=== PATIENT | female | born 1955 | race Hispanic/Latino ===

== ENCOUNTER 2016-05-18 00:16 | Inpatient (IN) | payer BC, OTHER ==
[2016-05-18 00:29] VITALS: BMI 42.0
--- NOTE | 2016-05-18 00:57 | ED PDOC ---
Arrival/HPI - General Chief Complaint: Chest Pain Time Seen by Provider: 05/18/16 00:21 Historian: Patient - History of Present Illness Narrative History of Present Illness (Text): 05/18/16 00:53 Kristina Rosas is a 60 year old female, whose past medical history includes COPD, fatty liver, CAD with 6 stents, and appendectomy, presents to the emergency department for evaluation of transient chest pain, mild headache and shoulder pain prior to arrival. Patient states that symptoms have currently resolved. Denies any shortness of breath. Denies fever, chills, dizziness, nausea, vomiting, diarrhea, urinary symptoms or any other complaints at this time. Time/Duration: 1-3 hours Symptom Onset: Gradual Symptom Course: Resolved Severity Level: Mild Activities at Onset: Light Context: Home Past Medical History - Provider Review Nursing Documentation Reviewed: Yes - Cardiac Hx Hypertension: Yes Hx Pacemaker: No Other/Comment: 6 cardiac stents/right leg stents and balloon - Pulmonary Hx Chronic Obstructive Pulmonary Disease (COPD): Yes - Neurological Hx Neurological Disorder: No Hx Paralysis: No - HEENT Hx HEENT Disorder: No Hx Blind: No Hx Cataracts: No Hx Deafness: No Hx Difficulty Chewing: No Hx Epistaxis: No Hx Glaucoma: No Hx Macular Degeneration: No - Renal Hx Renal Disorder: No Hx Renal Failure: No - Endocrine/Metabolic Hx Diabetes Mellitus Type 1: No Hx Diabetes Mellitus Type 2: Yes Hx Hypothyroidism: Yes - Hematological/Oncological Hx Blood Disorders: No Hx Blood Transfusions: No Hx Blood Transfusion Reaction: No - Integumentary Hx Dermatological Disorder: No Hx Basal Cell Carcinoma: No Hx Eczema: No Hx Melanoma: No Hx Psoriasis: No Hx Squamous Cell Carcinoma: No - Musculoskeletal/Rheumatological Hx Musculoskeletal Disorders: No - Gastrointestinal Hx Gastrointestinal Disorders: No Hx Colostomy: No Hx Crohn's Disease: No Hx Diverticulitis: No Hx Gall Bladder Disease: No Hx Gastroesophageal Reflux: No Hx Gastrointestinal Ulcer: No Hx Ileostomy: No Hx Liver Failure: Yes (fatty liver) Hx Pancreatitis: No HX Swallowing Problems: No - Genitourinary/Gynecological Hx Genitourinary Disorders: No Hx Hematuria: No Hx Incontinence: No Hx Prostate Problems: No Hx Sexually Transmitted Diseases: No Hx Urinary Tract Infection: No - Psychiatric Hx Anxiety: Yes Hx Emotional Abuse: No Hx Physical Abuse: No Hx Substance Use: No - Surgical History Hx Appendectomy: Yes (1976) Other/Comment: ptca x2 with 6 stents total, 3 stents 05/18/12 developed hematoma post ptca 05/18/12, fem angiogram 01/13/12, right leg angiogram 06/19/12, ptca 10/01 - Anesthesia Hx Anesthesia Reactions: Yes ("MY BODY DOESN'T TAKE IT",I FEEL EVERYTHING") Hx Malignant Hyperthermia: No - Suicidal Assessment Feels Threatened In Home Enviroment: No Family/Social History - Physician Review Nursing Documentation Reviewed: Yes Family/Social History: No Known Family HX Smoking Status: Light Smoker < 10 Cigarettes Daily Hx Alcohol Use: No Hx Substance Use: No Hx Substance Use Treatment: No Allergies/Home Meds Allergies/Adverse Reactions: Allergies No Known Allergies Allergy (Verified 01/11/15 21:) Home Medications: Home Meds Medication Instructions Recorded Confirmed Furosemide [Lasix] 40 mg PO DAILY 10/19/11 03/03/15 Glipizide 10 mg PO DAILY 10/19/11 03/03/15 Levothyroxine [Synthroid] 112 mcg PO QA 10/19/11 03/03/15 Sitagliptin Phosphate [Januvia] 100 mg PO DAILY 10/19/11 03/03/15 Metoprolol Tartrate [Lopressor] 25 mg PO DAILY 10/21/11 03/03/15 Metformin Hydrochloride [Metformin] 1,000 mg PO BID 12/28/11 03/03/15 Cilostazol [Cilostazol] 50 mg PO BID 09/14/13 03/03/15 Docusate [Colace] 100 mg PO BID 11/19/14 03/03/15 Gabapentin 100 mg PO HS 11/19/14 03/03/15 Iron Carb,Gl/FA/B12/C/Docusate 1 tab PO DAILY 11/19/14 03/03/15 [Ferralet 90] Lisinopril 20 mg PO DAILY 11/19/14 03/03/15 Lubiprostone [Amitiza] 24 mcg PO BID 11/19/14 03/03/15 Pantoprazole Sodium [Protonix] 40 mg PO DAILY 11/19/14 03/03/15 Phenazopyridine Hydrochlorid2 200 mg PO HS 11/19/14 03/03/15 [Phenazopyridine HCl] Promethazine/Dextromethorphan 1 tsp PO HS PRN 11/19/14 03/03/15 [Promethazine Dm 15 mg/5 ml-6.25 mg/5 ml 118 M] Ropinirole Hydrochloride [Requip] 0.25 mg PO HS 11/19/14 03/03/15 Allopurinol 300 mg PO DAILY 03/03/15 03/03/15 Atorvastatin [Lipitor] 40 mg PO DAILY 03/03/15 03/03/15 Review of Systems - Physician Review All systems were reviewed & negative as marked: Yes - Review of Systems Constitutional: Normal. absent: Fatigue, Fevers Respiratory: absent: SOB, Cough, Sputum Cardiovascular: Chest Pain Neurological: Headache. absent: Dizziness Psychiatric: Normal Physical Exam Vital Signs Reviewed: Yes Vital Signs Temp Pulse Resp BP Pulse Ox 05/18/16 04:51 68 16 134/66 97 05/18/16 00:27 97.7 F 86 18 109/63 99 Temperature: Afebrile Blood Pressure: Normal Pulse: Regular Respiratory Rate: Normal Appearance: Positive for: Well-Appearing, Non-Toxic, Comfortable Pain Distress: None Mental Status: Positive for: Alert and Oriented X 3 - Systems Exam Head: Present: Atraumatic, Normocephalic Pupils: Present: PERRL Extroacular Muscles: Present: EOMI Conjunctiva: Present: Normal Respiratory/Chest: Present: Clear to Auscultation, Good Air Exchange. No: Respiratory Distress, Accessory Muscle Use Cardiovascular: Present: Regular Rate and Rhythm, Normal S1, S2. No: Murmurs Abdomen: Present: Normal Bowel Sounds. No: Tenderness, Distention, Peritoneal Signs Neurological: Present: GCS=15, CN II-XII Intact, Speech Normal Skin: Present: Warm, Dry, Normal Color. No: Rashes Psychiatric: Present: Alert, Oriented x 3, Normal Insight, Normal Concentration Medical Decision Making ED Course and Treatment: 05/18/16 00:58 Impression: A 60 year old female who presents to the emergency department complaining of transient chest pain, headache and shoulder pain, which has currently resolved. Plan: --EKG -- Labs, cardiac enzymes -- Chest X-ray -- Reassess and disposition Progress Notes: 05/18/16 00:59 EKG interpreted by me: NSR @ 83 bpm. LVH. Anteroseptal scar. Non-specific ST/T changes. 05/18/16 03:19 2nd EKG interpreted by me: NSR @ 82. no change from first pt with a elevated troponin of 3.53. Case discussed with who accepts patient under her service with , human relations manager, on consult. - Lab Interpretations Lab Results: 05/18/16 01:00 05/18/16 01:00 Lab Results 05/18/16 12:12: POC Glucose (mg/dL) 328 H 05/18/16 09:25: Lactate Dehydrogenase 579, Total Creatine Kinase 361 H, CK-MB ( CK-2) 10.3 H, CK-MB (CK-2) % 2.9, Troponin I 4.85 H* D, TSH 3rd Generation 28.70 H 05/18/16 07:56: POC Glucose (mg/dL) 200 H 05/18/16 01:00: WBC 9.9, RBC 5.46, Hgb 12.3, Hct 38.9, MCV 71.2 L, MCH 22.5 L, MCHC 31.6, RDW 16.0 H, Plt Count 287, PT 11.5, INR 1.06, APTT 29.9, Sodium 138, Potassium 4.1, Chloride 106, Carbon Dioxide 20 L, Anion Gap 16, BUN 60 H, Creatinine 2.8 H, Est GFR ( Amer) 21, Est GFR (Non-Af Amer) 17, Random Glucose 267 H, Hemoglobin A1c 9.4 H D, Calcium 9.4, Total Bilirubin 0.5, AST 38 , ALT 17, Alkaline Phosphatase 108, Lactate Dehydrogenase 620, Total Creatine Kinase 326 H, CK-MB (CK-2) 11.0 H, CK-MB (CK-2) % 3.4 H, Troponin I 3.53 H* D, Total Protein 7.6, Albumin 4.0, Globulin 3.6, Albumin/Globulin Ratio 1.1, Triglycerides 669 H, Cholesterol 293 H, LDL Cholesterol Direct 152 H, HDL Cholesterol 43 I have reviewed the lab results: Yes - RAD Interpretation Radiology Orders: 05/18/16 00:39 CHEST PORTABLE [RAD] Stat Wire Charger: ED Physician - EKG Interpretation Interpreted by ED Physician: Yes Type: 12 lead EKG - Medication Orders Current Medication Orders: Acetaminophen (Tylenol 325mg Tab) 650 mg PO TID PRN PRN Reason: Headache Arformoterol Tartrate (Brovana) 15 mcg IH [id number] [facility] Aspirin (Ecotrin) 81 mg PO DAILY [facility] Last Admin: 05/19/16 11:07 Dose: 81 MG Atorvastatin Calcium (Lipitor) 80 mg PO DIN [facility] Last Admin: 05/19/16 19:04 Dose: 80 MG Budesonide (Pulmicort Respules) 0.5 mg IH [id number] [facility] Cilostazol (Pletal) 50 mg PO BID [facility] Last Admin: 05/19/16 19:04 Dose: 50 MG Clopidogrel Bisulfate (Plavix) 75 mg PO DAILY [facility] Last Admin: 05/19/16 11:09 Dose: 75 MG Docusate Sodium (Colace) 100 mg PO BID [facility] Last Admin: 05/19/16 19:04 Dose: 100 MG Enoxaparin Sodium (Lovenox) 90 mg SC Q24H [facility] PRN Reason: Protocol Last Admin: 05/19/16 14:03 Dose: Not Given Non-Admin Reason: Patient Refused Fenofibrate (Tricor) 145 mg PO DAILY [facility] Last Admin: 05/19/16 11:06 Dose: 145 MG Gabapentin (Neurontin) 100 mg PO [facility] PRN Reason: Protocol Last Admin: 05/18/16 22:05 Dose: 100 MG Behavioural Document 05/18/16 22:05 KIM (Rec: 05/18/16 22:06 KIM [id number]) Maintenance Maintenance Dose Yes Nonmedicinal Nonmedicinal Interventions Redirect Therapeutic Communication Glipizide (Glucotrol) 10 mg PO ACB [facility] Last Admin: 05/19/16 11:08 Dose: 10 MG Hydralazine HCl (Apresoline) 10 mg PO QID PRN PRN Reason: For SBP>170 and Diastolic>100 Last Admin: 05/19/16 11:09 Dose: 10 MG Insulin Human Regular (Humulin R Low) 0 units SC ACHS [facility] PRN Reason: Protocol Last Admin: 05/19/16 19:07 Dose: Not Given Non-Admin Reason: Blood Sugar Parameter Levothyroxine Sodium (Synthroid) 200 mcg PO ACB [facility] Last Admin: 05/19/16 08:39 Dose: 200 MCG Metoprolol Tartrate (Lopressor) 25 mg PO BID [facility] Last Admin: 05/19/16 19:04 Dose: 25 MG MAR Pulse and Blood Pressure Document 05/19/16 19:04 NM (Rec: 05/19/16 19:04 NM [facility] [id number]) Pulse Pulse Rate (60-90) 74 Non-Formulary Medication (Ropinirole Hydrochloride [Requip]) 0.25 mg PO HS [facility] Last Admin: 05/18/16 22:00 Dose: Pantoprazole Sodium (Protonix Ec Tab) 40 mg PO 0630 [facility] Last Admin: 05/19/16 06:31 Dose: 40 MG Pantoprazole Sodium (Protonix Ec Tab) 40 mg PO DAILY [facility] Last Admin: 05/19/16 11:10 Dose: Sitagliptin Phosphate (Januvia) 25 mg PO DAILY [facility] Last Admin: 05/19/16 11:09 Dose: 25 MG Discontinued Medications Acetaminophen (Tylenol 325mg Tab) 650 mg PO ONCE ONE Stop: 05/18/16 11:16 Last Admin: 05/18/16 11:25 Dose: 650 MG MAR Pain/Vitals Document 05/18/16 11:25 JOSE A (Rec: 05/18/16 11:25 JOSE A [id number] Pain Reassessment Is This A Pain ReAssessment? No Sleep Is patient sleeping during reassessment? No Presence of Pain Presence of Pain No Acetaminophen (Tylenol 325mg Tab) 650 mg PO Q3H PRN PRN Reason: Headache Aspirin (Aspirin) 325 mg PO ONCE STA Stop: 05/18/16 02:06 Last Admin: 05/18/16 02:13 Dose: 325 MG Docusate Sodium (Colace) 100 mg PO BID [facility] Last Admin: 05/19/16 19:29 Dose: Insulin Human Regular (Humulin R Low) 0 units SC ACHS [facility] PRN Reason: Protocol Last Admin: 05/19/16 14:10 Dose: Levothyroxine Sodium (Synthroid) 112 mcg PO ACB [facility] Last Admin: 05/18/16 11:10 Dose: 112 MCG Pantoprazole Sodium (Protonix Ec Tab) 40 mg PO STAT STA Stop: 05/18/16 11:31 Last Admin: 05/18/16 11:39 Dose: 40 MG Sitagliptin Phosphate (Januvia) 100 mg PO DAILY [facility] - Scribe Statement The provider has reviewed the documentation as recorded by the Joao Tang Provider Attestation: All medical record entries made by the Scribe were at my direction and personally dictated by me. I have reviewed the chart and agree that the record accurately reflects my personal performance of the history, physical exam, medical decision making, and the department course for this patient. I have also personally directed, reviewed, and agree with the discharge instructions and disposition. Disposition/Present on Arrival - Present on Arrival Any Indicators Present on Arrival: No History of DVT/PE: No History of Uncontrolled Diabetes: No Urinary Catheter: Yes (inserted in or) History of Decub. Ulcer: No History Surgical Site Infection Following: None - Disposition Have Diagnosis and Disposition been Completed?: Yes Diagnosis: Chest pain Disposition: HOSPITALIZED Disposition Time: 03:05 Patient Plan: Observation Patient Problems: Current Active Problems Problem Status Diagnosed Chest pain Acute Diabetes mellitus with peripheral vascular disease Acute Intracerebral hemorrhage Acute Peripheral arterial occlusive disease Acute Condition: STABLE
[2016-05-18 01:34] LABS: HEMATOCRIT 38.9 % (36.0-48.0); MEAN CELL VOLUME 71.2 fL (80.0-105.0); MEAN CORPUSCULAR HEMOGLOBIN 22.5 pg (25.0-35.0); MEAN CORPUSCULAR HGB CONC 31.6 g/dl (31.0-37.0); PLATELET COUNT 287 10^3/uL (120.0-450.0); WHITE BLOOD COUNT 9.9 10^3/ul (4.5-11.0)
[2016-05-18 01:40] LABS: INR 1.06 (0.93-1.08); PARTIAL THROMBOPLASTIN TIME 29.9 Seconds (23.7-30.8)
[2016-05-18 01:45] LABS: ALB/GLOB RATIO 1.1 (1.1-1.8); BILIRUBIN,TOTAL 0.5 mg/dL (0.2-1.3); CALCIUM 9.4 mg/dL (8.4-10.5); POTASSIUM 4.1 mmol/L (3.6-5.0); TOTAL PROTEIN 7.6 g/dL (5.8-8.3)
[2016-05-18 02:04] LABS: TROPONIN I 3.53 ng/mL
[2016-05-18 08:28] LABS: CHOLESTEROL 293 mg/dL (130-200)
[2016-05-18 10:13] LABS: TROPONIN I 4.85 ng/mL
[2016-05-18] MEDS ORDERED: Levothyroxine 112 MCG TAB PO SCH (10:30)
--- NOTE | 2016-05-18 10:52 | RAD ---
HISTORY: pain COMPARISON: Comparison is made to 01/16/2015 FINDINGS: LUNGS: No evidence of new infiltrate or consolidation in the lungs. PLEURA: No significant pleural effusion identified, no pneumothorax apparent. CARDIOVASCULAR: The cardiac silhouette is mildly enlarged. OSSEOUS STRUCTURES: No significant abnormalities. VISUALIZED UPPER ABDOMEN: Normal. OTHER FINDINGS: None. IMPRESSION: No significant interval change.
[2016-05-18] MEDS ORDERED: Pantoprazole 40 mg EC Tab PO STA (11:30)
[2016-05-18] MEDS: Enoxaparin 100 mg Syringe SC SCH (13:05)
[2016-05-18] MEDS: Insulin Reg-LOW-Coverage SC SCH ×3 (16:56→22:04)
--- NOTE | 2016-05-18 18:05 | CARD ---
APPROVED REPORT EKG Measurement Heart [id number] 170P46 [id number] <Conclusion> Normal sinus rhythm Possible Left atrial enlargement Left ventricular hypertrophy with repolarization abnormality Anteroseptal infarct, age undetermined Abnormal ECG
--- NOTE | 2016-05-18 18:08 | CARD ---
APPROVED REPORT EKG Measurement Heart [id number] 170P40 [id number] <Conclusion> Normal sinus rhythm Possible Left atrial enlargement Left ventricular hypertrophy with repolarization abnormality Cannot rule out Septal infarct, age undetermined Abnormal ECG
[2016-05-18] MEDS ORDERED: CILOSTAZOL 50 MG PO SCH (19:45)
--- NOTE | 2016-05-18 21:06 | HP ---
CHIEF COMPLAINT: Chest pain. HISTORY OF PRESENT ILLNESS: The patient is a 60-year-old, my private patient, has a history of chronic obstructive pulmonary disease, coronary artery disease with cardiac stent, appendectomy, obesity, came to the Emergency Room for evaluation of sudden onset chest pain, mild headache, with shoulder pain. Prior to arrival, patient stated that symptoms have currently resolved. Actually, I saw the patient in telemetry. The patient was symptom-free. No shortness of breath, no fever, no chills, no dizziness. No nausea, vomiting, or diarrhea. No hematuria or hematochezia. No fever, no chills. PAST MEDICAL HISTORY: As above, hypertension, 6 cardiac stents, right leg stent and balloon, COPD, diabetes mellitus type 2, uncontrolled, hypothyroidism , fatty liver, anxiety. SURGICAL HISTORY: Appendectomy. FAMILY HISTORY: Father and mother noncontributory. HABITS: Light smoker, less than 10 cigarettes per day. Alcohol no. Substance abuse no. ALLERGIES: The patient is not allergic to any medications. HOME MEDICATIONS: Lasix, glipizide, Synthroid, Januvia, Lopressor, Colace, gabapentin, Amitiza, Protonix, Requip. REVIEW OF SYSTEMS: The patient seen and examined on the bedside in telemetry, sitting on the chair. No more chest pain. No nausea, vomiting, or diarrhea. No hematuria or hematochezia. No fever, no chills. No headache, no dizziness. PHYSICAL EXAMINATION: VITAL SIGNS: Temperature 97.9, pulse 71, blood pressure 122/70, respiratory rate 20. HEENT: Head normocephalic, atraumatic. Eyes: PERRLA. Extraocular muscles intact. Conjunctivae pink. Eyelids unremarkable. Nose patent. Mucous membranes moist. NECK: Supple. No carotid bruit, JVD or thyromegaly. CHEST: Bilaterally symmetrical. HEART: S1, S2 positive. LUNGS: Clear to auscultation. ABDOMEN: Soft. Bowel sounds present. No organomegaly. EXTREMITIES: No edema, no cyanosis. NEUROLOGIC: The patient is awake, alert, moving all 4 extremities. No focal deficit. LABORATORY DATA: White blood cells 9.9, hemoglobin 12.3, hematocrit 38.9, platelets 287. Glucose 266, 328. Troponin 4.85. ____ . Sodium 138, potassium 4.1, BUN 60, creatinine 2.8. ASSESSMENT AND PLAN: The patient is a 60-year-old lady with renal insufficiency , acute on chronic, hyperglycemia, uncontrolled diabetes mellitus, hemoglobin A1c is 9.4. Two sets of troponin is positive. Waiting for the third. Hypothyroidism, uncontrolled. Need to increase levothyroxine. Hypertriglyceridemia, hypercholesterolemia, came with chest pain, history of chronic obstructive pulmonary disease, coronary artery disease, status post 6 times cardiac stenting. Called cardiology consult. The patient seen by Dr. George. Waiting for the input. for triglyceride, on Crestor. thyroid medicine. GI and DVT prophylaxis. Repeat labs. We will follow up. Gisel Mccord MD cc: [id number] TT: 05/18/2016 21:05:22 mathew MCADAMS
[2016-05-18] MEDS: ROPINIROLE HYDROCHLORIDE 0.25 MG PO SCH (22:00)
[2016-05-19 00:52] VITALS: O2SAT 100
[2016-05-19] MEDS: Pantoprazole 40 mg EC Tab PO SCH ×2 (06:31→11:10)
[2016-05-19 07:17] LABS: ADD MANUAL DIFF? NO
[2016-05-19 07:32] LABS: BASO # 0.07 K/mm3 (0.0-2.0); BASO % 0.8 % (0.0-3.0); EOS # 0.3 (0.0-0.7); EOS % 3.4 % (1.5-5.0); GRAN # 5.77 (1.4-6.5); GRAN % 62.6 % (50.0-68.0); HEMATOCRIT 39.5 % (36.0-48.0); LYMPH # 2.4 (1.2-3.4); LYMPH % 25.8 % (22.0-35.0); MEAN CELL VOLUME 72.1 fL (80.0-105.0); MEAN CORPUSCULAR HEMOGLOBIN 22.3 pg (25.0-35.0); MEAN CORPUSCULAR HGB CONC 30.9 g/dl (31.0-37.0); MONO # 0.7 (0.1-0.6); MONO % 7.4 % (1.0-6.0); PLATELET COUNT 269 10^3/uL (120.0-450.0); WHITE BLOOD COUNT 9.2 10^3/ul (4.5-11.0)
[2016-05-19 07:54] LABS: ALB/GLOB RATIO 1.1 (1.1-1.8); BILIRUBIN,TOTAL 0.6 mg/dL (0.2-1.3); CALCIUM 9.2 mg/dL (8.4-10.5); MAGNESIUM 2.4 mg/dL (1.7-2.2); PHOSPHOROUS 4.1 mg/dL (2.5-4.5); POTASSIUM 4.4 mmol/L (3.6-5.0); TOTAL PROTEIN 7.5 g/dL (5.8-8.3)
--- NOTE | 2016-05-19 08:26 | CON ---
DATE: 05/18/2016 REASON FOR CONSULTATION AND FOLLOWUP: Possible [id number] myocardial infarction, acute kidney in jury, diabetes, hypertension, hyperlipidemia, CAD. BRIEF CLINICAL HISTORY: This is a 60-year-old obese female with a past medical history significant f or PAD, status post TRANSFER AGENT, history of CAD, status post multiple stents, diabetes, hypertension, hyperli pidemia, chronic kidney injury. Came in with complaint of headache, then with back pain. Then, pain went to the front of the chest and mid sternal. Came to the Emergency Room. First troponin was pos itive. Repeat troponin pending. Denies any further episode of chest pain. PAST HISTORY: Significant for coronary artery disease status post multiple stents. Past history sig nificant for coronary artery disease, status multiple stents in the coronaries. Last stent in the co ronaries 09/2013. History of severe PAD, history of PTCA of right femoral artery occluded 10/06/2013, h istory of tPA, ____. Postop complicated by intracerebral bleed, left frontal lobe. Weakness complet winter resolved but patient gets off and on headache. Diabetes, hypertension, hyperlipidemia. SOCIAL HISTORY: Quit smoking 2 years ago. Denies any history of alcohol abuse. PREVIOUS CARDIAC WORKUP: As mentioned, history of multiple stents in the coronaries, last stent 10/17 13. Last PTCA of right femoral SFA 10/06/2013 with ____ and ____. Last echo 01/12/2015 shows ejection fraction 55%, trace aortic regurgitation, aortic sclerosis, mild ____, uygl-ji-guilriqx mitral regur gitation, yxln-wo-egakmwee tricuspid regurgitation, RV systolic pressure 43. REVIEW OF SYSTEMS: As per HPI. PHYSICAL EXAMINATION: As follows: VITAL SIGNS: Temperature afebrile, heart rate 77, blood pressure 143/73. HEENT: PERRLA, intact. NECK: Supple. No carotid bruits. No thyromegaly. CHEST: Clear to auscultation. HEART: S1, S2 regular. ABDOMEN: Soft. EXTREMITIES: Clubbing and cyanosis negative. BLOOD WORKUP: As follows: WBC 9.9, hemoglobin 12.3, hematocrit 38.9, platelet count 287. Chemistry shows sodium 138, potassium 4.1, chloride ____, carbon dioxide 20, anion gap of 16, BUN 60, creatini ne 2.8 with a creatinine clearance 70 mL ____. EKG shows normal sinus, some ____, no LVH with strain left anterior hemiblock. No acute ST-T changes noted. Last stress test 03/03/2015 shows partially reversible defect suspicious for ischemia. When compared from 09/14/2013 this is similar except there is less ____ on the current study. Ejection fraction 54% dated 03/03/2015. IMPRESSION: Bfk-WU-[id number] myocardial infarction, coronary artery disease, stress test abnormal 2015. Decided to treat medically because of the underlying coronary artery disease and patient is as ymptomatic. The patient admitted this time with chest pain, possible ebz-JJ-dzelwua myocardial infar ction with stage III, stage IV chronic kidney disease, diabetes, hypertension, hyperlipidemia, severe peripheral arterial disease, status post percutaneous transluminal angioplasty in 10/2013, last coron ian stent in 05/2013. RECOMMENDATIONS: Will follow up CPK, troponin trend. If the trend down and renal function remains e levated, we will treat medically if the patient remains asymptomatic. If the patient becomes symptom atic, we will consider cardiac catheterization. ____ very high risk patient, may end up in dialysis. Discussed in length with the patient this morning. The patient also opting for medical treatment. We will get echo, we will get lipid profile, follow up serial CPK, troponin. Resume medication. We will follow with you. Thank you, Dr. Mccord, for providing us the opportunity in taking care of the patient. Sruthi George MD cc: [id number] TT: 05/18/2016 16:04:34 Confirmation # [id number] Dictation # [id number]
[2016-05-19 08:35] LABS: TROPONIN I 5.63 ng/mL
[2016-05-19] MEDS: Insulin Reg-LOW-Coverage SC SCH ×5 (08:39→22:30)
[2016-05-19] MEDS: Levothyroxine 200 MCG TAB PO SCH (08:39)
[2016-05-19] MEDS ORDERED: GLIPIZIDE 10 MG PO SCH (10:00)
[2016-05-19] MEDS: Cilostazol 50 mg Tab UD PO SCH ×2 (11:07→19:04)
[2016-05-19] MEDS: Enoxaparin 100 mg Syringe SC SCH (14:03)
--- NOTE | 2016-05-19 16:34 | CON ---
DATE: 05/19/2016 REFERRING PHYSICIAN: Dr. Mccord. REASON FOR CONSULT: Chronic obstructive lung disease, may have sleep apnea syndrome. HISTORY OF PRESENT ILLNESS: This is a 60-year-old female with multiple medical problems, but noncomp liant with the followup, history of lung disease, coronary artery disease, history of coronary stent, morbid obesity, suspected sleep apnea syndrome, refused to do sleep study as outpatient, comes in [facility] nonspecific chest pain, seen by cardiology. Presently, sitting side of the bed. No headache, no rhinitis. Short of breath with exertion. No nausea, vomiting, diarrhea. Trace leg swelling. PAST MEDICAL HISTORY: History of coronary artery disease with multiple coronary stents and angioplas ty, chronic obstructive lung disease, diabetes, hypertension, anxiety disorder, obesity, and fatty li montez. SOCIAL HISTORY: Still active smoker. Denies any alcohol use. FAMILY HISTORY: Positive for coronary artery disease, sleep apnea syndrome, hypertension, diabetes. ALLERGIES: None known. MEDICATIONS: She is on hydralazine 10 mg q.i.d. p.r.n., Colace 100 mg twice a day, Ecotrin [address], glipizide 10 mg ACB, Januvia 25 mg daily, Lipitor 80 mg daily, metoprolol tartrate 25 mg twice a day, Lovenox 90 mg subQ daily, Neurontin 100 mg at bedtime, Plavix 75 mg daily, Pletal 50 mg twice a day, Protonix 40 mg daily, Requip 0.25 mg at bedtime, Synthroid 200 mcg ACB, Tricor 145 mg daily. REVIEW OF SYSTEMS: No headache, no rhinitis. Gets short of breath, admitted with chest pain. No na usea, no vomiting, no diarrhea. Trace leg swelling. PHYSICAL EXAMINATION: GENERAL: Sitting side of the bed, no acute distress. VITAL SIGNS: Temp is 98, heart rate is 58, respiratory rate is 20, blood pressure 107/51, pulse ox 1 00% on room air. HEENT: Moist mucous membranes. Crowded airway. Mallampati score is 4. NECK: Supple. No JVD. LUNGS: Have a few scattered rhonchi. HEART: S1 and S2. ABDOMEN: Obese, soft, and nontender. EXTREMITIES: There is trace edema. NEUROLOGIC: Awake, alert, follows simple commands. LABORATORY DATA: Shows hemoglobin 12.2, hematocrit 39.5, WBC 9.2, platelet count is 269. INR 1.06, PTT is 30. Sodium 139, potassium 4.4, chloride 108, bicarbonate is 22, BUN 46, creatinine 2.2, gluco se 138, calcium 9.2, phosphorus 4.1, magnesium 2.4, AST 33, ALT 30, alk phos is 99, LDH 639, troponin 5.63, and albumin is 3.9. TSH was 28 on admission. Had a chest x-ray done on admission showing no infiltrate or effusion noted. IMPRESSION AND PLAN: Coronary artery disease, admitted with myocardial infarction. May have a sleep apnea syndrome. Diabetes, hypothyroid, probably noncompliant, as her TSH is high. Hyperlipidemia, suspected sleep apnea syndrome, chronic lung disease. The patient was seen by cardiology, on anticoa gulation and gastric prophylaxis. Also, has renal insufficiency. Pulmonary point of view, continue bronchodilator, keep head elevated at 45 degrees. Gastric and deep venous thrombosis prophylaxis. F all precaution. We will recommend again PFT and attended sleep study as outpatient. Followup labs i n the morning. Thank you and we will follow with you. Sruthi Holland MD cc: [id number] TT: 05/19/2016 16:33:56 Confirmation # [id number] Dictation # [id number]
--- NOTE | 2016-05-19 19:03 | CARD ---
APPROVED REPORT EXAM: Two-dimensional and M-mode echocardiogram with Doppler and color Doppler. INDICATION Chest Pain LVFX 2D DIMENSIONS Left Atrium (2D)4.0 (1.6-4.0cm)IVSd1.6 (0.7-1.1cm) LVDd4.6 (3.9-5.9cm)PWd1.6 (0.7-1.1cm) LVDs3.4 (2.5-4.0cm)FS (%) 25.4 % LVEF (%)50.2 (>50%) M-Mode DIMENSIONS Aortic Root2.70 (2.2-3.7cm)Aortic Cusp Exc.1.50 (1.5-2.0cm) Aortic Valve AoV Peak Csesayze600.0cm/sAoV VTI35.1cmAO Peak GR.11mmHg LVOT Peak Prdzntcm52.9cm/sLVOT VTI16.20cmAO Mean GR.7mmHg Mitral Valve MV E Ftzjawke89.7cm/sMV A Xqacsyng41.7cm/sE/A ratio0.7 TDI Lateral E' Peak V3.80cm/sMedial E' Peak V3.90cm/sE/Lateral E'16.2 E/Medial E'15.8 Pulmonary Valve PV Peak Fkcnbkes04.7cm/sPV Peak Grad.2mmHg Tricuspid Valve TR Peak Obeeqxgr804xd/sRAP LEUYASKG30cxAsDJ Peak Gr.20mmHg [id number] LEFT VENTRICLE The left ventricle is normal size. There is mild concentric left ventricular hypertrophy. The systolic function is mildly impaired.EF-35% There is moderate to severe hypokinesis in the apical anterior wall. Transmitral Doppler flow pattern is Grade III-reversible restrictive diastolic dysfunction. No left ventricle thrombus noted on this study. There is no ventricular septal defect visualized. There is no left ventricular aneurysm. There is no mass noted in the left ventricle. RIGHT VENTRICLE The right ventricle is normal size. There is normal right ventricular wall thickness. The right ventricular systolic function is normal. ATRIA The left atrium is mildly dilated. The right atrium size is normal. The interatrial septum is intact with no evidence for an atrial septal defect. AORTIC VALVE The aortic valve is thickened but opens well. There is trace aortic regurgitation. There is no aortic valvular stenosis. There is no aortic valvular vegetation. MITRAL VALVE The mitral valve is thickened but opens well. Mitral regurgitation is mild. There is no mitral valve stenosis. There is no evidence of mitral valve prolapse. TRICUSPID VALVE The tricuspid valve leaflets are thickened , but open well. There is trace to mild tricuspid regurgitation.RVSP-30 mmof hg. There is no tricuspid valve stenosis. There is no tricuspid valve prolapse or vegetation. PULMONIC VALVE The pulmonic valve is borderline thickened. There is trace pulmonic valvular regurgitation. There is no pulmonic valvular stenosis. GREAT VESSELS The aortic root is normal in size. The ascending aorta is normal in size. The pulmonary artery is normal. The IVC is normal in size and collapses >50% with inspiration. PERICARDIAL EFFUSION There is no pleural effusion. There is a trace pericardial effusion. <Conclusion> The left ventricle is normal size. There is mild concentric left ventricular hypertrophy. The systolic function is mildly impaired.EF-35% There is trace aortic regurgitation. Mitral regurgitation is mild. There is trace to mild tricuspid regurgitation.RVSP-30 mmof hg. The IVC is normal in size and collapses >50% with inspiration. There is a trace pericardial effusion.
[2016-05-19] MEDS: Budesonide 0.5 mg/2 ml Inhal Susp UD IH SCH (20:05)
[2016-05-19] MEDS: Arformoterol 15 mcg/2 ml Inh Sol IH SCH (20:05)
--- NOTE | 2016-05-19 20:28 | PN ---
DATE: 05/19/2016 REASON FOR CONSULTATION AND FOLLOWUP: [id number]-[id number] myocardial infarction, acute kidney injury, nida betes, hypertension, hyperlipidemia, CAD. BRIEF CLINICAL HISTORY: This is a 60-year-old ____ with past medical history significant for PAD, st atus post PTCA of right lower extremity, then patient had acute critical limb ischemia, status post r epeat PTCA with ____ and echo catheter, complicated by ICV, intracerebral bleed, history of multiple stents in LAD, RCA and circumflex, admitted with episode of chest pain, positive troponin, non-ST-seg ment myocardial infarction, acute kidney injury, diabetes, hypertension, hyperlipidemia, decided to t reat medically because the patient is asymptomatic and as well as acute kidney injury, high risk of g oing into acute renal failure and became dialysis dependent and since the patient is asymptomatic, so is being treated medically. PHYSICAL EXAMINATION: VITAL SIGNS: Temperature afebrile, heart rate 58, blood pressure 107/51. HEENT: PERRLA. Extraocular muscles intact. NECK: Supple. No carotid bruits. No thyromegaly. CHEST: Clear to auscultation. HEART: S1, S2 regular. ABDOMEN: Soft. EXTREMITIES: Clubbing and cyanosis negative. LABORATORY DATA: Blood workup as follows: WBC ____, hemoglobin ____, hematocrit 39.5, platelet coun t 269. Chemistry shows sodium 139, potassium 4.4, chloride 108, carbon dioxide 22, anion gap of 13, BUN 46, creatinine 2.2. Creatinine clearance 23 mL. Troponin 5.63. IMPRESSION: Non-ST segment myocardial infarction, coronary artery disease, status post multiple perc utaneous transluminal coronary angioplasties, acute kidney injury, creatinine clearance 23 mL, worsen ing hypothyroidism, including TSH level, diabetes, hypertension, hyperlipidemia, severe peripheral ar terial disease, status post ____ of lower extremity twice complicated by echo catheter after acute li mb ischemia with intracerebral bleed. RECOMMENDATION: Since the patient is asymptomatic, renal insufficiency, multiple comorbidities, high risk of going into renal failure, and since the patient is asymptomatic, will try to treat patient m edically, monitor renal function closely, monitor troponin function closely. Increase Synthroid to 2 00 mcg daily. Continue aspirin, continue Plavix. Continue beta lyle. Continue high dose of ator vastatin. Continue Lovenox renally adjusted dose. Repeat the lab in the morning and repeat EKG in t he morning. Discussed with the patient at length. Discussed with the nursing staff taking care of t he patient. We will follow with you. Thank you, Dr. Mccord, for providing the opportunity in taking care of the patient. Sruthi George MD cc: [id number] TT: 05/19/2016 20:27:23 Confirmation # [id number] Dictation # [id number] rn
[2016-05-19] MEDS: ROPINIROLE HYDROCHLORIDE 0.25 MG PO SCH (22:46)
--- NOTE | 2016-05-19 22:49 | PN ---
DATE: 05/19/2016 SUBJECTIVE: The patient is a 60-year-old female. The patient is seen and examined at the bedside, c omplaining about a headache. I ordered her Tylenol. No shortness of breath. No nausea, vomiting, o r diarrhea. No rhinitis. Getting shortness of breath on walking. No hematuria or hematochezia. No swelling of the leg. No fever, no chills. PHYSICAL EXAMINATION: VITAL SIGNS: Temperature is 98, heart rate 58, respiratory rate 20, blood pressure 107/51, and pulse oximeter 100% on room air. HEENT: Head normocephalic, atraumatic. Eyes PERRLA. Extraocular muscles intact. Conjunctivae pink . Eyelids unremarkable. Nose patent. Mucous membranes moist. NECK: Supple. No carotid bruit, JVD or thyromegaly. CHEST: Bilaterally symmetrical. HEART: S1, S2 positive. LUNGS: Clear to auscultation. ABDOMEN: Soft. Bowel sounds present. No organomegaly. EXTREMITIES: Trace edema. NEUROLOGIC: The patient is awake, alert, moving all 4 extremities. No focal deficits. LABORATORY DATA: Hemoglobin 12.2, hematocrit 39.5, white blood cell 9.2, and platelets 259. Sodium 139, potassium 4.4, BUN 46, creatinine 2.2, glucose 138. AST 33, ALT 30. Troponin of 5.63. TSH is 28. ASSESSMENT AND PLAN: The patient with chronic obstructive pulmonary disease; coronary artery disease ; admitted with chest pain and myocardial infarction, has sleep apnea syndrome; diabetes mellitus, un controlled; hypothyroidism, uncontrolled; noncompliant with her levothyroxine; hyperlipidemia. Chronic obstructive pulmonary disease, compression, still smoking. 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 Renal insufficiency. Gastrointestinal and deep vein thrombosis prophylaxis. Fall precautions. Recommended PFT. Headache, Tylenol was given. Multiple comorbidities. We need to repeat renal function test. Continue aspirin, Plavix, beta-lyle, atorvastatin for hypercholesterolemia, Lovenox. Waiting for nursing aide's plan; it looks like the nursing aide wants to treat medically. We will follow up. Gisel Mccord MD cc: [id number] TT: 05/19/2016 22:48:20 Confirmation # [id number] Dictation # [id number] vn
[2016-05-20 02:33] VITALS: RESP 20
[2016-05-20] MEDS: Pantoprazole 40 mg EC Tab PO SCH ×2 (06:24→09:21)
[2016-05-20 07:08] LABS: ADD MANUAL DIFF? NO
[2016-05-20 07:15] LABS: BASO # 0.05 K/mm3 (0.0-2.0); BASO % 0.6 % (0.0-3.0); EOS # 0.3 (0.0-0.7); GRAN # 4.86 (1.4-6.5); HEMATOCRIT 36.5 % (36.0-48.0); LYMPH # 2.1 (1.2-3.4); LYMPH % 26.8 % (22.0-35.0); MEAN CELL VOLUME 71.9 fL (80.0-105.0); MEAN CORPUSCULAR HGB CONC 30.7 g/dl (31.0-37.0); MONO # 0.5 (0.1-0.6); MONO % 6.6 % (1.0-6.0); PLATELET COUNT 247 10^3/uL (120.0-450.0); RED CELL DISTRIBUTION WIDTH 15.8 % (11.5-14.5); WHITE BLOOD COUNT 7.8 10^3/ul (4.5-11.0)
[2016-05-20 07:42] LABS: ALB/GLOB RATIO 1.1 (1.1-1.8); BILIRUBIN,TOTAL 0.6 mg/dL (0.2-1.3); CALCIUM 9.1 mg/dL (8.4-10.5); MAGNESIUM 2.5 mg/dL (1.7-2.2); PHOSPHOROUS 4.2 mg/dL (2.5-4.5); POTASSIUM 4.8 mmol/L (3.6-5.0); TOTAL PROTEIN 6.9 g/dL (5.8-8.3)
[2016-05-20] MEDS: Levothyroxine 200 MCG TAB PO SCH (07:50)
[2016-05-20] MEDS: Insulin Reg-LOW-Coverage SC SCH ×2 (07:51→12:10)
[2016-05-20] MEDS: Budesonide 0.5 mg/2 ml Inhal Susp UD IH SCH (08:39)
[2016-05-20] MEDS: Arformoterol 15 mcg/2 ml Inh Sol IH SCH (08:39)
[2016-05-20] MEDS: Cilostazol 50 mg Tab UD PO SCH (09:19)
[2016-05-20 10:24] LABS: TROPONIN I 3.47 ng/mL
--- NOTE | 2016-05-20 11:26 | PN ---
DATE: 05/20/2016 REASON FOR CONSULTATION AND FOLLOWUP: Yzk-MO-sxabavt myocardial infarction, acute kidney injury, nida betes, hypertension, hyperlipidemia, coronary artery disease. BRIEF CLINICAL HISTORY: A 60-year-old female with a past medical history significant for PAD, status post PTCA of right lower extremity. Then, patient had acute critical limb ischemia. The patient ad mitted with acute critical limb ischemia, is status post repeat PTCA with EKOS catheter and overnight infusion of the tPA, complicated by intracerebral bleed, history of multiple coronary stents. Admit paul with 2 days history of chest pain, positive troponin, upx-QB-hoelile myocardial infarction, acute kidney injury, hypertension, hyperlipidemia. Decided to treat medically to prevent further going de terioration of the function. The patient is asymptomatic. Troponin is trending down. PHYSICAL EXAMINATION: VITAL SIGNS: Temperature afebrile, heart rate 79, blood pressure 124/67. HEENT: PERRLA. Extraocular muscles intact. NECK: Supple. No carotid bruits. No thyromegaly. CHEST: Clear to auscultation. HEART: S1, S2 regular. ABDOMEN: Soft. EXTREMITIES: Clubbing, cyanosis negative. BLOOD WORKUP: WBC 7.8, hemoglobin 11.8, hematocrit 36.5, platelet count 247. Chemistry shows sodium , potassium 4. , chloride 108, carbon dioxide 18, BUN 15, creatinine , creatinine barry daksha 24 mL. IMPRESSION: Acute kidney injury, chronic renal insufficiency, diabetes, hypertension, hyperlipidemia , morbid obesity, body mass index 47.4 kg/meter squared, bwn-QZ-xbdjhhz myocardial infarction, best ry artery disease, multiple stents in the past, severe peripheral arterial disease. RECOMMENDATION: In view of the patient is asymptomatic, echo showed anterior wall hypokinesis, possi evelyn patient needs catheterization and needs a lot of contrast to intervene. That could lead to the p atient complete dialysis, very high risk. Since the patient is asymptomatic, opted for medical treat ment. Avoid nephrotoxic medication. Continue beta lyle, continue Lovenox, continue cilostazol. Levothyroxine increased to 200 because of hypothyroidism and getting worse. Continue hydralazine. O jody to be discharged in a day or two. We will discuss with Dr. Mccord. Thank you, Dr. Mccord, for providing us the opportunity in taking care of the patient. Aggressive me dical treatment for now. Emphasis on weight reduction. We will follow with you. Thank you, Dr. Mccord, for providing us the opportunity in taking care of the patient. Sruthi George MD cc: [id number] TT: 05/20/2016 11:26:17 Confirmation # [id number] Dictation # [id number] en
[2016-05-20] MEDS: Enoxaparin 100 mg Syringe SC SCH (12:10)
[2016-05-20 12:29] VITALS: BP 125/75; PULSE 62; TEMP 96.9
--- NOTE | 2016-05-20 15:38 | CARD ---
APPROVED REPORT EKG Measurement Heart [id number] CA 180P37 [id number] <Conclusion> Sinus bradycardia Left ventricular hypertrophy with repolarization abnormality Anteroseptal infarct, age undetermined Abnormal ECG
== END 2016-05-20 14:31 | disposition home or self-care (01) | DRG 121 ==
LOC: ED 00:16 → ERH 03:22 → 2RSO 05:13 → OBSVTOIN 12:58
PROVIDERS: ADMIT Internal Medicine; ATTEND Internal Medicine
PROC: 3E0F7GC Introduction of Other Therapeutic Substance into Respiratory Tract, Via Natural or Artificial Opening (ICD-10-PCS; principal; 2016-05-19)
DX: I21.4 Non-ST elevation (NSTEMI) myocardial infarction (principal); N17.9 Acute kidney failure, unspecified; E11.22 Type 2 diabetes mellitus with diabetic chronic kidney disease; N18.4 Chronic kidney disease, stage 4 (severe); E11.51 Type 2 diabetes mellitus with diabetic peripheral angiopathy without gangrene; J44.9 Chronic obstructive pulmonary disease, unspecified; I12.9 Hypertensive chronic kidney disease with stage 1 through stage 4 chronic kidney disease, or unspecified chronic kidney disease; I25.10 Atherosclerotic heart disease of native coronary artery without angina pectoris; E11.65 Type 2 diabetes mellitus with hyperglycemia; K76.0 Fatty (change of) liver, not elsewhere classified; E03.9 Hypothyroidism, unspecified; F41.9 Anxiety disorder, unspecified; E78.00 Pure hypercholesterolemia, unspecified; E78.1 Pure hyperglyceridemia; G47.30 Sleep apnea, unspecified; F17.210 Nicotine dependence, cigarettes, uncomplicated; E66.01 Morbid (severe) obesity due to excess calories; Z68.42 Body mass index [BMI] 45.0-49.9, adult; Z91.19 Patient's noncompliance with other medical treatment and regimen; Z95.5 Presence of coronary angioplasty implant and graft; Z82.49 Family history of ischemic heart disease and other diseases of the circulatory system; Z83.3 Family history of diabetes mellitus

== ENCOUNTER 2016-05-29 02:21 | Inpatient (IN) | payer OTHER ==
[2016-05-29 02:33] VITALS: BMI 43.4
--- NOTE | 2016-05-29 03:32 | ED PDOC ---
Arrival/HPI - General Chief Complaint: Chest Pain Time Seen by Provider: 05/29/16 02:34 Historian: Patient - History of Present Illness Narrative History of Present Illness (Text): 05/29/16 03:30 60 year old female whose past medical history includes COPD, fatty liver, CAD with 6 stents, and appendectomy presents to the Emergency department complaining of chest pain for the past day. Patient also notes slight headache, episode of vomiting. She denies fever, chills, dizziness, or urinary complaints. Time/Duration: 24 hours Symptom Onset: Gradual Symptom Course: Unchanged Activities at Onset: Rest Past Medical History - Provider Review Nursing Documentation Reviewed: Yes - Infectious Disease Hx of Infectious Diseases: None - Reproductive Menopause: Yes - Cardiac Hx Hypertension: Yes Hx Pacemaker: No Other/Comment: 6 cardiac stents/right leg stents and balloon - Pulmonary Hx Chronic Obstructive Pulmonary Disease (COPD): Yes - Neurological Hx Neurological Disorder: No Hx Paralysis: No - HEENT Hx HEENT Disorder: No Hx Blind: No Hx Cataracts: No Hx Deafness: No Hx Difficulty Chewing: No Hx Epistaxis: No Hx Glaucoma: No Hx Macular Degeneration: No - Renal Hx Renal Disorder: No Hx Renal Failure: No - Endocrine/Metabolic Hx Diabetes Mellitus Type 1: No Hx Diabetes Mellitus Type 2: Yes Hx Hypothyroidism: Yes - Hematological/Oncological Hx Blood Disorders: No Hx Blood Transfusions: No Hx Blood Transfusion Reaction: No - Integumentary Hx Dermatological Disorder: No Hx Basal Cell Carcinoma: No Hx Eczema: No Hx Melanoma: No Hx Psoriasis: No Hx Squamous Cell Carcinoma: No - Musculoskeletal/Rheumatological Hx Musculoskeletal Disorders: No - Gastrointestinal Hx Gastrointestinal Disorders: No Hx Colostomy: No Hx Crohn's Disease: No Hx Diverticulitis: No Hx Gall Bladder Disease: No Hx Gastroesophageal Reflux: No Hx Gastrointestinal Ulcer: No Hx Ileostomy: No Hx Liver Failure: Yes (fatty liver) Hx Pancreatitis: No HX Swallowing Problems: No - Genitourinary/Gynecological Hx Genitourinary Disorders: No Hx Hematuria: No Hx Incontinence: No Hx Prostate Problems: No Hx Sexually Transmitted Diseases: No Hx Urinary Tract Infection: No - Psychiatric Hx Anxiety: Yes Hx Emotional Abuse: No Hx Physical Abuse: No Hx Substance Use: No - Surgical History Hx Appendectomy: Yes (1976) Other/Comment: ptca x2 with 6 stents total, 3 stents 05/18/12 developed hematoma post ptca 05/18/12, fem angiogram 01/13/12, right leg angiogram 06/19/12, ptca 10/01 - Anesthesia Hx Anesthesia Reactions: Yes ("MY BODY DOESN'T TAKE IT",I FEEL EVERYTHING") Hx Malignant Hyperthermia: No - Suicidal Assessment Feels Threatened In Home Enviroment: No Family/Social History - Physician Review Nursing Documentation Reviewed: Yes Family/Social History: Unknown Family HX Smoking Status: Never Smoked Hx Alcohol Use: No Hx Substance Use: No Hx Substance Use Treatment: No Allergies/Home Meds Allergies/Adverse Reactions: Allergies No Known Allergies Allergy (Verified 01/11/15 21:13) Home Medications: Home Meds Medication Instructions Recorded Confirmed Furosemide [Lasix] 40 mg PO DAILY 10/19/11 03/03/15 Glipizide 10 mg PO DAILY 10/19/11 03/03/15 Levothyroxine [Synthroid] 112 mcg PO QAM 10/19/11 03/03/15 Sitagliptin Phosphate [Januvia] 100 mg PO DAILY 10/19/11 03/03/15 Metoprolol Tartrate [Lopressor] 25 mg PO DAILY 10/21/11 03/03/15 Metformin Hydrochloride [Metformin] 1,000 mg PO BID 12/28/11 03/03/15 Cilostazol 50 mg PO BID 09/14/13 03/03/15 Docusate [Colace] 100 mg PO BID 11/19/14 03/03/15 Gabapentin 100 mg PO HS 11/19/14 03/03/15 Iron Carb,Gl/FA/B12/C/Docusate 1 tab PO DAILY 11/19/14 03/03/15 [Ferralet 90 Tablet] Lisinopril 20 mg PO DAILY 11/19/14 03/03/15 Lubiprostone [Amitiza] 24 mcg PO BID 11/19/14 03/03/15 Pantoprazole Sodium [Protonix] 40 mg PO DAILY 11/19/14 03/03/15 Phenazopyridine Hydrochlorid2 200 mg PO HS 11/19/14 03/03/15 [Phenazopyridine HCl] Promethazine/Dextromethorphan 1 tsp PO HS PRN 11/19/14 03/03/15 [Promethazine-Dm Syrup] Ropinirole Hydrochloride [Requip] 0.25 mg PO HS 11/19/14 03/03/15 Allopurinol 300 mg PO DAILY 03/03/15 03/03/15 Atorvastatin [Lipitor] 40 mg PO DAILY 03/03/15 03/03/15 Review of Systems - Physician Review All systems were reviewed & negative as marked: Yes - Review of Systems Constitutional: absent: Fevers, Other (no chills) Respiratory: absent: SOB Cardiovascular: Chest Pain Gastrointestinal: Vomiting Genitourinary Female: absent: Dysuria, Frequency, Hematuria Musculoskeletal: Back Pain Neurological: Headache. absent: Dizziness Physical Exam Vital Signs Reviewed: Yes Vital Signs Temp Pulse Resp BP Pulse Ox 05/29/16 04:21 78 16 148/66 96 05/29/16 02:33 98.1 F 82 16 146/73 97 Temperature: Afebrile Blood Pressure: Normal Pulse: Regular Respiratory Rate: Normal Appearance: Positive for: Well-Appearing, Non-Toxic, Comfortable Pain Distress: None Mental Status: Positive for: Alert and Oriented X 3 - Systems Exam Head: Present: Atraumatic, Normocephalic Pupils: Present: PERRL Extroacular Muscles: Present: EOMI Conjunctiva: Present: Normal Mouth: Present: Moist Mucous Membranes Neck: Present: Normal Range of Motion Respiratory/Chest: Present: Clear to Auscultation, Good Air Exchange. No: Respiratory Distress, Accessory Muscle Use, Wheezes, Rales, Rhonchi Cardiovascular: Present: Regular Rate and Rhythm, Normal S1, S2. No: Murmurs, Rub, Gallop Abdomen: Present: Normal Bowel Sounds. No: Tenderness, Distention, Peritoneal Signs, Rebound, Guarding Back: Present: Normal Inspection Upper Extremity: Present: Normal Inspection. No: Cyanosis, Edema Lower Extremity: Present: Normal Inspection. No: Edema Neurological: Present: GCS=15, CN II-XII Intact, Speech Normal Skin: Present: Warm, Dry, Normal Color. No: Rashes Psychiatric: Present: Alert, Oriented x 3, Normal Insight, Normal Concentration Medical Decision Making ED Course and Treatment: 05/29/16 03:34 Impression: 60 year old female complaining of chest pain. Physical exam unremarkable. Plan: --EKG --Chest X-ray --Labs --zofran -- Reassess and disposition Prior Visits: Notes and results from previous visits were reviewed. Progress Notes: 05/29/16 03:35 EKG: Ordered, reviewed, and independently interpreted the EKG. Rate : 79 BPM Rhythm : NSR Interpretation : LVH, anterior septal infarct, nonspecific ST/T changes( unchanged from previous05/28/16) 05/29/16 05:26 Chest X-ray impression: negative, ready by me 05/29/16 05:[address] Mccord who accepts patient to her service. Telemetry admission. Dr. George on consult. - Lab Interpretations Lab Results: 05/29/16 03:35 05/29/16 03:35 Lab Results 05/29/16 03:35: WBC 9.5 D, RBC 5.66, Hgb 12.4, Hct 39.9, MCV 70.5 L, MCH 21.9 L , MCHC 31.1, RDW 16.8 H, Plt Count 317, MPV 12.4 H, PT 11.0, INR 1.02, APTT 30.1 , Sodium 137, Potassium 4.4, Chloride 106, Carbon Dioxide 20 L, Anion Gap 15, BUN 55 H, Creatinine 2.3 H, Est GFR ( Amer) 26, Est GFR (Non-Af Amer) 22 , Random Glucose 217 H, Calcium 9.4, Total Bilirubin 0.5, AST 28, ALT 15, Alkaline Phosphatase 110, Lactate Dehydrogenase 645, Total Creatine Kinase 148, Troponin I 2.49 H* D, Total Protein 7.9, Albumin 4.1, Globulin 3.8, Albumin/ Globulin Ratio 1.1 Pt. with past hx. elevated troponins I have reviewed the lab results: Yes - RAD Interpretation Radiology Orders: 05/29/16 03:00 CHEST PORTABLE [RAD] Stat - Medication Orders Current Medication Orders: Discontinued Medications Aspirin (Aspirin) 325 mg PO ONCE STA Stop: 05/29/16 04:10 Last Admin: 05/29/16 04:25 Dose: 325 MG Morphine Sulfate (Morphine) 4 mg IVP STAT STA Stop: 05/29/16 04:09 Last Admin: 05/29/16 04:24 Dose: 4 MG MAR Pain Assessment Document 05/29/16 04:24 LAC (Rec: 05/29/16 04:24 LAC [id number] Pain Reassessment Is this a pain reassessment? No IVP Administration Document 05/29/16 04:24 LAC (Rec: 04/01/17 04:24 LAC [id number]) Charges for Administration # of IVP Administrations 1 Ondansetron HCl (Zofran Inj) Confirm Administered Dose 4 mg .ROUTE .STK-MED ONE Stop: 05/29/16 04:01 Last Admin: 05/29/16 04:25 Dose: Ondansetron HCl (Zofran Inj) 4 mg IVP ONCE ONE Stop: 05/29/16 04:10 Last Admin: 05/29/16 04:09 Dose: 4 MG IVP Administration Document 05/29/16 04:09 LAC (Rec: 05/29/16 04:25 LAC [facility]) Charges for Administration # of IVP Administrations 1 - Scribe Statement The provider has reviewed the documentation as recorded by the Scribe Maria Elena Callejas Provider Scribe Attestation: All medical record entries made by the Scribe were at my direction and personally dictated by me. I have reviewed the chart and agree that the record accurately reflects my personal performance of the history, physical exam, medical decision making, and the department course for this patient. I have also personally directed, reviewed, and agree with the discharge instructions and disposition. Disposition/Present on Arrival - Present on Arrival Any Indicators Present on Arrival: No History of DVT/PE: No History of Uncontrolled Diabetes: No Urinary Catheter: Yes (inserted in or) History of Decub. Ulcer: No History Surgical Site Infection Following: None - Disposition Have Diagnosis and Disposition been Completed?: Yes Diagnosis: Chest pain, Coronary insufficiency Disposition: HOSPITALIZED Disposition Time: 05:52 Patient Plan: Admission Patient Problems: Current Active Problems Problem Status Diagnosed Chest pain Acute Coronary insufficiency Acute Diabetes mellitus with peripheral vascular disease Acute Intracerebral hemorrhage Acute Peripheral arterial occlusive disease Acute Condition: STABLE Discharge Instructions (ExitCare): Chest Pain (ED) Referrals: Gisel Mccord MD [Primary Care Provider] - Follow up with primary
[2016-05-29 04:05] LABS: HEMATOCRIT 39.9 % (36.0-48.0); MEAN CELL VOLUME 70.5 fL (80.0-105.0); MEAN CORPUSCULAR HEMOGLOBIN 21.9 pg (25.0-35.0); MEAN CORPUSCULAR HGB CONC 31.1 g/dl (31.0-37.0); WHITE BLOOD COUNT 9.5 10^3/ul (4.5-11.0)
[2016-05-29 04:06] LABS: MEAN PLATELET VOLUME 12.4 fl (7.0-11.0); RED CELL DISTRIBUTION WIDTH 16.8 % (11.5-14.5)
[2016-05-29 04:07] LABS: INR 1.02 (0.93-1.08); PARTIAL THROMBOPLASTIN TIME 30.1 Seconds (23.7-30.8)
[2016-05-29] MEDS ORDERED: Morphine 4 mg/ml ISec IVP STA (04:08)
[2016-05-29 04:17] LABS: ALB/GLOB RATIO 1.1 (1.1-1.8); BILIRUBIN,TOTAL 0.5 mg/dL (0.2-1.3); CALCIUM 9.4 mg/dL (8.4-10.5); POTASSIUM 4.4 mmol/L (3.6-5.0); TOTAL PROTEIN 7.9 g/dL (5.8-8.3)
[2016-05-29 04:42] LABS: TROPONIN I 2.49 ng/mL
--- NOTE | 2016-05-29 11:40 | CP.PCM.HP ---
<Tez Zamarripa - Last Filed: 05/29/16 13:22> History of Present Illness - History of Present Illness History of Present Illness: CC: chest pain 60 year old female with past medical history of COPD, DM, CAD s/p 6 cardiac stents, obesity, fatty liver, s/p appendectomy [place] [facility] complaining of chest pain. Patient reports her chest pain started morning after waking up. Upon further questioning, patient states that the chest pain was radiating from her headache which started one week ago. Her chest pain is located at substernal region, describes the pain as if someone is stabbing her with a knife. She states vomiting helped her relief the chest pain. Patient had 4 episodes of non bilious, non bloody vomiting episodes in total. At this moment patient is not in pain due to morphine administration in the ED. Patient had a negative nuclear stress test on 02/2015 and an echo of EF 55% on 12/2014. Patient denies weakness, fever, chills, shortness of breath, abdominal pain, diarrhea, constipation, urinary complaints, or recent diet changes. PMD: Dr. Quintanilla PMHx: COPD, DM, CAD s/p 6 cardiac stents, obesity, fatty liver PSHx: appendectomy, cardiac stents, right lower extremity stent Allergy: NKDA Social: Denies tobacco, alcohol or other illicit drug use Home Meds: See MAR Present on Admission - Present on Admission Any Indicators Present on Admission: No Review of Systems - Review of Systems All systems: reviewed and no additional remarkable complaints except - Constitutional Constitutional: As Per HPI, Headache. absent: Chills, Fever, Weakness - EENT Eyes: As Per HPI. absent: Discharge, Irritation, Itchy Eyes Ears: As Per HPI. absent: Disequilibrium, Dizziness Nose/Mouth/Throat: As Per HPI. absent: Dry Mouth, Dysphagia, Halitosis - Cardiovascular Cardiovascular: As Per HPI, Chest Pain, Edema, Pedal Edema. absent: Diaphoresis - Respiratory Respiratory: As Per HPI. absent: Cough, Wheezing, Chest Congestion - Gastrointestinal Gastrointestinal: As Per HPI, Nausea, Vomiting. absent: Constipation, Diarrhea - Genitourinary Genitourinary: As Per HPI. absent: Urinary Frequency, Urinary Hesitance, Urinary Urgency - Musculoskeletal Musculoskeletal: As Per HPI, Back Pain. absent: Muscle Cramps, Muscle Weakness - Integumentary Integumentary: As Per HPI, Swelling. absent: Rash, Jaundice - Neurological Neurological: As Per HPI, Headaches. absent: Behavioral Changes, Confusion, Dizziness - Psychiatric Psychiatric: As Per HPI. absent: Anxiety, Auditory Hallucinations - Endocrine Endocrine: As Per HPI. absent: Polydipsia, Polyphagia, Polyuria Past Patient History - Infectious Disease Hx of Infectious Diseases: None - Past Social History Smoking Status: Never Smoked - CARDIAC Hx Hypertension: Yes Hx Pacemaker: No Other/Comment: 6 cardiac stents/right leg stents and balloon - PULMONARY Hx Chronic Obstructive Pulmonary Disease (COPD): Yes - NEUROLOGICAL Hx Neurological Disorder: No Hx Paralysis: No - HEENT Hx HEENT Problems: No Hx Blind: No Hx Cataracts: No Hx Deafness: No Hx Difficulty Chewing: No Hx Epistaxis: No Hx Glaucoma: No Hx Macular Degeneration: No - RENAL Hx Chronic Kidney Disease: No Hx Renal Failure: No - ENDOCRINE/METABOLIC Hx Diabetes Mellitus Type 1: No Hx Diabetes Mellitus Type 2: Yes Hx Hypothyroidism: Yes - HEMATOLOGICAL/ONCOLOGICAL Hx Blood Disorders: No Hx Blood Transfusions: No Hx Blood Transfusion Reaction: No - INTEGUMENTARY Hx Dermatological Problems: No Hx Basil Cell: No Hx Eczema: No Hx Melanoma: No Hx Psoriasis: No Hx Squamous Cell: No - MUSCULOSKELETAL/RHEUMATOLOGICAL Hx Musculoskeletal Disorders: No - GASTROINTESTINAL Hx Gastrointestinal Disorders: No Hx Colostomy: No Hx Crohn's Disease: No Hx Diverticulitis: No Hx Gall Bladder Disease: No Hx Gastroesophageal Reflux: No Hx Ileostomy: No Hx Liver Failure: Yes (fatty liver) Hx Pancreatitis: No HX Swallowing Problems: No - GENITOURINARY/GYNECOLOGICAL Hx Genitourinary Disorders: No Hx Hematuria: No Hx Incontinence: No Hx Sexually Transmitted Disorders: No Hx Urinary Tract Infection: No - PSYCHIATRIC Hx Anxiety: Yes Hx Emotional Abuse: No Hx Physical Abuse: No Hx Substance Use: No - SURGICAL HISTORY Hx Appendectomy: Yes (1976) Other/Comment: ptca x2 with 6 stents total, 3 stents 05/18/12 developed hematoma post ptca 05/18/12, fem angiogram 01/13/12, right leg angiogram 06/19/12, ptca 10/01 - ANESTHESIA Hx Anesthesia Reactions: Yes ("MY BODY DOESN'T TAKE IT",I FEEL EVERYTHING") Hx Malignant Hyperthermia: No Meds Allergies/Adverse Reactions: Allergies Allergy/AdvReac Type Severity Reaction Status Date / Time No Known Allergies Allergy Verified 05/29/16 11:35 Physical Exam - Constitutional Appears: Non-toxic, No Acute Distress - Head Exam Head Exam: ATRAUMATIC, NORMOCEPHALIC - Eye Exam Eye Exam: EOMI, PERRL - ENT Exam ENT Exam: Mucous Membranes Moist - Neck Exam Neck exam: Positive for: Normal Inspection - Respiratory Exam Respiratory Exam: Clear to Auscultation Bilateral, NORMAL BREATHING PATTERN. absent: Rhonchi, Wheezes, Respiratory Distress - Cardiovascular Exam Cardiovascular Exam: REGULAR RHYTHM, RRR, +S1, +S2 - GI/Abdominal Exam GI & Abdominal Exam: Normal Bowel Sounds, Soft. absent: Tenderness - Extremities Exam Extremities exam: Positive for: joint swelling, pedal edema (Right > Left LE), pedal pulses present. Negative for: tenderness - Back Exam Back exam: NORMAL INSPECTION - Neurological Exam Neurological exam: Alert, Oriented x3 - Psychiatric Exam Psychiatric exam: Normal Affect, Normal Mood - Skin Skin Exam: Normal Color, Warm Results - Vital Signs Recent Vital Signs: Last Vital Signs Temp 97.6 F 05/29/16 07:23 Pulse 76 05/29/16 07:23 Resp 18 05/29/16 07:23 BP 120/71 05/29/16 07:23 Pulse Ox 99 05/29/16 07:23 - Labs Result Diagrams: 05/29/16 03:35 05/29/16 03:35 Assessment & Plan - Assessment and Plan (Free Text) Assessment: 60 year old female with past medical history of COPD, DM, CAD s/p 6 cardiac stents, obesity, fatty liver, s/p appendectomy was admitted from chest pain. Plan: Chest pain -r/o stemi vs elevated troponin in setting of CKD -EKG showed NSR, LVH with QRS widening and repolarization abnormality. Anteroseptal infarct, age undetermined -CXR no active disease -Cardiology consult, Dr. George help appreciated -Continue ASA 81mg -Continue metoprolol 50mg BID -Continue lipitor 40mg po -Chronically elevated troponin: 3.69 today, continue to trend -Lovenox 80mg sc Q12h -Nephrology consult, Dr. Agarwal help appreciated Hypertension -Lisinopril 20mg po daily -metoprolol 50mg BID Hyperlipidemia -Continue lipitor 40mg po -Continue Gemfibrozil 600mg po BID DM -Alogliptin 25mg po -Glipizide 10mg po acb -ISS -FS ACHS -A1c 9.4 a week ago -special educator referral Right foot Edema -Cilostazol 50mg po BID -Lasix 40mg BID Hypothyroidism -Levothyroxine 112mcg po Prophylactic measures -protonix for GI ppx -Lovenox for DVT ppx -Sennosides for constipation <Juliette Vasquez - Last Filed: 05/29/16 14:42> Results - Vital Signs Recent Vital Signs: Last Vital Signs Temp 97.6 F 05/29/16 14:05 Pulse 76 05/29/16 14:05 Resp 18 05/29/16 14:05 BP 125/80 05/29/16 14:05 Pulse Ox 99 05/29/16 07:23 - Labs Result Diagrams: 05/29/16 03:35 05/29/16 03:35 Labs: Laboratory Results - last 24 hr 05/29/16 12:05 Lactate Dehydrogenase 495 Total Creatine Kinase 175 Troponin I 3.69 H* D Attending/Attestation - Attestation I have personally seen and examined this patient.: Yes I have fully participated in the care of the patient.: Yes I have reviewed all pertinent clinical information: Yes Notes (Text): 05/29/16 14:37 60 year old female with past medical history of COPD, diabetes, hypertension, hypothyroidism and CAD s/p multiple cardiac stents who presented last night with complaint of chest, shoulder and neck pain. Currently she is pain free. Cardiac enzyme was elevated; r/o NSTMI vs elevated troponin in setting of CKD. Cardiology evaluation is requested. Case was discussed with Dr. Hudson; agrees with aspirin, statin, metoprolol and lovenox. Will continue to trend cardiac enzymes. Will request nephrology evaluation for CKD. Of note she was recently discharged last week with similar presentation and treated conservatively with medical management. Cardiac catherization was not done at the time because of her renal function. Continue with home medications for hypertension, diabetes, dyslipidemia and hypothyroidism. Juliette Vasquez MD Hospitalist.
[2016-05-29] MEDS ORDERED: Enoxaparin 80 mg Syringe SC SCH (11:45)
--- NOTE | 2016-05-29 12:45 | CARD ---
APPROVED REPORT EKG Measurement Heart [id number] <Conclusion> Normal sinus rhythm Left ventricular hypertrophy with QRS widening and repolarization abnormality Anteroseptal infarct, age undetermined Abnormal ECG
[2016-05-29] MEDS: Insulin Reg-MEDIUM-Coverage SC SCH ×3 (12:49→22:25)
--- NOTE | 2016-05-29 13:22 | RAD ---
HISTORY: chest pain COMPARISON: No prior. FINDINGS: LUNGS: No active pulmonary disease. PLEURA: No significant pleural effusion identified, no pneumothorax apparent. CARDIOVASCULAR: Normal. OSSEOUS STRUCTURES: No significant abnormalities. VISUALIZED UPPER ABDOMEN: Normal. OTHER FINDINGS: None. IMPRESSION: No active disease.
[2016-05-29 13:31] LABS: TROPONIN I 3.69 ng/mL
[2016-05-29] MEDS ORDERED: Pneumococcal 23-Valent Vaccine IM ONE (14:30)
[2016-05-29] MEDS: Cilostazol 50 mg Tab UD PO SCH (17:30)
[2016-05-29 20:18] LABS: TROPONIN I 4.32 ng/mL
--- NOTE | 2016-05-29 20:40 | CON ---
DATE: 05/29/2016 The patient is in room 263, bed 1. REASON FOR CONSULTATION: Chest pain, history of diabetes, hypertension, hyperlipidemia, coronary [place] disease, renal dysfunction. HISTORY OF PRESENT ILLNESS: The patient is a 60-year-old obese female with past medical history sign ificant for PAD, status post PTCA, history of coronary artery disease status post multiple stents, di abetes, hypertension, hyperlipidemia, chronic kidney disease; who came in with a history that she is getting episodes of headache and that is followed by sharp chest pain and then is followed by vomitin g and after she vomits the pain is relieved. She says she had 2 episodes yesterday of this pain. Th is pain has no relation with exertion. The patient's troponin, on previous admission were also posit angel and also positive on this admission. Catheterization was not done because of abnormal kidney fun ction and the patient will end up with dialysis with load of the dye. The patient now sitting in bed without any chest pain, shortness of breath, palpitation, or headache. PAST MEDICAL HISTORY: Significant for coronary artery disease, status post multiple stents with last stent 09/2013, history of severe PAD, history of PTCA of the right femoral artery occluded on 2013. The patient also given TPA for that. Postop complicated by intracerebral bleed left frontal l obe and weakness which has completely resolved, but patient off and on gets headache, history of diab etes, hypertension, hyperlipidemia. The patient's last echo was , which showed that LV size is normal, mild concentric left kya tricular hypertrophy and LV systolic function were decreased ejection fraction of 35%, mild mitral re gurgitation, trace to mild tricuspid regurgitation, trace aortic regurg, trace pericardial effusion. PREVIOUS CARDIAC WORKUP: As mentioned, history of multiple stents in coronaries, last stent 09/2013, last PTCA of the right superficial femoral artery, 10/06/2013. Last echo 05/19/2016, mild concentri c LV hypertrophy, normal size heart, ejection fraction 35%, mild mitral regurgitation, trace to mild tricuspid regurg, RVSP 30 mmHg. PERSONAL HISTORY: The patient stopped smoking about 2 years ago. Denies drinking alcohol. MEDICATIONS: The patient's medication at home, Lasix 40 mg daily, glipizide 10 mg daily, Synthroid 1 .2 mcg p.o. daily, Januvia 100 mg daily, metoprolol tartrate 25 mg p.o. daily, metformin 1000 mg b.i. d., cilostazol 50 mg b.i.d., gabapentin 100 mg p.o. at bedtime, Ferralet 1 tablet daily, lisinopril 2 0 daily, Protonix 40 daily, Requip q.i.d. 0.25 mg at bedtime, allopurinol 300 mg p.o. daily, Lipitor 40 mg p.o. daily, phenazopyridine HCL 200 mg p.o. at bedtime, Amitiza 24 mcg p.o. b.i.d. REVIEW OF SYSTEMS: All the systems were reviewed, positives mentioned in the history, others were ne gative. PHYSICAL EXAMINATION: VITAL SIGNS: Blood pressure 113/75, respirations 18, pulse 75, temperature 97.0. HEENT: Head is normocephalic. Eyes: Pupils normal. Conjunctivae normal. Nose and throat normal. NECK: JVP low. Carotid equal. THORAX: AP diameter normal. LUNGS: Clear. CARDIOVASCULAR: S1, S2. ABDOMEN: Soft, nontender, no organomegaly. Bowel sounds normal. EXTREMITIES: No clubbing, no cyanosis. LABORATORY DATA: WBC 9.5, hemoglobin 12.4, hematocrit 39.9, platelets 317. Sodium 137, potassium 4. 4, BUN 55, creatinine 2.3. Troponin, on previous admission 05/20/2016, was 3.47 and now, today, the troponin 2.49 and repeat one is 3.69. Total protein and albumin is normal. DIAGNOSES: Chest pain, persistent elevation of troponin, underlying coronary artery disease, status post stents and angioplasty, diabetes mellitus, hyperlipidemia, hypertension, peripheral vascular dis ease, chronic kidney disease, stress test in 03/03/2015 was abnormal. PLAN: The patient's chest pain is atypical for heart. Also she has persistent elevation of troponin , as we had seen on the previous admission and this admission. So there is a possibility of the fals e elevation of troponin; however, the patient has underlying coronary artery disease and has risk fac tors for that; but, if we do cardiac catheterization, the patient will end up with dialysis; so, at p resent, again we will treat her medically. Continue aspirin 81 mg p.o. daily, glipizide 10 mg p.o. d aily, potassium 10 mEq daily, furosemide 40 b.i.d., Lipitor 40 daily, gemfibrozil 600 b.i.d., metopro lol tartrate 50 b.i.d., Lovenox 80 mg subQ q. 12 hours. The patient's kidney function is not normal, so, Lovenox dose has to be reduced, we will put on 40 mg subQ daily, Pletal 50 mg b.i.d., levothyrox ine 112 mcg p.o. daily, lisinopril 20 mg daily. We will treat the chest pain and vomiting, symptomat ically. We will follow with you. Sruthi Hudson MD cc: [id number] TT: 05/29/2016 20:39:29 Confirmation # [id number] Dictation # [id number]
--- NOTE | 2016-05-29 22:22 | CP.PCM.CON ---
History of Present Illness - History of Present Illness History of Present Illness: 60 yo F w/ pmh of htn, DM, CAD s/p multiple stents, peripheral vascular disease s/p R femoral artery PTCA, presented with chest pain; Chest pain has been ongoing since past ~2 weeks, described as starting with headache before moving to shoulders and chest; she typically has been getting this pain at night but yesterday, pain occurred during day; associated with nausea but no overt vomiting; not associated with shortness of breath or palpitations; exercise tolerance at baseline of ~1/2 block before getting short of breath and leg pain; currently chest pain free; Review of Systems - Constitutional Constitutional: absent: Weight Loss Additional comments: No change in appetite - EENT Eyes: Blurred Vision. absent: Change in Vision Ears: Decreased Hearing Nose/Mouth/Throat: Epistaxis. absent: Sinus Pressure, Sore Throat - Cardiovascular Cardiovascular: As Per HPI, Leg Edema, Palpitations. absent: Paroxysmal Nocturnal Dyspnea - Respiratory Respiratory: Dyspnea on Exertion - Gastrointestinal Gastrointestinal: Abdominal Pain, Constipation, Hematemesis, Hematochezia - Genitourinary Genitourinary: absent: Change in Urinary Stream, Difficulty Urinating, Dysuria, Hematuria - Musculoskeletal Musculoskeletal: absent: Arthralgias, Back Pain - Integumentary Integumentary: absent: Pruritus, Rash - Neurological Neurological: Sensory Deficit. absent: Dizziness, Vertigo - Hematologic/Lymphatic Hematologic: absent: Easy Bleeding, Easy Bruising Past Patient History - Infectious Disease Hx of Infectious Diseases: None - Past Social History Smoking Status: Light Smoker < 10 Cigarettes Daily - CARDIAC Hx Hypertension: Yes Hx Pacemaker: No Other/Comment: 6 cardiac stents/right leg stents and balloon - PULMONARY Hx Chronic Obstructive Pulmonary Disease (COPD): Yes - NEUROLOGICAL Hx Neurological Disorder: No Hx Paralysis: No - HEENT Hx HEENT Problems: No Hx Blind: No Hx Cataracts: No Hx Deafness: No Hx Difficulty Chewing: No Hx Epistaxis: No Hx Glaucoma: No Hx Macular Degeneration: No - RENAL Hx Chronic Kidney Disease: No Hx Renal Failure: No - ENDOCRINE/METABOLIC Hx Diabetes Mellitus Type 1: No Hx Diabetes Mellitus Type 2: Yes Hx Hypothyroidism: Yes - HEMATOLOGICAL/ONCOLOGICAL Hx Blood Disorders: No Hx Blood Transfusions: No Hx Blood Transfusion Reaction: No - INTEGUMENTARY Hx Dermatological Problems: No Hx Basil Cell: No Hx Eczema: No Hx Melanoma: No Hx Psoriasis: No Hx Squamous Cell: No - MUSCULOSKELETAL/RHEUMATOLOGICAL Hx Musculoskeletal Disorders: No - GASTROINTESTINAL Hx Gastrointestinal Disorders: No Hx Colostomy: No Hx Crohn's Disease: No Hx Diverticulitis: No Hx Gall Bladder Disease: No Hx Gastroesophageal Reflux: No Hx Ileostomy: No Hx Liver Failure: Yes (fatty liver) Hx Pancreatitis: No HX Swallowing Problems: No - GENITOURINARY/GYNECOLOGICAL Hx Genitourinary Disorders: No Hx Hematuria: No Hx Incontinence: No Hx Sexually Transmitted Disorders: No Hx Urinary Tract Infection: No - PSYCHIATRIC Hx Anxiety: Yes Hx Emotional Abuse: No Hx Physical Abuse: No Hx Substance Use: No - SURGICAL HISTORY Hx Appendectomy: Yes (1976) Other/Comment: ptca x2 with 6 stents total, 3 stents 05/18/12 developed hematoma post ptca 05/18/12, fem angiogram 01/13/12, right leg angiogram 06/19/12, ptca 10/01 - ANESTHESIA Hx Anesthesia Reactions: Yes ("MY BODY DOESN'T TAKE IT",I FEEL EVERYTHING") Hx Malignant Hyperthermia: No Meds Allergies/Adverse Reactions: Allergies Allergy/AdvReac Type Severity Reaction Status Date / Time No Known Allergies Allergy Verified 05/29/16 11:35 - Medications Medications: Current Medications Acetaminophen (Tylenol 325mg Tab) 650 mg PO Q4H PRN PRN Reason: Pain, Mild (1-3) Aspirin (Ecotrin) 81 mg PO DAILY [facility] Atorvastatin Calcium (Lipitor) 40 mg PO DAILY [facility] Cilostazol (Pletal) 50 mg PO BID [facility] Last Admin: 05/29/16 17:30 Dose: 50 mg Enoxaparin Sodium (Lovenox) 40 mg SC DAILY [facility] Furosemide (Lasix) 40 mg PO BID [facility] Last Admin: 05/29/16 17:30 Dose: 40 mg Gemfibrozil (Lopid) 600 mg PO BID [facility] Last Admin: 05/29/16 17:31 Dose: 600 mg Glipizide (Glucotrol) 10 mg PO ACB [facility] Insulin Human Regular (Humulin R Med) 0 units SC ACHS [facility] PRN Reason: Protocol Last Admin: 05/29/16 16:26 Dose: Not Given Levothyroxine Sodium (Synthroid) 112 mcg PO DAILY [facility] Lisinopril (Zestril) 20 mg PO DAILY [facility] Metoprolol Tartrate (Lopressor) 50 mg PO BID [facility] Last Admin: 05/29/16 17:30 Dose: 50 mg Non-Formulary Medication (Alogliptin Benzoate [Alogliptin]) 25 mg PO DAILY [facility] Non-Formulary Medication (Iron Carb,Gl/Fa/B12/C/Docusate [Ferralet 90 Tablet]) 1 tab PO DAILY [facility] Ondansetron HCl (Zofran Inj) 4 mg IVP Q4H PRN PRN Reason: Nausea/Vomiting Pantoprazole Sodium (Protonix Ec Tab) 40 mg PO DAILY [facility] Potassium Chloride (Klor-Con 10) 10 meq PO BRK [facility] Sennosides (Senokot Tab) 8.6 mg PO DAILY [facility] Physical Exam - Constitutional Appears: Well, No Acute Distress - Head Exam Head Exam: NORMAL INSPECTION - Eye Exam Eye Exam: EOMI, Normal appearance. absent: Scleral icterus Pupil Exam: absent: Unequal - ENT Exam ENT Exam: Mucous Membranes Moist - Neck Exam Neck exam: Positive for: Normal Inspection - Respiratory Exam Respiratory Exam: Clear to Auscultation Bilateral, NORMAL BREATHING PATTERN. absent: Rales, Rhonchi, Wheezes - Cardiovascular Exam Cardiovascular Exam: REGULAR RHYTHM, RRR, +S1, +S2. absent: JVD Additional comments: soft S1 - GI/Abdominal Exam GI & Abdominal Exam: Soft. absent: Distended, Tenderness - Extremities Exam Additional comments: Mild lower leg edema bilaterally; unable to palpate DP pulses bilaterally; - Neurological Exam Neurological exam: Alert, CN II-XII Intact Additional comments: Decreased sensation of bilateral toes; 5/5 motor in b/l UE and LE - Psychiatric Exam Psychiatric exam: Normal Affect, Normal Mood - Skin Skin Exam: Warm Results - Vital Signs Recent Vital Signs: Last Vital Signs Temp 97.0 F L 05/29/16 18:00 Pulse 75 05/29/16 18:00 Resp 18 05/29/16 18:00 BP 113/75 05/29/16 18:00 Pulse Ox 99 05/29/16 07:23 - Labs Result Diagrams: 05/29/16 03:35 05/29/16 03:35 Labs: Laboratory Results - last 24 hr 05/29/16 05/29/16 12:05 19:35 Lactate Dehydrogenase 495 521 Total Creatine Kinase 175 157 Troponin I 3.69 H* D 4.32 H* - EKG Data EKG Interpreted by: Other - Imaging and Cardiology Chest x-ray Status: Image reviewed by me Assessment & Plan (1) NSTEMI (non-ST elevated myocardial infarction) Assessment and Plan: Known CAD with recent admission for NSTEMI in which cath was considered but not done due to high risk for contrast nephropathy and precipitating need for dialysis; same risk exists currently and so cardiology opting for medical management; started on therapeutic lovenox, correctly dosed for advanced CKD; Status: Acute (2) CKD (chronic kidney disease) stage 4, GFR 15-29 ml/min Assessment and Plan: Proteinuric kidney disease; stable serum creatinine; previous workup unremarkable; will obtain random urine protein and creatinine, hep B and C serologies, and SPEP/UPEP/serum free light chains for further workup to r/o causes other than diabetic nephropathy; Will check PTH and 25-OH vit D levels for evidence of mineral bone disease; Status: Chronic (3) Diabetes mellitus with peripheral vascular disease Assessment and Plan: On oral hypolgycemic agents only; likely with diabetic nephropathy but fluctuations in serum creatinine may be due to superimposed renovasular disease ; check A1C; continue statin; Status: Chronic (4) HTN (hypertension) Assessment and Plan: BP controlled; on lisinopril 20 and metoprolol 50 mg bid; Status: Chronic
[2016-05-30 06:59] LABS: HEMATOCRIT 36.6 % (36.0-48.0); MEAN CELL VOLUME 72.5 fL (80.0-105.0); MEAN CORPUSCULAR HGB CONC 30.3 g/dl (31.0-37.0); MEAN PLATELET VOLUME 10.8 fl (7.0-11.0); WHITE BLOOD COUNT 6.1 10^3/ul (4.5-11.0)
[2016-05-30 07:11] LABS: CALCIUM 8.8 mg/dL (8.4-10.5)
[2016-05-30] MEDS: Insulin Reg-MEDIUM-Coverage SC SCH ×4 (08:09→22:30)
[2016-05-30] MEDS: Potassium Chloride 10 mEq ER Tab PO SCH (08:10)
[2016-05-30] MEDS ORDERED: Non Formulary Medication (Potassium Chloride [Klor-Con Sprinkle] 10 MEQ) PO SCH (10:00)
[2016-05-30] MEDS: Non Formulary Medication (Alogliptin Benzoate [Alogliptin] 25 MG) PO SCH (10:43)
[2016-05-30] MEDS: IRON CARB GL PO SCH (10:44)
[2016-05-30] MEDS: B12 PO SCH (10:44)
[2016-05-30] MEDS: DOCUSATE PO SCH (10:44)
[2016-05-30] MEDS: [UNRECOGNIZED DRUG - OTHER] PO SCH (10:44)
[2016-05-30] MEDS: Enoxaparin 40 mg Syringe SC SCH (10:51)
[2016-05-30] MEDS: Levothyroxine 112 MCG TAB PO SCH (10:52)
[2016-05-30] MEDS: Cilostazol 50 mg Tab UD PO SCH ×2 (10:52→18:14)
[2016-05-30] MEDS: Pantoprazole 40 mg EC Tab PO SCH (10:52)
--- NOTE | 2016-05-30 13:05 | PN ---
DATE: 05/30/2016 The patient is in room 263, bed 1. REASON FOR CONSULTATION: Chest pain, history of diabetes, hypertension, hyperlipidemia, coronary art mari disease, renal dysfunction. HISTORY OF PRESENT ILLNESS: The patient is a 60-year-old obese female with past medical history sign ificant for PAD, status post PTCA, coronary artery disease status post multiple stents, diabetes, hyp ertension, hyperlipidemia, chronic kidney disease, who was admitted with a history that she is gettin g episodes of headache and then is followed by sharp pain, which starts in the neck and goes towards the chest, and then is followed by vomiting, as soon as she vomits, her pain goes away. Denies any r elation to exertion at present. The patient's troponin on previous admission was elevated and so is also now elevated. Catheterization on previous admission was not done because of abnormal kidney fun ction with the possibility that after the dye load with the catheterization, the patient will end up on dialysis. The patient is symptom free at present. PHYSICAL EXAMINATION: VITAL SIGNS: Blood pressure 100/67, respirations 18, pulse 64, temperature 97.7. HEAD: Normocephalic. EYES: Pupils are normal. Conjunctivae are normal. NOSE AND THROAT: Normal. NECK: JVP low. Carotids equal. THORAX: AP diameter normal. LUNGS: Clear. CARDIOVASCULAR: S1, S2. ABDOMEN: Protuberant. No organomegaly. Bowel sounds normal. EXTREMITIES: No clubbing, no cyanosis. LABORATORY DATA: WBC 6.1, hemoglobin 11.1, hematocrit 36.6, platelets 319. Sodium 138, potassium 4. 0. BUN 48, creatinine 2.1. Random sugar 147. Troponin 2.49, then 3.69, then 4.32. On previous adm ission on 05/18, her troponin was 3.53, then 05/19, it was 5.63. 05/20, it was 3.47. DIAGNOSES: Chest pain, atypical type, starts with headache, and goes sharp pain to her neck, then sh roddy pain in the chest, and then she vomits, and that pain gets relieved. Coronary artery disease, hi story of multiple stents, diabetes mellitus, hyperlipidemia, hypertension, peripheral vascular diseas e, chronic kidney disease. Stress test 03/03/2015 was abnormal. PLAN: As mentioned in the consult yesterday. The patient may have false elevation of troponin, alth ough she is a good candidate to have non-ST segment elevation myocardial infarction because of previo us history of coronary artery disease all the risk factors. However, the troponin elevation is persi sting since the last admission until now. So we will treat her medically at present, as again, luz r of going into renal failure on dialysis if we inject the dye for catheterization. The patient will continue aspirin 81 mg daily, glipizide 10 mg a.c.b., potassium 10 mEq daily, Lasix 40 mg b.i.d., Lipitor 40 daily, Lopid 600 b.i.d., metoprolol tartrate 50 b.i.d., Lovenox 40 mg subQ d aily, Protonix 40 daily, Synthroid 112 mcg p.o. daily, lisinopril 20 mg p.o. daily. We will follow with you. Sruthi Hudson MD cc: [id number] TT: 05/30/2016 13:04:49 Confirmation # [id number] Dictation # [id number]
--- NOTE | 2016-05-30 14:09 | CP.PCM.PN ---
<Jasbir Leroy - Last Filed: 05/30/16 14:21> Subjective - Date & Time of Evaluation Date of Evaluation: 05/30/16 Time of Evaluation: 14:07 - Subjective Subjective: Pt seen and examined at bedside. Pt states she is doing well at the present time without any chest pain. No acute events overnight. Pt remains on anticoagulation. Pt is complaining of chronic headaches. She states she gets them frequently at home, causing her to vomit, which helps to alleviate her pain. Denies SOB, N/V/D, fever, chills. Objective - Vital Signs/Intake and Output Vital Signs (last 24 hours): Temp Pulse Resp BP Pulse Ox 97.7 F 68 20 104/72 100 05/30/16 12:00 05/30/16 12:00 05/30/16 12:00 05/30/16 12:00 05/30/16 06:00 Intake and Output: 05/30/16 05/30/16 06:59 18:59 Intake Total 0 Output Total 0 Balance 0 - Medications Medications: Current Medications Acetaminophen (Tylenol 325mg Tab) 650 mg PO Q4H PRN PRN Reason: Pain, Mild (1-3) Aspirin (Ecotrin) 81 mg PO DAILY [facility] Last Admin: 05/30/16 10:50 Dose: 81 mg Atorvastatin Calcium (Lipitor) 40 mg PO DAILY [facility] Last Admin: 05/30/16 10:51 Dose: 40 mg Cilostazol (Pletal) 50 mg PO BID [facility] Last Admin: 05/30/16 10:52 Dose: 50 mg Enoxaparin Sodium (Lovenox) 40 mg SC DAILY [facility] Last Admin: 05/30/16 10:51 Dose: 40 mg Furosemide (Lasix) 40 mg PO BID [facility] Last Admin: 05/30/16 10:50 Dose: 40 mg Gemfibrozil (Lopid) 600 mg PO BID [facility] Last Admin: 05/30/16 10:51 Dose: 600 mg Glipizide (Glucotrol) 10 mg PO ACB [facility] Last Admin: 05/30/16 08:10 Dose: 10 mg Insulin Human Regular (Humulin R Med) 0 units SC ACHS [facility] PRN Reason: Protocol Last Admin: 05/30/16 12:36 Dose: 1 units Levothyroxine Sodium (Synthroid) 112 mcg PO DAILY [facility] Last Admin: 05/30/16 10:52 Dose: 112 mcg Lisinopril (Zestril) 20 mg PO DAILY [facility] Last Admin: 05/30/16 10:53 Dose: 20 mg Metoprolol Tartrate (Lopressor) 50 mg PO BID [facility] Last Admin: 05/30/16 10:51 Dose: 50 mg Non-Formulary Medication (Alogliptin Benzoate [Alogliptin]) 25 mg PO DAILY [facility] Last Admin: 05/30/16 10:43 Dose: Not Given Non-Formulary Medication (Iron Carb,Gl/Fa/B12/C/Docusate [Ferralet 90 Tablet]) 1 tab PO DAILY [facility] Last Admin: 05/30/16 10:44 Dose: Not Given Ondansetron HCl (Zofran Inj) 4 mg IVP Q4H PRN PRN Reason: Nausea/Vomiting Pantoprazole Sodium (Protonix Ec Tab) 40 mg PO DAILY [facility] Last Admin: 05/30/16 10:52 Dose: 40 mg Potassium Chloride (Klor-Con 10) 10 meq PO BRK [facility] Last Admin: 05/30/16 08:10 Dose: 10 meq Sennosides (Senokot Tab) 8.6 mg PO DAILY [facility] Last Admin: 05/30/16 10:52 Dose: Not Given - Labs Labs: 05/30/16 06:51 05/30/16 06:51 PT 11.0 Seconds (9.9-11.8) 05/29/16 03:35 INR 1.02 (0.93-1.08) 05/29/16 03:35 APTT 30.1 Seconds (23.7-30.8) 05/29/16 03:35 - Constitutional Appears: Well, No Acute Distress - Head Exam Head Exam: ATRAUMATIC, NORMAL INSPECTION, NORMOCEPHALIC - ENT Exam ENT Exam: Mucous Membranes Moist, Normal Exam - Respiratory Exam Respiratory Exam: Clear to Ausculation Bilateral, NORMAL BREATHING PATTERN. absent: Rales, Rhonchi, Wheezes - Cardiovascular Exam Cardiovascular Exam: RRR, +S1, +S2 - GI/Abdominal Exam GI & Abdominal Exam: Soft, Normal Bowel Sounds. absent: Tenderness - Extremities Exam Extremities Exam: Normal Inspection. absent: Calf Tenderness, Pedal Edema - Neurological Exam Neurological Exam: Alert, Awake, Oriented x3 - Psychiatric Exam Psychiatric exam: Normal Affect, Normal Mood - Skin Skin Exam: Intact, Normal Color, Warm Assessment and Plan - Assessment and Plan (Free Text) Plan: 60 y/o female with past medical history of COPD, DM, CAD s/p 6 cardiac stents, obesity, fatty liver, s/p appendectomy presents with NSTEMI and RICK on CKD. Pt seen by nephrology, Dr. Agarwal. Pt also being seen by Dr. Hudson who recommends pt remain on lovenox for NSTEMI as she is not a candidate for cardiac cath at this time due to her kidney function. Dr. Weldon, Neurology, will be consulted for chronic headaches. 1. NSTEMI - Continue lovenox - Continue ASA, metoprolol, atorvastatin, and cilastazol - Cardiology following, Dr. Hudson 2. Headaches - Tylenol prn for pain - Neurology consulted 3. RICK on CKD - Creatinine improving - Nephrology managing, Dr. Agarwal 4. PPX - Protonix - Lovenox - Sennosides Seen, reviewed, and discussed with attending. Rad, PGY-1 <Juliette Vasquez - Last Filed: 05/30/16 14:38> Objective - Vital Signs/Intake and Output Vital Signs (last 24 hours): Temp Pulse Resp BP Pulse Ox 97.7 F 68 20 104/72 100 05/30/16 12:00 05/30/16 12:00 05/30/16 12:00 05/30/16 12:00 05/30/16 06:00 Intake and Output: 05/30/16 05/30/16 06:59 18:59 Intake Total 0 Output Total 0 Balance 0 - Medications Medications: Current Medications Acetaminophen (Tylenol 325mg Tab) 650 mg PO Q4H PRN PRN Reason: Pain, Mild (1-3) Aspirin (Ecotrin) 81 mg PO DAILY [facility] Last Admin: 05/30/16 10:50 Dose: 81 mg Atorvastatin Calcium (Lipitor) 40 mg PO DAILY [facility] Last Admin: 05/30/16 10:51 Dose: 40 mg Cilostazol (Pletal) 50 mg PO BID [facility] Last Admin: 05/30/16 10:52 Dose: 50 mg Enoxaparin Sodium (Lovenox) 40 mg SC DAILY [facility] Last Admin: 05/30/16 10:51 Dose: 40 mg Furosemide (Lasix) 40 mg PO BID [facility] Last Admin: 05/30/16 10:50 Dose: 40 mg Gemfibrozil (Lopid) 600 mg PO BID [facility] Last Admin: 05/30/16 10:51 Dose: 600 mg Glipizide (Glucotrol) 10 mg PO ACB [facility] Last Admin: 05/30/16 08:10 Dose: 10 mg Insulin Human Regular (Humulin R Med) 0 units SC ACHS [facility] PRN Reason: Protocol Last Admin: 05/30/16 12:36 Dose: 1 units Levothyroxine Sodium (Synthroid) 112 mcg PO DAILY [facility] Last Admin: 05/30/16 10:52 Dose: 112 mcg Lisinopril (Zestril) 20 mg PO DAILY [facility] Last Admin: 05/30/16 10:53 Dose: 20 mg Metoprolol Tartrate (Lopressor) 50 mg PO BID [facility] Last Admin: 05/30/16 10:51 Dose: 50 mg Non-Formulary Medication (Alogliptin Benzoate [Alogliptin]) 25 mg PO DAILY [facility] Last Admin: 05/30/16 10:43 Dose: Not Given Non-Formulary Medication (Iron Carb,Gl/Fa/B12/C/Docusate [Ferralet 90 Tablet]) 1 tab PO DAILY [facility] Last Admin: 05/30/16 10:44 Dose: Not Given Ondansetron HCl (Zofran Inj) 4 mg IVP Q4H PRN PRN Reason: Nausea/Vomiting Pantoprazole Sodium (Protonix Ec Tab) 40 mg PO DAILY [facility] Last Admin: 05/30/16 10:52 Dose: 40 mg Potassium Chloride (Klor-Con 10) 10 meq PO BRK [facility] Last Admin: 05/30/16 08:10 Dose: 10 meq Sennosides (Senokot Tab) 8.6 mg PO DAILY [facility] Last Admin: 05/30/16 10:52 Dose: Not Given - Labs Labs: 05/30/16 06:51 05/30/16 06:51 PT 11.0 Seconds (9.9-11.8) 05/29/16 03:35 INR 1.02 (0.93-1.08) 05/29/16 03:35 APTT 30.1 Seconds (23.7-30.8) 05/29/16 03:35 Attending/Attestation - Attestation I have personally seen and examined this patient.: Yes I have fully participated in the care of the patient.: Yes I have reviewed all pertinent clinical information, including history, physical exam and plan: Yes Notes (Text): 05/30/16 14:35 60 year old female with past medical history of COPD, diabetes, hypertension, hypothyroidism and CAD s/p multiple cardiac stents who presented with complaint of chest, shoulder and neck pain which has resolved. She was found to have elevated troponins; r/o NSTEMI vs chronically elevated troponins in setting of chronic kidney disease. She is on aspirin, statin, metoprolol and lovenox. She is being followed by cardiology and nephrology. She reports chronic headaches alleved after she vomits. She is on tylenol prn. Neurology evaluation is requested. Continue with home medications for hypertension, diabetes, dyslipidemia and hypothyroidism. Juliette Vasquez MD Hospitalist.
--- NOTE | 2016-05-30 17:14 | CON ---
DATE: 05/30/2016 HISTORY OF PRESENT ILLNESS: This is a 60-year-old female with a past medical history of peripheral a rterial disease, coronary artery disease, multiple stents, diabetes, hypertension, hyperlipidemia, ch ronic kidney disease, who came to the hospital with a headache followed by sharp chest pain and with retching, no vomiting. I was called to evaluate the patient. The patient's headache is better now. PAST MEDICAL HISTORY: As above. HOME MEDICATIONS: Lasix, glipizide, Synthroid, Januvia, metoprolol, metformin, , allopurinol, L ipitor. REVIEW OF SYSTEMS: A 10-point review of system was negative. PHYSICAL EXAMINATION: HEENT: Normocephalic, atraumatic. NECK: Supple. NEUROLOGIC: Alert, awake, oriented x 3. No aphasia. Cranial nerves II through XII were tested. Pu pils reactive. EOMs intact. Visual hamilton full. No facial asymmetry. Tongue midline. Motor exami nation: Moves all the extremities equally. Tone normal. Deep tendon reflexes 1+. Both plantars ar e downgoing. Sensory appears intact. Cerebellar and gait deferred. IMPRESSION: Headache, possibly chronic tension headache. Workup is in progress. Will order the CAT scan of the head without contrast and Fioricet around the clock. Link Weldon MD cc: [id number] TT: 05/30/2016 17:13:30 Confirmation # [id number] Dictation # [id number]
[2016-05-31 02:12] LABS: PH,URINE 5.5 (4.7-8.0); URINE BILIRUBIN NEGATIVE (NEGATIVE); URINE BLOOD NEGATIVE (NEGATIVE); URINE GLUCOSE (UA) NEGATIVE (NEGATIVE); URINE KETONE NEGATIVE (NEGATIVE); URINE LEUKOCYTE ESTERASE NEGATIVE Leu/uL (NEGATIVE); URINE PROTEIN TRACE mg/dL (<30 mg/dL); URINE UROBILINOGEN 0.2 E.U./dL (<1 E.U./dL)
[2016-05-31 02:15] LABS: URINE APPEARANCE CLEAR (CLEAR); URINE COLOR YELLOW (YELLOW)
[2016-05-31 02:34] LABS: URINE BACTERIA MOD (NEG); URINE RBC 0 - 2 /hpf (0-2)
[2016-05-31 06:38] LABS: HEMATOCRIT 32.2 % (36.0-48.0); MEAN CELL VOLUME 71.7 fL (80.0-105.0); MEAN CORPUSCULAR HEMOGLOBIN 22.5 pg (25.0-35.0); MEAN CORPUSCULAR HGB CONC 31.4 g/dl (31.0-37.0); MEAN PLATELET VOLUME 11.9 fl (7.0-11.0); RED CELL DISTRIBUTION WIDTH 15.9 % (11.5-14.5); WHITE BLOOD COUNT 6.6 10^3/ul (4.5-11.0)
[2016-05-31 07:09] LABS: CALCIUM 8.9 mg/dL (8.4-10.5); POTASSIUM 4.3 mmol/L (3.6-5.0)
[2016-05-31] MEDS: Insulin Reg-MEDIUM-Coverage SC SCH ×4 (08:00→22:20)
--- NOTE | 2016-05-31 08:40 | PN ---
DATE: 05/30/2016 The patient is a 60-year-old female with history of hypertension, diabetes, CAD status post multiple stents, peripheral vascular disease status post right femoral artery PTCA. Admitted with chest pain, possible non-ST elevation myocardial infarction. The patient reports today that her chest pain has resolved. She feels well, denies any shortness of breath, tolerating diet. PHYSICAL EXAMINATION: VITAL SIGNS: This morning, blood pressure 100/67, heart rate of 64, respirations 18, temperature 97. 7, O2 sat 100% on room air. GENERAL: No distress, sitting up and eating in the chair. HEENT: Moist mucous membranes. CHEST: Clear to auscultation bilaterally. HEART: S1, S2 positive. No rubs, no murmurs, no gallops. ABDOMEN: Soft, nontender, nondistended. EXTREMITIES: Mild bilateral lower leg edema. ASSESSMENT: 1. Non-ST elevation myocardial infarction. Known coronary artery disease with recent admission for non-ST elevation myocardial infarction, in which catheterization was considered, but not done due to risk for precipitating acute renal failure and need for hemodialysis. Discussed with intern to day. Feels that troponin elevation might not be a true non-ST elevation myocardial infarction and re iterates the risk of precipitating the need for hemodialysis if catheterization done. He will discus s with the primary intern tomorrow. For now, patient getting medical management with therapeut ic Lovenox and aspirin. 2. Chronic kidney disease stage IV, proteinuric kidney disease, relatively stable serum creatinine. Further workup ordered including urine for protein and creatinine. Hepatitis B and C serologies, se rum free light chains to rule out causes other than diabetic nephropathy. Chronic kidney disease min eral bone disease. PTH sent, awaiting result. Low 25-hydroxy vitamin D level. Can supplement with ergocalciferol 50,000 units weekly x 8 weeks. 3. Diabetes, on oral hypoglycemic agents at home. Monitor for hypoglycemic events in patient with a dvanced renal failure. 4. Hypertension. Blood pressure lower end of normal, on lisinopril and metoprolol. Continue the sa me as these medications are beneficial in systolic failure. 5. Peripheral vascular disease. The patient may very well have renovascular disease superimposed on her proteinuric kidney disease. Continue with high potency statin therapy. Fan Any FLORES cc: [id number] TT: 05/30/2016 14:28:28 Confirmation # [id number] Dictation # [id number]
--- NOTE | 2016-05-31 09:13 | CT ---
PROCEDURE: CT HEAD WITHOUT CONTRAST. HISTORY: Headache COMPARISON: None available. TECHNIQUE: Axial computed tomography was performed through the head/brain without administration of intravenous contrast. This CT exam was performed using one or more of the following dose reduction techniques: Automated exposure control, adjustment of the MA and/or KV according to patient size, and/or use of iterative reconstruction technique. Radiation dose: Total exam DLP = 667.28 mGy-cm. FINDINGS: HEMORRHAGE: No intracranial hemorrhage. BRAIN: There is cystic encephalomalacia in the right frontal lobe and ex vacuo dilatation of the right frontal horn. There is no mass, mass effect or abnormal extra-axial fluid collection. VENTRICLES: The ventricles are normal in size, shape and configuration. CALVARIUM: The skull base and calvarium are normal. PARANASAL SINUSES: There is mild mucosal thickening in the visualized maxillary sinuses. The remaining included paranasal sinuses are predominantly clear. MASTOID AIR CELLS: Bilateral mastoid air cells are underdeveloped. OTHER FINDINGS: None. IMPRESSION: No acute intracranial abnormality. Right frontal lobe cystic encephalomalacia, sequela of remote right MCA territory insult.
[2016-05-31] MEDS: Non Formulary Medication (Alogliptin Benzoate [Alogliptin] 25 MG) PO SCH (09:42)
[2016-05-31] MEDS: IRON CARB GL PO SCH (09:43)
[2016-05-31] MEDS: Potassium Chloride 10 mEq ER Tab PO SCH (09:43)
[2016-05-31] MEDS: B12 PO SCH (09:43)
[2016-05-31] MEDS: DOCUSATE PO SCH (09:43)
[2016-05-31] MEDS: [UNRECOGNIZED DRUG - OTHER] PO SCH (09:43)
[2016-05-31] MEDS: Levothyroxine 112 MCG TAB PO SCH (09:45)
[2016-05-31] MEDS: Enoxaparin 40 mg Syringe SC SCH (09:45)
[2016-05-31] MEDS: Pantoprazole 40 mg EC Tab PO SCH (09:45)
[2016-05-31] MEDS: Cilostazol 50 mg Tab UD PO SCH ×2 (09:50→17:17)
--- NOTE | 2016-05-31 12:34 | CP.PCM.PN ---
<Tez Zamarripa - Last Filed: 05/31/16 13:56> Subjective - Date & Time of Evaluation Date of Evaluation: 05/31/16 Time of Evaluation: 07:15 - Subjective Subjective: Patient seen and examined at bedside. No acute events overnight. Patient reports she is tired due to lack of sleep last night. Patient's chest pain has improved. Patient complains of headache but is well controlled with pain medication. Denies weakness, fever, chills, shortness of breath, nausea, vomiting or diarrhea. Objective - Vital Signs/Intake and Output Vital Signs (last 24 hours): Temp Pulse Resp BP Pulse Ox 97.3 F L 62 20 90/50 L 99 05/31/16 05:34 05/31/16 05:34 05/31/16 05:34 05/31/16 09:46 05/31/16 08:44 Intake and Output: 05/31/16 05/31/16 06:59 18:59 Intake Total 120 Output Total 0 Balance 120 - Medications Medications: Current Medications Acetaminophen (Tylenol 325mg Tab) 650 mg PO Q4H PRN PRN Reason: Pain, Mild (1-3) Last Admin: 05/31/16 10:32 Dose: 650 mg Aspirin (Ecotrin) 81 mg PO DAILY [facility] Last Admin: 05/31/16 09:42 Dose: 81 mg Atorvastatin Calcium (Lipitor) 40 mg PO DAILY [facility] Last Admin: 05/31/16 09:44 Dose: 40 mg Cilostazol (Pletal) 50 mg PO BID [facility] Last Admin: 05/31/16 09:50 Dose: 50 mg Enoxaparin Sodium (Lovenox) 40 mg SC DAILY [facility] Last Admin: 05/31/16 09:45 Dose: 40 mg Furosemide (Lasix) 40 mg PO BID [facility] Last Admin: 05/31/16 09:46 Dose: Not Given Gemfibrozil (Lopid) 600 mg PO BID [facility] Last Admin: 05/31/16 09:44 Dose: 600 mg Glipizide (Glucotrol) 10 mg PO ACB [facility] Last Admin: 05/31/16 09:44 Dose: 10 mg Insulin Human Regular (Humulin R Med) 0 units SC ACHS [facility] PRN Reason: Protocol Last Admin: 05/31/16 12:18 Dose: 1 units Levothyroxine Sodium (Synthroid) 112 mcg PO DAILY [facility] Last Admin: 05/31/16 09:45 Dose: 112 mcg Lisinopril (Zestril) 20 mg PO DAILY [facility] Last Admin: 05/31/16 09:45 Dose: Not Given Metoprolol Tartrate (Lopressor) 50 mg PO BID [facility] Last Admin: 05/31/16 09:46 Dose: Not Given Non-Formulary Medication (Alogliptin Benzoate [Alogliptin]) 25 mg PO DAILY [facility] Last Admin: 05/31/16 09:42 Dose: Not Given Non-Formulary Medication (Iron Carb,Gl/Fa/B12/C/Docusate [Ferralet 90 Tablet]) 1 tab PO DAILY [facility] Last Admin: 05/31/16 09:43 Dose: Not Given Ondansetron HCl (Zofran Inj) 4 mg IVP Q4H PRN PRN Reason: Nausea/Vomiting Pantoprazole Sodium (Protonix Ec Tab) 40 mg PO DAILY [facility] Last Admin: 05/31/16 09:45 Dose: 40 mg Potassium Chloride (Klor-Con 10) 10 meq PO BRK [facility] Last Admin: 05/31/16 09:43 Dose: 10 meq Sennosides (Senokot Tab) 8.6 mg PO DAILY [facility] Last Admin: 05/31/16 09:45 Dose: 8.6 mg - Labs Labs: 05/31/16 05:30 05/31/16 05:30 PT 11.0 Seconds (9.9-11.8) 05/29/16 03:35 INR 1.02 (0.93-1.08) 05/29/16 03:35 APTT 30.1 Seconds (23.7-30.8) 05/29/16 03:35 - Constitutional Appears: Non-toxic, No Acute Distress - Head Exam Head Exam: ATRAUMATIC, NORMOCEPHALIC - Eye Exam Eye Exam: Normal appearance - ENT Exam ENT Exam: Mucous Membranes Moist Additional comments: multiple teeth missing - Neck Exam Neck Exam: Normal Inspection - Respiratory Exam Respiratory Exam: Clear to Ausculation Bilateral, NORMAL BREATHING PATTERN. absent: Rhonchi, Wheezes, Respiratory Distress - Cardiovascular Exam Cardiovascular Exam: REGULAR RHYTHM, RRR, +S1, +S2. absent: Murmur - GI/Abdominal Exam GI & Abdominal Exam: Soft, Normal Bowel Sounds. absent: Tenderness - Extremities Exam Extremities Exam: Joint Swelling, Pedal Edema (Right > Left) - Neurological Exam Neurological Exam: Alert, Awake, Oriented x3 - Psychiatric Exam Psychiatric exam: Normal Affect, Normal Mood - Skin Skin Exam: Intact, Warm Assessment and Plan - Assessment and Plan (Free Text) Assessment: 60 year old female with past medical history of COPD, DM, CAD s/p 6 cardiac stents, obesity, fatty liver, s/p appendectomy presents with NSTEMI and RICK on CKD. Pt seen by nephrology, Dr. Agarwal. Pt also being seen by Dr. Hudson who recommends pt remain on lovenox for NSTEMI as she is not a candidate for cardiac cath at this time due to her kidney function. Dr. Weldon, Neurology, will be consulted for chronic headaches NSTEMI - Continue lovenox - Continue ASA, metoprolol, atorvastatin, and cilastazol - Cardiology following, Dr. Hudson - Elevated Troponin due to CKD Headaches - Tylenol prn for pain, consider Fioricet if persists - Neurology consulted - CT head showed no acute intracranial abnormality (see full report) Hypertension - BP today 100/45 - Adjusted metoprolol to 25mg BID - Continue all HTN meds RICK on CKD - Creatinine increased 2.1 to 2.7 - Nephrology managing, Dr. Agarwal - Hepatitis panel negative - Low 25-OH Vitamin D 12.8 - Start Ergocalciferol 87636 units weekly - PTH w/ Ca elevated at 141 - Follow up kappa/maurisio light chain, microalbumin DM - A1c 9.4 - Continue Alogliptin, Glipizide, ISS - Diabetic education referral PPX - Protonix - Lovenox - Sennosides <Marycarmen FLORES,Sruthi - Last Filed: 05/31/16 15:29> Objective - Vital Signs/Intake and Output Vital Signs (last 24 hours): Temp Pulse Resp BP Pulse Ox 97 F L 67 18 100/45 L 99 05/31/16 12:00 05/31/16 12:00 05/31/16 12:00 05/31/16 12:00 05/31/16 08:44 Intake and Output: 05/31/16 05/31/16 06:59 18:59 Intake Total 120 Output Total 0 Balance 120 - Medications Medications: Current Medications Acetaminophen (Tylenol 325mg Tab) 650 mg PO Q4H PRN PRN Reason: Pain, Mild (1-3) Last Admin: 05/31/16 10:32 Dose: 650 mg Acetaminophen/Butalbital/Caffeine (Fioricet) 1 tab PO Q4H PRN PRN Reason: Pain, severe (8-10) Aspirin (Ecotrin) 81 mg PO DAILY [facility] Last Admin: 05/31/16 09:42 Dose: 81 mg Atorvastatin Calcium (Lipitor) 40 mg PO DAILY [facility] Last Admin: 05/31/16 09:44 Dose: 40 mg Cilostazol (Pletal) 50 mg PO BID [facility] Last Admin: 05/31/16 09:50 Dose: 50 mg Enoxaparin Sodium (Lovenox) 40 mg SC DAILY [facility] Last Admin: 05/31/16 09:45 Dose: 40 mg Ergocalciferol (Drisdol 50,000 Intl Units Cap) 1 cap PO Q7D [facility] Furosemide (Lasix) 40 mg PO BID [facility] Last Admin: 05/31/16 09:46 Dose: Not Given Gemfibrozil (Lopid) 600 mg PO BID [facility] Last Admin: 05/31/16 09:44 Dose: 600 mg Glipizide (Glucotrol) 10 mg PO ACB [facility] Last Admin: 05/31/16 09:44 Dose: 10 mg Hydralazine HCl (Apresoline) 10 mg PO QID PRN PRN Reason: for SBP>170 & Diastolic>100 Insulin Human Regular (Humulin R Med) 0 units SC ACHS [facility] PRN Reason: Protocol Last Admin: 05/31/16 12:18 Dose: 1 units Levothyroxine Sodium (Synthroid) 112 mcg PO DAILY [facility] Last Admin: 05/31/16 09:45 Dose: 112 mcg Metoprolol Tartrate (Lopressor) 25 mg PO BID [facility] Non-Formulary Medication (Alogliptin Benzoate [Alogliptin]) 25 mg PO DAILY [facility] Last Admin: 05/31/16 09:42 Dose: Not Given Non-Formulary Medication (Iron Carb,Gl/Fa/B12/C/Docusate [Ferralet 90 Tablet]) 1 tab PO DAILY [facility] Last Admin: 05/31/16 09:43 Dose: Not Given Ondansetron HCl (Zofran Inj) 4 mg IVP Q4H PRN PRN Reason: Nausea/Vomiting Pantoprazole Sodium (Protonix Ec Tab) 40 mg PO DAILY [facility] Last Admin: 05/31/16 09:45 Dose: 40 mg Potassium Chloride (Klor-Con 10) 10 meq PO BRK [facility] Last Admin: 05/31/16 09:43 Dose: 10 meq Sennosides (Senokot Tab) 8.6 mg PO DAILY [facility] Last Admin: 05/31/16 09:45 Dose: 8.6 mg - Labs Labs: 05/31/16 05:30 05/31/16 05:30 PT 11.0 Seconds (9.9-11.8) 05/29/16 03:35 INR 1.02 (0.93-1.08) 05/29/16 03:35 APTT 30.1 Seconds (23.7-30.8) 05/29/16 03:35 Attending/Attestation - Attestation I have personally seen and examined this patient.: Yes I have fully participated in the care of the patient.: Yes I have reviewed all pertinent clinical information, including history, physical exam and plan: Yes Notes (Text): Patient was seen and examined with medical records tech .Agreed with resident assessment and plan. 60 year old female with past medical history of COPD, diabetes, hypertension, hypothyroidism and CAD s/p multiple cardiac stents who presented with complaint of chest, shoulder and neck pain which has resolved. She was found to have elevated troponins; r/o NSTEMI vs chronically elevated troponins in setting of chronic kidney disease. She is on aspirin, statin, metoprolol and lovenox. Blood pressure is low today, patient is still c/o headache.Low BP could be contributing to headache, we will decrease dose of metoprolol. Nephrology and urology are following.
[2016-05-31 13:40] VITALS: RESP 18
[2016-05-31] MEDS ORDERED: Apap-Butalbital-Caffeine 325-50-40mg Tab PO PRN (14:08)
[2016-05-31] MEDS ORDERED: Ergocalciferol 50,000 Intl Units Cap PO SCH (14:30)
--- NOTE | 2016-05-31 15:48 | PN ---
DATE: 05/31/2016 REASON FOR CONSULTATION AND FOLLOWUP: Chest pain, history of diabetes, hypertension, hyperlipidemia, coronary artery disease, renal dysfunction. BRIEF CLINICAL HISTORY: The patient is 60-year-old obese female with a past medical history signific ant for PAD and CAD, status post PTCA, status post PTCA femoral artery. Admitted with complaint of e pisode of getting headache, sharp pain, neck pain, then radiates through the neck, starts movement an d then gets better. Denies any chest pain. PHYSICAL EXAMINATION: VITAL SIGNS: Temperature afebrile, heart rate 67, blood pressure 100/45. HEENT: PERRLA. Extraocular muscles intact. NECK: Supple. No carotid bruit, no thyromegaly. CHEST: Clear to auscultation. HEART: S1, S2 regular. ABDOMEN: Soft. EXTREMITIES: Clubbing, cyanosis negative. BLOOD WORKUP: WBC 6.6, hemoglobin 10. , hematocrit 32.2, platelet count 302. Chemistry shows so dium 130, potassium 4.3, chloride 106, carbon dioxide 22, anion gap of 14, BUN 62, creatinine 2.7 wit h creatinine clearance of 18 mL. Troponin is positive, but creatinine clearance is 2.1 and the patient is asymptomatic with a creatini ne clearance 20 mL. We will try to treat patient medically. History of coronary artery disease, his tory of percutaneous transluminal coronary angioplasty, history of diabetes, hypertension, hyperlipid emia, history of peripheral arterial disease, hypotension, peripheral arterial disease, chronic kidne y disease. A stress test dated 03/03/2015 was normal. Diabetes mellitus. RECOMMENDATION: Optimal medical treatment for now. Should the patient become symptomatic from cardi ology point of view, then consider cardiac catheterization. Otherwise, treat medically because of un derlying comorbidities. The patient may end up in dialysis. So if the patient becomes symptomatic, acute coronary syndrome, otherwise asymptomatic, we will treat medically. Continue deep venous thrombosis prophylaxis. Continue metoprolol. Avoid nephrotoxic medication and avoid lisinopril. W e will put on hold because the patient is running low blood pressure. We will put on hold because of the low blood pressure and we will put hydralazine p.r.n. Thank you, Dr. Mccord, for providing us the opportunity in taking care of the patient. Sruthi George MD cc: [id number] TT: 05/31/2016 15:01:31 Confirmation # [id number] Dictation # [id number]
--- NOTE | 2016-05-31 18:10 | PN ---
DATE: 05/31/2016 CHIEF COMPLAINT: Follow up for headaches. SUBJECTIVE: The patient seen and examined at bedside. She was eating food without any difficulty. She does not complain of any headaches anymore. She denies any dizziness, lightheadedness, shortness of breath or vomiting at this time. Her A1c is 9.4, which indicates poorly controlled diabetes. He r CT head showed no acute intracranial abnormality, just right frontal lobe cystic encephalomalacia w hich is a sequela of remote right MCA territory insult. Currently, she is sitting up without any dif ficulties. PAST MEDICAL HISTORY: History of COPD, type 2 diabetes mellitus, CAD status post 6 cardiac stents, o besity, fatty liver, status post appendectomy. She is currently in the hospital for NSTEMI and acute on chronic kidney injury. REVIEW OF SYSTEMS: A 14-point review of systems is negative except in the HPI. ALLERGIES: No known drug allergies. MEDICATIONS: Reviewed by nurse's reconciliation sheet. FAMILY HISTORY: Noncontributory. PHYSICAL EXAMINATION: VITAL SIGNS: Temperature of 97, pulse rate of 67, blood pressure of 100/45, respiratory rate of 18, oxygen saturation 99% via room air. GENERAL: The patient is sitting up in bed in no acute distress. HEENT: Atraumatic, normocephalic. PERRLA. Extraocular muscles intact. NECK: Supple, no JVD, no adenopathy noted. LUNGS: Clear to auscultation. No adventitious sounds. HEART: S1, S2, normal rate and rhythm. No murmurs, rubs, or gallops. ABDOMEN: Soft, nontender, nondistended. Bowel sounds are present. EXTREMITIES: No clubbing, no cyanosis. Peripheral pulses bilaterally. NEUROLOGIC: The patient has a very flat affect. She is alert, oriented to person, place, month and year. Speech is fluent without any errors. Cranial nerves II-XII are intact. MOTOR: Slight increased tone throughout. Moves all extremities equally. No pronator drift seen. D TRs are 2+ throughout and 1 at the knees and absent at the ankles. SENSORY: Decreased light touch and pinprick up to the calves bilaterally. Decreased vibration of th e toes and knees. Proprioception is intact bilaterally. Toes are downgoing bilaterally. COORDINATION: Ayfkca-so-mcab intact. GAIT: Deferred for now. LABORATORIES: Sodium is 138, potassium 4.3, chloride of 106, carbon dioxide 22, BUN of 62, creatinin e of 2.7. Random glucose of 109. Her vitamin D is less than 12.8. ASSESSMENT AND PLAN: This is a 60-year-old woman with past medical history of COPD, type 2 diabetes mellitus, poorly controlled with a recent A1c of 9.4, coronary artery disease status post 6 cardiac s tents, obesity, fatty liver, who presented to the hospital for chest pain, found to have [id number] nt elevation myocardial infarction with acute on chronic kidney injury on chronic kidney disease. Sh talha is a poorly controlled diabetic. She continues to eat very unhealthy. I was initially consulted fo r headaches. Her headaches are likely tension based. Superimposed underlying chronic medical condit ions given that she is a poorly controlled diabetic and also has cerebral hypoperfusion from low bloo d pressure, where her blood pressure medications need to be adjusted to prevent a further drop in her BP. At this time, recommend: 1. Continue with aspirin and atorvastatin for stroke prevention. Cardiology is on board. Her elevated troponins could be also secondary to CKD. 2. As she has a low vitamin D, recommend at least -4000 international units p.o. daily and I re commend for her to be on gabapentin 300 mg p.o. at bedtime, which will help with her tension based he adaches. In addition, continue Fioricet 1 tab q. 4 hours p.r.n. for the acute onset of headache at t his time. She is clinically stable. Thank you for this followup. We will sign off. Clemente Weldon MD cc: [id number] TT: 05/31/2016 18:10:40 Confirmation # [id number] Dictation # [id number] [email or web address]
--- NOTE | 2016-05-31 19:04 | PN ---
DATE: 05/31/2016 The patient is a 60-year-old female with a past history of hypertension, diabetes, CAD status post mu ltiple stents, peripheral vascular disease, status post right femoral PTCA, admitted with chest pain, possible non-ST elevation CA. The patient reports no chest pain today. Denies any shortness of aba ath. Tolerating diet well. Leg swelling is at baseline. PHYSICAL EXAMINATION: VITAL SIGNS: Blood pressure this morning 90/50, heart rate is 62, respirations 20, temperature 97.3, O2 sat 99% on room air. GENERAL: No distress, sitting up, able to converse coherently. HEENT: Moist mucous membranes. No icterus. CHEST: Clear to auscultation bilaterally. No rales, no wheezes, no rhonchi. HEART: Very soft heart sounds unable to appreciate any murmurs. No JVD. ABDOMEN: Soft, nontender, nondistended. EXTREMITIES: Mild bilateral lower leg edema. Good capillary refill. LABORATORY DATA: WBC 6.6, hemoglobin 10.1, hematocrit 32.2, platelet count 302. Chemistry: Sodium 138, potassium 4.3, chloride 106, bicarbonate 22, BUN 62, creatinine 2.7, glucose 109, calcium 8.9, h emoglobin A1c 9.4. PTH 141. UA showing trace protein. Hepatitis B and C serologies negative. ASSESSMENT: 1. Non-ST elevation myocardial infarction, known coronary disease with recent admission for non ST m yocardial infarction with increased troponins. At that time, catheterization was considered, but not done due to risk for precipitating acute renal failure and need for hemodialysis. Cardiology still feels the same way and feels that medical management at this time is in the best interest of the kaitlin ent. Recommending to continue beta blockers; however, metoprolol not being given as ordered due to l ow blood pressure. 2. Acute renal failure on chronic kidney disease stage IV. The patient had increase in serum creati nine today from 2.1 yesterday to 2.7 today, this in the setting of low blood pressures with systolic blood pressures in the mid 80s-100 all day today. Unclear why patient is having low blood pressures; all blood pressure meds held today due to this reason. The patient with systolic dysfunction on rec ent echo, can try giving IV fluids cautiously. 3. Diabetes, on oral agents only including sulfonylurea. Need to carefully monitor blood sugar in t he setting of worsening renal failure. 4. Hypotension. Should continue with metoprolol at a low dose for cardioprotective effect, especial ly with beta blockers and systolic failure. 5. Peripheral vascular disease, may have superimposed renal vascular disease that is contributing to worsening renal function in the setting of low blood pressure. Continue with high potency statin th erapy. 6. Chronic kidney disease, mineral bone disease, secondary hyperparathyroidism. The patient started on ergocalciferol for low vitamin D25 hydroxy levels, continue. Fan Agarwal MD cc: [id number] TT: 05/31/2016 19:03:38 Confirmation # [id number] Dictation # [id number]
[2016-05-31 19:52] LABS: CALCIUM 8.8 mg/dL (8.6-10.4)
[2016-06-01 07:11] LABS: HEMATOCRIT 31.6 % (36.0-48.0); MEAN CELL VOLUME 70.9 fL (80.0-105.0); MEAN CORPUSCULAR HEMOGLOBIN 21.7 pg (25.0-35.0); MEAN CORPUSCULAR HGB CONC 30.7 g/dl (31.0-37.0); MEAN PLATELET VOLUME 11.2 fl (7.0-11.0); RED CELL DISTRIBUTION WIDTH 15.8 % (11.5-14.5); WHITE BLOOD COUNT 6.4 10^3/ul (4.5-11.0)
[2016-06-01 07:24] LABS: CALCIUM 9.1 mg/dL (8.4-10.5); PHOSPHOROUS 4.5 mg/dL (2.5-4.5); POTASSIUM 4.3 mmol/L (3.6-5.0)
[2016-06-01] MEDS: Insulin Reg-MEDIUM-Coverage SC SCH (07:59)
[2016-06-01 08:03] VITALS: BP 102/49; PULSE 65; TEMP 97.8; O2SAT 97
[2016-06-01] MEDS: Potassium Chloride 10 mEq ER Tab PO SCH (08:04)
[2016-06-01] MEDS: DOCUSATE PO SCH (10:30)
[2016-06-01] MEDS: IRON CARB GL PO SCH (10:30)
[2016-06-01] MEDS: B12 PO SCH (10:30)
[2016-06-01] MEDS: [UNRECOGNIZED DRUG - OTHER] PO SCH (10:30)
[2016-06-01] MEDS: Non Formulary Medication (Alogliptin Benzoate [Alogliptin] 25 MG) PO SCH (10:30)
[2016-06-01] MEDS: Cilostazol 50 mg Tab UD PO SCH (10:47)
[2016-06-01] MEDS: Enoxaparin 40 mg Syringe SC SCH (10:47)
[2016-06-01] MEDS: Levothyroxine 112 MCG TAB PO SCH (10:48)
[2016-06-01] MEDS: Pantoprazole 40 mg EC Tab PO SCH (10:48)
--- NOTE | 2016-06-01 11:06 | CP.PCM.DIS ---
<Tez Zamarripa - Last Filed: 06/02/16 01:35> Provider - Provider Date of Admission: 05/29/16 05:55 Attending physician: Juliette Vasquez MD Primary care physician: Gisel Mccord MD Consults: Neuro: Wong Weldon Cardiology: Ariel Nephro: Any PMD: Suri Time Spent in preparation of Discharge (in minutes): 40 Diagnosis - Discharge Diagnosis (1) Chest pain Status: Resolved (2) Diabetes mellitus with peripheral vascular disease Status: Chronic (3) HTN (hypertension) Status: Chronic (4) Hypothyroidism Status: Chronic (5) PVD (peripheral vascular disease) Status: Chronic (6) ARF (acute renal failure) Status: Chronic (7) Headache Status: Resolved (8) CKD (chronic kidney disease) Status: Chronic Hospital Course - Lab Results Lab Results: Most Recent Lab Values WBC 6.4 10^3/ul (4.5-11.0) 06/01/16 06:45 RBC 4.46 10^6/uL (3.5-6.1) 06/01/16 06:45 Hgb 9.7 gm/dL (12.0-16.0) L 06/01/16 06:45 Hct 31.6 % (36.0-48.0) L 06/01/16 06:45 MCV 70.9 fL (80.0-105.0) L 06/01/16 06:45 MCH 21.7 pg (25.0-35.0) L 06/01/16 06:45 MCHC 30.7 g/dl (31.0-37.0) L 06/01/16 06:45 RDW 15.8 % (11.5-14.5) H 06/01/16 06:45 Plt Count 278 10^3/uL (120.0-450.0) 06/01/16 06:45 MPV 11.2 fl (7.0-11.0) H 06/01/16 06:45 PT 11.0 Seconds (9.9-11.8) 05/29/16 03:35 INR 1.02 (0.93-1.08) 05/29/16 03:35 APTT 30.1 Seconds (23.7-30.8) 05/29/16 03:35 Sodium 139 mmol/L (132-148) 06/01/16 06:45 Potassium 4.3 mmol/L (3.6-5.0) 06/01/16 06:45 Chloride 108 mmol/L (95-110) 06/01/16 06:45 Carbon Dioxide 21 mmol/L (21-33) 06/01/16 06:45 Anion Gap 14 (10-20) 06/01/16 06:45 BUN 58 mg/dL (7-21) H 06/01/16 06:45 Creatinine 2.5 mg/dL (0.5-1.4) H 06/01/16 06:45 Est GFR ( Amer) 24 06/01/16 06:45 Est GFR (Non-Af Amer) 20 06/01/16 06:45 POC Glucose (mg/dL) 165 mg/dL (65-110) H 05/30/16 11:45 Random Glucose 88 mg/dL (70-110) 06/01/16 06:45 Hemoglobin A1c 9.4 % (4.2-6.5) H 05/30/16 06:51 Calcium 9.1 mg/dL (8.4-10.5) 06/01/16 06:45 Phosphorus 4.5 mg/dL (2.5-4.5) 06/01/16 06:45 Total Bilirubin 0.5 mg/dL (0.2-1.3) 05/29/16 03:35 AST 28 U/L (15-39) 05/29/16 03:35 ALT 15 U/L (7-56) 05/29/16 03:35 Alkaline Phosphatase 110 U/L (38-133) 05/29/16 03:35 Lactate Dehydrogenase 521 U/L (333-699) 05/29/16 19:35 Total Creatine Kinase 157 U/L (35-230) 05/29/16 19:35 Troponin I 4.32 ng/mL H* 05/29/16 19:35 Total Protein 7.9 g/dL (5.8-8.3) 05/29/16 03:35 Albumin 4.1 g/dL (3.0-4.8) 05/29/16 03:35 Globulin 3.8 gm/dL 05/29/16 03:35 Albumin/Globulin Ratio 1.1 (1.1-1.8) 05/29/16 03:35 25-OH Vitamin D Total < 12.8 NG/ML (30.0-100.0) L 05/30/16 06:51 Calcium (PTH Intact) 8.8 mg/dL (8.6-10.4) 05/30/16 06:51 PTH w/Ion &Tot Calcium 141 pg/mL (14-64) H 05/30/16 06:51 Urine Color Yellow (YELLOW) 05/31/16 01:50 Urine Appearance Clear (CLEAR) 05/31/16 01:50 Urine pH 5.5 (4.7-8.0) 05/31/16 01:50 Ur Specific Michael 1.025 (1.005-1.035) 05/31/16 01:50 Urine Protein Trace mg/dL (<30 mg/dL) H 05/31/16 01:50 Urine Glucose (UA) Negative mg/dL (NEGATIVE) 05/31/16 01:50 Urine Ketones Negative mg/dL (NEGATIVE) 05/31/16 01:50 Urine Blood Negative (NEGATIVE) 05/31/16 01:50 Urine Nitrate Negative (NEGATIVE) 05/31/16 01:50 Urine Bilirubin Negative (NEGATIVE) 05/31/16 01:50 Urine Urobilinogen 0.2 E.U./dL (<1 E.U./dL) 05/31/16 01:50 Ur Leukocyte Esterase Negative Renetta/uL (NEGATIVE) 05/31/16 01:50 Urine RBC 0 - 2 /hpf (0-2) 05/31/16 01:50 Urine WBC 1 - 3 /hpf (0-6) 05/31/16 01:50 Ur Epithelial Cells 4 - 5 /hpf (0-5) 05/31/16 01:50 Urine Bacteria Mod (NEG) 05/31/16 01:50 Ur Random Creatinine 109 mg/dL 05/31/16 19:20 Ur Random Sodium 22 meq/L 05/31/16 19:20 Ur Random Urea Nitrogn 912 mg/dL 05/31/16 19:20 Hep Bs Antigen Negative (NEGATIVE) 05/30/16 07:00 Hep Bs Antibody Negative (NEGATIVE) 05/30/16 07:00 Hep B Core IgM Ab Negative (NEGATIVE) 05/30/16 07:00 Hepatitis C Antibody Negative (NEGATIVE) 05/30/16 07:00 - Hospital Course Hospital Course: 60 year old female with past medical history of COPD, DM, CAD s/p 6 cardiac stents, obesity, fatty liver, s/p appendectomy presents to [facility] [place] ED complaining of chest pain. Patient reports her chest pain started morning after waking up. Upon further questioning, patient states that the chest pain was radiating from her headache which started one week ago. Her chest pain is located at substernal region, describes the pain as if someone is stabbing her with a knife. She states vomiting helped her relief the chest pain. Patient had 4 episodes of non bilious, non bloody vomiting episodes in total. At this moment patient is not in pain due to morphine administration in the ED. Patient had a negative nuclear stress test on 02/2015 and an echo of EF 55% on 12/2014. Patient denies weakness, fever, chills, shortness of breath, abdominal pain, diarrhea, constipation, urinary complaints, or recent diet changes. In the ED, LVH, anterior septal infarct, nonspecific ST/T changes (unchanged from previous). CXR was remarkable. Cardiology and nephrology were consulted. Patient was started on aspirin, statin, metoprolol and lovenox. Cardiology recommended medical management. Patient's chest pain resolved, but overnight she complained of headache which is resolved with vomiting. Neurology was consulted and CT head and fioricept was recommended. CT was unremarkable. Patient was hypotensive throught her hospital course. Patient metoprolol was decreased to 6.25mg BID. The discharge plan and follow ups were extensively discussed with the patient who verbalized with complete understanding. At this time, after discussion of all issues, the patient was deemed medically fit for discharge. - Date & Time of H&P Date of H&P: 05/29/16 Time of H&P: 11:39 Discharge Exam - Head Exam Head Exam: ATRAUMATIC, NORMOCEPHALIC - Eye Exam Eye Exam: Normal appearance, PERRL - ENT Exam ENT Exam: Mucous Membranes Moist - Neck Exam Neck exam: Normal Inspection - Respiratory Exam Respiratory Exam: Clear to PA & Lateral, NORMAL BREATHING PATTERN, UNREMARKABLE. absent: Rhonchi, Wheezes, Respiratory Distress - Cardiovascular Exam Cardiovascular Exam: REGULAR RHYTHM, RRR, +S1, +S2 - GI/Abdominal Exam GI & Abdominal Exam: Normal Bowel Sounds, Soft. absent: Rigid, Tenderness - Extremities Exam Extremities exam: normal inspection, pedal edema (chronic right pedal edema), pedal pulses present - Back Exam Back exam: NORMAL INSPECTION - Neurological Exam Neurological exam: Alert, Oriented x3 - Psychiatric Exam Psychiatric exam: Normal Affect, Normal Mood - Skin Skin Exam: Dry, Normal Color, Warm Discharge Plan - Discharge Medications Prescriptions: Alogliptin Benzoate [Alogliptin] 25 mg PO DAILY #30 tablet Acetaminophen/Butalbital/Caf [Fioricet] 1 tab PO Q12 PRN #10 tab PRN Reason: Headache GlipiZIDE [Glucotrol] 10 mg PO DAILY #30 tab Atorvastatin [Lipitor] 40 mg PO DAILY #30 tab Gemfibrozil [Lopid] 600 mg PO BID #60 tab Metoprolol Tartrate [Lopressor] 6.25 mg PO BID #60 tab Gabapentin [Neurontin] 100 mg PO TID #21 capsule Nitroglycerin 0.6 mg SL TID PRN #20 tab.subl PRN Reason: Pain, Severe (8-10) Pantoprazole Sodium [Protonix] 40 mg PO DAILY #30 tablet. Ropinirole HCl 0.25 mg PO HS #30 tablet Levothyroxine Sodium [Synthroid] 112 mcg PO DAILY #30 tablet - Follow Up Plan Condition: STABLE Disposition: HOME/ ROUTINE Instructions: Coronary Artery Disease (DC), Chest Pain (DC), Tension Headache ( DC) Additional Instructions: Instructed patient to follow up with PMRamón Mccord for medication adjustments and post hospitalization care Patient was instructed to arrange a sleep study for sleep apnea after seeing Dr. Mccord Instructed patient to follow up with Cardiology Dr. Geogre Take medications as instructed Go to the nearest ED if symptoms return or worsen Referrals: Gisel Mccord MD [Primary Care Provider] - Sruthi George MD [Staff Provider] - Clemente Weldon MD [Staff Provider] - <Sruthi Conroy MD - Last Filed: 06/02/16 12:15> Provider - Provider Date of Admission: 05/29/16 05:55 Attending physician: Sruthi Conroy MD Primary care physician: Gisel Mccord MD Hospital Course - Lab Results Lab Results: Most Recent Lab Values WBC 6.4 10^3/ul (4.5-11.0) 06/01/16 06:45 RBC 4.46 10^6/uL (3.5-6.1) 06/01/16 06:45 Hgb 9.7 gm/dL (12.0-16.0) L 06/01/16 06:45 Hct 31.6 % (36.0-48.0) L 06/01/16 06:45 MCV 70.9 fL (80.0-105.0) L 06/01/16 06:45 MCH 21.7 pg (25.0-35.0) L 06/01/16 06:45 MCHC 30.7 g/dl (31.0-37.0) L 06/01/16 06:45 RDW 15.8 % (11.5-14.5) H 06/01/16 06:45 Plt Count 278 10^3/uL (120.0-450.0) 06/01/16 06:45 MPV 11.2 fl (7.0-11.0) H 06/01/16 06:45 PT 11.0 Seconds (9.9-11.8) 05/29/16 03:35 INR 1.02 (0.93-1.08) 05/29/16 03:35 APTT 30.1 Seconds (23.7-30.8) 05/29/16 03:35 Sodium 139 mmol/L (132-148) 06/01/16 06:45 Potassium 4.3 mmol/L (3.6-5.0) 06/01/16 06:45 Chloride 108 mmol/L (95-110) 06/01/16 06:45 Carbon Dioxide 21 mmol/L (21-33) 06/01/16 06:45 Anion Gap 14 (10-20) 06/01/16 06:45 BUN 58 mg/dL (7-21) H 06/01/16 06:45 Creatinine 2.5 mg/dL (0.5-1.4) H 06/01/16 06:45 Est GFR ( Amer) 24 06/01/16 06:45 Est GFR (Non-Af Amer) 20 06/01/16 06:45 POC Glucose (mg/dL) 247 mg/dL (65-110) H 06/01/16 11:45 Random Glucose 88 mg/dL (70-110) 06/01/16 06:45 Hemoglobin A1c 9.4 % (4.2-6.5) H 05/30/16 06:51 Calcium 9.1 mg/dL (8.4-10.5) 06/01/16 06:45 Phosphorus 4.5 mg/dL (2.5-4.5) 06/01/16 06:45 Total Bilirubin 0.5 mg/dL (0.2-1.3) 05/29/16 03:35 AST 28 U/L (15-39) 05/29/16 03:35 ALT 15 U/L (7-56) 05/29/16 03:35 Alkaline Phosphatase 110 U/L (38-133) 05/29/16 03:35 Lactate Dehydrogenase 521 U/L (333-699) 05/29/16 19:35 Total Creatine Kinase 157 U/L (35-230) 05/29/16 19:35 Troponin I 4.32 ng/mL H* 05/29/16 19:35 Total Protein 7.9 g/dL (5.8-8.3) 05/29/16 03:35 Albumin 4.1 g/dL (3.0-4.8) 05/29/16 03:35 Globulin 3.8 gm/dL 05/29/16 03:35 Albumin/Globulin Ratio 1.1 (1.1-1.8) 05/29/16 03:35 25-OH Vitamin D Total < 12.8 NG/ML (30.0-100.0) L 05/30/16 06:51 Calcium (PTH Intact) 8.8 mg/dL (8.6-10.4) 05/30/16 06:51 PTH w/Ion &Tot Calcium 141 pg/mL (14-64) H 05/30/16 06:51 Urine Color Yellow (YELLOW) 05/31/16 01:50 Urine Appearance Clear (CLEAR) 05/31/16 01:50 Urine pH 5.5 (4.7-8.0) 05/31/16 01:50 Ur Specific Michael 1.025 (1.005-1.035) 05/31/16 01:50 Urine Protein Trace mg/dL (<30 mg/dL) H 05/31/16 01:50 Urine Glucose (UA) Negative mg/dL (NEGATIVE) 05/31/16 01:50 Urine Ketones Negative mg/dL (NEGATIVE) 05/31/16 01:50 Urine Blood Negative (NEGATIVE) 05/31/16 01:50 Urine Nitrate Negative (NEGATIVE) 05/31/16 01:50 Urine Bilirubin Negative (NEGATIVE) 05/31/16 01:50 Urine Urobilinogen 0.2 E.U./dL (<1 E.U./dL) 05/31/16 01:50 Ur Leukocyte Esterase Negative Renetta/uL (NEGATIVE) 05/31/16 01:50 Urine RBC 0 - 2 /hpf (0-2) 05/31/16 01:50 Urine WBC 1 - 3 /hpf (0-6) 05/31/16 01:50 Ur Epithelial Cells 4 - 5 /hpf (0-5) 05/31/16 01:50 Urine Bacteria Mod (NEG) 05/31/16 01:50 Ur Random Creatinine 109 mg/dL 05/31/16 19:20 Ur Random Sodium 22 meq/L 05/31/16 19:20 Ur Random Urea Nitrogn 912 mg/dL 05/31/16 19:20 Excel/Lambda Light Chain (()) 05/30/16 07:00 Free Excel Light Chains 34.9 mg/L (3.3-19.4) H 05/30/16 07:00 Free Lambda Light Chain 29.0 mg/L (5.7-26.3) H 05/30/16 07:00 Free Excel/Lambda Ratio 1.20 (0.26-1.65) 05/30/16 07:00 Hep Bs Antigen Negative (NEGATIVE) 05/30/16 07:00 Hep Bs Antibody Negative (NEGATIVE) 05/30/16 07:00 Hep B Core IgM Ab Negative (NEGATIVE) 05/30/16 07:00 Hepatitis C Antibody Negative (NEGATIVE) 05/30/16 07:00 Attending/Attestation - Attestation I have personally seen and examined this patient.: Yes I have fully participated in the care of the patient.: Yes I have reviewed all pertinent clinical information, including history, physical exam and plan: Yes Notes (Text): Patient was seen and examined with clinical medical assistant .Agreed with resident assessment and plan. 60 year old female with past medical history of COPD, DM, CAD s/p 6 cardiac stents,chronic kidney disease obesity, fatty liver, s/p appendectomy was admitted with chest pain, serial troponins were normal.Due to CKD , medical management was recommended.Patient remain pain free during her stay in the hospital.She was having headache, was evaluated by Neurology and felt to be tension headache.Headache was resolved at the time of discharge.Her blood pressure was running low, her Lisinopril has been discontinued.Due to CAD, she has been started on low dose of Metoprolol.She has been advised to monitor her blood pressure.She will follow up with her PCP and cardiology. Management plan was discussed in detail with patient Education was provided.
--- NOTE | 2016-06-01 13:36 | PN ---
DATE: 06/01/2016 REASON FOR CONSULTATION AND FOLLOWUP: Chest pain, history of diabetes, hypertension, hyperlipidemia, coronary artery disease, renal dysfunction. BRIEF CLINICAL HISTORY: This is a 60-year-old female with past medical history significant for sever e PAD, status post PTCA, CAD, status post multiple PTCAs, admitted with headache, troponin positive, renal insufficiency. The patient decided to treat medically. The patient denies any chest pain, bridger rtness of breath, any palpitation. PHYSICAL EXAMINATION: VITAL SIGNS: Temperature afebrile, heart rate 65, blood pressure 102/49. HEENT: PERRLA. Extraocular muscles intact. NECK: Supple. No carotid bruits. No thyromegaly. CHEST: Clear to auscultation. HEART: S1, S2 regular. ABDOMEN: Soft. EXTREMITIES: Clubbing and cyanosis negative. LABORATORY DATA: Blood workup as follows: WBC 6.4, hemoglobin 9, hematocrit 31.6, platelet count 27 8. Chemistry shows sodium 139, potassium 4.6, chloride 108, carbon dioxide 21, anion gap of 14, BUN 50, creatinine 2.5. IMPRESSION: Chronic renal insufficiency, stage IV chronic kidney disease, diabetes, hypertension, hy perlipidemia, chronic kidney disease, coronary artery disease, peripheral arterial disease. Troponin positive, but no chest pain, decided to treat medically. RECOMMENDATION: Continue aggressive medical treatment. Continue beta lyle, continue aspirin and Plavix. Continue gentle Lasix. Continue metoprolol. Continue DVT prophylaxis. Continue cilostazol . Possible discharge, will get discharge planning. We will follow with you. Thank you, Dr. Mccord, for providing the opportunity in taking care of the patient. We will follow w ith you. Sruthi George MD cc: [id number] TT: 06/01/2016 13:36:23 Confirmation # [id number] Dictation # [id number] tn
[2016-06-01 17:35] LABS: KAPPA/LAMBDA FREE RATIO 1.2 (0.26-1.65)
== END 2016-06-01 13:49 | disposition home or self-care (01) | DRG 281 ==
LOC: ED 02:21 → ERH 05:55 → 2RNO 09:04 → 3RNO 05-31 21:24
PROVIDERS: ADMIT Internal Medicine; ATTEND Internal Medicine
DX: I21.4 Non-ST elevation (NSTEMI) myocardial infarction (principal); N17.9 Acute kidney failure, unspecified; N18.4 Chronic kidney disease, stage 4 (severe); E11.21 Type 2 diabetes mellitus with diabetic nephropathy; E11.51 Type 2 diabetes mellitus with diabetic peripheral angiopathy without gangrene; N25.81 Secondary hyperparathyroidism of renal origin; I25.10 Atherosclerotic heart disease of native coronary artery without angina pectoris; E11.22 Type 2 diabetes mellitus with diabetic chronic kidney disease; G44.209 Tension-type headache, unspecified, not intractable; E11.65 Type 2 diabetes mellitus with hyperglycemia; I12.9 Hypertensive chronic kidney disease with stage 1 through stage 4 chronic kidney disease, or unspecified chronic kidney disease; E03.9 Hypothyroidism, unspecified; J44.9 Chronic obstructive pulmonary disease, unspecified; E66.9 Obesity, unspecified; E78.5 Hyperlipidemia, unspecified; K76.0 Fatty (change of) liver, not elsewhere classified; Z95.5 Presence of coronary angioplasty implant and graft; Z90.49 Acquired absence of other specified parts of digestive tract; Z87.891 Personal history of nicotine dependence; Z79.82 Long term (current) use of aspirin

== ENCOUNTER 2016-06-23 06:15 | Inpatient (IN) | payer OTHER ==
--- NOTE | 2016-06-23 06:28 | ED PDOC ---
Arrival/HPI - General Time Seen by Provider: 06/23/16 06:16 - History of Present Illness Narrative History of Present Illness (Text): 06/23/16 06:27 Patient presents for shortness of breath prior to arrival no associated chest pain no fever no chills no dizziness no headache arrives in acute pulmonary edema 06/24/16 00:32 Past Medical History - Provider Review Nursing Documentation Reviewed: Yes - Infectious Disease Hx of Infectious Diseases: None - Cardiac Hx Hypertension: Yes Hx Pacemaker: No Other/Comment: 6 cardiac stents/right leg stents and balloon - Pulmonary Hx Chronic Obstructive Pulmonary Disease (COPD): Yes - Neurological Hx Neurological Disorder: No Hx Paralysis: No - HEENT Hx HEENT Disorder: No Hx Blind: No Hx Cataracts: No Hx Deafness: No Hx Difficulty Chewing: No Hx Epistaxis: No Hx Glaucoma: No Hx Macular Degeneration: No - Renal Hx Renal Disorder: No Hx Renal Failure: No - Endocrine/Metabolic Hx Diabetes Mellitus Type 1: No Hx Diabetes Mellitus Type 2: Yes Hx Hypothyroidism: Yes - Hematological/Oncological Hx Blood Disorders: No Hx Blood Transfusions: No Hx Blood Transfusion Reaction: No - Integumentary Hx Dermatological Disorder: No Hx Basal Cell Carcinoma: No Hx Eczema: No Hx Melanoma: No Hx Psoriasis: No Hx Squamous Cell Carcinoma: No - Musculoskeletal/Rheumatological Hx Musculoskeletal Disorders: No - Gastrointestinal Hx Gastrointestinal Disorders: No Hx Colostomy: No Hx Crohn's Disease: No Hx Diverticulitis: No Hx Gall Bladder Disease: No Hx Gastroesophageal Reflux: No Hx Ileostomy: No Hx Liver Failure: Yes (fatty liver) Hx Pancreatitis: No HX Swallowing Problems: No - Genitourinary/Gynecological Hx Genitourinary Disorders: No Hx Hematuria: No Hx Incontinence: No Hx Sexually Transmitted Diseases: No Hx Urinary Tract Infection: No - Psychiatric Hx Anxiety: Yes Hx Emotional Abuse: No Hx Physical Abuse: No Hx Substance Use: No - Surgical History Hx Appendectomy: Yes (1976) Other/Comment: ptca x2 with 6 stents total, 3 stents 05/18/12 developed hematoma post ptca 05/18/12, fem angiogram 01/13/12, right leg angiogram 06/19/12, ptca 10/01 - Anesthesia Hx Anesthesia Reactions: Yes ("MY BODY DOESN'T TAKE IT",I FEEL EVERYTHING") Hx Malignant Hyperthermia: No - Suicidal Assessment Feels Threatened In Home Enviroment: No Family/Social History - Physician Review Nursing Documentation Reviewed: Yes Family/Social History: No Known Family HX Smoking Status: Light Smoker < 10 Cigarettes Daily Hx Alcohol Use: No Hx Substance Use: No Hx Substance Use Treatment: No Allergies/Home Meds Allergies/Adverse Reactions: Allergies No Known Allergies Allergy (Verified 05/29/16 11:35) Home Medications: Home Meds Medication Instructions Recorded Confirmed Cilostazol [Pletal] 50 mg PO BID 05/29/16 06/23/16 Furosemide [Lasix] 40 mg PO BID 05/29/16 06/23/16 Linaclotide [Linzess] 290 mcg PO DAILY 05/29/16 06/23/16 Lubiprostone [Amitiza] 24 mcg PO BID 05/29/16 06/23/16 Docusate [Colace] 100 mg PO DAILY 06/23/16 06/23/16 Review of Systems - Review of Systems Systems not reviewed;Unavailable: Acuity of Condition Constitutional: absent: Fevers Eyes: Normal ENT: Normal Respiratory: SOB Cardiovascular: Chest Pain Gastrointestinal: Normal Genitourinary Female: Normal Musculoskeletal: Normal Skin: Normal Neurological: Normal Endocrine: Normal Hemo/Lymphatic: Normal Psychiatric: Normal Physical Exam Vital Signs Temp Pulse Resp BP Pulse Ox 06/23/16 09:29 96.9 F L 100 H 25 H 114/59 L 99 06/23/16 09:04 115 H 24 128/76 98 06/23/16 07:34 97 H 18 94/65 L 96 06/23/16 07:02 98.0 F 116 H 50 H 116/62 84 L 06/23/16 06:30 116 H 50 H 116/62 84 L Temperature: Afebrile Blood Pressure: Normal Pulse: Regular Respiratory Rate: Normal Appearance: Positive for: Non-Toxic, Comfortable, Ill-Appearing Pain Distress: None Mental Status: Positive for: Agitated - Systems Exam Head: Present: Atraumatic, Normocephalic Pupils: Present: PERRL Extroacular Muscles: Present: EOMI Conjunctiva: Present: Normal Mouth: Present: Moist Mucous Membranes Neck: Present: Normal Range of Motion Respiratory/Chest: Present: Good Air Exchange, Rales (Physical)). No: Respiratory Distress, Accessory Muscle Use Cardiovascular: Present: Regular Rate and Rhythm, Normal S1, S2. No: Murmurs Abdomen: Present: Normal Bowel Sounds. No: Tenderness, Distention, Peritoneal Signs Back: Present: Normal Inspection Upper Extremity: Present: Normal Inspection. No: Cyanosis, Edema Lower Extremity: Present: Normal Inspection. No: Edema Neurological: Present: GCS=15, CN II-XII Intact, Speech Normal Skin: Present: Warm, Dry, Normal Color. No: Rashes Psychiatric: Present: Alert, Oriented x 3, Normal Insight, Normal Concentration Medical Decision Making ED Course and Treatment: 06/24/16 00:32 case d/w dr hall refuses case case d/w dr kriss boland case , evaluated by dr monterroso icu ekg lbbb acuity unknown, will treat for sepsis and acute pulmoary edema - Critical Care Critical Care Minutes: 30 minutes (respiratory failure) - Lab Interpretations Lab Results: 06/23/16 06:18 06/23/16 06:18 Lab Results 06/23/16 07:00: Urine Color Yellow, Urine Appearance Turbid, Urine pH 6.0, Ur Specific [place] >= 1.030, Urine Protein >=300 H, Urine Glucose (UA) 250 H, Urine Ketones Negative, Urine Blood Moderate H, Urine Nitrate Negative, Urine Bilirubin Negative, Urine Urobilinogen 0.2, Ur Leukocyte Esterase Small H, Urine RBC 2 - 5, Urine WBC 1 - 3, Ur Epithelial Cells 4 - 5, Urine Bacteria Many , Hyaline Casts 0 - 2, Coarse Granular Casts Trace H, Urine Other Mucus 06/23/16 06:18: Sodium 142, Chloride 109 H, Potassium 4.0, Carbon Dioxide 14 L, Anion Gap 23 H, BUN 44 H, Creatinine 2.5 H, Est GFR ( Amer) 24, Est GFR ( Non-Af Amer) 20, Random Glucose 488 H* D, Calcium 9.6, Total Bilirubin 0.5, AST 20, ALT 25, Alkaline Phosphatase 123, Lactate Dehydrogenase 501, Total Creatine Kinase 115, Troponin I 0.10 D, NT-Pro-B Natriuret Pep 7300 H, Total Protein 7.6 , Albumin 4.1, Globulin 3.6, Albumin/Globulin Ratio 1.1 06/23/16 06:18: pO2 32, VBG pH 6.88 L*, VBG pCO2 78.0 H*, VBG HCO3 14.6 L, VBG Total CO2 17.0 L, VBG O2 Sat (Calc) 48.2, VBG Base Excess -19.7 L, VBG Potassium 4.0, Sodium 140.0, Chloride 111.0 H, Glucose 491 H*, Lactate 6.4 H*, FiO2 21.0, Venous Blood Potassium 4.0 06/23/16 06:18: WBC 13.9 H D, RBC 5.17, Hgb 11.5 L, Hct 38.3, MCV 74.1 L, MCH 22.2 L, MCHC 30.0 L, RDW 17.0 H, Plt Count 385, MPV 11.9 H, Neutrophils % ( Manual) 71 H, Band Neutrophils % 0, Lymphocytes % (Manual) 27, Atypical Lymphs % 1 H, Monocytes % (Manual) 1, Platelet Evaluation Normal, Hypochromasia 1+, Anisocytosis (manual) Slight - RAD Interpretation Radiology Orders: 06/23/16 06:18 CHEST PORTABLE [RAD] Stat - Medication Orders Current Medication Orders: Acetylcysteine (Acetylcysteine 20%) 6 ml PO Q12H [facility]UD[facility] Last Admin: 06/23/16 12:44 Dose: 6 ml Aspirin (Ecotrin) 81 mg PO DAILY D[facility] Clopidogrel Bisulfate (Plavix) 75 mg PO DAILY D[facility] Propofol (Diprivan) 1,000 mg in 100 mls @ 3.13 mls/hr IV .Q24H PRN; Protocol; 5 MCG/KG/MIN PRN Reason: TITRATE PER MD ORDER Last Titration: 06/24/16 00:16 Dose: 40 mcg/kg/min, 25.038 mls/hr Heparin Sodium/Sodium Chloride (Heparin 52729 Units/250ml 1/2 Normal Saline) 25 ,000 units in 250 mls @ 12.519 mls/hr IV .[id number] DUDLEY; 12 UNITS/KG/HR PRN Reason: Protocol Last Admin: 06/23/16 11:35 Dose: 12 units/kg/hr, 12.519 mls/hr Insulin Human Regular 100 (units/ Sodium Chloride) 100 mls @ 2 mls/hr IV .Q24H PRN; Protocol; 2 UNITS/HR PRN Reason: TITRATE PER MD ORDER Last Titration: 06/24/16 00:00 Dose: 1.5 units/hr, 1.5 mls/hr Meropenem 1g/NS 100mL IVPB (Meropenem 1g/Ns 100ml Ivpb) 1 gm in 100 mls @ 100 mls/hr IVPB Q12 [facility] PRN Reason: Protocol Stop: 06/30/16 22:01 Last Admin: 06/23/16 23:16 Dose: 100 mls/hr Eptifibatide (Integrilin) 75 mg in 100 mls @ 8.137 mls/hr IV .[id number] DUDLEY; 1 MCG/KG/MIN PRN Reason: Protocol Stop: 06/24/16 17:25 Last Admin: 06/23/16 17:59 Dose: 1 mcg/kg/min, 8.137 mls/hr Sodium Chloride (Sodium Chloride 0.9%) 1,000 mls @ 50 mls/hr IV .Q20H [facility] Stop: 06/24/16 23:59 Last Admin: 06/23/16 18:00 Dose: 50 mls/hr Pantoprazole Sodium (Protonix Inj) 40 mg IVP DAILY D[facility] Discontinued Medications Aspirin (Aspirin Supp) 300 mg RC DAILY [facility] Last Admin: 06/23/16 12:46 Dose: 300 mg Re-Assess: MAR Pain/Vitals Document 06/23/16 13:46 JCL (Rec: 06/23/16 15:03 JCL [facility]) Pain Reassessment Is This A Pain ReAssessment? No Sleep Is patient sleeping during reassessment? Yes Atropine Sulfate (Atropine) Confirm Administered Dose 1 mg .ROUTE .STK-MED ONE Stop: 06/23/16 14:44 Last Admin: 06/23/16 17:44 Dose: Clopidogrel Bisulfate (Plavix) 600 mg PO STAT STA Stop: 06/23/16 17:27 Last Admin: 06/23/16 17:59 Dose: 600 mg Eptifibatide (Integrilin Bolus) Confirm Administered Dose 40 mg IVP .STK-MED ONE Stop: 06/23/16 15:12 Last Admin: 06/23/16 16:42 Dose: 38 mg Comments: IV per Dr. George. 9.5 ml/19 mg @ 1642 1st bolus followed by 9.5 ml/ 19 mg @ 1652 2nd bolus Etomidate (Amidate) Confirm Administered Dose 20 mg IV .STK-MED ONE Stop: 06/23/16 06:40 Last Admin: 06/23/16 06:40 Dose: 10 mg Furosemide (Lasix) 40 mg IVP STAT STA Stop: 06/23/16 06:19 Last Admin: 06/23/16 06:32 Dose: 40 mg Furosemide (Lasix) 80 mg IVP ONCE ONE Stop: 06/23/16 11:31 Last Admin: 06/23/16 11:48 Dose: 80 mg Heparin Sodium (Porcine) (Heparin) Confirm Administered Dose 10,000 units .ROUTE .STK-MED ONE Stop: 06/23/16 14:45 Last Admin: 06/23/16 17:44 Dose: Propofol (Diprivan) Confirm Administered Dose 1,000 mg in 100 mls @ ud .ROUTE .STK-MED ONE Stop: 06/23/16 06:58 Last Admin: 06/23/16 07:02 Dose: Levofloxacin/Dextrose (Levaquin 750mg) 750 mg in 150 mls @ 100 mls/hr IVPB STAT STA Stop: 06/23/16 08:48 Last Admin: 06/23/16 08:31 Dose: 100 mls/hr Sodium Chloride 3,000 ml/ IV (SUPPLIES) 3,000 mls @ 6,259.56 mls/hr IV ONCE ONE PRN Reason: 60 ML/KG/HR Stop: 06/23/16 07:20 Last Admin: 06/23/16 07:20 Dose: 6,259.56 mls/hr Piperacillin Sod/Tazobactam Sod (Zosyn 4.5 Gm In Ns 100ml) 4.5 gm in 100 mls @ 200 mls/hr IVPB STAT STA PRN Reason: Protocol Stop: 06/23/16 07:48 Last Admin: 06/23/16 07:56 Dose: 200 mls/hr Vancomycin HCl (Vancomycin 1gm) 1 gm in 250 mls @ 167 mls/hr IVPB STAT STA PRN Reason: Protocol Stop: 06/23/16 15:50 Last Admin: 06/23/16 14:57 Dose: 167 mls/hr Nitroglycerin/Dextrose (Nitroglycerin 50 Mg/250 Ml D5w) Confirm Administered Dose 100 mg in 500 mls @ ud IV .STK-MED ONE Stop: 06/23/16 14:45 Last Admin: 06/23/16 17:47 Dose: Heparin Sodium (Porcine) (Heparin 1000 Units/500 Ml Ns) Confirm Administered Dose 1,500 mls @ ud IV .STK-MED ONE Stop: 06/23/16 14:45 Last Admin: 06/23/16 19:29 Dose: Not Given Non-Admin Reason: BP Parameters Not Met Eptifibatide (Integrilin) Confirm Administered Dose 75 mg in 100 mls @ ud IV .STK-MED ONE Stop: 06/23/16 15:12 Last Admin: 06/23/16 16:43 Dose: 8.3 Comments: IV per Dr. George Heparin Sodium (Porcine) (Heparin 1000 Units/500 Ml Ns) Confirm Administered Dose 500 mls @ ud IV .STK-MED ONE Stop: 06/23/16 16:21 Last Admin: 06/23/16 19:30 Dose: Insulin Human NPH (Humulin N) 10 units SC STAT STA Stop: 06/23/16 11:17 Last Admin: 06/23/16 11:26 Dose: 10 units Iodixanol (Visipaque 320 Mg/Ml 200 Ml) Confirm Administered Dose 200 ml IV .STK- MED ONE Stop: 06/23/16 14:45 Last Admin: 06/23/16 15:31 Dose: 200 ml Comments: During cath Iohexol (Omnipaque 350mg/Ml 50 Ml) Confirm Administered Dose 50 ml .ROUTE .STK- MED ONE Stop: 06/23/16 14:45 Last Admin: 06/23/16 15:31 Dose: 50 ml Comments: During cath Lidocaine HCl (Lidocaine 2% 20ml Vial) Confirm Administered Dose 20 ml .ROUTE .STK-MED ONE Stop: 06/23/16 14:44 Last Admin: 06/23/16 15:31 Dose: 16 ml Comments: SC by Dr. George Phenylephrine HCl (Phenylephrine Inj) Confirm Administered Dose 10 mg .ROUTE .STK-MED ONE Stop: 06/23/16 14:45 Last Admin: 06/23/16 16:11 Dose: 0.3 mg Comments: IV per Dr. George. 100 mcg @ 1611, 100 mcg @ 1657, 100 mcg @ 1702 Pneumococcal Polyvalent Vaccine (Pneumovax 23 Vaccine) 0.5 ml IM .ONCE ONE Stop: 06/23/16 14:44 Sodium Bicarbonate (Sodium Bicarbonate (8.4%) 50 Meq Syringe) 50 meq IVP ONCE ONE Stop: 06/23/16 08:54 Last Admin: 06/23/16 09:14 Dose: Sodium Bicarbonate (Sodium Bicarbonate (8.4%) 50 Meq Syringe) 50 meq IVP ONCE ONE Stop: 06/23/16 08:55 Last Admin: 06/23/16 09:15 Dose: Sodium Bicarbonate (Sodium Bicarbonate (8.4%) 50 Meq Syringe) Confirm Administered Dose 100 meq .ROUTE .STK-MED ONE Stop: 06/23/16 09:04 Last Admin: 06/23/16 09:14 Dose: 100 meq Verapamil HCl (Verapamil Inj) Confirm Administered Dose 5 mg IVP .STK-MED ONE Stop: 06/23/16 17:01 Last Admin: 06/23/16 17:01 Dose: 0.25 mg Comments: IC by Dr. George. 125 mcg @ 1701 and 125 mcg @ 1702 Disposition/Present on Arrival - Present on Arrival Any Indicators Present on Arrival: No History of DVT/PE: No History of Uncontrolled Diabetes: No Urinary Catheter: Yes (inserted in or) History Surgical Site Infection Following: None - Disposition Have Diagnosis and Disposition been Completed?: Yes Diagnosis: Myocardial infarct, Sepsis, Pulmonary edema Disposition: HOSPITALIZED Disposition Time: 07:30 Condition: SERIOUS Endotracheal Intubation - Endotracheal Intubation Intubated With ETT Size: 8 Blade Type Used: Curved Indication: Respiratory Failure Intubated: Orally Pre-Intubation Airway Assessment: Ventilated And Oxygenated Medications Used During Pre-Intubation: Etomidate Post-Intubation Assessment: ETT Secured AT (cm): (24), Breath Sounds Equal Bilat , Color Change W/End Tidal CO2 Detector
[2016-06-23 06:35] VITALS: BMI 43.4
[2016-06-23] MEDS ORDERED: Etomidate 20 mg/10ml Inj IV ONE (06:39)
[2016-06-23 06:43] LABS: VENOUS BLOOD GAS BASE EXCESS -19.7 mmol/L (0.0-2.0)
[2016-06-23 06:46] LABS: HEMATOCRIT 38.3 % (36.0-48.0); MEAN CELL VOLUME 74.1 fL (80.0-105.0); MEAN CORPUSCULAR HEMOGLOBIN 22.2 pg (25.0-35.0); MEAN PLATELET VOLUME 11.9 fl (7.0-11.0); PLATELET COUNT 385 10^3/uL (120.0-450.0); VENOUS BLOOD PH 6.88 (7.32-7.43); WHITE BLOOD COUNT 13.9 10^3/ul (4.5-11.0)
[2016-06-23 06:53] LABS: ADD MANUAL DIFF? YES
[2016-06-23 06:54] LABS: ALB/GLOB RATIO 1.1 (1.1-1.8); BILIRUBIN,TOTAL 0.5 mg/dL (0.2-1.3); CALCIUM 9.6 mg/dL (8.4-10.5); TOTAL PROTEIN 7.6 g/dL (5.8-8.3)
[2016-06-23] MEDS ORDERED: Propofol 10 mg/ml 1,000 MG/100 ML VIAL ONE (06:57)
[2016-06-23] MEDS: Propofol 10 mg/ml 1,000 MG/100 ML VIAL IV PRN ×3 (07:01→14:29)
[2016-06-23 07:05] LABS: TROPONIN I 0.1 ng/mL
[2016-06-23] MEDS ORDERED: levoFLOXacin 750 mg in D5W 750 MG/150 ML BAG IVPB STA (07:19)
[2016-06-23] MEDS ORDERED: Piperacill/Tazo 4.5gm in NS 4.5 GM/100 ML BAG IVPB STA (07:19)
--- NOTE | 2016-06-23 07:39 | RAD ---
HISTORY: sob COMPARISON: 05/29/2016 FINDINGS: LUNGS: Interval increase diffuse/coalesced interstitial lung markings. Concomitant central right airspace coalescence probable. . PLEURA: No significant pleural effusion identified, no pneumothorax apparent. CARDIOVASCULAR: Mild cardiomegaly. Aortic knob atherosclerotic vascular calcification OSSEOUS STRUCTURES: No significant abnormalities. VISUALIZED UPPER ABDOMEN: Normal. OTHER FINDINGS: No tracheal tube tip at darcy - recommend retractionEKG leads in place IMPRESSION: Low lying endotracheal tube recommend retraction. Interval diffuse interstitial "nonspecific pneumonitis"; bilateral right much greater than left. Interval interstitial pulmonary edema is 1 consideration. A ninterval diffuse viral or hypersensitivity pneumonitis is another. Correlation needed regarding clinical context.
[2016-06-23 08:38] LABS: ABG MECHANICAL RATE 24; ARTERIAL BLOOD GAS HCO3 14.9 mmol/L (21-28); ATERIAL BLOOD GAS PEEP 5
[2016-06-23 08:40] LABS: ARTERIAL BLOOD GAS PH 6.99 (7.35-7.45)
[2016-06-23] MEDS ORDERED: Sodium Bicarbonate (8.4%) 50 Meq Syringe IVP ONE ×2 (08:53→08:54)
[2016-06-23] MEDS ORDERED: Sodium Bicarbonate (8.4%) 50 Meq Syringe ONE (09:03)
[2016-06-23 09:07] LABS: ANISOCYTOSIS SLIGHT; ATYPICAL LYMPHOCYTE 1 % (0.0-0.0); BAND 0 % (0-2); HYPOCHROMIA 1+; NEUTROPHIL 71 % (50.0-70.0); PLATELET ESTIMATE NORMAL (NORMAL)
[2016-06-23 09:56] LABS: URINE BILIRUBIN NEGATIVE (NEGATIVE); URINE BLOOD MODERATE (NEGATIVE); URINE GLUCOSE (UA) 250 mg/dL (NEGATIVE); URINE KETONE NEGATIVE (NEGATIVE); URINE LEUKOCYTE ESTERASE SMALL Leu/uL (NEGATIVE); URINE PROTEIN >=300 mg/dL (<30 mg/dL); URINE UROBILINOGEN 0.2 E.U./dL (<1 E.U./dL)
[2016-06-23 10:04] LABS: URINE COLOR YELLOW (YELLOW)
[2016-06-23 10:05] LABS: URINE APPEARANCE TURBID (CLEAR)
--- NOTE | 2016-06-23 10:13 | CP.PCM.HP ---
<WomackFariha sidhu - Last Filed: 06/23/16 18:57> History of Present Illness - History of Present Illness History of Present Illness: H&P for Dr. Vasquez CC: respiratory distress Patient was intubated and non-responsive during interview. Information was attained from the ER staff and the chart. Pt is a 61 morbidly obese female with PMH including CAD s/p 6 stents, COPD, HTN , CKD and DM2 with PSH of appendectomy who was BIBA with acute respiratory distress. Patient was unresponsive at time of presentation, so no history is attainable. HR was 116 and pulse ox was 84% on non-rebreather mask. Patient was intubated in the ER. VBG showed acute respiratory acidosis on top of metabolic acidosis. EKG showed sinus tachycardia, possible left atrial enlargement, occasional PAC's, and new onset LBBB. Patient was given lasix, 3L fluid boluses , antibiotics, and sodium bicarb in the ER. Patient was admitted at [facility] 3[place]4 weeks ago for chest pain and hypotension but EKG showed no acute changes and patient was cleared for discharge by cardiology with modification of BP medications and follow up with cardiology outpatient. PMH: CAD s/p 6 stents, COPD, HTN, DM2, anxiety, fatty liver PSH: appendectomy, cardiac cath 2 times All: NKDA Social: light smoker? Present on Admission - Present on Admission Any Indicators Present on Admission: Yes History of DVT/PE: Yes Review of Systems - Review of Systems Systems not reviewed;Unavailable: Intubated Past Patient History - Infectious Disease Hx of Infectious Diseases: None - Past Medical History & Family History Past Medical History?: Yes - Past Social History Smoking Status: Light Smoker < 10 Cigarettes Daily (from past chart history) - CARDIAC Hx Hypertension: Yes Hx Pacemaker: No Other/Comment: 6 cardiac stents/right leg stents and balloon - PULMONARY Hx Chronic Obstructive Pulmonary Disease (COPD): Yes - NEUROLOGICAL Hx Neurological Disorder: No Hx Paralysis: No - HEENT Hx HEENT Problems: No Hx Blind: No Hx Cataracts: No Hx Deafness: No Hx Difficulty Chewing: No Hx Epistaxis: No Hx Glaucoma: No Hx Macular Degeneration: No - RENAL Hx Chronic Kidney Disease: No Hx Renal Failure: No - ENDOCRINE/METABOLIC Hx Diabetes Mellitus Type 1: No Hx Diabetes Mellitus Type 2: Yes Hx Hypothyroidism: Yes - HEMATOLOGICAL/ONCOLOGICAL Hx Blood Disorders: No Hx Blood Transfusions: No Hx Blood Transfusion Reaction: No - INTEGUMENTARY Hx Dermatological Problems: No Hx Basil Cell: No Hx Eczema: No Hx Melanoma: No Hx Psoriasis: No Hx Squamous Cell: No - MUSCULOSKELETAL/RHEUMATOLOGICAL Hx Musculoskeletal Disorders: No - GASTROINTESTINAL Hx Gastrointestinal Disorders: No Hx Colostomy: No Hx Crohn's Disease: No Hx Diverticulitis: No Hx Gall Bladder Disease: No Hx Gastroesophageal Reflux: No Hx Ileostomy: No Hx Liver Failure: Yes (fatty liver) Hx Pancreatitis: No HX Swallowing Problems: No - GENITOURINARY/GYNECOLOGICAL Hx Genitourinary Disorders: No Hx Hematuria: No Hx Incontinence: No Hx Sexually Transmitted Disorders: No Hx Urinary Tract Infection: No - PSYCHIATRIC Hx Anxiety: Yes Hx Emotional Abuse: No Hx Physical Abuse: No Hx Substance Use: No - SURGICAL HISTORY Hx Appendectomy: Yes (1976) Other/Comment: ptca x2 with 6 stents total, 3 stents 05/18/12 developed hematoma post ptca 05/18/12, fem angiogram 01/13/12, right leg angiogram 06/19/12, ptca 10/01 - ANESTHESIA Hx Anesthesia Reactions: Yes ("MY BODY DOESN'T TAKE IT",I FEEL EVERYTHING") Hx Malignant Hyperthermia: No Meds Allergies/Adverse Reactions: Allergies Allergy/AdvReac Type Severity Reaction Status Date / Time No Known Allergies Allergy Verified 05/29/16 11:35 Physical Exam - Constitutional Appears: In Acute Distress - Head Exam Head Exam: ATRAUMATIC, NORMOCEPHALIC - Eye Exam Eye Exam: Normal appearance, PERRL. absent: Conjunctival injection, Scleral icterus - ENT Exam ENT Exam: Mucous Membranes Moist, Normal Oropharynx - Respiratory Exam Respiratory Exam: Rhonchi. absent: Wheezes Additional comments: intubated on mechanical ventilation - Cardiovascular Exam Cardiovascular Exam: RRR, +S1, +S2. absent: Systolic Murmur - GI/Abdominal Exam GI & Abdominal Exam: Distended, Organomegaly (hepatomegaly), Soft. absent: Guarding, Rebound, Rigid, Tenderness - Extremities Exam Extremities exam: Positive for: pedal edema, pedal pulses present Additional comments: no calf swelling/erythema - Neurological Exam Neurological exam: Altered (unresponsive to verbal or tactile stimulation, sedated) - Psychiatric Exam Additional comments: nonresponsive--sedated - Skin Skin Exam: Dry, Intact, Warm Additional comments: plaques of dry skin on feet BL Results - Vital Signs Recent Vital Signs: Last Vital Signs Temp 96.9 F L 06/23/16 09:29 Pulse 100 H 06/23/16 09:29 Resp 25 H 06/23/16 09:29 BP 114/59 L 06/23/16 09:29 Pulse Ox 99 06/23/16 09:29 - Labs Result Diagrams: 06/23/16 18:34 06/23/16 18:34 Labs: Laboratory Results - last 24 hr 06/23/16 08:34 pCO2 62 H pO2 138.0 H HCO3 14.9 L ABG pH 6.99 L* ABG Total CO2 16.8 L ABG O2 Saturation 99.6 H ABG Base Excess -17.0 L ABG Potassium 4.2 Sodium 141.0 Chloride 112.0 H Glucose 473 H* Lactate 2.5 H Mechanical Rate 24 FiO2 100.0 Tidal Volume 350 PEEP 5 Arterial Blood Potassium 4.2 Assessment & Plan - Assessment and Plan (Free Text) Assessment: 61 morbidly obese female with PMH including CAD s/p 6 stents, COPD, HTN, CKD and DM2 BIBA for acute respiratory failure, NSTEMI, DKA, SIRS Respiratory failure respiratory on top of metabolic acidosis Mechanically ventilated CXR: interval diffuse interstitial "nonspecific pneumonitis", R>L. Interstitial pulmonary edema vs viral/hypersensitivity pneumonitis VBG: pco2: 7.8, pO2: 138, HCO3: 14.6, PH: 6.88, lactate: 6.4 bnp: 7,300 ECHO 05/19/16: EF 35% bicarb in the ED Plan -Admit to ICU on mechanical ventilation, maintain O2 sat>90% -Abx per ID -lasix 40mg IV x1 for fluid overload -f/u repeat ABG -urine drug screen -Cardiology consult--f/u recs -ID consult--f/u recs -primary management per ICU team--f/u recs NSTEMI EKG: Sinus rhythm with occasional PVC's, new LBBB since 05/29/16, possible L atrial enlargement Repeat EKG: sinus tachy with occasional PVC's, LBBB trop: 0.10 Plan -trend cardiac enzymes -Start heparin drip for possible NSTEMI -ASA -Cardiac consult--f/u recs DKA blood glucose 488 at presentation Anion gap elevated: 23 Lactate acidosis: 6.4 VBG HCO3: 14.6 bicarb and insulin drip initiated in the ED Underlying CKD Plan -insulin drip -BMP Q4 -limit IVF d/t CHF -Continue to monitor glucose -Consider dialysis if does not improve -F/U nephro consult recs SIRS WBC: 13.9, Tachycardia, respiratory failure CXR: interval diffuse interstitial "nonspecific pneumonitis", R>L. Interstitial pulmonary edema vs viral/hypersensitivity pneumonitis Plan -Continue abx per ID -f/u ID recs -repeat CBC -procalcitonin -blood/urine culture -monitor BP--currently stable CKD Cr: 2.5 (baseline for patient) BUN: 44 Urine: >300 urine proteins Plan -f/u nephrology recs -consider dialysis if needed H/O HTN Currently normotensive -Continue to monitor GI ppx, heparin drip for DVT ppx Dispo: admit to ICU for further monitoring and management Patient seen and discussed with Dr. Pedro Womack, PGY1 <Juliette Vasquez - Last Filed: 06/23/16 21:15> Results - Vital Signs Recent Vital Signs: Last Vital Signs Temp 97.6 F 06/23/16 20:30 Pulse 79 06/23/16 20:57 Resp 30 H 06/23/16 20:57 BP 106/76 06/23/16 19:47 Pulse Ox 100 06/23/16 19:50 - Labs Result Diagrams: 06/23/16 18:34 06/23/16 18:34 Labs: Laboratory Results - last 24 hr 06/23/16 06/23/16 06/23/16 08:34 10:46 10:46 WBC RBC Hgb Hct MCV MCH MCHC RDW Plt Count MPV Gran % Lymph % (Auto) Letcher % (Auto) Eos % (Auto) Baso % (Auto) Gran # Lymph # Letcher # Eos # Baso # PT INR APTT pCO2 62 H pO2 138.0 H 87 H HCO3 14.9 L ABG pH 6.99 L* ABG Total CO2 16.8 L ABG O2 Saturation 99.6 H ABG Base Excess -17.0 L ABG Potassium 4.2 VBG pH 7.20 L VBG pCO2 50.0 VBG HCO3 19.5 L VBG Total CO2 21.0 L VBG O2 Sat (Calc) 98.2 H VBG Base Excess -8.7 L VBG Potassium 4.3 Sodium 141.0 141.0 Chloride 112.0 H 115.0 H Glucose 473 H* 398 H Lactate 2.5 H 2.1 Mechanical Rate 24 FiO2 100.0 21.0 Tidal Volume 350 PEEP 5 Potassium Carbon Dioxide Anion Gap BUN Creatinine Est GFR ( Amer) Est GFR (Non-Af Amer) Random Glucose Calcium Total Bilirubin AST ALT Alkaline Phosphatase Lactate Dehydrogenase Total Creatine Kinase CK-MB (CK-2) CK-MB (CK-2) % Troponin I Total Protein Albumin Globulin Albumin/Globulin Ratio Free T4 Total T3 TSH 3rd Generation 7.09 H Arterial Blood Potassium 4.2 Venous Blood Potassium 4.3 06/23/16 06/23/16 06/23/16 11:50 11:50 11:50 WBC RBC Hgb Hct MCV MCH MCHC RDW Plt Count MPV Gran % Lymph % (Auto) Letcher % (Auto) Eos % (Auto) Baso % (Auto) Gran # Lymph # Letcher # Eos # Baso # PT 12.2 H INR 1.13 H APTT 30.8 pCO2 pO2 HCO3 ABG pH ABG Total CO2 ABG O2 Saturation ABG Base Excess ABG Potassium VBG pH VBG pCO2 VBG HCO3 VBG Total CO2 VBG O2 Sat (Calc) VBG Base Excess VBG Potassium Sodium Cancelled Chloride Cancelled Glucose Lactate Mechanical Rate FiO2 Tidal Volume PEEP Potassium Cancelled Carbon Dioxide Cancelled Anion Gap Cancelled BUN Cancelled Creatinine Est GFR ( Amer) Cancelled Est GFR (Non-Af Amer) Cancelled Random Glucose Cancelled Calcium Cancelled Total Bilirubin AST ALT Alkaline Phosphatase Lactate Dehydrogenase 2061 H Total Creatine Kinase 2006 H CK-MB (CK-2) 59.6 H CK-MB (CK-2) % 3.0 Troponin I 79.70 H* D Total Protein Albumin Globulin Albumin/Globulin Ratio Free T4 1.25 Total T3 0.78 L TSH 3rd Generation Arterial Blood Potassium Venous Blood Potassium 06/23/16 06/23/16 06/23/16 12:30 13:38 13:38 WBC 9.9 D RBC 4.93 Hgb 11.0 L Hct 35.5 L MCV 72.0 L MCH 22.3 L MCHC 31.0 RDW 16.7 H Plt Count 266 MPV 11.1 H Gran % Lymph % (Auto) Letcher % (Auto) Eos % (Auto) Baso % (Auto) Gran # Lymph # Letcher # Eos # Baso # PT INR APTT pCO2 34 L pO2 73.0 L HCO3 17.5 L ABG pH 7.32 L ABG Total CO2 18.5 L ABG O2 Saturation 97.2 ABG Base Excess -7.7 L ABG Potassium 3.1 L VBG pH VBG pCO2 VBG HCO3 VBG Total CO2 VBG O2 Sat (Calc) VBG Base Excess VBG Potassium Sodium 144.0 145 Chloride 118.0 H 114 H Glucose 244 H Lactate 1.1 Mechanical Rate 30 FiO2 60.0 Tidal Volume 350 PEEP 5 Potassium 3.7 Carbon Dioxide 18 L Anion Gap 17 BUN 54 H Creatinine 2.6 H Est GFR ( Amer) 23 Est GFR (Non-Af Amer) 19 Random Glucose 152 H Calcium 9.1 Total Bilirubin 0.6 AST 219 H ALT 54 Alkaline Phosphatase 108 Lactate Dehydrogenase Total Creatine Kinase CK-MB (CK-2) CK-MB (CK-2) % Troponin I Total Protein 6.9 Albumin 3.6 Globulin 3.3 Albumin/Globulin Ratio 1.1 Free T4 Total T3 TSH 3rd Generation Arterial Blood Potassium 3.1 L Venous Blood Potassium 06/23/16 06/23/16 18:34 18:34 WBC 11.1 H RBC 4.60 Hgb 10.2 L Hct 33.4 L MCV 72.6 L MCH 22.2 L MCHC 30.5 L RDW 16.9 H Plt Count 269 MPV 11.2 H Gran % 79.9 H Lymph % (Auto) 9.9 L Letcher % (Auto) 9.6 H Eos % (Auto) 0.3 L Baso % (Auto) 0.3 Gran # 8.85 H Lymph # 1.1 L Letcher # 1.1 H Eos # 0.0 Baso # 0.03 PT INR APTT pCO2 pO2 HCO3 ABG pH ABG Total CO2 ABG O2 Saturation ABG Base Excess ABG Potassium VBG pH VBG pCO2 VBG HCO3 VBG Total CO2 VBG O2 Sat (Calc) VBG Base Excess VBG Potassium Sodium 145 Chloride 113 H Glucose Lactate Mechanical Rate FiO2 Tidal Volume PEEP Potassium 3.7 Carbon Dioxide 19 L Anion Gap 17 BUN 53 H Creatinine 2.7 H Est GFR ( Amer) 22 Est GFR (Non-Af Amer) 18 Random Glucose 130 H Calcium 9.0 Total Bilirubin AST ALT Alkaline Phosphatase Lactate Dehydrogenase Total Creatine Kinase CK-MB (CK-2) CK-MB (CK-2) % Troponin I Total Protein Albumin Globulin Albumin/Globulin Ratio Free T4 Total T3 TSH 3rd Generation Arterial Blood Potassium Venous Blood Potassium Attending/Attestation - Attestation I have personally seen and examined this patient.: Yes I have fully participated in the care of the patient.: Yes I have reviewed all pertinent clinical information: Yes Notes (Text): 06/23/16 21:06 61 year old female with past medical history of CAD s/p multiple stents, hypertension, diabetes, and CKD who presented this morning with acute respiratory distress. CXR showed acute pulmonary edema +/- pneumonia. She was given lasix and antibiotics in ER. She was intubated and admitted to the ICU. EKG also showed new left bundle branch block. Initial troponin was 0.10 and she was given aspirin and started on heparin drip. Her repeat troponin was markedly elevated. Cardiology evaluation was greatly appreciated and patient was taken to the foundry laborer coreroom. Continue with vent management, ABGs and serial CXRs as per surveillance camera technician. She is on antibiotics fas per ID for possible pneumonia while awaiting cultures and procalcitonin. Nephrology is following for CKD. She was also found to have DKA and started on insulin drip. Juliette Vasquez MD Hospitalist.
[2016-06-23 10:23] LABS: URINE BACTERIA MANY (NEG)
[2016-06-23 10:51] LABS: VENOUS BLOOD GAS BASE EXCESS -8.7 mmol/L (0.0-2.0)
[2016-06-23] MEDS ORDERED: Insulin Human NPH 1 UNITS/0.01 ML SC STA (11:16)
[2016-06-23] MEDS ORDERED: Insulin Regular 100 UNITS in Sodium Chloride 0.9% 99 ML IV PRN (11:18)
[2016-06-23] MEDS ORDERED: Heparin25000 units/250ml 1/2NS 25,000 UNITS/250 ML BAG IV SCH (11:30)
[2016-06-23] MEDS ORDERED: Acetylcysteine 200 mg/ml IV IV SCH (12:30)
[2016-06-23 12:38] LABS: ABG MECHANICAL RATE 30; ARTERIAL BLOOD GAS HCO3 17.5 mmol/L (21-28); ARTERIAL BLOOD GAS PH 7.32 (7.35-7.45); ATERIAL BLOOD GAS PEEP 5
[2016-06-23] MEDS: Acetylcysteine 20% Inhal Soln (4ml) PO SCH (12:44)
--- NOTE | 2016-06-23 12:46 | CARD ---
APPROVED REPORT EKG Measurement Heart [id number] <Conclusion> Sinus rhythm with occasional premature ventricular complexes Possible Left atrial enlargement Left bundle branch block Abnormal ECG
--- NOTE | 2016-06-23 12:52 | CARD ---
APPROVED REPORT EKG Measurement Heart [id number] <Conclusion> Sinus tachycardia with occasional premature ventricular complexes Left bundle branch block Abnormal ECG
[2016-06-23 13:32] LABS: FREE T4 1.25 ng/dL (0.78-2.19)
[2016-06-23 13:39] LABS: INR 1.13 (0.93-1.08); PARTIAL THROMBOPLASTIN TIME 30.8 Seconds (23.7-30.8)
[2016-06-23 13:46] LABS: T3 0.78 ng/mL (0.97-1.69)
[2016-06-23 13:47] LABS: HEMATOCRIT 35.5 % (36.0-48.0); MEAN CORPUSCULAR HEMOGLOBIN 22.3 pg (25.0-35.0); MEAN PLATELET VOLUME 11.1 fl (7.0-11.0); RED CELL DISTRIBUTION WIDTH 16.7 % (11.5-14.5); WHITE BLOOD COUNT 9.9 10^3/ul (4.5-11.0)
[2016-06-23 13:54] LABS: ALB/GLOB RATIO 1.1 (1.1-1.8); BILIRUBIN,TOTAL 0.6 mg/dL (0.2-1.3); CALCIUM 9.1 mg/dL (8.4-10.5); POTASSIUM 3.7 mmol/L (3.6-5.0); TOTAL PROTEIN 6.9 g/dL (5.8-8.3)
[2016-06-23] MEDS ORDERED: Vancomycin 1gm in NS 250ml 1 GM/250 ML BAG IVPB STA (14:21)
--- NOTE | 2016-06-23 14:26 | CP.PCM.CON ---
History of Present Illness - History of Present Illness History of Present Illness: 61 year old female with PMH of E. coli bacteremia with urinary tract infection, coronary artery disease and a history of percutaneous coronary angioplasty with congestive heart failure, Morbid obesity with BMI of 44, DM, Peripheral vascular disease, COPD, HTN, Dyslipidemia, Gastritis, History of appendectomy in 1976 was brought in to the ED because of chest pain associated with shortness of breath. she denies cough or colds, no sputum production, no sore throat, no nausea or vomiting, no abdominal pain, no dysuria, no diarrhea, no blurring of vision, no headache or dizziness. She was recently admitted in [facility] [place] in early May 2016 for CAD. In the ED, she was noted to have leukocytosis and Infectious diseases consult is requested to further evaluate and manage. Review of Systems - Review of Systems All systems: reviewed and no additional remarkable complaints except (as per HPI ) Past Patient History - Infectious Disease Hx of Infectious Diseases: None - Past Social History Smoking Status: Light Smoker < 10 Cigarettes Daily - CARDIAC Hx Hypertension: Yes Hx Pacemaker: No Other/Comment: 6 cardiac stents/right leg stents and balloon - PULMONARY Hx Chronic Obstructive Pulmonary Disease (COPD): Yes - NEUROLOGICAL Hx Neurological Disorder: No Hx Paralysis: No - HEENT Hx HEENT Problems: No Hx Blind: No Hx Cataracts: No Hx Deafness: No Hx Difficulty Chewing: No Hx Epistaxis: No Hx Glaucoma: No Hx Macular Degeneration: No - RENAL Hx Chronic Kidney Disease: No Hx Renal Failure: No - ENDOCRINE/METABOLIC Hx Diabetes Mellitus Type 1: No Hx Diabetes Mellitus Type 2: Yes Hx Hypothyroidism: Yes - HEMATOLOGICAL/ONCOLOGICAL Hx Blood Disorders: No Hx Blood Transfusions: No Hx Blood Transfusion Reaction: No - INTEGUMENTARY Hx Dermatological Problems: No Hx Basil Cell: No Hx Eczema: No Hx Melanoma: No Hx Psoriasis: No Hx Squamous Cell: No - MUSCULOSKELETAL/RHEUMATOLOGICAL Hx Musculoskeletal Disorders: No - GASTROINTESTINAL Hx Gastrointestinal Disorders: No Hx Colostomy: No Hx Crohn's Disease: No Hx Diverticulitis: No Hx Gall Bladder Disease: No Hx Gastroesophageal Reflux: No Hx Ileostomy: No Hx Liver Failure: Yes (fatty liver) Hx Pancreatitis: No HX Swallowing Problems: No - GENITOURINARY/GYNECOLOGICAL Hx Genitourinary Disorders: No Hx Hematuria: No Hx Incontinence: No Hx Sexually Transmitted Disorders: No Hx Urinary Tract Infection: No - PSYCHIATRIC Hx Anxiety: Yes Hx Emotional Abuse: No Hx Physical Abuse: No Hx Substance Use: No - SURGICAL HISTORY Hx Appendectomy: Yes (1976) Other/Comment: ptca x2 with 6 stents total, 3 stents 05/18/12 developed hematoma post ptca 05/18/12, fem angiogram 01/13/12, right leg angiogram 06/19/12, ptca 10/01 - ANESTHESIA Hx Anesthesia Reactions: Yes ("MY BODY DOESN'T TAKE IT",I FEEL EVERYTHING") Hx Malignant Hyperthermia: No Meds Allergies/Adverse Reactions: Allergies Allergy/AdvReac Type Severity Reaction Status Date / Time No Known Allergies Allergy Verified 05/29/16 11:35 - Medications Medications: Current Medications Propofol (Diprivan) 1,000 mg in 100 mls @ 3.13 mls/hr IV .Q24H PRN; Protocol; 5 MCG/KG/MIN PRN Reason: TITRATE PER MD ORDER Last Admin: 06/23/16 09:18 Dose: 26.51 mcg/kg/min, 16.6 mls/hr Physical Exam - Constitutional Appears: Non-toxic, No Acute Distress - Head Exam Head Exam: NORMAL INSPECTION - ENT Exam ENT Exam: Mucous Membranes Moist - Neck Exam Neck exam: Negative for: Lymphadenopathy, Meningismus - Respiratory Exam Respiratory Exam: Decreased Breath Sounds - Cardiovascular Exam Cardiovascular Exam: +S1, +S2 - GI/Abdominal Exam GI & Abdominal Exam: Soft. absent: Tenderness Results - Vital Signs Recent Vital Signs: Last Vital Signs Temp 98.0 F 06/23/16 07:02 Pulse 115 H 06/23/16 09:04 Resp 24 06/23/16 09:04 BP 128/76 06/23/16 09:04 Pulse Ox 98 06/23/16 09:04 - Labs Result Diagrams: 06/23/16 13:38 06/23/16 06:18 Labs: Laboratory Results - last 24 hr 06/23/16 08:34 pCO2 62 H pO2 138.0 H HCO3 14.9 L ABG pH 6.99 L* ABG Total CO2 16.8 L ABG O2 Saturation 99.6 H ABG Base Excess -17.0 L ABG Potassium 4.2 Sodium 141.0 Chloride 112.0 H Glucose 473 H* Lactate 2.5 H Mechanical Rate 24 FiO2 100.0 Tidal Volume 350 PEEP 5 Arterial Blood Potassium 4.2 Assessment & Plan - Assessment and Plan (Free Text) Plan: Assessment systemic inflammatory Response Syndrome, consider secondary to acute exacerbation of CHF, R/O healthcare-associated pneumonia acute renal failure history of E. coli bacteremia with urinary tract infection coronary artery disease and a history of percutaneous coronary angioplasty with congestive heart failure Morbid obesity with BMI of 44 DM Peripheral vascular disease COPD HTN Dyslipidemia Gastritis History of appendectomy in 1976 Plan Given a dose of IV Vancomycin and started Meropenem (patient was given Levaquin and zosyn in the ED) pending blood cx, PCT Will check another CXR tomorrow Will monitor clinically
[2016-06-23 14:30] LABS: TROPONIN I 79.7 ng/mL
[2016-06-23] MEDS ORDERED: Pneumococcal 23-Valent Vaccine IM ONE (14:43)
[2016-06-23] MEDS ORDERED: Lidocaine 2% Inj (20ml) ONE (14:43)
[2016-06-23] MEDS ORDERED: Iohexol 350mgl/ml 50 ML ONE (14:44)
[2016-06-23] MEDS ORDERED: Phenylephrine 10 mg/ml Inj ONE (14:44)
[2016-06-23] MEDS ORDERED: Nitroglycerin 50mg in D5W 50 MG/250 ML BOTTLE IV ONE (14:44)
[2016-06-23] MEDS ORDERED: Iodixanol 320 MG/ML 200 ML BOTTLE IV ONE (14:44)
[2016-06-23] MEDS ORDERED: Eptifibatide 20 mg/10mL Inj IVP ONE (15:11)
[2016-06-23] MEDS ORDERED: Eptifibatide 0.75 mg/ml 75 MG/100 ML BOTTLE IV ONE (15:11)
--- NOTE | 2016-06-23 15:41 | CP.PCM.PN ---
Subjective - Date & Time of Evaluation Date of Evaluation: 06/23/16 Time of Evaluation: 15:32 - Subjective Subjective: CODE HEART NOTE Code heart is called on patient. Patient had a positive troponin of 79.70. Custodian Supervisor, Dr. George saw patient. Patient was wheeled to cardiac cath with ICU team. Patient has past medical history of CAD s/p 6 stents, HTN, DM, COPD, fatty liver and anxiety. Initial troponin on presentation was 0.10. EKG on presentation showed LBBB. Patient was brought in this morning for AMS and was intubated in ED. On presentation, she had a lactic acid of 6.4 which trended down to 1.1 throughout the day. Patient is on mechanical ventilation. Assessment: STEMI, CAD s/p 6 stents, HTN, DM, COPD Plan: Cardiac cath with Dr. George Objective - Vital Signs/Intake and Output Vital Signs (last 24 hours): Temp Pulse Resp BP Pulse Ox 97.1 F L 78 30 H 128/76 99 06/23/16 14:30 06/23/16 14:30 06/23/16 14:30 06/23/16 14:30 06/23/16 12:30 Intake and Output: 06/23/16 06/23/16 06:59 18:59 Intake Total 106 Balance 106 - Medications Medications: Current Medications Acetylcysteine (Acetylcysteine 20%) 6 ml PO Q12H [facility] Last Admin: 06/23/16 12:44 Dose: 6 ml Aspirin (Aspirin Supp) 300 mg RC DAILY [facility] Last Admin: 06/23/16 12:46 Dose: 300 mg Propofol (Diprivan) 1,000 mg in 100 mls @ 3.13 mls/hr IV .Q24H PRN; Protocol; 5 MCG/KG/MIN PRN Reason: TITRATE PER MD ORDER Last Admin: 06/23/16 14:29 Dose: 40 mcg/kg/min, 25.038 mls/hr Heparin Sodium/Sodium Chloride (Heparin 11891 Units/250ml 1/2 Normal Saline) 25 ,000 units in 250 mls @ 12.519 mls/hr IV .[id number] [place]; 12 UNITS/KG/HR PRN Reason: Protocol Last Admin: 06/23/16 11:35 Dose: 12 units/kg/hr, 12.519 mls/hr Insulin Human Regular 100 (units/ Sodium Chloride) 100 mls @ 2 mls/hr IV .Q24H PRN; Protocol; 2 UNITS/HR PRN Reason: TITRATE PER MD ORDER Last Titration: 06/23/16 14:27 Dose: 2 units/hr, 2 mls/hr Meropenem 1g/NS 100mL IVPB (Meropenem 1g/Ns 100ml Ivpb) 1 gm in 100 mls @ 100 mls/hr IVPB Q12 [place] PRN Reason: Protocol Stop: 06/30/16 22:01 Vancomycin HCl (Vancomycin 1gm) 1 gm in 250 mls @ 167 mls/hr IVPB STAT STA PRN Reason: Protocol Stop: 06/23/16 15:50 Last Admin: 06/23/16 14:57 Dose: 167 mls/hr Pantoprazole Sodium (Protonix Inj) 40 mg IVP DAILY [facility] - Labs Labs: 06/23/16 13:38 06/23/16 13:38 PT 12.2 Seconds (9.9-11.8) H 06/23/16 11:50 INR 1.13 (0.93-1.08) H 06/23/16 11:50 APTT 30.8 Seconds (23.7-30.8) 06/23/16 11:50
--- NOTE | 2016-06-23 17:09 | CP.PCM.CON ---
<Jasbir Leroy - Last Filed: 06/23/16 17:10> History of Present Illness - History of Present Illness History of Present Illness: 61 y/o F with PMH COPD, HTN, CKD, DM, and CAD s/p 6 stents presented to the ED due to respiratory distress. Pt was intubated during examination and information was provided from chart review, ED staff, and pt's nephew at bedside. Nephew states pt has been not feeling well over the past 3 days, in which she has been coughing and vomiting. This morning, pt seemed to have trouble breathing and the ambulance was called by a family member. Upon arrival to ED, pt was intubated due to severe respiratory distress. EKG demonstrated new onset left bundle branch block. CXR demonstrated severe pulmonary congestion. Pt was given IVF, lasix, and antibiotics in ED. Review of systems was not able to be obtained. PMH: CAD, COPD, HTN, DM2, anxiety, fatty liver PSH: Cardiac stent placement x 6, appendectomy All: NKDA Social: Unobtainable Meds: Unobtainable Review of Systems - Review of Systems Systems not reviewed;Unavailable: Intubated Past Patient History - Infectious Disease Hx of Infectious Diseases: None - Past Medical History & Family History Past Medical History?: Yes - Past Social History Smoking Status: Light Smoker < 10 Cigarettes Daily (from past chart history) - CARDIAC Hx Hypertension: Yes Hx Pacemaker: No Other/Comment: 6 cardiac stents/right leg stents and balloon - PULMONARY Hx Chronic Obstructive Pulmonary Disease (COPD): Yes - NEUROLOGICAL Hx Neurological Disorder: No Hx Paralysis: No - HEENT Hx HEENT Problems: No Hx Blind: No Hx Cataracts: No Hx Deafness: No Hx Difficulty Chewing: No Hx Epistaxis: No Hx Glaucoma: No Hx Macular Degeneration: No - RENAL Hx Chronic Kidney Disease: No Hx Renal Failure: No - ENDOCRINE/METABOLIC Hx Diabetes Mellitus Type 1: No Hx Diabetes Mellitus Type 2: Yes Hx Hypothyroidism: Yes - HEMATOLOGICAL/ONCOLOGICAL Hx Blood Disorders: No Hx Blood Transfusions: No Hx Blood Transfusion Reaction: No - INTEGUMENTARY Hx Dermatological Problems: No Hx Basil Cell: No Hx Eczema: No Hx Melanoma: No Hx Psoriasis: No Hx Squamous Cell: No - MUSCULOSKELETAL/RHEUMATOLOGICAL Hx Musculoskeletal Disorders: No - GASTROINTESTINAL Hx Gastrointestinal Disorders: No Hx Colostomy: No Hx Crohn's Disease: No Hx Diverticulitis: No Hx Gall Bladder Disease: No Hx Gastroesophageal Reflux: No Hx Ileostomy: No Hx Liver Failure: Yes (fatty liver) Hx Pancreatitis: No HX Swallowing Problems: No - GENITOURINARY/GYNECOLOGICAL Hx Genitourinary Disorders: No Hx Hematuria: No Hx Incontinence: No Hx Sexually Transmitted Disorders: No Hx Urinary Tract Infection: No - PSYCHIATRIC Hx Anxiety: Yes Hx Emotional Abuse: No Hx Physical Abuse: No Hx Substance Use: No - SURGICAL HISTORY Hx Appendectomy: Yes (1976) Other/Comment: ptca x2 with 6 stents total, 3 stents 05/18/12 developed hematoma post ptca 05/18/12, fem angiogram 01/13/12, right leg angiogram 06/19/12, ptca 10/01 - ANESTHESIA Hx Anesthesia Reactions: Yes ("MY BODY DOESN'T TAKE IT",I FEEL EVERYTHING") Hx Malignant Hyperthermia: No Meds Allergies/Adverse Reactions: Allergies Allergy/AdvReac Type Severity Reaction Status Date / Time No Known Allergies Allergy Verified 05/29/16 11:35 - Medications Medications: Current Medications Acetylcysteine (Acetylcysteine 20%) 6 ml PO Q12H [facility] Last Admin: 06/23/16 12:44 Dose: 6 ml Aspirin (Aspirin Supp) 300 mg RC DAILY [facility] Last Admin: 06/23/16 12:46 Dose: 300 mg Propofol (Diprivan) 1,000 mg in 100 mls @ 3.13 mls/hr IV .Q24H PRN; Protocol; 5 MCG/KG/MIN PRN Reason: TITRATE PER MD ORDER Last Admin: 06/23/16 14:29 Dose: 40 mcg/kg/min, 25.038 mls/hr Heparin Sodium/Sodium Chloride (Heparin 44720 Units/250ml 1/2 Normal Saline) 25 ,000 units in 250 mls @ 12.519 mls/hr IV .[id number] [facility]; 12 UNITS/KG/HR PRN Reason: Protocol Last Admin: 06/23/16 11:35 Dose: 12 units/kg/hr, 12.519 mls/hr Insulin Human Regular 100 (units/ Sodium Chloride) 100 mls @ 2 mls/hr IV .Q24H PRN; Protocol; 2 UNITS/HR PRN Reason: TITRATE PER MD ORDER Last Titration: 06/23/16 14:27 Dose: 2 units/hr, 2 mls/hr Meropenem 1g/NS 100mL IVPB (Meropenem 1g/Ns 100ml Ivpb) 1 gm in 100 mls @ 100 mls/hr IVPB Q12 [facility] PRN Reason: Protocol Stop: 06/30/16 22:01 Pantoprazole Sodium (Protonix Inj) 40 mg IVP DAILY [facility] Physical Exam - Constitutional Appears: Toxic, In Acute Distress - Head Exam Head Exam: ATRAUMATIC, NORMAL INSPECTION, NORMOCEPHALIC - Eye Exam Eye Exam: Normal appearance, PERRL - ENT Exam ENT Exam: Mucous Membranes Moist, Normal Exam Additional comments: ET tube in place - Neck Exam Neck exam: Positive for: Normal Inspection. Negative for: Lymphadenopathy - Respiratory Exam Respiratory Exam: Rales (Diffuse, B/L). absent: Clear to Auscultation Bilateral , NORMAL BREATHING PATTERN Additional comments: Intubated - Cardiovascular Exam Cardiovascular Exam: RRR, +S1, +S2. absent: Systolic Murmur - GI/Abdominal Exam GI & Abdominal Exam: Normal Bowel Sounds, Soft. absent: Distended, Rigid - Extremities Exam Extremities exam: Positive for: normal inspection, pedal edema (Trace) - Skin Skin Exam: Intact, Normal Color, Warm Results - Vital Signs Recent Vital Signs: Last Vital Signs Temp 97.1 F L 06/23/16 14:30 Pulse 78 06/23/16 14:30 Resp 30 H 06/23/16 14:30 BP 128/76 06/23/16 14:30 Pulse Ox 99 06/23/16 12:30 - Labs Result Diagrams: 06/23/16 13:38 06/23/16 13:38 Labs: Laboratory Results - last 24 hr 06/23/16 06/23/16 06/23/16 08:34 10:46 10:46 WBC RBC Hgb Hct MCV MCH MCHC RDW Plt Count MPV PT INR APTT pCO2 62 H pO2 138.0 H 87 H HCO3 14.9 L ABG pH 6.99 L* ABG Total CO2 16.8 L ABG O2 Saturation 99.6 H ABG Base Excess -17.0 L ABG Potassium 4.2 VBG pH 7.20 L VBG pCO2 50.0 VBG HCO3 19.5 L VBG Total CO2 21.0 L VBG O2 Sat (Calc) 98.2 H VBG Base Excess -8.7 L VBG Potassium 4.3 Sodium 141.0 141.0 Chloride 112.0 H 115.0 H Glucose 473 H* 398 H Lactate 2.5 H 2.1 Mechanical Rate 24 FiO2 100.0 21.0 Tidal Volume 350 PEEP 5 Potassium Carbon Dioxide Anion Gap BUN Creatinine Est GFR ( Amer) Est GFR (Non-Af Amer) Random Glucose Calcium Total Bilirubin AST ALT Alkaline Phosphatase Lactate Dehydrogenase Total Creatine Kinase CK-MB (CK-2) CK-MB (CK-2) % Troponin I Total Protein Albumin Globulin Albumin/Globulin Ratio Free T4 Total T3 TSH 3rd Generation 7.09 H Arterial Blood Potassium 4.2 Venous Blood Potassium 4.3 06/23/16 06/23/16 06/23/16 11:50 11:50 11:50 WBC RBC Hgb Hct MCV MCH MCHC RDW Plt Count MPV PT 12.2 H INR 1.13 H APTT 30.8 pCO2 pO2 HCO3 ABG pH ABG Total CO2 ABG O2 Saturation ABG Base Excess ABG Potassium VBG pH VBG pCO2 VBG HCO3 VBG Total CO2 VBG O2 Sat (Calc) VBG Base Excess VBG Potassium Sodium Cancelled Chloride Cancelled Glucose Lactate Mechanical Rate FiO2 Tidal Volume PEEP Potassium Cancelled Carbon Dioxide Cancelled Anion Gap Cancelled BUN Cancelled Creatinine Est GFR ( Amer) Cancelled Est GFR (Non-Af Amer) Cancelled Random Glucose Cancelled Calcium Cancelled Total Bilirubin AST ALT Alkaline Phosphatase Lactate Dehydrogenase 2061 H Total Creatine Kinase 2006 H CK-MB (CK-2) 59.6 H CK-MB (CK-2) % 3.0 Troponin I 79.70 H* D Total Protein Albumin Globulin Albumin/Globulin Ratio Free T4 1.25 Total T3 0.78 L TSH 3rd Generation Arterial Blood Potassium Venous Blood Potassium 06/23/16 06/23/16 06/23/16 12:30 13:38 13:38 WBC 9.9 D RBC 4.93 Hgb 11.0 L Hct 35.5 L MCV 72.0 L MCH 22.3 L MCHC 31.0 RDW 16.7 H Plt Count 266 MPV 11.1 H PT INR APTT pCO2 34 L pO2 73.0 L HCO3 17.5 L ABG pH 7.32 L ABG Total CO2 18.5 L ABG O2 Saturation 97.2 ABG Base Excess -7.7 L ABG Potassium 3.1 L VBG pH VBG pCO2 VBG HCO3 VBG Total CO2 VBG O2 Sat (Calc) VBG Base Excess VBG Potassium Sodium 144.0 145 Chloride 118.0 H 114 H Glucose 244 H Lactate 1.1 Mechanical Rate 30 FiO2 60.0 Tidal Volume 350 PEEP 5 Potassium 3.7 Carbon Dioxide 18 L Anion Gap 17 BUN 54 H Creatinine 2.6 H Est GFR ( Amer) 23 Est GFR (Non-Af Amer) 19 Random Glucose 152 H Calcium 9.1 Total Bilirubin 0.6 AST 219 H ALT 54 Alkaline Phosphatase 108 Lactate Dehydrogenase Total Creatine Kinase CK-MB (CK-2) CK-MB (CK-2) % Troponin I Total Protein 6.9 Albumin 3.6 Globulin 3.3 Albumin/Globulin Ratio 1.1 Free T4 Total T3 TSH 3rd Generation Arterial Blood Potassium 3.1 L Venous Blood Potassium Assessment & Plan - Assessment and Plan (Free Text) Plan: 61 y/o F with PMH of COPD, HTN, CAD with stent placement and DM presents with acute hypercapnic respiratory failure likely due to cardiogenic pulmonary edema secondary to NSTEMI in the setting of severe sepsis and DKA. Pt initially found to be profoundly acidotic and was given 2 amps of bicarb in the ED. Pt was started on heparin drip due to new onset LBBB. Pt will also be diuresed due to pulmonary vascular congestion. Pt also found to be in DKA, insulin drip started but no IVF given at this time due to patient's fluid overload status. Pt will empirically be started on vancomycin and merrem. Pt was later found to have elevated troponins on second set of labs drawn. [facility] was called and patient was taken to the clinical laboratory scientist. Neuro: Intubated and sedated Monitor for worsening mental status Cardio: NSTEMI, taken to clinical laboratory scientist Will start ASA and plavix as per cardio Heparin drip Troponins trending New onset LBBB Echocardiogram ordered Maintain hemodynamically Maintain MAP >65 Dr. George following Pulm: Cardiogenic pulmonary edema secondary to NSTEMI Intubated and sedated Maintain O2 sat >90% GI: NPO Protonix Endo: Insulin drip No IVF at this time BMP q4h Monitor anion gap Maintain euglycemia Nephro: Baseline CKD Monitor creatinine post cath Will consider dialysis if renal function worsening Maintain euvolemia Dr. Agarwal following Heme/ID: Afebrile, mild leukocytosis Blood and urine cultures ordered Continue Merrem and Vancomycin Maintain normothermia PPX: Heparin drip Protonix Seen, reviewed, and discussed with attending. Rad, PGY-1 <Alma FLORES,Roxana Gutierrez - Last Filed: 06/24/16 09:01> Meds - Medications Medications: Current Medications Acetylcysteine (Acetylcysteine 20%) 6 ml PO Q12H [facility] Last Admin: 06/23/16 12:44 Dose: 6 ml Aspirin (Ecotrin) 81 mg PO DAILY [facility] Clopidogrel Bisulfate (Plavix) 75 mg PO DAILY [facility] Heparin Sodium/Sodium Chloride (Heparin 57432 Units/250ml 1/2 Normal Saline) 25 ,000 units in 250 mls @ 12.519 mls/hr IV .[id number] [facility]; 12 UNITS/KG/HR PRN Reason: Protocol Last Admin: 06/23/16 11:35 Dose: 12 units/kg/hr, 12.519 mls/hr Insulin Human Regular 100 (units/ Sodium Chloride) 100 mls @ 2 mls/hr IV .Q24H PRN; Protocol; 2 UNITS/HR PRN Reason: TITRATE PER MD ORDER Last Titration: 06/24/16 03:08 Dose: 0 units/hr, 0 mls/hr Meropenem 1g/NS 100mL IVPB (Meropenem 1g/Ns 100ml Ivpb) 1 gm in 100 mls @ 100 mls/hr IVPB Q12 [facility] PRN Reason: Protocol Stop: 06/30/16 22:01 Last Admin: 06/23/16 23:16 Dose: 100 mls/hr Eptifibatide (Integrilin) 75 mg in 100 mls @ 8.137 mls/hr IV .[id number] [facility]; 1 MCG/KG/MIN PRN Reason: Protocol Stop: 06/24/16 17:25 Last Admin: 06/23/16 17:59 Dose: 1 mcg/kg/min, 8.137 mls/hr Fentanyl Citrate (Fentanyl Citrate/Sodium Chloride 1 Mg/100 Ml) 1,000 mcg in 100 mls @ 2 mls/hr IV .Q24H PRN; Protocol; 20 MCG/HR PRN Reason: TITRATE PER MD ORDER Last Titration: 06/24/16 08:38 Dose: 70 mcg/hr, 7 mls/hr Dextrose/Sodium Chloride (Dextrose 5%/0.45% Ns 1000 Ml) 1,000 mls @ 75 mls/hr IV .[id number] [facility] Last Admin: 06/24/16 03:28 Dose: 75 mls/hr Potassium Chloride (Potassium Chloride 10 Meq/100 Ml) 10 meq in 100 mls @ 100 mls/hr IVPB Q2H [facility] Stop: 06/24/16 10:29 Last Admin: 06/24/16 07:53 Dose: 100 mls/hr Milrinone Lactate/Dextrose (Primacor 20mg/100ml D5w) 100 mls @ 6.646 mls/hr IV .Q15H3M PRN; Protocol; 0.2 MCG/KG/MIN PRN Reason: TITRATE PER MD ORDER Last Admin: 06/24/16 07:29 Dose: 0.2 mcg/kg/min, 6.646 mls/hr Midazolam HCl (Versed Inj) 2 mg IVP Q2H PRN PRN Reason: Agitation Pantoprazole Sodium (Protonix Inj) 40 mg IVP DAILY [facility] Results - Vital Signs Recent Vital Signs: Last Vital Signs Temp 98.4 F 06/24/16 07:57 Pulse 86 06/24/16 07:29 Resp 17 06/24/16 02:50 BP 99/56 L 06/24/16 07:29 Pulse Ox 98 06/24/16 05:10 - Labs Result Diagrams: 06/24/16 06:00 06/24/16 06:00 Labs: Laboratory Results - last 24 hr 06/23/16 06/23/16 06/23/16 10:46 10:46 11:14 WBC RBC Hgb Hct MCV MCH MCHC RDW Plt Count MPV Gran % Lymph % (Auto) Boyle % (Auto) Eos % (Auto) Baso % (Auto) Gran # Lymph # Boyle # Eos # Baso # PT INR APTT pCO2 pO2 87 H HCO3 ABG pH ABG Total CO2 ABG O2 Saturation ABG Base Excess ABG Potassium VBG pH 7.20 L VBG pCO2 50.0 VBG HCO3 19.5 L VBG Total CO2 21.0 L VBG O2 Sat (Calc) 98.2 H VBG Base Excess -8.7 L VBG Potassium 4.3 Sodium 141.0 Chloride 115.0 H Glucose 398 H Lactate 2.1 Mechanical Rate FiO2 21.0 Tidal Volume PEEP Potassium Carbon Dioxide Anion Gap BUN Creatinine Est GFR ( Amer) Est GFR (Non-Af Amer) POC Glucose (mg/dL) 375 H Random Glucose Calcium Phosphorus Magnesium Total Bilirubin AST ALT Alkaline Phosphatase Lactate Dehydrogenase Total Creatine Kinase CK-MB (CK-2) CK-MB (CK-2) % Troponin I Total Protein Albumin Globulin Albumin/Globulin Ratio Triglycerides Cholesterol LDL Cholesterol Direct HDL Cholesterol Free T4 Total T3 TSH 3rd Generation 7.09 H Arterial Blood Potassium Venous Blood Potassium 4.3 06/23/16 06/23/16 06/23/16 11:50 11:50 11:50 WBC RBC Hgb Hct MCV MCH MCHC RDW Plt Count MPV Gran % Lymph % (Auto) Boyle % (Auto) Eos % (Auto) Baso % (Auto) Gran # Lymph # Boyle # Eos # Baso # PT 12.2 H INR 1.13 H APTT 30.8 pCO2 pO2 HCO3 ABG pH ABG Total CO2 ABG O2 Saturation ABG Base Excess ABG Potassium VBG pH VBG pCO2 VBG HCO3 VBG Total CO2 VBG O2 Sat (Calc) VBG Base Excess VBG Potassium Sodium Cancelled Chloride Cancelled Glucose Lactate Mechanical Rate FiO2 Tidal Volume PEEP Potassium Cancelled Carbon Dioxide Cancelled Anion Gap Cancelled BUN Cancelled Creatinine Est GFR ( Amer) Cancelled Est GFR (Non-Af Amer) Cancelled POC Glucose (mg/dL) Random Glucose Cancelled Calcium Cancelled Phosphorus Magnesium Total Bilirubin AST ALT Alkaline Phosphatase Lactate Dehydrogenase 2061 H Total Creatine Kinase 2006 H CK-MB (CK-2) 59.6 H CK-MB (CK-2) % 3.0 Troponin I 79.70 H* D Total Protein Albumin Globulin Albumin/Globulin Ratio Triglycerides Cholesterol LDL Cholesterol Direct HDL Cholesterol Free T4 1.25 Total T3 0.78 L TSH 3rd Generation Arterial Blood Potassium Venous Blood Potassium 06/23/16 06/23/16 06/23/16 12:00 12:30 12:59 WBC RBC Hgb Hct MCV MCH MCHC RDW Plt Count MPV Gran % Lymph % (Auto) Boyle % (Auto) Eos % (Auto) Baso % (Auto) Gran # Lymph # Boyle # Eos # Baso # PT INR APTT pCO2 34 L pO2 73.0 L HCO3 17.5 L ABG pH 7.32 L ABG Total CO2 18.5 L ABG O2 Saturation 97.2 ABG Base Excess -7.7 L ABG Potassium 3.1 L VBG pH VBG pCO2 VBG HCO3 VBG Total CO2 VBG O2 Sat (Calc) VBG Base Excess VBG Potassium Sodium 144.0 Chloride 118.0 H Glucose 244 H Lactate 1.1 Mechanical Rate 30 FiO2 60.0 Tidal Volume 350 PEEP 5 Potassium Carbon Dioxide Anion Gap BUN Creatinine Est GFR ( Amer) Est GFR (Non-Af Amer) POC Glucose (mg/dL) 354 H 279 H Random Glucose Calcium Phosphorus Magnesium Total Bilirubin AST ALT Alkaline Phosphatase Lactate Dehydrogenase Total Creatine Kinase CK-MB (CK-2) CK-MB (CK-2) % Troponin I Total Protein Albumin Globulin Albumin/Globulin Ratio Triglycerides Cholesterol LDL Cholesterol Direct HDL Cholesterol Free T4 Total T3 TSH 3rd Generation Arterial Blood Potassium 3.1 L Venous Blood Potassium 06/23/16 06/23/16 06/23/16 13:38 13:38 14:24 WBC 9.9 D RBC 4.93 Hgb 11.0 L Hct 35.5 L MCV 72.0 L MCH 22.3 L MCHC 31.0 RDW 16.7 H Plt Count 266 MPV 11.1 H Gran % Lymph % (Auto) Boyle % (Auto) Eos % (Auto) Baso % (Auto) Gran # Lymph # Boyle # Eos # Baso # PT INR APTT pCO2 pO2 HCO3 ABG pH ABG Total CO2 ABG O2 Saturation ABG Base Excess ABG Potassium VBG pH VBG pCO2 VBG HCO3 VBG Total CO2 VBG O2 Sat (Calc) VBG Base Excess VBG Potassium Sodium 145 Chloride 114 H Glucose Lactate Mechanical Rate FiO2 Tidal Volume PEEP Potassium 3.7 Carbon Dioxide 18 L Anion Gap 17 BUN 54 H Creatinine 2.6 H Est GFR ( Amer) 23 Est GFR (Non-Af Amer) 19 POC Glucose (mg/dL) 193 H Random Glucose 152 H Calcium 9.1 Phosphorus Magnesium Total Bilirubin 0.6 AST 219 H ALT 54 Alkaline Phosphatase 108 Lactate Dehydrogenase Total Creatine Kinase CK-MB (CK-2) CK-MB (CK-2) % Troponin I Total Protein 6.9 Albumin 3.6 Globulin 3.3 Albumin/Globulin Ratio 1.1 Triglycerides Cholesterol LDL Cholesterol Direct HDL Cholesterol Free T4 Total T3 TSH 3rd Generation Arterial Blood Potassium Venous Blood Potassium 06/23/16 06/23/16 06/23/16 17:44 18:34 18:34 WBC 11.1 H RBC 4.60 Hgb 10.2 L Hct 33.4 L MCV 72.6 L MCH 22.2 L MCHC 30.5 L RDW 16.9 H Plt Count 269 MPV 11.2 H Gran % 79.9 H Lymph % (Auto) 9.9 L Boyle % (Auto) 9.6 H Eos % (Auto) 0.3 L Baso % (Auto) 0.3 Gran # 8.85 H Lymph # 1.1 L Boyle # 1.1 H Eos # 0.0 Baso # 0.03 PT INR APTT pCO2 pO2 HCO3 ABG pH ABG Total CO2 ABG O2 Saturation ABG Base Excess ABG Potassium VBG pH VBG pCO2 VBG HCO3 VBG Total CO2 VBG O2 Sat (Calc) VBG Base Excess VBG Potassium Sodium 145 Chloride 113 H Glucose Lactate Mechanical Rate FiO2 Tidal Volume PEEP Potassium 3.7 Carbon Dioxide 19 L Anion Gap 17 BUN 53 H Creatinine 2.7 H Est GFR ( Amer) 22 Est GFR (Non-Af Amer) 18 POC Glucose (mg/dL) 143 H Random Glucose 130 H Calcium 9.0 Phosphorus Magnesium Total Bilirubin AST ALT Alkaline Phosphatase Lactate Dehydrogenase Cancelled Total Creatine Kinase Cancelled CK-MB (CK-2) CK-MB (CK-2) % Troponin I Cancelled Total Protein Albumin Globulin Albumin/Globulin Ratio Triglycerides Cholesterol LDL Cholesterol Direct HDL Cholesterol Free T4 Total T3 TSH 3rd Generation Arterial Blood Potassium Venous Blood Potassium 06/23/16 06/23/16 06/23/16 18:58 20:27 21:08 WBC RBC Hgb Hct MCV MCH MCHC RDW Plt Count MPV Gran % Lymph % (Auto) Boyle % (Auto) Eos % (Auto) Baso % (Auto) Gran # Lymph # Boyle # Eos # Baso # PT INR APTT pCO2 pO2 HCO3 ABG pH ABG Total CO2 ABG O2 Saturation ABG Base Excess ABG Potassium VBG pH VBG pCO2 VBG HCO3 VBG Total CO2 VBG O2 Sat (Calc) VBG Base Excess VBG Potassium Sodium Chloride Glucose Lactate Mechanical Rate FiO2 Tidal Volume PEEP Potassium Carbon Dioxide Anion Gap BUN Creatinine Est GFR ( Amer) Est GFR (Non-Af Amer) POC Glucose (mg/dL) 133 H 156 H 129 H Random Glucose Calcium Phosphorus Magnesium Total Bilirubin AST ALT Alkaline Phosphatase Lactate Dehydrogenase Total Creatine Kinase CK-MB (CK-2) CK-MB (CK-2) % Troponin I Total Protein Albumin Globulin Albumin/Globulin Ratio Triglycerides Cholesterol LDL Cholesterol Direct HDL Cholesterol Free T4 Total T3 TSH 3rd Generation Arterial Blood Potassium Venous Blood Potassium 06/23/16 06/23/16 06/24/16 22:00 23:07 00:03 WBC RBC Hgb Hct MCV MCH MCHC RDW Plt Count MPV Gran % Lymph % (Auto) Boyle % (Auto) Eos % (Auto) Baso % (Auto) Gran # Lymph # Boyle # Eos # Baso # PT INR APTT pCO2 pO2 HCO3 ABG pH ABG Total CO2 ABG O2 Saturation ABG Base Excess ABG Potassium VBG pH VBG pCO2 VBG HCO3 VBG Total CO2 VBG O2 Sat (Calc) VBG Base Excess VBG Potassium Sodium Chloride Glucose Lactate Mechanical Rate FiO2 Tidal Volume PEEP Potassium Carbon Dioxide Anion Gap BUN Creatinine Est GFR ( Amer) Est GFR (Non-Af Amer) POC Glucose (mg/dL) 168 H 169 H 168 H Random Glucose Calcium Phosphorus Magnesium Total Bilirubin AST ALT Alkaline Phosphatase Lactate Dehydrogenase Total Creatine Kinase CK-MB (CK-2) CK-MB (CK-2) % Troponin I Total Protein Albumin Globulin Albumin/Globulin Ratio Triglycerides Cholesterol LDL Cholesterol Direct HDL Cholesterol Free T4 Total T3 TSH 3rd Generation Arterial Blood Potassium Venous Blood Potassium 06/24/16 06/24/16 06/24/16 00:50 01:23 02:08 WBC RBC Hgb Hct MCV MCH MCHC RDW Plt Count MPV Gran % Lymph % (Auto) Boyle % (Auto) Eos % (Auto) Baso % (Auto) Gran # Lymph # Boyle # Eos # Baso # PT INR APTT pCO2 pO2 HCO3 ABG pH ABG Total CO2 ABG O2 Saturation ABG Base Excess ABG Potassium VBG pH VBG pCO2 VBG HCO3 VBG Total CO2 VBG O2 Sat (Calc) VBG Base Excess VBG Potassium Sodium 148 Chloride 112 H Glucose Lactate Mechanical Rate FiO2 Tidal Volume PEEP Potassium 3.1 L Carbon Dioxide 21 Anion Gap 18 BUN 51 H Creatinine 2.7 H Est GFR ( Amer) 22 Est GFR (Non-Af Amer) 18 POC Glucose (mg/dL) 104 72 Random Glucose 108 Calcium 8.8 Phosphorus Magnesium Total Bilirubin AST ALT Alkaline Phosphatase Lactate Dehydrogenase 3634 H Total Creatine Kinase 2727 H CK-MB (CK-2) 87.5 H CK-MB (CK-2) % 3.2 H Troponin I 195.00 H* D Total Protein Albumin Globulin Albumin/Globulin Ratio Triglycerides Cholesterol LDL Cholesterol Direct HDL Cholesterol Free T4 Total T3 TSH 3rd Generation Arterial Blood Potassium Venous Blood Potassium 06/24/16 06/24/16 06/24/16 03:04 04:30 05:14 WBC RBC Hgb Hct MCV MCH MCHC RDW Plt Count MPV Gran % Lymph % (Auto) Boyle % (Auto) Eos % (Auto) Baso % (Auto) Gran # Lymph # Boyle # Eos # Baso # PT INR APTT pCO2 pO2 HCO3 ABG pH ABG Total CO2 ABG O2 Saturation ABG Base Excess ABG Potassium VBG pH VBG pCO2 VBG HCO3 VBG Total CO2 VBG O2 Sat (Calc) VBG Base Excess VBG Potassium Sodium Chloride Glucose Lactate Mechanical Rate FiO2 Tidal Volume PEEP Potassium Carbon Dioxide Anion Gap BUN Creatinine Est GFR ( Amer) Est GFR (Non-Af Amer) POC Glucose (mg/dL) 45 L 76 72 Random Glucose Calcium Phosphorus Magnesium Total Bilirubin AST ALT Alkaline Phosphatase Lactate Dehydrogenase Total Creatine Kinase CK-MB (CK-2) CK-MB (CK-2) % Troponin I Total Protein Albumin Globulin Albumin/Globulin Ratio Triglycerides Cholesterol LDL Cholesterol Direct HDL Cholesterol Free T4 Total T3 TSH 3rd Generation Arterial Blood Potassium Venous Blood Potassium 06/24/16 06/24/16 06/24/16 06:00 06:00 06:00 WBC 9.7 RBC 4.19 Hgb 9.4 L Hct 29.6 L MCV 70.6 L MCH 22.4 L MCHC 31.8 RDW 16.6 H Plt Count 250 MPV 11.3 H Gran % 78.3 H Lymph % (Auto) 12.5 L Boyle % (Auto) 8.6 H Eos % (Auto) 0.4 L Baso % (Auto) 0.2 Gran # 7.61 H Lymph # 1.2 Boyle # 0.8 H Eos # 0.0 Baso # 0.02 PT INR APTT 30.1 pCO2 pO2 HCO3 ABG pH ABG Total CO2 ABG O2 Saturation ABG Base Excess ABG Potassium VBG pH VBG pCO2 VBG HCO3 VBG Total CO2 VBG O2 Sat (Calc) VBG Base Excess VBG Potassium Sodium 146 Chloride 117 H Glucose Lactate Mechanical Rate FiO2 Tidal Volume PEEP Potassium 3.5 L Carbon Dioxide 19 L Anion Gap 14 BUN 49 H Creatinine 2.7 H Est GFR ( Amer) 22 Est GFR (Non-Af Amer) 18 POC Glucose (mg/dL) Random Glucose 83 Calcium 8.2 L Phosphorus 3.7 Magnesium 2.0 Total Bilirubin 0.4 AST 376 H ALT 70 H Alkaline Phosphatase 80 Lactate Dehydrogenase Total Creatine Kinase CK-MB (CK-2) CK-MB (CK-2) % Troponin I Total Protein 6.1 Albumin 3.1 Globulin 3.0 Albumin/Globulin Ratio 1.0 L Triglycerides 191 H Cholesterol 139 LDL Cholesterol Direct 55 HDL Cholesterol 39 Free T4 Total T3 TSH 3rd Generation Arterial Blood Potassium Venous Blood Potassium 06/24/16 06/24/16 06/24/16 06:00 06:00 06:59 WBC RBC Hgb Hct MCV MCH MCHC RDW Plt Count MPV Gran % Lymph % (Auto) Boyle % (Auto) Eos % (Auto) Baso % (Auto) Gran # Lymph # Boyle # Eos # Baso # PT INR APTT pCO2 pO2 HCO3 ABG pH ABG Total CO2 ABG O2 Saturation ABG Base Excess ABG Potassium VBG pH VBG pCO2 VBG HCO3 VBG Total CO2 VBG O2 Sat (Calc) VBG Base Excess VBG Potassium Sodium Chloride Glucose Lactate Mechanical Rate FiO2 Tidal Volume PEEP Potassium Carbon Dioxide Anion Gap BUN Creatinine Est GFR ( Amer) Est GFR (Non-Af Amer) POC Glucose (mg/dL) 81 Random Glucose Calcium Phosphorus Magnesium Total Bilirubin AST ALT Alkaline Phosphatase Lactate Dehydrogenase 3478 H Total Creatine Kinase 2379 H CK-MB (CK-2) 78.5 H CK-MB (CK-2) % 3.3 H Troponin I 172.00 H* Total Protein Albumin Globulin Albumin/Globulin Ratio Triglycerides Cholesterol LDL Cholesterol Direct HDL Cholesterol Free T4 Total T3 TSH 3rd Generation 3.11 Arterial Blood Potassium Venous Blood Potassium 06/24/16 07:40 WBC RBC Hgb Hct MCV MCH MCHC RDW Plt Count MPV Gran % Lymph % (Auto) Boyle % (Auto) Eos % (Auto) Baso % (Auto) Gran # Lymph # Boyle # Eos # Baso # PT INR APTT pCO2 pO2 HCO3 ABG pH ABG Total CO2 ABG O2 Saturation ABG Base Excess ABG Potassium VBG pH VBG pCO2 VBG HCO3 VBG Total CO2 VBG O2 Sat (Calc) VBG Base Excess VBG Potassium Sodium Chloride Glucose Lactate Mechanical Rate FiO2 Tidal Volume PEEP Potassium Carbon Dioxide Anion Gap BUN Creatinine Est GFR ( Amer) Est GFR (Non-Af Amer) POC Glucose (mg/dL) 81 Random Glucose Calcium Phosphorus Magnesium Total Bilirubin AST ALT Alkaline Phosphatase Lactate Dehydrogenase Total Creatine Kinase CK-MB (CK-2) CK-MB (CK-2) % Troponin I Total Protein Albumin Globulin Albumin/Globulin Ratio Triglycerides Cholesterol LDL Cholesterol Direct HDL Cholesterol Free T4 Total T3 TSH 3rd Generation Arterial Blood Potassium Venous Blood Potassium Attending/Attestation - Attestation I have personally seen and examined this patient.: Yes I have fully participated in the care of the patient.: Yes I have reviewed all pertinent clinical information: Yes Notes (Text): 06/24/16 08:59 61 y/o F LBBB AG Metabolic acidosis RICK Hypercapnea Respiratory Failure DKA CHF CAD s/p Cardiac Cath and Stent placement . AC/VC fio2 60% keep pao2>60. Diurese as needed. Precedex needed. No IV fluids , DKA. on Insulin ggt protocol. cc time 72 min
[2016-06-23] MEDS ORDERED: Eptifibatide 0.75 mg/ml 75 MG/100 ML BOTTLE IV SCH (17:24)
[2016-06-23] MEDS ORDERED: Sodium Chloride 0.9% 1,000 ML IV SCH (17:30)
[2016-06-23 18:35] LABS: ADD MANUAL DIFF? NO
[2016-06-23 18:52] LABS: POTASSIUM 3.7 mmol/L (3.6-5.0)
[2016-06-23 18:55] LABS: BASO # 0.03 K/mm3 (0.0-2.0); BASO % 0.3 % (0.0-3.0); EOS % 0.3 % (1.5-5.0); GRAN # 8.85 (1.4-6.5); GRAN % 79.9 % (50.0-68.0); HEMATOCRIT 33.4 % (36.0-48.0); LYMPH # 1.1 (1.2-3.4); LYMPH % 9.9 % (22.0-35.0); MEAN CELL VOLUME 72.6 fL (80.0-105.0); MEAN CORPUSCULAR HEMOGLOBIN 22.2 pg (25.0-35.0); MEAN CORPUSCULAR HGB CONC 30.5 g/dl (31.0-37.0); MEAN PLATELET VOLUME 11.2 fl (7.0-11.0); MONO # 1.1 (0.1-0.6); MONO % 9.6 % (1.0-6.0); PLATELET COUNT 269 10^3/uL (120.0-450.0); RED CELL DISTRIBUTION WIDTH 16.9 % (11.5-14.5); WHITE BLOOD COUNT 11.1 10^3/ul (4.5-11.0)
--- NOTE | 2016-06-23 18:55 | CARD ---
APPROVED REPORT EKG Measurement Heart [id number] MD [id number] <Conclusion> Normal sinus rhythm Cannot rule out Inferior infarct, age undetermined Anterolateral infarct, age undetermined Abnormal ECG
--- NOTE | 2016-06-23 18:59 | CARD ---
APPROVED REPORT EKG Measurement Heart [id number] LA [id number] <Conclusion> Normal sinus rhythm Possible Inferior infarct, age undetermined Anterolateral infarct, Possibly acute corelate clinically Abnormal ECG
--- NOTE | 2016-06-23 19:09 | CON ---
DATE: 06/23/2016 The patient is still critically ill, intubated, diabetic ketoacidosis. Repeat troponin shows 79. EK G done stat that shows left bundle branch block, so code STEMI was activated. Tried to contact the p ellyn's nephew, Татьяна and discussed the patient's condition, decided to take the patient to the lab technician, 2 physicians, me and Dr. Marquez. Initially, the patient's nephew, Татьяна telepho ne number [phone], did not respond. Left a message, but soon he called back and got a telephone consent for left heart possible angioplasty. We will take the patient to the lab technician. Risks, bene fits including angioplasty, and also the risk including patient may need dialysis because the patient has renal insufficiency. That is why patient, on last admission, no intervention was done, but sinc e the troponin is 79%, new left bundle, possibly acute anterior wall myocardial infarction, so we nicol l do as a salvage as a last ditch effort to save the patient. Further recommendation depending on th e cardiac catheterization. We will follow with you. Thank you, Dr. Vasquez, for providing the opportunity in taking care of this patient. Sruthi George MD cc: [id number] TT: 06/23/2016 19:08:45 Confirmation # [id number] Dictation # [id number] mathew
--- NOTE | 2016-06-23 19:20 | CARD ---
APPROVED REPORT Procedure(s) performed: Left Heart Catheterization PTCA with Stenting of Prox Cx with CHARLINE PTCA with Stenting of Mid Cx with CHARLINE HISTORY The patient is a 61 year-old female with a history of : previous CHF, renal failure without dialysis, peripheral vascular disease, diabetes mellitus with insulin treatment , chronic lung disease, previous diagnostic cath, tobacco history() : The patient is a current smoker , previous PCI (The PCI date was 10/04/2013), hypertension , dyslipidemia , Admitted with DKA sepsis LBBB, respiratory Failure, DKA Severe Metabolic Acidosis,Acute kidney injury on CKD first troponin border line positive susequent troponin [address] Elevation in Lat Lead so CODE STEMI Actvated. INDICATION The indication(s) include : STEMI . CASE TECHNIQUE The patient was brought emergently to the Cardiac Catheterization Laboratory in a fasting state and was prepped and draped in a sterile manner. The left femoral groin was infiltrated with 2% Lidocaine subcutaneous anesthesia. A 6 Fr x 11 cm Vi sheath was inserted into the left femoral artery without difficulty. Coronary angiography was performed using coronary diagnostic catheters. The left coronary system was accessed and visualized with a Diagnostic ,6 Fr JL 4 catheter. The right coronary system was accessed and visualized with a Diagnostic ,6 Fr JR 4 catheter. The left ventricle was accessed and visualized with a pigtail catheter. Closure device was deployed with a 6 Fr / 7 Fr MynxGrip without any complications. The patient tolerated the procedure well and there were no complications associated with the procedure. Vessel Analysis The patient's coronary anatomy is co-dominant. The left main coronary artery is a large size vessel with diffuse calcification noted throughout this vessel and without significant stenosis. The left main bifurcates to the left anterior descending and circumflex. The left anterior descending artery is a medium size vessel with diffuse calcification noted throughout this vessel and with significant stenosis. There is a 100% stenosis in the distal segment. The first diagonal branch is a small size vessel with diffuse calcification noted throughout this vessel and without significant stenosis. The second diagonal branch is a small size vessel with diffuse calcification noted throughout this vessel and without significant stenosis. The circumflex artery is a large size vessel with diffuse calcification noted throughout this vessel and with significant stenosis. There is a 100% stenosis in the proximal segment. The right coronary artery is a large size vessel with diffuse calcification noted throughout this vessel and without significant stenosis. The right posterior descending artery is a large size vessel with diffuse calcification noted throughout this vessel and without significant stenosis. Left Ventricle LV gram not obtained due to renal Insufficiency. PCI Technique Lesion Anticoagulation was achieved with Heparin. Percutaneous coronary intervention was performed on the proximal circumflex artery segment. The lesion stenosis prior to intervention was 100% with LEONA 0 flow. A 6 Fr JL 4 Guide Catheter was used to engage the ostium. BALLOON DILATION A Balloon catheter 2.0 x 12 mm Mini Trek OTW was inserted and inflated up to 18.00atm for 5seconds. STENT DEPLOYMENT A drug-eluting stent 3.0 x 30 mm Resolute CHARLINE was inserted and inflated up to 12.00atm for 15seconds. Final angiography reveals 0 % stenosis with LEONA 2 flow. PCI Technique Lesion 2 Percutaneous Coronary Intervention was performed on the distal right coronary artery. The lesion stenosis prior to intervention was 100% with LEONA 0 flow. A 6 Fr JL 4 Guide Catheter was used to engage the ostium. BALLOON DILATION A Balloon catheter 2.5 x 30 mm Sprinter RX was inserted and inflated up to 12atm for 20seconds. STENT DEPLOYMENT A drug-eluting stent 2.75 x 30 mm Resolute CHARLINE was inserted and inflated up to 12atm for 20seconds. POST STENT DEPLOYMENT BALLOON DILATION A Balloon catheter 2.5 x 30 mm Sprinter RX was inserted and inflated up to 12atm for 20seconds. Final angiography reveals 0 % stenosis with LEONA 2 flow. Conclusion Two Vessel CAD LAD Distally occluded, but patent stent In proximal and Mid LAD. Cx proximaly occlude ,culprit for Code STEMI. RCA has no signoficant stenosis LV gram not obtained b/c of renal insufficiency. Successful PTCA with CHARLINE of proximal and mid to distal Cx. Recommendations Daily ASA with Plavix for at least one year Aggressive Medical TherapyCardiac Risk Reduction Program Weight Loss Reduction Program Aggressively treat for DKA. CC; Dr. Vasquez/ Suri.
--- NOTE | 2016-06-23 21:12 | CON ---
DATE: 06/23/2016 NEPHROLOGY CONSULTATION HISTORY OF PRESENT ILLNESS: A 61-year-old female with past medical history of hypertension, diabetes , CAD status post multiple stents, peripheral vascular disease, status post right femoral artery PTCA , recent admission over the past month for non-STEMI. Presented to the ED with acute respiratory dist ress. The patient intubated in the ED with blood gas showing acute respiratory acidosis and EKG show ing new left bundle branch block. The patient given 1 liter normal saline bolus, antibiotics and sodi um bicarbonate pushes in the ED and admitted to ICU for further management. Nephrology service being consulted for CKD and impending risk for acute renal failure. At the time of examination, the patient is intubated and sedated. Unable to obtain review of systems from patient; however, patient's niece was interviewed and she reports that the patient was in her [facility] state of health as of last night. At that time, patient was tolerating diet well, not seen to be in any acute respiratory distress, speaking in full sentences. Also of note that the patient has be en having intermittent chest pain with nausea as well since the past few months and that has been jenifer nged per patient's niece. SOCIAL HISTORY: Per HPI last month, the patient is a light smoker, smoking less than 10 cigarettes pe r day. PHYSICAL EXAMINATION: VITAL SIGNS: Blood pressure this morning 94/65, heart rate 97, respirations 18, temperature 98.0, O2 sat 99% on 60% FIO2 via mechanical ventilation. GENERAL: The patient sedated, in no acute distress. HEENT: Normal head inspection. Eyes: No scleral icterus. Pupils equally round and reactive to ligh t. Moist mucous membranes. NECK: Short, normal inspection, no lymphadenopathy appreciated. RESPIRATORY: Clear to auscultation bilaterally, increased breathing rate. No rales, rhonchi or whee zes. CARDIOVASCULAR: Muffled heart sounds, otherwise regular rhythm. Unable to appreciate JVD due to shor t neck. Bilateral dorsalis pedis pulses unable to palpate. GASTROINTESTINAL: Abdomen soft, nondistended. EXTREMITIES: Mild to moderate lower leg edema, right lower leg with varicose veins. NEUROLOGIC: The patient is sedated, responsive only to painful stimuli. SKIN: Hands and feet cold to touch. LABORATORY DATA: On presentation, WBC 13.9, hemoglobin 11.5, hematocrit 38.3, platelets 385. Chemis try: Sodium 142, potassium 4.0, chloride 109, bicarbonate 14, BUN 44, creatinine 2.5, glucose 488, calcium 9.6. Troponin: Initial 0.10, next 79.7. BNP 7300. TSH 7.09. UA: Specific gravity greater th an 1.030, urine protein greater than or equal to 300, glucose 250, urine ketones negative, urine bloo d moderate. Chest x-ray personally reviewed. Markedly increased interstitial markings, right lower l obe opacity. Urine microscopy directly observed. Greater than 10 coarse granular casts per 10X field ; at least 15 WBCs per high powered field. EKG significant for a new left bundle branch block, perso can seen. ASSESSMENT: 1. Left bundle branch block/ST elevation myocardial infarction. The patient with known coronary art mari disease and recent admission for non-ST elevation myocardial infarction, in which catheterization was considered but not done due to high risk for contrast nephropathy. Agree with the stud master/mistress's decision to take patient for emergent cardiac catheterization today in the setting of severe myocard ial infarction. Acetylcysteine given prior to procedure. Unable to give significant IV fluid as patie nt already showing signs of volume overload. Follow up with cardiology for further recommendations. 2. Acute renal failure on chronic kidney disease stage IV. Oliguric renal failure with mild increase in serum creatinine and urine microscopy consistent with acute tubular necrosis, relatively stable e lectrolyte status with potassium 3.7, moderate increased anion gap metabolic acidosis, volume overloa ded but stable FIO2 on mechanical ventilation. No indication for urgent renal placement therapy at t his time. We will continue to monitor. 3. Chronic kidney disease stage IV, proteinuric kidney disease with previous workup unremarkable. Li thom secondary to diabetic nephropathy, which increases the risk for contrast induced nephropathy. Ok ay to give Lasix as needed to avoid worsening respiratory status in the setting of likely contrast in duced nephropathy on top of established acute tubular necrosis from hypotension. 4. Increased anion gap metabolic acidosis likely secondary to lactic acidosis as well as renal failu re. Lactic acidosis improved after patient stabilized. diabetic ketoacidosis less likely as serum k etones negative despite elevated blood sugar. Agree with insulin drip to maintain euglycemia. Continu e to trend lactic acid level. No need for bicarbonate replenishment at this time. 5. Pyuria personally seen on urine microscopy, also with elevated leukocytosis. Follow up blood and urine cultures. Agree with antibiotics for now for possible urinary tract infection. Will likely nee d to reduce meropenem to q. 24 hour dosing in the setting of renal failure. Fan Agarwal MD cc: [id number] TT: 06/23/2016 21:11:46 Confirmation # [id number] Dictation # [id number] ln
[2016-06-23] MEDS: Meropenem 1g/NS 100mL IVPB 1 GM/100 ML PIGGYBACK IVPB SCH (23:16)
[2016-06-24 01:24] LABS: CALCIUM 8.8 mg/dL (8.4-10.5); POTASSIUM 3.1 mmol/L (3.6-5.0)
[2016-06-24] MEDS ORDERED: Sodium Chloride 0.9% 500 ML IV STA ×2 (02:04→17:57)
[2016-06-24] MEDS ORDERED: Midazolam 2 MG/2 ML VIAL IVP PRN (02:18)
[2016-06-24] MEDS ORDERED: Fentanyl 1000mcg/100ml NS 1,000 MCG/100 ML BAG IV PRN (02:19)
[2016-06-24] MEDS ORDERED: Dextrose 50% SYRINGE Inj (50 ml) IVP ONE (03:10)
[2016-06-24] MEDS: Dextrose 5%/0.45% NS 1,000 ML IV SCH ×2 (03:28→17:08)
[2016-06-24 06:16] LABS: ADD MANUAL DIFF? NO
--- NOTE | 2016-06-24 06:16 | CARD ---
APPROVED REPORT EXAM: Two-dimensional and M-mode echocardiogram with Doppler and color Doppler. INDICATION LV Function:SystolicDiastolic 2D DIMENSIONS Left Atrium (2D)3.6 (1.6-4.0cm)IVSd1.3 (0.7-1.1cm) LVDd5.5 (3.9-5.9cm)PWd0.9 (0.7-1.1cm) LVDs5.0 (2.5-4.0cm)FS (%) 9.8 % LVEF (%)21.3 (>50%) M-Mode DIMENSIONS Aortic Root2.30 (2.2-3.7cm)Aortic Cusp Exc.1.00 (1.5-2.0cm) Aortic Valve AoV Peak Hlhzvtdi163.0cm/Sandhya Peak GR.7mmHg Mitral Valve MV E Pvspwkdn92.6cm/sMV A Xipuiutg24.7cm/sE/A ratio0.6 TDI E/Lateral E'0.0E/Medial E'0.0 Tricuspid Valve TR Peak Ulrdooau145cj/sRAP [id number] Peak Gr.17mmHg [id number] LEFT VENTRICLE The Left Ventricle is borderline dilated. There is mild concentric left ventricular hypertrophy. The systolic function is severely impaired.EF-20-25% There is moderate to severe hypokinesis in the apical lateral wall. Transmitral Doppler flow pattern is Grade III-reversible restrictive diastolic dysfunction. No left ventricle thrombus noted on this study. There is no ventricular septal defect visualized. There is no left ventricular aneurysm. There is no mass noted in the left ventricle. RIGHT VENTRICLE The right ventricle is normal size. There is normal right ventricular wall thickness. The right ventricular systolic function is normal. ATRIA The left atrium is moderately dilated. The right atrium size is normal. The interatrial septum is intact with no evidence for an atrial septal defect. AORTIC VALVE The aortic valve is calcified and displays decreased opening. There is trace aortic regurgitation. There is mild to moderate valvular aortic stenosis. There is no aortic valvular vegetation. MITRAL VALVE The mitral valve is thickened but opens well. Mitral regurgitation is moderate to severe. There is no mitral valve stenosis. There is no evidence of mitral valve prolapse. TRICUSPID VALVE The tricuspid valve leaflets are thickened , but open well. There is trace to mild tricuspid regurgitation.RVSP-27 mmof Hg There is no tricuspid valve stenosis. There is no tricuspid valve prolapse or vegetation. PULMONIC VALVE The pulmonic valve is not well visualized. GREAT VESSELS The aortic root is normal in size. The ascending aorta is normal in size. The pulmonary artery is normal. The IVC is normal in size and collapses >50% with inspiration. PERICARDIAL EFFUSION There is no pleural effusion. There is no pericardial effusion. <Conclusion> The Left Ventricle is borderline dilated. There is mild concentric left ventricular hypertrophy. The systolic function is severely impaired.EF-20-25% There is trace aortic regurgitation. There is mild to moderate valvular aortic stenosis. Mitral regurgitation is moderate to severe. There is trace to mild tricuspid regurgitation,RVSP-27 mmof Hg. TDS secondary to increase body habitus and pt was supine and ventted.
[2016-06-24 06:36] LABS: BASO # 0.02 K/mm3 (0.0-2.0); BASO % 0.2 % (0.0-3.0); EOS % 0.4 % (1.5-5.0); GRAN # 7.61 (1.4-6.5); GRAN % 78.3 % (50.0-68.0); HEMATOCRIT 29.6 % (36.0-48.0); LYMPH # 1.2 (1.2-3.4); LYMPH % 12.5 % (22.0-35.0); MEAN CELL VOLUME 70.6 fL (80.0-105.0); MEAN CORPUSCULAR HEMOGLOBIN 22.4 pg (25.0-35.0); MEAN CORPUSCULAR HGB CONC 31.8 g/dl (31.0-37.0); MEAN PLATELET VOLUME 11.3 fl (7.0-11.0); MONO # 0.8 (0.1-0.6); MONO % 8.6 % (1.0-6.0); PLATELET COUNT 250 10^3/uL (120.0-450.0); RED CELL DISTRIBUTION WIDTH 16.6 % (11.5-14.5); WHITE BLOOD COUNT 9.7 10^3/ul (4.5-11.0)
[2016-06-24 06:40] LABS: BILIRUBIN,TOTAL 0.4 mg/dL (0.2-1.3); CALCIUM 8.2 mg/dL (8.4-10.5); PHOSPHOROUS 3.7 mg/dL (2.5-4.5); POTASSIUM 3.5 mmol/L (3.6-5.0); TOTAL PROTEIN 6.1 g/dL (5.8-8.3)
[2016-06-24] MEDS ORDERED: Milrinone 20mg/100ml D5W 100 ML IV PRN (07:21)
--- NOTE | 2016-06-24 07:36 | CON ---
DATE: 06/23/2016 REASON FOR CONSULTATION: Cardiac evaluation, history of nkk-[id number] myocardial infarction, admi tted with respiratory failure, intubated, DKA, severe acidosis. BRIEF CLINICAL HISTORY: This is a 61-year-old female with past medical history significant for UTI, coronary artery disease, history of severe peripheral arterial disease, status post angioplasty, morb id obesity, increased body mass index. Admitted yesterday with severe DKA acidosis requiring intubat ion. Now patient is on the floor. Cardiology consult was called for followup. The patient is intub ated and unable to give any history. PAST MEDICAL HISTORY: Significant for coronary artery disease status multiple stents, history of mul tiple coronary stents - last stent in 09/2013; history of severe peripheral arterial disease, history of PTCA of right femoral artery, occluded stent, history of TPA 10/06/2013 complicated by intracereb ral bleed in frontal lobe, which weakness recovered completely, but patient gets headache off and on. PREVIOUS CARDIAC WORKUP: The patient has multiple stents, last stent 09/2013; history of a right SFA stent 10/06/2013 and PTCA of occlusion Viabahn, PTCA was done with TPA, complicated by intracerebral bleed. Last echo: The patient had echocardiography done on 05/19/2016 when the patient admitted wi th non-STEMI and decided to treat medically. That echo revealed ejection fraction 35%, trace aortic regurgitation, mild mitral regurgitation, trace to mild tricuspid regurgitation. CURRENT MEDICATIONS: The patient is taking at home Glucotrol 10 mg, Lasix 40, Colace 100, cilostazol 50, and insulin. ALLERGIES: No known drug allergy. REVIEW OF SYSTEMS: As per HPI. PHYSICAL EXAMINATION: GENERAL: The patient is currently intubated, on heparin, insulin drip as well as normal saline. VITAL SIGNS: Temperature afebrile, heart rate 78, blood pressure 128/76. HEENT: PERRLA. Extraocular muscles intact. NECK: Supple. No carotid bruits. No thyromegaly. CHEST: Clear to auscultation. HEART: S1, S2 regular. ABDOMEN: Soft. EXTREMITIES: Clubbing and cyanosis negative. LABORATORY DATA: WBC 9.9, hemoglobin 11, hematocrit 35.5, platelet count 266. Chemistry shows sodiu m 145, potassium 3.7, chloride 114, carbon dioxide ____, anion gap of 17, BUN 54, creatinine 2.6. Tr oponin 0.01, blood sugar 488. ABG shows pCO2 of 62, pO2 of 138, pH 6.99. IMPRESSION: Acute diabetic ketoacidosis, severe acidosis, carbon dioxide ____, status post respirato ry failure. Electrocardiogram shows left bundle branch block, coronary artery disease, status post n [id number] myocardial infarction on the previous admission, cardiomyopathy, multiple stents, his tory of peripheral arterial disease, history of Viabahn occlusion and tissue plasminogen activator wa s done, complicated by intracerebral bleed on 10/06/2013, respiratory failure. RECOMMENDATION: Will follow up CPK, troponin. Continue heparin. Further recommendation after the f inding of initial workup. Acute kidney injury on chronic renal insufficiency. The patient's overall condition is critical. Prognosis is guarded. Will follow with you. Thank you, Dr. Vasquez, for providing the opportunity in taking care of this patient. Will follow with you. Sruthi George MD cc: [id number] TT: 06/23/2016 15:58:49 Confirmation # [id number] Dictation # [id number]
[2016-06-24] MEDS: Meropenem 1g/NS 100mL IVPB 1 GM/100 ML PIGGYBACK IVPB SCH (09:03)
--- NOTE | 2016-06-24 09:51 | PN ---
DATE: 06/24/2016 The patient is in bed in no acute distress and was seen earlier this morning in 128, bed 2. No fever s reported. No diarrhea reported overnight. PHYSICAL EXAMINATION: VITAL SIGNS: Temperature is 98, blood pressure is 99/50, respiratory rate of 18, a heart rate of 86. HEENT: Unremarkable. NECK: Supple. LUNGS: Have decreased breath sounds. HEART: Normal S1, S2. ABDOMEN: Soft, nontender. LABORATORY EXAMINATION: Reveals a white count of 9.7, hemoglobin of 9, platelets of 250. Chemistrie s reveal a BUN of 49, creatinine of 2.7. LDH is over 3000 and the CK is over 2000. Urinalysis is no paul. Microbiology reveals the blood cultures have no growth at 24 hours. Review of the orders revea ls the patient to be on meropenem. Vancomycin was given. ASSESSMENT AND PLAN: A 61-year-old female seen earlier this morning in the ICU 128, bed 2, with syst emic inflammatory response syndrome, acute exacerbation of congestive heart failure. Must rule out u nderlying healthcare-associated pneumonia with a history of Escherichia coli bacteremia with urinary tract infection, currently on meropenem. Negative blood cultures thus far. We will check on the fin al culture results, urine culture, sputum culture and check on the procalcitonin. Continue the merop enem for now. The chest x-ray from yesterday is reviewed, interstitial markings diffuse. We will fo llow closely with you. Christofer Ibanez MD cc: [id number] TT: 06/24/2016 09:50:38 Confirmation # [id number] Dictation # [id number]
[2016-06-24 10:00] LABS: ARTERIAL BLOOD GAS HCO3 16.9 mmol/L (21-28); ARTERIAL BLOOD GAS O2 CAPACITY 13.1 mL/dl (16-24); ARTERIAL BLOOD GAS PH 7.33 (7.35-7.45); ARTERIAL BLOOD HGB O2 SAT 97.6 % (95.0-98.0); CARBOXYHEMOGLOBIN 1.1 % (0.5-1.5); HHB 0.5 % (0-5); METHEMOGLOBIN 0.8 % (0.0-3.0)
--- NOTE | 2016-06-24 10:09 | CP.PCM.PN ---
<Fariha Womack - Last Filed: 06/24/16 13:25> Subjective - Date & Time of Evaluation Date of Evaluation: 06/24/16 Time of Evaluation: 10:30 - Subjective Subjective: Hospitalist progress note for Dr. Conroy Pt s/e at bedside in the ICU. NAEO. Patient is awake, alert, and oriented, intubated with mechanical ventilation, but breathing with voluntary respiratory effort. Events and results were explained to the patient who expressed understanding through non-verbal cues. Patient denied any chest pain, fevers, chills, nausea, abdominal pain, only complaining of pain at the cardiac cath incision site. Objective - Vital Signs/Intake and Output Vital Signs (last 24 hours): Temp Pulse Resp BP Pulse Ox 98.4 F 91 H 17 112/58 L 100 06/24/16 07:57 06/24/16 09:50 06/24/16 02:50 06/24/16 09:45 06/24/16 09:50 Intake and Output: 06/24/16 06/24/16 06:59 18:59 Intake Total 1815 7 Output Total 1200 Balance 615 7 - Medications Medications: Current Medications Acetylcysteine (Acetylcysteine 20%) 6 ml PO Q12H [facility] Last Admin: 06/23/16 12:44 Dose: 6 ml Aspirin (Ecotrin) 81 mg PO DAILY [facility] Last Admin: 06/24/16 09:03 Dose: 81 mg Clopidogrel Bisulfate (Plavix) 75 mg PO DAILY [facility] Last Admin: 06/24/16 09:03 Dose: 75 mg Insulin Human Regular 100 (units/ Sodium Chloride) 100 mls @ 2 mls/hr IV .Q24H PRN; Protocol; 2 UNITS/HR PRN Reason: TITRATE PER MD ORDER Last Titration: 06/24/16 03:08 Dose: 0 units/hr, 0 mls/hr Meropenem 1g/NS 100mL IVPB (Meropenem 1g/Ns 100ml Ivpb) 1 gm in 100 mls @ 100 mls/hr IVPB Q12 [facility] PRN Reason: Protocol Stop: 06/30/16 22:01 Last Admin: 06/24/16 09:03 Dose: 100 mls/hr Eptifibatide (Integrilin) 75 mg in 100 mls @ 8.137 mls/hr IV .[id number] [facility]; 1 MCG/KG/MIN PRN Reason: Protocol Stop: 06/24/16 17:25 Last Admin: 06/23/16 17:59 Dose: 1 mcg/kg/min, 8.137 mls/hr Fentanyl Citrate (Fentanyl Citrate/Sodium Chloride 1 Mg/100 Ml) 1,000 mcg in 100 mls @ 2 mls/hr IV .Q24H PRN; Protocol; 20 MCG/HR PRN Reason: TITRATE PER MD ORDER Last Titration: 06/24/16 08:38 Dose: 70 mcg/hr, 7 mls/hr Dextrose/Sodium Chloride (Dextrose 5%/0.45% Ns 1000 Ml) 1,000 mls @ 75 mls/hr IV .[id number] [facility] Last Admin: 06/24/16 03:28 Dose: 75 mls/hr Potassium Chloride (Potassium Chloride 10 Meq/100 Ml) 10 meq in 100 mls @ 100 mls/hr IVPB Q2H [facility] Stop: 06/24/16 10:29 Last Admin: 06/24/16 09:04 Dose: 100 mls/hr Milrinone Lactate/Dextrose (Primacor 20mg/100ml D5w) 100 mls @ 6.646 mls/hr IV .Q15H3M PRN; Protocol; 0.2 MCG/KG/MIN PRN Reason: TITRATE PER MD ORDER Last Admin: 06/24/16 07:29 Dose: 0.2 mcg/kg/min, 6.646 mls/hr Midazolam HCl (Versed Inj) 2 mg IVP Q2H PRN PRN Reason: Agitation Pantoprazole Sodium (Protonix Inj) 40 mg IVP DAILY [facility] Last Admin: 06/24/16 09:11 Dose: 40 mg - Labs Labs: 06/24/16 06:00 06/24/16 06:00 PT 12.2 Seconds (9.9-11.8) H 06/23/16 11:50 INR 1.13 (0.93-1.08) H 06/23/16 11:50 APTT 30.1 Seconds (23.7-30.8) 06/24/16 06:00 - Constitutional Appears: Non-toxic, No Acute Distress - Head Exam Head Exam: ATRAUMATIC, NORMOCEPHALIC - Eye Exam Eye Exam: Normal appearance. absent: Conjunctival injection, Scleral icterus - ENT Exam ENT Exam: Mucous Membranes Moist Additional comments: ETtube present, NGT present, no sign of oral or nasal mucosal trauma - Respiratory Exam Respiratory Exam: Rhonchi, Wheezes, NORMAL BREATHING PATTERN. absent: Accessory Muscle Use - Cardiovascular Exam Cardiovascular Exam: Tachycardia, +S1, +S2. absent: Murmur - GI/Abdominal Exam GI & Abdominal Exam: Distended, Soft. absent: Tenderness - Extremities Exam Extremities Exam: absent: Calf Tenderness, Pedal Edema, Tenderness Additional comments: pedal and femoral pulses palpable BL. Dressing over left groin from the cardiac cath intact, with no saturation or active drainage or bleeding - Neurological Exam Neurological Exam: Alert, Awake, Oriented x3 - Psychiatric Exam Psychiatric exam: Normal Affect, Normal Mood - Skin Skin Exam: Dry, Normal Color, Warm Assessment and Plan - Assessment and Plan (Free Text) Assessment: 61 morbidly obese female with PMH including CAD s/p 6 stents, COPD, HTN, CKD and DM2 BIBA for acute respiratory failure, NSTEMI, Anion gap acidosis, SIRS NSTEMI NSTEMI, s/p drug-eluting stent placement in the RCA and circumflex artery Repeat EKG: NSR, anteriolateral infarct of unknown age, possible inferior infarct of unknown age trop: 0.10->80->195->172 Plan -ASA, plavix through NGT, integrelin d/c at 11 this AM -gentle lasix/IVF resuscitation -Continue to follow up cardiac recs -poor prognostic outlook Respiratory failure respiratory acidosis resolved metabolic acidosis improved Mechanically ventilated: 60 fio2, 5 PEEP ABG pH: 7.33 improved from yesterday's 6.99 ECHO 06/24: EF 20-25%, mod/severe mitral regurgitation NSTEMI, s/p 2 drug-eluting stents placement Plan -CXR pending -Wean mechanical ventilation/extubate as tolerated -Continue abx per ID--consider switching Merrem to Daily per nephro recs -lasix PRN for CHF pulmonary overload -urine drug screen -Cardiology consult--f/u recs -ID consult--f/u recs -primary management per ICU team--f/u recs CHF Pulmonary congestion on CXR yesterday ECHO 06/24: EF 20-25%, mod/severe mitral regurgitation 2 doses of 40lasix IV yesterday UOP 1850cc/24 hours=0.7cc/kg/h but overall fluid positive 1370cc's Plan -Cardiology recs appreciated -primacor 0.2mcg, gentle lasix PRN -Continuous I&O's, daily weights -gentle IVF--balance CHF with CKD Metabolic acidosis: DKA vs Lactic acidosis blood glucose 83 down from 488 at presentation Anion gap closed: 14 Lactate acidosis: 1.2 down from 6.4 yesterday ABG pH: 7.33 (6.88 VBG pH on presentation) Underlying CKD Plan -SSI -f/u CMP's -Continue to monitor glucose -F/U nephro consult recs SIRS Afebrile, persistent Tachycardia in the 120's WBC: 9.7 today down from 13.9, CXR 06/23: interval diffuse interstitial "nonspecific pneumonitis", R>L. Interstitial pulmonary edema vs viral/hypersensitivity pneumonitis Plan -f/u pending CXR -Continue abx per ID -repeat CBC -procalcitonin pending -blood/urine culture pending -monitor BP--currently stable CKD Cr: 2.7 up from 2.5 BUN: 49 up from 44 UOP 0.7cc/kg/h, fluid positive 1370cc/24 hours Plan -f/u nephrology recs -monitor BUN/Cr -modify medications to renal doses -gentle Lasix if needed -Continue mucormyst Hypokalemia K 3.5 up from 3.1 yesterday Plan -30 mEq KCl IV today -f/u K tomorrow AM -gentle lasix if needed for pulmonary congestion H/O HTN Currently normotensive/hypotensive -Continue to monitor GI ppx, [facility] Dispo: continue admit to ICU for further monitoring and management Patient seen and discussed with Dr. Adalberto Womack, PGY1 <Marycarmen FLORES,Sruthi - Last Filed: 06/24/16 14:39> Objective - Vital Signs/Intake and Output Vital Signs (last 24 hours): Temp Pulse Resp BP Pulse Ox 97.3 F L 120 H 22 119/68 90 L 06/24/16 13:26 06/24/16 11:40 06/24/16 11:40 06/24/16 11:30 06/24/16 11:40 Intake and Output: 04/27/17 04/27/17 06:59 18:59 Intake Total 1815 7 Output Total 1200 Balance 615 7 - Medications Medications: Current Medications Acetylcysteine (Acetylcysteine 20%) 6 ml PO Q12H [facility] Last Admin: 06/24/16 12:55 Dose: Not Given Albuterol/Ipratropium (Duoneb 3 Mg/0.5 Mg (3 Ml) Ud) 3 ml IH Q2H PRN PRN Reason: Shortness of Breath Aspirin (Ecotrin) 81 mg PO DAILY [facility] Last Admin: 06/24/16 09:03 Dose: 81 mg Clopidogrel Bisulfate (Plavix) 75 mg PO DAILY [facility] Last Admin: 06/24/16 09:03 Dose: 75 mg Heparin Sodium (Porcine) (Heparin) 5,000 units SC Q12 [facility] PRN Reason: Protocol Meropenem 1g/NS 100mL IVPB (Meropenem 1g/Ns 100ml Ivpb) 1 gm in 100 mls @ 100 mls/hr IVPB Q12 [facility] PRN Reason: Protocol Stop: 06/30/16 22:01 Last Admin: 06/24/16 09:03 Dose: 100 mls/hr Eptifibatide (Integrilin) 75 mg in 100 mls @ 8.137 mls/hr IV .[id number] [facility]; 1 MCG/KG/MIN PRN Reason: Protocol Stop: 06/24/16 17:25 Last Admin: 06/23/16 17:59 Dose: 1 mcg/kg/min, 8.137 mls/hr Dextrose/Sodium Chloride (Dextrose 5%/0.45% Ns 1000 Ml) 1,000 mls @ 75 mls/hr IV .[id number] [facility] Last Admin: 06/24/16 03:28 Dose: 75 mls/hr Milrinone Lactate/Dextrose (Primacor 20mg/100ml D5w) 100 mls @ 6.646 mls/hr IV .Q15H3M PRN; Protocol; 0.2 MCG/KG/MIN PRN Reason: TITRATE PER MD ORDER Last Admin: 06/24/16 07:29 Dose: 0.2 mcg/kg/min, 6.646 mls/hr Insulin Human Regular (Humulin R Low) 0 units SC ACHS [facility] PRN Reason: Protocol Metoprolol Tartrate (Lopressor) 25 mg PO BID [facility] Midazolam HCl (Versed Inj) 2 mg IVP Q2H PRN PRN Reason: Agitation Ondansetron HCl (Zofran Inj) 4 mg IVP Q4H PRN PRN Reason: Nausea/Vomiting Last Admin: 06/24/16 12:57 Dose: 4 mg Pantoprazole Sodium (Protonix Inj) 40 mg IVP DAILY [facility] Last Admin: 06/24/16 09:11 Dose: 40 mg - Labs Labs: 06/24/16 13:47 06/24/16 13:47 PT 12.2 Seconds (9.9-11.8) H 06/23/16 11:50 INR 1.13 (0.93-1.08) H 06/23/16 11:50 APTT 30.1 Seconds (23.7-30.8) 06/24/16 06:00 Attending/Attestation - Attestation I have personally seen and examined this patient.: Yes I have fully participated in the care of the patient.: Yes I have reviewed all pertinent clinical information, including history, physical exam and plan: Yes Notes (Text): Patient was seen and examined with medical technologist microbiology .Agreed with resident assessment and plan. 61 morbidly obese female with PMH including CAD s/p 6 stents, COPD, HTN, CKD and DM2 was admitted with Respiratory Failure due to acute on chronic systolic CHF exacerbation, NSEMI, new LBBB, underwent cardiac catherization and RCA stenting yesterday.Patient is extubated today on Milrinone drip for CHF.She is pain free , Renal functions are stable after cardiac catherization, Cardiology and Nephrology are following. Patient is also on IV Meropepnen as per ID for UTI, Cultures are negative so far. Lactic acid is backk to normal. Management plan was discussed in detail with patient Education was provided.
--- NOTE | 2016-06-24 10:14 | CARD ---
APPROVED REPORT EKG Measurement Heart [id number] <Conclusion> Normal sinus rhythm Cannot rule out Inferior infarct, age undetermined Anterolateral infarct, age undetermined Abnormal ECG
--- NOTE | 2016-06-24 10:34 | PN ---
DATE: 06/24/2016 REASON FOR CONSULTATION: Cardiac evaluation. Code STEMI, diabetic ketoacidosis, respiratory failure , sepsis, acute kidney injury. BRIEF CLINICAL HISTORY: A 61-year-old female with past medical history significant for, UTI, coronar y artery disease, history of severe peripheral arterial disease, status post angioplasty, morbid obes ity, diabetes, hypertension, hyperlipidemia, chronic kidney disease, recently admitted with non-STEMI , medically treated, admitted yesterday with diabetic ketoacidosis, pH 6.9, severe acidotic, acute ST CHON, underwent emergent complex PTCA of the circumflex with 2 drug-eluting stents deployed. This mor scott, the patient is very much awake, alert, though still intubated, but understands and follows simp le command. PHYSICAL EXAMINATION: VITAL SIGNS: Temperature afebrile, heart rate 90, blood pressure 112/50. HEENT: PERRLA. Extraocular muscles intact. NECK: Supple. No carotid bruits. No thyromegaly. CHEST: Clear to auscultation. HEART: S1, S2 regular. ABDOMEN: Soft. EXTREMITIES: Clubbing and cyanosis negative. LABORATORY DATA: WBC 9.7, hemoglobin 9.5, hematocrit 29.6, platelet count 250. Chemistry shows sodi um 146, potassium 3.5, chloride 117, carbon dioxide 19, anion gap of 14, BUN 49, creatinine 2.7. Tro ponin 172. Peak yesterday was 197 with CPK 2227. IMPRESSION: Acute code ST-elevation myocardial infarction, status post primary angioplasty of the ci rcumflex, totally occluded huge circumflex; diabetic ketoacidosis, severe metabolic acidosis, pH of 6 .9, respiratory failure, morbid obesity, diabetes, hypertension, hyperlipidemia, history of severe pe ripheral arterial disease, status post Viabahn on the right superficial femoral artery , status post occluded Viabahn, status post percutaneous transluminal coronary angioplasty of Viabahn and echo cons istent with TPA complicated by intracerebral bleed. RECOMMENDATION: Continue vent management. Try to wean off vent as tolerated. Continue aspirin, con tinue Plavix through the NG tube. Continue gentle Lasix p.r.n. Continue IV fluid. Continue Mucomys t. Treat for diabetic ketoacidosis. Continue Integrilin until 11:00 a.m., a renally adjusted dose. We will start Primacor 0.2 mcg because echo shows ejection fraction 20-25%, moderate to severe edgar l regurgitation, severe anterolateral hypokinesis. Overall, the patient's condition is critical. Meaghan nobles is guarded. Discussed with ольга, Riana Sousa, on telephone #[phone]. We will follow w ith you. Thank you, Dr. Vasquez, for providing the opportunity in taking care of the patient. Sruthi George MD cc: [id number] TT: 06/24/2016 10:34:16 Confirmation # [id number] Dictation # [id number] tn
[2016-06-24] MEDS: Acetylcysteine 20% Inhal Soln (4ml) PO SCH ×2 (11:20→12:55)
[2016-06-24] MEDS ORDERED: Albuterol-Ipratrop 3 mg / 0.5 (3 ml) UD IH PRN (11:35)
[2016-06-24 12:10] LABS: CALCIUM 8.4 mg/dL (8.4-10.5); POTASSIUM 3.4 mmol/L (3.6-5.0)
--- NOTE | 2016-06-24 12:36 | RAD ---
HISTORY: chf, intubated COMPARISON: 06/23/2016 FINDINGS: LUNGS: Improving diffuse bilateral pulmonary opacity. There is some residual right perihilar opacity, improved compared to prior. No raúl consolidation elsewhere. PLEURA: No significant pleural effusion identified, no pneumothorax apparent. CARDIOVASCULAR: Normal heart size. Status post removal of endotracheal tube. OSSEOUS STRUCTURES: No significant abnormalities. VISUALIZED UPPER ABDOMEN: Normal. OTHER FINDINGS: None. IMPRESSION: Improving diffuse bilateral pulmonary opacity with some residual right perihilar opacity. Likely resolving pulmonary edema. Please correlate. Status post removal of endotracheal tube.
--- NOTE | 2016-06-24 13:02 | CP.CCUPN ---
<Jasbir Leroy - Last Filed: 06/24/16 12:57> CCU Subjective - Physician Review Subjective (Free Text): Pt seen and examined at bedside. Pt is intubated and sedated on fentanyl drip. Pt underwent PCI with stent placement yesterday. No acute issues overnight. No bleeding observed from surgical site overnight. CCU Objective - Vital Signs / Intake & Output Vital Signs (Last 4 hours): Vital Signs Pulse Resp BP Pulse Ox 06/24/16 11:40 120 H 22 90 L 06/24/16 11:30 116 H 119/68 98 06/24/16 11:20 120 H 99 06/24/16 11:15 118 H 26 H 123/63 99 06/24/16 11:10 117 H 99 06/24/16 11:00 114 H 119/73 98 06/24/16 10:50 119 H 95 06/24/16 10:45 115 H 114/65 100 06/24/16 10:40 113 H 97 06/24/16 10:30 109 H 110/67 95 06/24/16 10:20 101 H 98 06/24/16 10:15 93 H 102/57 L 99 06/24/16 10:10 91 H 99 06/24/16 10:01 90 93/60 L 99 06/24/16 10:00 91 H 100 06/24/16 09:50 91 H 100 06/24/16 09:45 96 H 112/58 L 100 06/24/16 09:40 86 99 06/24/16 09:30 87 105/62 99 06/24/16 09:20 87 100 06/24/16 09:15 101/62 06/24/16 09:14 85 100 06/24/16 09:10 84 100 06/24/16 09:00 86 118/54 L 99 Intake and Output (Last 8hrs): Intake & Output 06/23/16 06/24/16 06/24/16 22:59 06:59 14:59 Intake Total 1308 1809 7 Output Total 650 1200 Balance 658 609 7 Weight 244 lb 3.2 oz Intake: IV 8 1809 7 Left Antecubital 100 Right Upper arm 1700 Other 1300 Output: Urine 650 1200 Urethral ([place]) 650 1200 Other: Voiding Method Indwelling Catheter Ileal Conduit (Right) # Bowel Movements 2 3 - Physical Exam Head: Positive for: Atraumatic, Normocephalic Pupils: Positive for: PERRL Extroacular Muscles: Positive for: EOMI Conjunctiva: Positive for: Normal Mouth: Positive for: Moist Mucous Membranes Neck: Positive for: Normal Range of Motion Respiratory/Chest: Positive for: Good Air Exchange. Negative for: Respiratory Distress, Accessory Muscle Use Cardiovascular: Positive for: Regular Rate and Rhythm, Normal S1, S2. Negative for: Murmurs Abdomen: Positive for: Normal Bowel Sounds. Negative for: Tenderness, Distention, Peritoneal Signs Back: Positive for: Normal Inspection Upper Extremity: Positive for: Normal Inspection. Negative for: Cyanosis, Edema Lower Extremity: Positive for: Normal Inspection. Negative for: Edema Neurological: Positive for: GCS=15, CN II-XII Intact, Speech Normal Skin: Positive for: Warm, Dry, Normal Color. Negative for: Rashes Psychiatric: Positive for: Alert, Oriented x 3, Normal Insight, Normal Concentration - Medications Active Medications: Active Medications Generic Name Dose Route Start Last Admin Trade Name Freq PRN Reason Stop Dose Admin Acetylcysteine 6 ml 06/23/16 12:30 06/24/16 11:20 Acetylcysteine 20% PO 6 ml Q12H DUDLEY Administration Albuterol/Ipratropium 3 ml 06/24/16 11:35 Duoneb 3 Mg/0.5 Mg (3 Ml) Ud IH Q2H PRN Shortness of Breath Aspirin 81 mg 06/24/16 10:00 06/24/16 09:03 Ecotrin PO 81 mg DAILY DUDLEY Administration Clopidogrel Bisulfate 75 mg 06/24/16 10:00 06/24/16 09:03 Plavix PO 75 mg DAILY DUDLEY Administration Insulin Human Regular 100 100 mls @ 2 mls/hr 06/23/16 11:18 06/24/16 03:08 units/ Sodium Chloride IV 0 units/hr .Q24H PRN 0 mls/hr TITRATE PER MD ORDER Titration Protocol 2 UNITS/HR Meropenem 1g/NS 100mL IVPB 1 gm in 100 mls @ 100 mls/hr 06/23/16 22:00 09:03 Meropenem 1g/Ns 100ml Ivpb IVPB 06/30/16 22:01 100 mls/hr Q12 DUDLEY Administration Protocol Eptifibatide 75 mg in 100 mls @ 8.137 mls/hr 06/23/16 17:24 06/23/16 17:59 Integrilin IV 06/24/16 17:25 1 mcg/kg/min .[id number] DUDLEY 8.137 mls/hr Protocol Administration 1 MCG/KG/MIN Fentanyl Citrate 1,000 mcg in 100 mls @ 2 mls/hr 06/24/16 02:19 06/24/16 08: 38 Fentanyl Citrate/Sodium Chloride 1 Mg/100 Ml IV 70 mcg/hr .Q24H PRN 7 mls/hr TITRATE PER MD ORDER Titration Protocol 20 MCG/HR Dextrose/Sodium Chloride 1,000 mls @ 75 mls/hr 06/24/16 03:15 06/24/16 03:28 Dextrose 5%/0.45% Ns 1000 Ml IV 75 mls/hr .[id number] DUDLEY Administration Milrinone Lactate/Dextrose 100 mls @ 6.646 mls/hr 06/24/16 07:21 06/24/16 07: 29 Primacor 20mg/100ml D5w IV 0.2 mcg/kg/min .Q15H3M PRN 6.646 mls/hr TITRATE PER MD ORDER Administration Protocol 0.2 MCG/KG/MIN Midazolam HCl 2 mg 06/24/16 02:18 Versed Inj IVP Q2H PRN Agitation Ondansetron HCl 4 mg 06/24/16 12:45 Zofran Inj IVP Q4H PRN Nausea/Vomiting Pantoprazole Sodium 40 mg 06/24/16 10:00 06/24/16 09:11 Protonix Inj IVP 40 mg DAILY DUDLEY Administration - Patient Studies Lab Studies: Microbiology Studies 06/23/16 09:43 Urine Culture - Final Urine,Clean Catch No Growth (<1,000 CFU/ML) Lab Studies 06/24/16 06/24/16 06/24/16 Range/Units 11:37 09:56 07:40 WBC (4.5-11.0) 10^3/ul RBC (3.5-6.1) 10^6/uL Hgb (12.0-16.0) gm/dL Hct (36.0-48.0) % MCV (80.0-105.0) fL MCH (25.0-35.0) pg MCHC (31.0-37.0) g/dl RDW (11.5-14.5) % Plt Count (120.0-450.0) 10^3/uL MPV (7.0-11.0) fl Gran % (50.0-68.0) % Lymph % (Auto) (22.0-35.0) % [place] % (Auto) (1.0-6.0) % Eos % (Auto) (1.5-5.0) % Baso % (Auto) (0.0-3.0) % Gran # (1.4-6.5) Lymph # (1.2-3.4) [place]arrard # (0.1-0.6) Eos # (0.0-0.7) Baso # (0.0-2.0) K/mm3 PT (9.9-11.8) Seconds INR (0.93-1.08) APTT (23.7-30.8) Seconds pCO2 32 L (35-45) mm/Hg pO2 267.0 H (80-100) mm/Hg HCO3 16.9 L (21-28) mmol/L ABG pH 7.33 L (7.35-7.45) ABG Total CO2 17.9 L (22-28) mmol.L ABG O2 Saturation 99.5 H (95-98) % ABG O2 Content 13.0 L (15-23) ML/dl ABG Base Excess -8.2 L (-2.0-3.0) mmol/L ABG Hemoglobin 9.0 L (11.7-17.4) g/dL ABG Carboxyhemoglobin 1.1 (0.5-1.5) % POC ABG HHb (Measured) 0.5 (0-5) % ABG Methemoglobin 0.8 (0.0-3.0) % ABG O2 Capacity 13.1 L (16-24) mL/dl Hgb O2 Saturation 97.6 (95.0-98.0) % FiO2 60.0 % Sodium 146 Potassium 3.4 L Chloride 116 H Carbon Dioxide 18 L Anion Gap 15 BUN 50 H Creatinine 2.8 H (0.5-1.4) mg/dL Est GFR ( Amer) 21 Est GFR (Non-Af Amer) 17 POC Glucose (mg/dL) 81 (65-110) mg/dL Random Glucose 80 Hemoglobin A1c (4.2-6.5) % Calcium 8.4 Phosphorus (2.5-4.5) mg/dL Magnesium (1.7-2.2) mg/dL Total Bilirubin (0.2-1.3) mg/dL AST (15-39) U/L ALT (7-56) U/L Alkaline Phosphatase (38-133) U/L Lactate Dehydrogenase (333-699) U/L Total Creatine Kinase (35-230) U/L CK-MB (CK-2) (0.0-3.6) ng/mL CK-MB (CK-2) % (2.5-3.0) % Troponin I ng/mL Total Protein (5.8-8.3) g/dL Albumin (3.0-4.8) g/dL Globulin gm/dL Albumin/Globulin Ratio (1.1-1.8) Triglycerides (35-160) mg/dL Cholesterol (130-200) mg/dL LDL Cholesterol Direct (0-129) mg/dL HDL Cholesterol (29-60) mg/dL Free T4 (0.78-2.19) ng/dL Total T3 (0.97-1.69) ng/mL TSH 3rd Generation (0.46-4.68) mIU/mL 06/24/16 06/24/16 06/24/16 Range/Units 06:59 06:00 06:00 WBC (4.5-11.0) 10^3/ul RBC (3.5-6.1) 10^6/uL Hgb (12.0-16.0) gm/dL Hct (36.0-48.0) % MCV (80.0-105.0) fL MCH (25.0-35.0) pg MCHC (31.0-37.0) g/dl RDW (11.5-14.5) % Plt Count (120.0-450.0) 10^3/uL MPV (7.0-11.0) fl Gran % (50.0-68.0) % Lymph % (Auto) (22.0-35.0) % [place] % (Auto) (1.0-6.0) % Eos % (Auto) (1.5-5.0) % Baso % (Auto) (0.0-3.0) % Gran # (1.4-6.5) Lymph # (1.2-3.4) [place] # (0.1-0.6) Eos # (0.0-0.7) Baso # (0.0-2.0) K/mm3 PT (9.9-11.8) Seconds INR (0.93-1.08) APTT (23.7-30.8) Seconds pCO2 (35-45) mm/Hg pO2 (80-100) mm/Hg HCO3 (21-28) mmol/L ABG pH (7.35-7.45) ABG Total CO2 (22-28) mmol.L ABG O2 Saturation (95-98) % ABG O2 Content (15-23) ML/dl ABG Base Excess (-2.0-3.0) mmol/L ABG Hemoglobin (11.7-17.4) g/dL ABG Carboxyhemoglobin (0.5-1.5) % POC ABG HHb (Measured) (0-5) % ABG Methemoglobin (0.0-3.0) % ABG O2 Capacity (16-24) mL/dl Hgb O2 Saturation (95.0-98.0) % FiO2 % Sodium Potassium Chloride Carbon Dioxide Anion Gap BUN Creatinine (0.5-1.4) mg/dL Est GFR ( Amer) Est GFR (Non-Af Amer) POC Glucose (mg/dL) 81 (65-110) mg/dL Random Glucose Hemoglobin A1c (4.2-6.5) % Calcium Phosphorus (2.5-4.5) mg/dL Magnesium (1.7-2.2) mg/dL Total Bilirubin (0.2-1.3) mg/dL AST (15-39) U/L ALT (7-56) U/L Alkaline Phosphatase (38-133) U/L Lactate Dehydrogenase 3478 H (333-699) U/L Total Creatine Kinase 2379 H (35-230) U/L CK-MB (CK-2) 78.5 H (0.0-3.6) ng/mL CK-MB (CK-2) % 3.3 H (2.5-3.0) % Troponin I 172.00 H* ng/mL Total Protein (5.8-8.3) g/dL Albumin (3.0-4.8) g/dL Globulin gm/dL Albumin/Globulin Ratio (1.1-1.8) Triglycerides (35-160) mg/dL Cholesterol (130-200) mg/dL LDL Cholesterol Direct (0-129) mg/dL HDL Cholesterol (29-60) mg/dL Free T4 (0.78-2.19) ng/dL Total T3 (0.97-1.69) ng/mL TSH 3rd Generation 3.11 (0.46-4.68) mIU/mL 06/24/16 06/24/16 06/24/16 Range/Units 06:00 06:00 06:00 WBC 9.7 (4.5-11.0) 10^3/ul RBC 4.19 (3.5-6.1) 10^6/uL Hgb 9.4 L (12.0-16.0) gm/dL Hct 29.6 L (36.0-48.0) % MCV 70.6 L (80.0-105.0) fL MCH 22.4 L (25.0-35.0) pg MCHC 31.8 (31.0-37.0) g/dl RDW 16.6 H (11.5-14.5) % Plt Count 250 (120.0-450.0) 10^3/uL MPV 11.3 H (7.0-11.0) fl Gran % 78.3 H (50.0-68.0) % Lymph % (Auto) 12.5 L (22.0-35.0) % [place] % (Auto) 8.6 H (1.0-6.0) % Eos % (Auto) 0.4 L (1.5-5.0) % Baso % (Auto) 0.2 (0.0-3.0) % Gran # 7.61 H (1.4-6.5) Lymph # 1.2 (1.2-3.4) [place]ard # 0.8 H (0.1-0.6) Eos # 0.0 (0.0-0.7) Baso # 0.02 (0.0-2.0) K/mm3 PT (9.9-11.8) Seconds INR (0.93-1.08) APTT 30.1 (23.7-30.8) Seconds pCO2 (35-45) mm/Hg pO2 (80-100) mm/Hg HCO3 (21-28) mmol/L ABG pH (7.35-7.45) ABG Total CO2 (22-28) mmol.L ABG O2 Saturation (95-98) % ABG O2 Content (15-23) ML/dl ABG Base Excess (-2.0-3.0) mmol/L ABG Hemoglobin (11.7-17.4) g/dL ABG Carboxyhemoglobin (0.5-1.5) % POC ABG HHb (Measured) (0-5) % ABG Methemoglobin (0.0-3.0) % ABG O2 Capacity (16-24) mL/dl Hgb O2 Saturation (95.0-98.0) % FiO2 % Sodium 146 Potassium 3.5 L Chloride 117 H Carbon Dioxide 19 L Anion Gap 14 BUN 49 H Creatinine 2.7 H (0.5-1.4) mg/dL Est GFR ( Amer) 22 Est GFR (Non-Af Amer) 18 POC Glucose (mg/dL) (65-110) mg/dL Random Glucose 83 Hemoglobin A1c (4.2-6.5) % Calcium 8.2 L Phosphorus 3.7 (2.5-4.5) mg/dL Magnesium 2.0 (1.7-2.2) mg/dL Total Bilirubin 0.4 (0.2-1.3) mg/dL AST 376 H (15-39) U/L ALT 70 H (7-56) U/L Alkaline Phosphatase 80 (38-133) U/L Lactate Dehydrogenase (333-699) U/L Total Creatine Kinase (35-230) U/L CK-MB (CK-2) (0.0-3.6) ng/mL CK-MB (CK-2) % (2.5-3.0) % Troponin I ng/mL Total Protein 6.1 (5.8-8.3) g/dL Albumin 3.1 (3.0-4.8) g/dL Globulin 3.0 gm/dL Albumin/Globulin Ratio 1.0 L (1.1-1.8) Triglycerides 191 H (35-160) mg/dL Cholesterol 139 (130-200) mg/dL LDL Cholesterol Direct 55 (0-129) mg/dL HDL Cholesterol 39 (29-60) mg/dL Free T4 (0.78-2.19) ng/dL Total T3 (0.97-1.69) ng/mL TSH 3rd Generation (0.46-4.68) mIU/mL 06/24/16 06/24/16 06/24/16 Range/Units 05:14 04:30 03:04 WBC (4.5-11.0) 10^3/ul RBC (3.5-6.1) 10^6/uL Hgb (12.0-16.0) gm/dL Hct (36.0-48.0) % MCV (80.0-105.0) fL MCH (25.0-35.0) pg MCHC (31.0-37.0) g/dl RDW (11.5-14.5) % Plt Count (120.0-450.0) 10^3/uL MPV (7.0-11.0) fl Gran % (50.0-68.0) % Lymph % (Auto) (22.0-35.0) % [place] % (Auto) (1.0-6.0) % Eos % (Auto) (1.5-5.0) % Baso % (Auto) (0.0-3.0) % Gran # (1.4-6.5) Lymph # (1.2-3.4) [place] # (0.1-0.6) Eos # (0.0-0.7) Baso # (0.0-2.0) K/mm3 PT (9.9-11.8) Seconds INR (0.93-1.08) APTT (23.7-30.8) Seconds pCO2 (35-45) mm/Hg pO2 (80-100) mm/Hg HCO3 (21-28) mmol/L ABG pH (7.35-7.45) ABG Total CO2 (22-28) mmol.L ABG O2 Saturation (95-98) % ABG O2 Content (15-23) ML/dl ABG Base Excess (-2.0-3.0) mmol/L ABG Hemoglobin (11.7-17.4) g/dL ABG Carboxyhemoglobin (0.5-1.5) % POC ABG HHb (Measured) (0-5) % ABG Methemoglobin (0.0-3.0) % ABG O2 Capacity (16-24) mL/dl Hgb O2 Saturation (95.0-98.0) % FiO2 % Sodium Potassium Chloride Carbon Dioxide Anion Gap BUN Creatinine (0.5-1.4) mg/dL Est GFR ( Amer) Est GFR (Non-Af Amer) POC Glucose (mg/dL) 72 76 45 L (65-110) mg/dL Random Glucose Hemoglobin A1c (4.2-6.5) % Calcium Phosphorus (2.5-4.5) mg/dL Magnesium (1.7-2.2) mg/dL Total Bilirubin (0.2-1.3) mg/dL AST (15-39) U/L ALT (7-56) U/L Alkaline Phosphatase (38-133) U/L Lactate Dehydrogenase (333-699) U/L Total Creatine Kinase (35-230) U/L CK-MB (CK-2) (0.0-3.6) ng/mL CK-MB (CK-2) % (2.5-3.0) % Troponin I ng/mL Total Protein (5.8-8.3) g/dL Albumin (3.0-4.8) g/dL Globulin gm/dL Albumin/Globulin Ratio (1.1-1.8) Triglycerides (35-160) mg/dL Cholesterol (130-200) mg/dL LDL Cholesterol Direct (0-129) mg/dL HDL Cholesterol (29-60) mg/dL Free T4 (0.78-2.19) ng/dL Total T3 (0.97-1.69) ng/mL TSH 3rd Generation (0.46-4.68) mIU/mL 06/24/16 06/24/16 06/24/16 Range/Units 02:08 01:23 01:00 WBC (4.5-11.0) 10^3/ul RBC (3.5-6.1) 10^6/uL Hgb (12.0-16.0) gm/dL Hct (36.0-48.0) % MCV (80.0-105.0) fL MCH (25.0-35.0) pg MCHC (31.0-37.0) g/dl RDW (11.5-14.5) % Plt Count (120.0-450.0) 10^3/uL MPV (7.0-11.0) fl Gran % (50.0-68.0) % Lymph % (Auto) (22.0-35.0) % [place] % (Auto) (1.0-6.0) % Eos % (Auto) (1.5-5.0) % Baso % (Auto) (0.0-3.0) % Gran # (1.4-6.5) Lymph # (1.2-3.4) [place] # (0.1-0.6) Eos # (0.0-0.7) Baso # (0.0-2.0) K/mm3 PT (9.9-11.8) Seconds INR (0.93-1.08) APTT (23.7-30.8) Seconds pCO2 (35-45) mm/Hg pO2 (80-100) mm/Hg HCO3 (21-28) mmol/L ABG pH (7.35-7.45) ABG Total CO2 (22-28) mmol.L ABG O2 Saturation (95-98) % ABG O2 Content (15-23) ML/dl ABG Base Excess (-2.0-3.0) mmol/L ABG Hemoglobin (11.7-17.4) g/dL ABG Carboxyhemoglobin (0.5-1.5) % POC ABG HHb (Measured) (0-5) % ABG Methemoglobin (0.0-3.0) % ABG O2 Capacity (16-24) mL/dl Hgb O2 Saturation (95.0-98.0) % FiO2 % Sodium Potassium Chloride Carbon Dioxide Anion Gap BUN Creatinine (0.5-1.4) mg/dL Est GFR ( Amer) Est GFR (Non-Af Amer) POC Glucose (mg/dL) 72 104 (65-110) mg/dL Random Glucose Hemoglobin A1c 8.7 H (4.2-6.5) % Calcium Phosphorus (2.5-4.5) mg/dL Magnesium (1.7-2.2) mg/dL Total Bilirubin (0.2-1.3) mg/dL AST (15-39) U/L ALT (7-56) U/L Alkaline Phosphatase (38-133) U/L Lactate Dehydrogenase (333-699) U/L Total Creatine Kinase (35-230) U/L CK-MB (CK-2) (0.0-3.6) ng/mL CK-MB (CK-2) % (2.5-3.0) % Troponin I ng/mL Total Protein (5.8-8.3) g/dL Albumin (3.0-4.8) g/dL Globulin gm/dL Albumin/Globulin Ratio (1.1-1.8) Triglycerides (35-160) mg/dL Cholesterol (130-200) mg/dL LDL Cholesterol Direct (0-129) mg/dL HDL Cholesterol (29-60) mg/dL Free T4 (0.78-2.19) ng/dL Total T3 (0.97-1.69) ng/mL TSH 3rd Generation (0.46-4.68) mIU/mL 06/24/16 06/24/16 06/23/16 Range/Units 00:50 00:03 23:07 WBC (4.5-11.0) 10^3/ul RBC (3.5-6.1) 10^6/uL Hgb (12.0-16.0) gm/dL Hct (36.0-48.0) % MCV (80.0-105.0) fL MCH (25.0-35.0) pg MCHC (31.0-37.0) g/dl RDW (11.5-14.5) % Plt Count (120.0-450.0) 10^3/uL MPV (7.0-11.0) fl Gran % (50.0-68.0) % Lymph % (Auto) (22.0-35.0) % [place] % (Auto) (1.0-6.0) % Eos % (Auto) (1.5-5.0) % Baso % (Auto) (0.0-3.0) % Gran # (1.4-6.5) Lymph # (1.2-3.4) [place]ard # (0.1-0.6) Eos # (0.0-0.7) Baso # (0.0-2.0) K/mm3 PT (9.9-11.8) Seconds INR (0.93-1.08) APTT (23.7-30.8) Seconds pCO2 (35-45) mm/Hg pO2 (80-100) mm/Hg HCO3 (21-28) mmol/L ABG pH (7.35-7.45) ABG Total CO2 (22-28) mmol.L ABG O2 Saturation (95-98) % ABG O2 Content (15-23) ML/dl ABG Base Excess (-2.0-3.0) mmol/L ABG Hemoglobin (11.7-17.4) g/dL ABG Carboxyhemoglobin (0.5-1.5) % POC ABG HHb (Measured) (0-5) % ABG Methemoglobin (0.0-3.0) % ABG O2 Capacity (16-24) mL/dl Hgb O2 Saturation (95.0-98.0) % FiO2 % Sodium 148 Potassium 3.1 L Chloride 112 H Carbon Dioxide 21 Anion Gap 18 BUN 51 H Creatinine 2.7 H (0.5-1.4) mg/dL Est GFR ( Amer) 22 Est GFR (Non-Af Amer) 18 POC Glucose (mg/dL) 168 H 169 H (65-110) mg/dL Random Glucose 108 Hemoglobin A1c (4.2-6.5) % Calcium 8.8 Phosphorus (2.5-4.5) mg/dL Magnesium (1.7-2.2) mg/dL Total Bilirubin (0.2-1.3) mg/dL AST (15-39) U/L ALT (7-56) U/L Alkaline Phosphatase (38-133) U/L Lactate Dehydrogenase 3634 H (333-699) U/L Total Creatine Kinase 2727 H (35-230) U/L CK-MB (CK-2) 87.5 H (0.0-3.6) ng/mL CK-MB (CK-2) % 3.2 H (2.5-3.0) % Troponin I 195.00 H* D ng/mL Total Protein (5.8-8.3) g/dL Albumin (3.0-4.8) g/dL Globulin gm/dL Albumin/Globulin Ratio (1.1-1.8) Triglycerides (35-160) mg/dL Cholesterol (130-200) mg/dL LDL Cholesterol Direct (0-129) mg/dL HDL Cholesterol (29-60) mg/dL Free T4 (0.78-2.19) ng/dL Total T3 (0.97-1.69) ng/mL TSH 3rd Generation (0.46-4.68) mIU/mL 06/23/16 06/23/16 06/23/16 Range/Units 22:00 21:08 20:27 WBC (4.5-11.0) 10^3/ul RBC (3.5-6.1) 10^6/uL Hgb (12.0-16.0) gm/dL Hct (36.0-48.0) % MCV (80.0-105.0) fL MCH (25.0-35.0) pg MCHC (31.0-37.0) g/dl RDW (11.5-14.5) % Plt Count (120.0-450.0) 10^3/uL MPV (7.0-11.0) fl Gran % (50.0-68.0) % Lymph % (Auto) (22.0-35.0) % [place] % (Auto) (1.0-6.0) % Eos % (Auto) (1.5-5.0) % Baso % (Auto) (0.0-3.0) % Gran # (1.4-6.5) Lymph # (1.2-3.4) [place]ard # (0.1-0.6) Eos # (0.0-0.7) Baso # (0.0-2.0) K/mm3 PT (9.9-11.8) Seconds INR (0.93-1.08) APTT (23.7-30.8) Seconds pCO2 (35-45) mm/Hg pO2 (80-100) mm/Hg HCO3 (21-28) mmol/L ABG pH (7.35-7.45) ABG Total CO2 (22-28) mmol.L ABG O2 Saturation (95-98) % ABG O2 Content (15-23) ML/dl ABG Base Excess (-2.0-3.0) mmol/L ABG Hemoglobin (11.7-17.4) g/dL ABG Carboxyhemoglobin (0.5-1.5) % POC ABG HHb (Measured) (0-5) % ABG Methemoglobin (0.0-3.0) % ABG O2 Capacity (16-24) mL/dl Hgb O2 Saturation (95.0-98.0) % FiO2 % Sodium Potassium Chloride Carbon Dioxide Anion Gap BUN Creatinine (0.5-1.4) mg/dL Est GFR ( Amer) Est GFR (Non-Af Amer) POC Glucose (mg/dL) 168 H 129 H 156 H (65-110) mg/dL Random Glucose Hemoglobin A1c (4.2-6.5) % Calcium Phosphorus (2.5-4.5) mg/dL Magnesium (1.7-2.2) mg/dL Total Bilirubin (0.2-1.3) mg/dL AST (15-39) U/L ALT (7-56) U/L Alkaline Phosphatase (38-133) U/L Lactate Dehydrogenase (333-699) U/L Total Creatine Kinase (35-230) U/L CK-MB (CK-2) (0.0-3.6) ng/mL CK-MB (CK-2) % (2.5-3.0) % Troponin I ng/mL Total Protein (5.8-8.3) g/dL Albumin (3.0-4.8) g/dL Globulin gm/dL Albumin/Globulin Ratio (1.1-1.8) Triglycerides (35-160) mg/dL Cholesterol (130-200) mg/dL LDL Cholesterol Direct (0-129) mg/dL HDL Cholesterol (29-60) mg/dL Free T4 (0.78-2.19) ng/dL Total T3 (0.97-1.69) ng/mL TSH 3rd Generation (0.46-4.68) mIU/mL 06/23/16 06/23/16 06/23/16 Range/Units 18:58 18:34 18:34 WBC 11.1 H (4.5-11.0) 10^3/ul RBC 4.60 (3.5-6.1) 10^6/uL Hgb 10.2 L (12.0-16.0) gm/dL Hct 33.4 L (36.0-48.0) % MCV 72.6 L (80.0-105.0) fL MCH 22.2 L (25.0-35.0) pg MCHC 30.5 L (31.0-37.0) g/dl RDW 16.9 H (11.5-14.5) % Plt Count 269 (120.0-450.0) 10^3/uL MPV 11.2 H (7.0-11.0) fl Gran % 79.9 H (50.0-68.0) % Lymph % (Auto) 9.9 L (22.0-35.0) % Garrard % (Auto) 9.6 H (1.0-6.0) % Eos % (Auto) 0.3 L (1.5-5.0) % Baso % (Auto) 0.3 (0.0-3.0) % Gran # 8.85 H (1.4-6.5) Lymph # 1.1 L (1.2-3.4) Garrard # 1.1 H (0.1-0.6) Eos # 0.0 (0.0-0.7) Baso # 0.03 (0.0-2.0) K/mm3 PT (9.9-11.8) Seconds INR (0.93-1.08) APTT (23.7-30.8) Seconds pCO2 (35-45) mm/Hg pO2 (80-100) mm/Hg HCO3 (21-28) mmol/L ABG pH (7.35-7.45) ABG Total CO2 (22-28) mmol.L ABG O2 Saturation (95-98) % ABG O2 Content (15-23) ML/dl ABG Base Excess (-2.0-3.0) mmol/L ABG Hemoglobin (11.7-17.4) g/dL ABG Carboxyhemoglobin (0.5-1.5) % POC ABG HHb (Measured) (0-5) % ABG Methemoglobin (0.0-3.0) % ABG O2 Capacity (16-24) mL/dl Hgb O2 Saturation (95.0-98.0) % FiO2 % Sodium 145 Potassium 3.7 Chloride 113 H Carbon Dioxide 19 L Anion Gap 17 BUN 53 H Creatinine 2.7 H (0.5-1.4) mg/dL Est GFR ( Amer) 22 Est GFR (Non-Af Amer) 18 POC Glucose (mg/dL) 133 H (65-110) mg/dL Random Glucose 130 H Hemoglobin A1c (4.2-6.5) % Calcium 9.0 Phosphorus (2.5-4.5) mg/dL Magnesium (1.7-2.2) mg/dL Total Bilirubin (0.2-1.3) mg/dL AST (15-39) U/L ALT (7-56) U/L Alkaline Phosphatase (38-133) U/L Lactate Dehydrogenase Cancelled (333-699) U/L Total Creatine Kinase Cancelled (35-230) U/L CK-MB (CK-2) (0.0-3.6) ng/mL CK-MB (CK-2) % (2.5-3.0) % Troponin I Cancelled ng/mL Total Protein (5.8-8.3) g/dL Albumin (3.0-4.8) g/dL Globulin gm/dL Albumin/Globulin Ratio (1.1-1.8) Triglycerides (35-160) mg/dL Cholesterol (130-200) mg/dL LDL Cholesterol Direct (0-129) mg/dL HDL Cholesterol (29-60) mg/dL Free T4 (0.78-2.19) ng/dL Total T3 (0.97-1.69) ng/mL TSH 3rd Generation (0.46-4.68) mIU/mL 06/23/16 06/23/16 06/23/16 Range/Units 17:44 14:24 13:38 WBC (4.5-11.0) 10^3/ul RBC (3.5-6.1) 10^6/uL Hgb (12.0-16.0) gm/dL Hct (36.0-48.0) % MCV (80.0-105.0) fL MCH (25.0-35.0) pg MCHC (31.0-37.0) g/dl RDW (11.5-14.5) % Plt Count (120.0-450.0) 10^3/uL MPV (7.0-11.0) fl Gran % (50.0-68.0) % Lymph % (Auto) (22.0-35.0) % Garrard % (Auto) (1.0-6.0) % Eos % (Auto) (1.5-5.0) % Baso % (Auto) (0.0-3.0) % Gran # (1.4-6.5) Lymph # (1.2-3.4) Garrard # (0.1-0.6) Eos # (0.0-0.7) Baso # (0.0-2.0) K/mm3 PT (9.9-11.8) Seconds INR (0.93-1.08) APTT (23.7-30.8) Seconds pCO2 (35-45) mm/Hg pO2 (80-100) mm/Hg HCO3 (21-28) mmol/L ABG pH (7.35-7.45) ABG Total CO2 (22-28) mmol.L ABG O2 Saturation (95-98) % ABG O2 Content (15-23) ML/dl ABG Base Excess (-2.0-3.0) mmol/L ABG Hemoglobin (11.7-17.4) g/dL ABG Carboxyhemoglobin (0.5-1.5) % POC ABG HHb (Measured) (0-5) % ABG Methemoglobin (0.0-3.0) % ABG O2 Capacity (16-24) mL/dl Hgb O2 Saturation (95.0-98.0) % FiO2 % Sodium 145 Potassium 3.7 Chloride 114 H Carbon Dioxide 18 L Anion Gap 17 BUN 54 H Creatinine 2.6 H (0.5-1.4) mg/dL Est GFR ( Amer) 23 Est GFR (Non-Af Amer) 19 POC Glucose (mg/dL) 143 H 193 H (65-110) mg/dL Random Glucose 152 H Hemoglobin A1c (4.2-6.5) % Calcium 9.1 Phosphorus (2.5-4.5) mg/dL Magnesium (1.7-2.2) mg/dL Total Bilirubin 0.6 (0.2-1.3) mg/dL AST 219 H (15-39) U/L ALT 54 (7-56) U/L Alkaline Phosphatase 108 (38-133) U/L Lactate Dehydrogenase (333-699) U/L Total Creatine Kinase (35-230) U/L CK-MB (CK-2) (0.0-3.6) ng/mL CK-MB (CK-2) % (2.5-3.0) % Troponin I ng/mL Total Protein 6.9 (5.8-8.3) g/dL Albumin 3.6 (3.0-4.8) g/dL Globulin 3.3 gm/dL Albumin/Globulin Ratio 1.1 (1.1-1.8) Triglycerides (35-160) mg/dL Cholesterol (130-200) mg/dL LDL Cholesterol Direct (0-129) mg/dL HDL Cholesterol (29-60) mg/dL Free T4 (0.78-2.19) ng/dL Total T3 (0.97-1.69) ng/mL TSH 3rd Generation (0.46-4.68) mIU/mL 06/23/16 06/23/16 06/23/16 Range/Units 13:38 12:59 12:00 WBC 9.9 D (4.5-11.0) 10^3/ul RBC 4.93 (3.5-6.1) 10^6/uL Hgb 11.0 L (12.0-16.0) gm/dL Hct 35.5 L (36.0-48.0) % MCV 72.0 L (80.0-105.0) fL MCH 22.3 L (25.0-35.0) pg MCHC 31.0 (31.0-37.0) g/dl RDW 16.7 H (11.5-14.5) % Plt Count 266 (120.0-450.0) 10^3/uL MPV 11.1 H (7.0-11.0) fl Gran % (50.0-68.0) % Lymph % (Auto) (22.0-35.0) % Garrard % (Auto) (1.0-6.0) % Eos % (Auto) (1.5-5.0) % Baso % (Auto) (0.0-3.0) % Gran # (1.4-6.5) Lymph # (1.2-3.4) Garrard # (0.1-0.6) Eos # (0.0-0.7) Baso # (0.0-2.0) K/mm3 PT (9.9-11.8) Seconds INR (0.93-1.08) APTT (23.7-30.8) Seconds pCO2 (35-45) mm/Hg pO2 (80-100) mm/Hg HCO3 (21-28) mmol/L ABG pH (7.35-7.45) ABG Total CO2 (22-28) mmol.L ABG O2 Saturation (95-98) % ABG O2 Content (15-23) ML/dl ABG Base Excess (-2.0-3.0) mmol/L ABG Hemoglobin (11.7-17.4) g/dL ABG Carboxyhemoglobin (0.5-1.5) % POC ABG HHb (Measured) (0-5) % ABG Methemoglobin (0.0-3.0) % ABG O2 Capacity (16-24) mL/dl Hgb O2 Saturation (95.0-98.0) % FiO2 % Sodium Potassium Chloride Carbon Dioxide Anion Gap BUN Creatinine (0.5-1.4) mg/dL Est GFR ( Amer) Est GFR (Non-Af Amer) POC Glucose (mg/dL) 279 H 354 H (65-110) mg/dL Random Glucose Hemoglobin A1c (4.2-6.5) % Calcium Phosphorus (2.5-4.5) mg/dL Magnesium (1.7-2.2) mg/dL Total Bilirubin (0.2-1.3) mg/dL AST (15-39) U/L ALT (7-56) U/L Alkaline Phosphatase (38-133) U/L Lactate Dehydrogenase (333-699) U/L Total Creatine Kinase (35-230) U/L CK-MB (CK-2) (0.0-3.6) ng/mL CK-MB (CK-2) % (2.5-3.0) % Troponin I ng/mL Total Protein (5.8-8.3) g/dL Albumin (3.0-4.8) g/dL Globulin gm/dL Albumin/Globulin Ratio (1.1-1.8) Triglycerides (35-160) mg/dL Cholesterol (130-200) mg/dL LDL Cholesterol Direct (0-129) mg/dL HDL Cholesterol (29-60) mg/dL Free T4 (0.78-2.19) ng/dL Total T3 (0.97-1.69) ng/mL TSH 3rd Generation (0.46-4.68) mIU/mL 06/23/16 06/23/16 06/23/16 Range/Units 11:50 11:50 11:50 WBC (4.5-11.0) 10^3/ul RBC (3.5-6.1) 10^6/uL Hgb (12.0-16.0) gm/dL Hct (36.0-48.0) % MCV (80.0-105.0) fL MCH (25.0-35.0) pg MCHC (31.0-37.0) g/dl RDW (11.5-14.5) % Plt Count (120.0-450.0) 10^3/uL MPV (7.0-11.0) fl Gran % (50.0-68.0) % Lymph % (Auto) (22.0-35.0) % Garrard % (Auto) (1.0-6.0) % Eos % (Auto) (1.5-5.0) % Baso % (Auto) (0.0-3.0) % Gran # (1.4-6.5) Lymph # (1.2-3.4) Garrard # (0.1-0.6) Eos # (0.0-0.7) Baso # (0.0-2.0) K/mm3 PT 12.2 H (9.9-11.8) Seconds INR 1.13 H (0.93-1.08) APTT 30.8 (23.7-30.8) Seconds pCO2 (35-45) mm/Hg pO2 (80-100) mm/Hg HCO3 (21-28) mmol/L ABG pH (7.35-7.45) ABG Total CO2 (22-28) mmol.L ABG O2 Saturation (95-98) % ABG O2 Content (15-23) ML/dl ABG Base Excess (-2.0-3.0) mmol/L ABG Hemoglobin (11.7-17.4) g/dL ABG Carboxyhemoglobin (0.5-1.5) % POC ABG HHb (Measured) (0-5) % ABG Methemoglobin (0.0-3.0) % ABG O2 Capacity (16-24) mL/dl Hgb O2 Saturation (95.0-98.0) % FiO2 % Sodium Cancelled Potassium Cancelled Chloride Cancelled Carbon Dioxide Cancelled Anion Gap Cancelled BUN Cancelled Creatinine (0.5-1.4) mg/dL Est GFR ( Amer) Cancelled Est GFR (Non-Af Amer) Cancelled POC Glucose (mg/dL) (65-110) mg/dL Random Glucose Cancelled Hemoglobin A1c (4.2-6.5) % Calcium Cancelled Phosphorus (2.5-4.5) mg/dL Magnesium (1.7-2.2) mg/dL Total Bilirubin (0.2-1.3) mg/dL AST (15-39) U/L ALT (7-56) U/L Alkaline Phosphatase (38-133) U/L Lactate Dehydrogenase 2061 H (333-699) U/L Total Creatine Kinase 2006 H (35-230) U/L CK-MB (CK-2) 59.6 H (0.0-3.6) ng/mL CK-MB (CK-2) % 3.0 (2.5-3.0) % Troponin I 79.70 H* D ng/mL Total Protein (5.8-8.3) g/dL Albumin (3.0-4.8) g/dL Globulin gm/dL Albumin/Globulin Ratio (1.1-1.8) Triglycerides (35-160) mg/dL Cholesterol (130-200) mg/dL LDL Cholesterol Direct (0-129) mg/dL HDL Cholesterol (29-60) mg/dL Free T4 1.25 (0.78-2.19) ng/dL Total T3 0.78 L (0.97-1.69) ng/mL TSH 3rd Generation (0.46-4.68) mIU/mL 06/23/16 Range/Units 11:14 WBC (4.5-11.0) 10^3/ul RBC (3.5-6.1) 10^6/uL Hgb (12.0-16.0) gm/dL Hct (36.0-48.0) % MCV (80.0-105.0) fL MCH (25.0-35.0) pg MCHC (31.0-37.0) g/dl RDW (11.5-14.5) % Plt Count (120.0-450.0) 10^3/uL MPV (7.0-11.0) fl Gran % (50.0-68.0) % Lymph % (Auto) (22.0-35.0) % [place]ard % (Auto) (1.0-6.0) % Eos % (Auto) (1.5-5.0) % Baso % (Auto) (0.0-3.0) % Gran # (1.4-6.5) Lymph # (1.2-3.4) G[place]ard # (0.1-0.6) Eos # (0.0-0.7) Baso # (0.0-2.0) K/mm3 PT (9.9-11.8) Seconds INR (0.93-1.08) APTT (23.7-30.8) Seconds pCO2 (35-45) mm/Hg pO2 (80-100) mm/Hg HCO3 (21-28) mmol/L ABG pH (7.35-7.45) ABG Total CO2 (22-28) mmol.L ABG O2 Saturation (95-98) % ABG O2 Content (15-23) ML/dl ABG Base Excess (-2.0-3.0) mmol/L ABG Hemoglobin (11.7-17.4) g/dL ABG Carboxyhemoglobin (0.5-1.5) % POC ABG HHb (Measured) (0-5) % ABG Methemoglobin (0.0-3.0) % ABG O2 Capacity (16-24) mL/dl Hgb O2 Saturation (95.0-98.0) % FiO2 % Sodium Potassium Chloride Carbon Dioxide Anion Gap BUN Creatinine (0.5-1.4) mg/dL Est GFR ( Amer) Est GFR (Non-Af Amer) POC Glucose (mg/dL) 375 H (65-110) mg/dL Random Glucose Hemoglobin A1c (4.2-6.5) % Calcium Phosphorus (2.5-4.5) mg/dL Magnesium (1.7-2.2) mg/dL Total Bilirubin (0.2-1.3) mg/dL AST (15-39) U/L ALT (7-56) U/L Alkaline Phosphatase (38-133) U/L Lactate Dehydrogenase (333-699) U/L Total Creatine Kinase (35-230) U/L CK-MB (CK-2) (0.0-3.6) ng/mL CK-MB (CK-2) % (2.5-3.0) % Troponin I ng/mL Total Protein (5.8-8.3) g/dL Albumin (3.0-4.8) g/dL Globulin gm/dL Albumin/Globulin Ratio (1.1-1.8) Triglycerides (35-160) mg/dL Cholesterol (130-200) mg/dL LDL Cholesterol Direct (0-129) mg/dL HDL Cholesterol (29-60) mg/dL Free T4 (0.78-2.19) ng/dL Total T3 (0.97-1.69) ng/mL TSH 3rd Generation (0.46-4.68) mIU/mL Laboratory Results - last 24 hr 06/23/16 06/23/16 06/23/16 11:14 11:50 11:50 WBC RBC Hgb Hct MCV MCH MCHC RDW Plt Count MPV Gran % Lymph % (Auto) [place] % (Auto) Eos % (Auto) Baso % (Auto) Gran # Lymph # G[place]ard # Eos # Baso # PT 12.2 H INR 1.13 H APTT 30.8 pCO2 pO2 HCO3 ABG pH ABG Total CO2 ABG O2 Saturation ABG O2 Content ABG Base Excess ABG Hemoglobin ABG Carboxyhemoglobin POC ABG HHb (Measured) ABG Methemoglobin ABG O2 Capacity Hgb O2 Saturation FiO2 Sodium Cancelled Potassium Cancelled Chloride Cancelled Carbon Dioxide Cancelled Anion Gap Cancelled BUN Cancelled Creatinine Est GFR ( Amer) Cancelled Est GFR (Non-Af Amer) Cancelled POC Glucose (mg/dL) 375 H Random Glucose Cancelled Hemoglobin A1c Calcium Cancelled Phosphorus Magnesium Total Bilirubin AST ALT Alkaline Phosphatase Lactate Dehydrogenase 2061 H Total Creatine Kinase 2006 H CK-MB (CK-2) 59.6 H CK-MB (CK-2) % 3.0 Troponin I 79.70 H* D Total Protein Albumin Globulin Albumin/Globulin Ratio Triglycerides Cholesterol LDL Cholesterol Direct HDL Cholesterol Free T4 Total T3 [facility] 3rd Generation 06/23/16 06/23/16 06/23/16 11:50 12:00 12:59 WBC RBC Hgb Hct MCV MCH MCHC RDW Plt Count MPV Gran % Lymph % (Auto) [place] % (Auto) Eos % (Auto) Baso % (Auto) Gran # Lymph # [place] # Eos # Baso # PT INR APTT pCO2 pO2 HCO3 ABG pH ABG Total CO2 ABG O2 Saturation ABG O2 Content ABG Base Excess ABG Hemoglobin ABG Carboxyhemoglobin POC ABG HHb (Measured) ABG Methemoglobin ABG O2 Capacity Hgb O2 Saturation FiO2 Sodium Potassium Chloride Carbon Dioxide Anion Gap BUN Creatinine Est GFR ( Amer) Est GFR (Non-Af Amer) POC Glucose (mg/dL) 354 H 279 H Random Glucose Hemoglobin A1c Calcium Phosphorus Magnesium Total Bilirubin AST ALT Alkaline Phosphatase Lactate Dehydrogenase Total Creatine Kinase CK-MB (CK-2) CK-MB (CK-2) % Troponin I Total Protein Albumin Globulin Albumin/Globulin Ratio Triglycerides Cholesterol LDL Cholesterol Direct HDL Cholesterol Free T4 1.25 Total T3 0.78 L [facility] 3rd Generation 06/23/16 06/23/16 06/23/16 13:38 13:38 14:24 WBC 9.9 D RBC 4.93 Hgb 11.0 L Hct 35.5 L MCV 72.0 L MCH 22.3 L MCHC 31.0 RDW 16.7 H Plt Count 266 MPV 11.1 H Gran % Lymph % (Auto) [place]arrard % (Auto) Eos % (Auto) Baso % (Auto) Gran # Lymph # [place] # Eos # Baso # PT INR APTT pCO2 pO2 HCO3 ABG pH ABG Total CO2 ABG O2 Saturation ABG O2 Content ABG Base Excess ABG Hemoglobin ABG Carboxyhemoglobin POC ABG HHb (Measured) ABG Methemoglobin ABG O2 Capacity Hgb O2 Saturation FiO2 Sodium 145 Potassium 3.7 Chloride 114 H Carbon Dioxide 18 L Anion Gap 17 BUN 54 H Creatinine 2.6 H Est GFR ( Amer) 23 Est GFR (Non-Af Amer) 19 POC Glucose (mg/dL) 193 H Random Glucose 152 H Hemoglobin A1c Calcium 9.1 Phosphorus Magnesium Total Bilirubin 0.6 AST 219 H ALT 54 Alkaline Phosphatase 108 Lactate Dehydrogenase Total Creatine Kinase CK-MB (CK-2) CK-MB (CK-2) % Troponin I Total Protein 6.9 Albumin 3.6 Globulin 3.3 Albumin/Globulin Ratio 1.1 Triglycerides Cholesterol LDL Cholesterol Direct HDL Cholesterol Free T4 Total T3 TSH 3rd Generation 06/23/16 06/23/16 06/23/16 17:44 18:34 18:34 WBC 11.1 H RBC 4.60 Hgb 10.2 L Hct 33.4 L MCV 72.6 L MCH 22.2 L MCHC 30.5 L RDW 16.9 H Plt Count 269 MPV 11.2 H Gran % 79.9 H Lymph % (Auto) 9.9 L Garrard % (Auto) 9.6 H Eos % (Auto) 0.3 L Baso % (Auto) 0.3 Gran # 8.85 H Lymph # 1.1 L Garrard # 1.1 H Eos # 0.0 Baso # 0.03 PT INR APTT pCO2 pO2 HCO3 ABG pH ABG Total CO2 ABG O2 Saturation ABG O2 Content ABG Base Excess ABG Hemoglobin ABG Carboxyhemoglobin POC ABG HHb (Measured) ABG Methemoglobin ABG O2 Capacity Hgb O2 Saturation FiO2 Sodium 145 Potassium 3.7 Chloride 113 H Carbon Dioxide 19 L Anion Gap 17 BUN 53 H Creatinine 2.7 H Est GFR ( Amer) 22 Est GFR (Non-Af Amer) 18 POC Glucose (mg/dL) 143 H Random Glucose 130 H Hemoglobin A1c Calcium 9.0 Phosphorus Magnesium Total Bilirubin AST ALT Alkaline Phosphatase Lactate Dehydrogenase Cancelled Total Creatine Kinase Cancelled CK-MB (CK-2) CK-MB (CK-2) % Troponin I Cancelled Total Protein Albumin Globulin Albumin/Globulin Ratio Triglycerides Cholesterol LDL Cholesterol Direct HDL Cholesterol Free T4 Total T3 TSH 3rd Generation 06/23/16 06/23/16 06/23/16 18:58 20:27 21:08 WBC RBC Hgb Hct MCV MCH MCHC RDW Plt Count MPV Gran % Lymph % (Auto) Garrard % (Auto) Eos % (Auto) Baso % (Auto) Gran # Lymph # Garrard # Eos # Baso # PT INR APTT pCO2 pO2 HCO3 ABG pH ABG Total CO2 ABG O2 Saturation ABG O2 Content ABG Base Excess ABG Hemoglobin ABG Carboxyhemoglobin POC ABG HHb (Measured) ABG Methemoglobin ABG O2 Capacity Hgb O2 Saturation FiO2 Sodium Potassium Chloride Carbon Dioxide Anion Gap BUN Creatinine Est GFR ( Amer) Est GFR (Non-Af Amer) POC Glucose (mg/dL) 133 H 156 H 129 H Random Glucose Hemoglobin A1c Calcium Phosphorus Magnesium Total Bilirubin AST ALT Alkaline Phosphatase Lactate Dehydrogenase Total Creatine Kinase CK-MB (CK-2) CK-MB (CK-2) % Troponin I Total Protein Albumin Globulin Albumin/Globulin Ratio Triglycerides Cholesterol LDL Cholesterol Direct HDL Cholesterol Free T4 Total T3 TSH 3rd Generation 06/23/16 06/23/16 06/24/16 22:00 23:07 00:03 WBC RBC Hgb Hct MCV MCH MCHC RDW Plt Count MPV Gran % Lymph % (Auto) Garrard % (Auto) Eos % (Auto) Baso % (Auto) Gran # Lymph # [place] # Eos # Baso # PT INR APTT pCO2 pO2 HCO3 ABG pH ABG Total CO2 ABG O2 Saturation ABG O2 Content ABG Base Excess ABG Hemoglobin ABG Carboxyhemoglobin POC ABG HHb (Measured) ABG Methemoglobin ABG O2 Capacity Hgb O2 Saturation FiO2 Sodium Potassium Chloride Carbon Dioxide Anion Gap BUN Creatinine Est GFR ( Amer) Est GFR (Non-Af Amer) POC Glucose (mg/dL) 168 H 169 H 168 H Random Glucose Hemoglobin A1c Calcium Phosphorus Magnesium Total Bilirubin AST ALT Alkaline Phosphatase Lactate Dehydrogenase Total Creatine Kinase CK-MB (CK-2) CK-MB (CK-2) % Troponin I Total Protein Albumin Globulin Albumin/Globulin Ratio Triglycerides Cholesterol LDL Cholesterol Direct HDL Cholesterol Free T4 Total T3 TSH 3rd Generation 06/24/16 06/24/16 06/24/16 00:50 01:00 01:23 WBC RBC Hgb Hct MCV MCH MCHC RDW Plt Count MPV Gran % Lymph % (Auto) Garrard % (Auto) Eos % (Auto) Baso % (Auto) Gran # Lymph # G[place]ard # Eos # Baso # PT INR APTT pCO2 pO2 HCO3 ABG pH ABG Total CO2 ABG O2 Saturation ABG O2 Content ABG Base Excess ABG Hemoglobin ABG Carboxyhemoglobin POC ABG HHb (Measured) ABG Methemoglobin ABG O2 Capacity Hgb O2 Saturation FiO2 Sodium 148 Potassium 3.1 L Chloride 112 H Carbon Dioxide 21 Anion Gap 18 BUN 51 H Creatinine 2.7 H Est GFR ( Amer) 22 Est GFR (Non-Af Amer) 18 POC Glucose (mg/dL) 104 Random Glucose 108 Hemoglobin A1c 8.7 H Calcium 8.8 Phosphorus Magnesium Total Bilirubin AST ALT Alkaline Phosphatase Lactate Dehydrogenase 3634 H Total Creatine Kinase 2727 H CK-MB (CK-2) 87.5 H CK-MB (CK-2) % 3.2 H Troponin I 195.00 H* D Total Protein Albumin Globulin Albumin/Globulin Ratio Triglycerides Cholesterol LDL Cholesterol Direct HDL Cholesterol Free T4 Total T3 TSH 3rd Generation 06/24/16 06/24/16 06/24/16 02:08 03:04 04:30 WBC RBC Hgb Hct MCV MCH MCHC RDW Plt Count MPV Gran % Lymph % (Auto) Garrard % (Auto) Eos % (Auto) Baso % (Auto) Gran # Lymph # Garrard # Eos # Baso # PT INR APTT pCO2 pO2 HCO3 ABG pH ABG Total CO2 ABG O2 Saturation ABG O2 Content ABG Base Excess ABG Hemoglobin ABG Carboxyhemoglobin POC ABG HHb (Measured) ABG Methemoglobin ABG O2 Capacity Hgb O2 Saturation FiO2 Sodium Potassium Chloride Carbon Dioxide Anion Gap BUN Creatinine Est GFR ( Amer) Est GFR (Non-Af Amer) POC Glucose (mg/dL) 72 45 L 76 Random Glucose Hemoglobin A1c Calcium Phosphorus Magnesium Total Bilirubin AST ALT Alkaline Phosphatase Lactate Dehydrogenase Total Creatine Kinase CK-MB (CK-2) CK-MB (CK-2) % Troponin I Total Protein Albumin Globulin Albumin/Globulin Ratio Triglycerides Cholesterol LDL Cholesterol Direct HDL Cholesterol Free T4 Total T3 TSH 3rd Generation 06/24/16 06/24/16 06/24/16 05:14 06:00 06:00 WBC 9.7 RBC 4.19 Hgb 9.4 L Hct 29.6 L MCV 70.6 L MCH 22.4 L MCHC 31.8 RDW 16.6 H Plt Count 250 MPV 11.3 H Gran % 78.3 H Lymph % (Auto) 12.5 L Garrard % (Auto) 8.6 H Eos % (Auto) 0.4 L Baso % (Auto) 0.2 Gran # 7.61 H Lymph # 1.2 Garrard # 0.8 H Eos # 0.0 Baso # 0.02 PT INR APTT pCO2 pO2 HCO3 ABG pH ABG Total CO2 ABG O2 Saturation ABG O2 Content ABG Base Excess ABG Hemoglobin ABG Carboxyhemoglobin POC ABG HHb (Measured) ABG Methemoglobin ABG O2 Capacity Hgb O2 Saturation FiO2 Sodium 146 Potassium 3.5 L Chloride 117 H Carbon Dioxide 19 L Anion Gap 14 BUN 49 H Creatinine 2.7 H Est GFR ( Amer) 22 Est GFR (Non-Af Amer) 18 POC Glucose (mg/dL) 72 Random Glucose 83 Hemoglobin A1c Calcium 8.2 L Phosphorus 3.7 Magnesium 2.0 Total Bilirubin 0.4 AST 376 H ALT 70 H Alkaline Phosphatase 80 Lactate Dehydrogenase Total Creatine Kinase CK-MB (CK-2) CK-MB (CK-2) % Troponin I Total Protein 6.1 Albumin 3.1 Globulin 3.0 Albumin/Globulin Ratio 1.0 L Triglycerides 191 H Cholesterol 139 LDL Cholesterol Direct 55 HDL Cholesterol 39 Free T4 Total T3 TSH 3rd Generation 06/24/16 06/24/16 06/24/16 06:00 06:00 06:00 WBC RBC Hgb Hct MCV MCH MCHC RDW Plt Count MPV Gran % Lymph % (Auto) Garrard % (Auto) Eos % (Auto) Baso % (Auto) Gran # Lymph # Garrard # Eos # Baso # PT INR APTT 30.1 pCO2 pO2 HCO3 ABG pH ABG Total CO2 ABG O2 Saturation ABG O2 Content ABG Base Excess ABG Hemoglobin ABG Carboxyhemoglobin POC ABG HHb (Measured) ABG Methemoglobin ABG O2 Capacity Hgb O2 Saturation FiO2 Sodium Potassium Chloride Carbon Dioxide Anion Gap BUN Creatinine Est GFR ( Amer) Est GFR (Non-Af Amer) POC Glucose (mg/dL) Random Glucose Hemoglobin A1c Calcium Phosphorus Magnesium Total Bilirubin AST ALT Alkaline Phosphatase Lactate Dehydrogenase 3478 H Total Creatine Kinase 2379 H CK-MB (CK-2) 78.5 H CK-MB (CK-2) % 3.3 H Troponin I 172.00 H* Total Protein Albumin Globulin Albumin/Globulin Ratio Triglycerides Cholesterol LDL Cholesterol Direct HDL Cholesterol Free T4 Total T3 TSH 3rd Generation 3.11 06/24/16 06/24/16 06/24/16 06:59 07:40 09:56 WBC RBC Hgb Hct MCV MCH MCHC RDW Plt Count MPV Gran % Lymph % (Auto) Garrard % (Auto) Eos % (Auto) Baso % (Auto) Gran # Lymph # Garrard # Eos # Baso # PT INR APTT pCO2 32 L pO2 267.0 H HCO3 16.9 L ABG pH 7.33 L ABG Total CO2 17.9 L ABG O2 Saturation 99.5 H ABG O2 Content 13.0 L ABG Base Excess -8.2 L ABG Hemoglobin 9.0 L ABG Carboxyhemoglobin 1.1 POC ABG HHb (Measured) 0.5 ABG Methemoglobin 0.8 ABG O2 Capacity 13.1 L Hgb O2 Saturation 97.6 FiO2 60.0 Sodium Potassium Chloride Carbon Dioxide Anion Gap BUN Creatinine Est GFR ( Amer) Est GFR (Non-Af Amer) POC Glucose (mg/dL) 81 81 Random Glucose Hemoglobin A1c Calcium Phosphorus Magnesium Total Bilirubin AST ALT Alkaline Phosphatase Lactate Dehydrogenase Total Creatine Kinase CK-MB (CK-2) CK-MB (CK-2) % Troponin I Total Protein Albumin Globulin Albumin/Globulin Ratio Triglycerides Cholesterol LDL Cholesterol Direct HDL Cholesterol Free T4 Total T3 TSH 3rd Generation 06/24/16 11:37 WBC RBC Hgb Hct MCV MCH MCHC RDW Plt Count MPV Gran % Lymph % (Auto) Garrard % (Auto) Eos % (Auto) Baso % (Auto) Gran # Lymph # Garrard # Eos # Baso # PT INR APTT pCO2 pO2 HCO3 ABG pH ABG Total CO2 ABG O2 Saturation ABG O2 Content ABG Base Excess ABG Hemoglobin ABG Carboxyhemoglobin POC ABG HHb (Measured) ABG Methemoglobin ABG O2 Capacity Hgb O2 Saturation FiO2 Sodium 146 Potassium 3.4 L Chloride 116 H Carbon Dioxide 18 L Anion Gap 15 BUN 50 H Creatinine 2.8 H Est GFR ( Amer) 21 Est GFR (Non-Af Amer) 17 POC Glucose (mg/dL) Random Glucose 80 Hemoglobin A1c Calcium 8.4 Phosphorus Magnesium Total Bilirubin AST ALT Alkaline Phosphatase Lactate Dehydrogenase Total Creatine Kinase CK-MB (CK-2) CK-MB (CK-2) % Troponin I Total Protein Albumin Globulin Albumin/Globulin Ratio Triglycerides Cholesterol LDL Cholesterol Direct HDL Cholesterol Free T4 Total T3 TSH 3rd Generation EKG/Cardiology Studies: Cardiology / EKG Studies 06/23/16 15:23 ELECTROCARDIOGRAM Stat Comment: Reason For Exam: chest pain 06/23/16 17:23 ELECTROCARDIOGRAM Urgent Comment: 12 lead EKG upon arrival in unit Reason For Exam: post ptca 06/24/16 17:30 ELECTROCARDIOGRAM DAILY Comment: Reason For Exam: chest pain Fingerstick Blood Sugar Results: 81 Critical Care Progress Note - Nutrition Nutrition: Nutrition Category Date Time Status NPO Diet [DIET] Diets 06/23/16 Lunch Ordered Assessment/Plan - Assessment and Plan (Free Text) Plan: 61 y/o F with PMH of COPD, HTN, CAD with stent placement and DM presents with acute hypercapnic respiratory failure likely due to cardiogenic pulmonary edema secondary to STEMI in the setting of severe sepsis and DKA. Pt had 2 stents placed in the circumflex artery. Pt will remain on ASA and plavix for 1 year. Pt also had resolution of her DKA overnight and was taken off insulin drip. Pt was extubated this morning with no complications. Pt was placed on Milrinone drip this morning via cardiology. Will reorder afternoon labs and ABG. Pt will remain in the ICU for observation at that time. Neuro: AAOx3 Monitor for worsening mental status Cardio: STEMI, 2 stents placed ASA and plavix as per cardio Milrinone drip started Echocardiogram ordered Maintain hemodynamically Maintain MAP >65 Dr. George following Pulm: Extubated, no complications Nasal cannula Maintain O2 sat >90% GI: NPO Protonix Endo: DKA resolved ISS Maintain euglycemia Nephro: Baseline CKD Monitor creatinine post cath Maintain euvolemia Dr. Agarwal following Heme/ID: Afebrile, no leukocytosis Blood and urine cultures negative at this time Continue Merrem Maintain normothermia PPX: Heparin Protonix Seen, reviewed, and discussed with attending. Rad, PGY-1 <Alma FLORES,Roxana H - Last Filed: 06/24/16 14:12> CCU Objective - Vital Signs / Intake & Output Vital Signs (Last 4 hours): Vital Signs Temp Pulse Resp BP Pulse Ox 06/24/16 13:26 97.3 F L 06/24/16 11:40 120 H 22 90 L 06/24/16 11:30 116 H 119/68 98 06/24/16 11:20 120 H 99 06/24/16 11:15 118 H 26 H 123/63 99 06/24/16 11:10 117 H 99 06/24/16 11:00 114 H 119/73 98 06/24/16 10:50 119 H 95 06/24/16 10:45 115 H 114/65 100 06/24/16 10:40 113 H 97 06/24/16 10:30 109 H 110/67 95 06/24/16 10:20 101 H 98 06/24/16 10:15 93 H 102/57 L 99 06/24/16 10:10 91 H 99 Intake and Output (Last 8hrs): Intake & Output 06/23/16 06/24/16 06/24/16 22:59 06:59 14:59 Intake Total 1308 1809 7 Output Total 650 1200 Balance 658 609 7 Weight 244 lb 3.2 oz Intake: IV 8 1809 7 Left Antecubital 100 Right Upper arm 1700 Other 1300 Output: Urine 650 1200 Urethral ([place]) 650 1200 Other: Voiding Method Indwelling Catheter Ileal Conduit (Right) # Bowel Movements 2 3 - Medications Active Medications: Active Medications Generic Name Dose Route Start Last Admin Trade Name Freq PRN Reason Stop Dose Admin Acetylcysteine 6 ml 06/23/16 12:30 06/24/16 12:55 Acetylcysteine 20% PO Not Given Q12H [facility] Albuterol/Ipratropium 3 ml 06/24/16 11:35 Duoneb 3 Mg/0.5 Mg (3 Ml) Ud IH Q2H PRN Shortness of Breath Aspirin 81 mg 06/24/16 10:00 06/24/16 09:03 Ecotrin PO 81 mg DAILY [facility] Administration Clopidogrel Bisulfate 75 mg 06/24/16 10:00 06/24/16 09:03 Plavix PO 75 mg DAILY [facility] Administration Heparin Sodium (Porcine) 5,000 units 06/24/16 22:00 Heparin SC Q12 [facility] Protocol Meropenem 1g/NS 100mL IVPB 1 gm in 100 mls @ 100 mls/hr 06/23/16 22:00 09:03 Meropenem 1g/Ns 100ml Ivpb IVPB 06/30/16 22:01 100 mls/hr Q12 [facility] Administration Protocol Eptifibatide 75 mg in 100 mls @ 8.137 mls/hr 06/23/16 17:24 06/23/16 17:59 Integrilin IV 06/24/16 17:25 1 mcg/kg/min .[id number] DUDLEY 8.137 mls/hr Protocol Administration 1 MCG/KG/MIN Dextrose/Sodium Chloride 1,000 mls @ 75 mls/hr 06/24/16 03:15 06/24/16 03:28 Dextrose 5%/0.45% Ns 1000 Ml IV 75 mls/hr .[id number] [facility] Administration Milrinone Lactate/Dextrose 100 mls @ 6.646 mls/hr 06/24/16 07:21 06/24/16 07: 29 Primacor 20mg/100ml D5w IV 0.2 mcg/kg/min .[id number] PRN 6.646 mls/hr TITRATE PER MD ORDER Administration Protocol 0.2 MCG/KG/MIN Insulin Human Regular 0 units 06/24/16 16:30 Humulin R Low SC ACHS [facility] Protocol Metoprolol Tartrate 25 mg 06/24/16 18:00 Lopressor PO BID [facility] Midazolam HCl 2 mg 06/24/16 02:18 Versed Inj IVP Q2H PRN Agitation Ondansetron HCl 4 mg 06/24/16 12:45 06/24/16 12:57 Zofran Inj IVP 4 mg Q4H PRN Administration Nausea/Vomiting Pantoprazole Sodium 40 mg 06/24/16 10:00 06/24/16 09:11 Protonix Inj IVP 40 mg DAILY [facility] Administration - Patient Studies Lab Studies: Microbiology Studies 06/23/16 09:43 Urine Culture - Final Urine,Clean Catch No Growth (<1,000 CFU/ML) Lab Studies 06/24/16 06/24/16 06/24/16 Range/Units 13:47 13:47 11:37 WBC 14.8 H D (4.5-11.0) 10^3/ul RBC 4.22 (3.5-6.1) 10^6/uL Hgb 9.6 L (12.0-16.0) gm/dL Hct 30.1 L (36.0-48.0) % MCV 71.3 L (80.0-105.0) fL MCH 22.7 L (25.0-35.0) pg MCHC 31.9 (31.0-37.0) g/dl RDW 16.9 H (11.5-14.5) % Plt Count 254 (120.0-450.0) 10^3/uL MPV 11.1 H (7.0-11.0) fl Gran % (50.0-68.0) % Lymph % (Auto) (22.0-35.0) % Garrard % (Auto) (1.0-6.0) % Eos % (Auto) (1.5-5.0) % Baso % (Auto) (0.0-3.0) % Gran # (1.4-6.5) Lymph # (1.2-3.4) Garrard # (0.1-0.6) Eos # (0.0-0.7) Baso # (0.0-2.0) K/mm3 APTT (23.7-30.8) Seconds pCO2 (35-45) mm/Hg pO2 (80-100) mm/Hg HCO3 (21-28) mmol/L ABG pH (7.35-7.45) ABG Total CO2 (22-28) mmol.L ABG O2 Saturation (95-98) % ABG O2 Content (15-23) ML/dl ABG Base Excess (-2.0-3.0) mmol/L ABG Hemoglobin (11.7-17.4) g/dL ABG Carboxyhemoglobin (0.5-1.5) % POC ABG HHb (Measured) (0-5) % ABG Methemoglobin (0.0-3.0) % ABG O2 Capacity (16-24) mL/dl Hgb O2 Saturation (95.0-98.0) % FiO2 % Sodium 144 146 Potassium 3.7 3.4 L Chloride 113 H 116 H Carbon Dioxide 18 L 18 L Anion Gap 17 15 BUN 49 H 50 H Creatinine 3.0 H 2.8 H (0.5-1.4) mg/dL Est GFR ( Amer) 19 21 Est GFR (Non-Af Amer) 16 17 POC Glucose (mg/dL) (65-110) mg/dL Random Glucose 186 H 80 Hemoglobin A1c (4.2-6.5) % Calcium 8.5 8.4 Phosphorus (2.5-4.5) mg/dL Magnesium (1.7-2.2) mg/dL Total Bilirubin 0.5 (0.2-1.3) mg/dL AST 339 H (15-39) U/L ALT 68 H (7-56) U/L Alkaline Phosphatase 92 (38-133) U/L Lactate Dehydrogenase (333-699) U/L Total Creatine Kinase (35-230) U/L CK-MB (CK-2) (0.0-3.6) ng/mL CK-MB (CK-2) % (2.5-3.0) % Troponin I ng/mL Total Protein 6.5 (5.8-8.3) g/dL Albumin 3.3 (3.0-4.8) g/dL Globulin 3.2 gm/dL Albumin/Globulin Ratio 1.0 L (1.1-1.8) Triglycerides (35-160) mg/dL Cholesterol (130-200) mg/dL LDL Cholesterol Direct (0-129) mg/dL HDL Cholesterol (29-60) mg/dL Procalcitonin (0.19-0.49) NG/ML TSH 3rd Generation (0.46-4.68) mIU/mL 06/24/16 06/24/16 06/24/16 Range/Units 09:56 07:40 06:59 WBC (4.5-11.0) 10^3/ul RBC (3.5-6.1) 10^6/uL Hgb (12.0-16.0) gm/dL Hct (36.0-48.0) % MCV (80.0-105.0) fL MCH (25.0-35.0) pg MCHC (31.0-37.0) g/dl RDW (11.5-14.5) % Plt Count (120.0-450.0) 10^3/uL MPV (7.0-11.0) fl Gran % (50.0-68.0) % Lymph % (Auto) (22.0-35.0) % Garrard % (Auto) (1.0-6.0) % Eos % (Auto) (1.5-5.0) % Baso % (Auto) (0.0-3.0) % Gran # (1.4-6.5) Lymph # (1.2-3.4) Garrard # (0.1-0.6) Eos # (0.0-0.7) Baso # (0.0-2.0) K/mm3 APTT (23.7-30.8) Seconds pCO2 32 L (35-45) mm/Hg pO2 267.0 H (80-100) mm/Hg HCO3 16.9 L (21-28) mmol/L ABG pH 7.33 L (7.35-7.45) ABG Total CO2 17.9 L (22-28) mmol.L ABG O2 Saturation 99.5 H (95-98) % ABG O2 Content 13.0 L (15-23) ML/dl ABG Base Excess -8.2 L (-2.0-3.0) mmol/L ABG Hemoglobin 9.0 L (11.7-17.4) g/dL ABG Carboxyhemoglobin 1.1 (0.5-1.5) % POC ABG HHb (Measured) 0.5 (0-5) % ABG Methemoglobin 0.8 (0.0-3.0) % ABG O2 Capacity 13.1 L (16-24) mL/dl Hgb O2 Saturation 97.6 (95.0-98.0) % FiO2 60.0 % Sodium Potassium Chloride Carbon Dioxide Anion Gap BUN Creatinine (0.5-1.4) mg/dL Est GFR ( Amer) Est GFR (Non-Af Amer) POC Glucose (mg/dL) 81 81 (65-110) mg/dL Random Glucose Hemoglobin A1c (4.2-6.5) % Calcium Phosphorus (2.5-4.5) mg/dL Magnesium (1.7-2.2) mg/dL Total Bilirubin (0.2-1.3) mg/dL AST (15-39) U/L ALT (7-56) U/L Alkaline Phosphatase (38-133) U/L Lactate Dehydrogenase (333-699) U/L Total Creatine Kinase (35-230) U/L CK-MB (CK-2) (0.0-3.6) ng/mL CK-MB (CK-2) % (2.5-3.0) % Troponin I ng/mL Total Protein (5.8-8.3) g/dL Albumin (3.0-4.8) g/dL Globulin gm/dL Albumin/Globulin Ratio (1.1-1.8) Triglycerides (35-160) mg/dL Cholesterol (130-200) mg/dL LDL Cholesterol Direct (0-129) mg/dL HDL Cholesterol (29-60) mg/dL Procalcitonin (0.19-0.49) NG/ML TSH 3rd Generation (0.46-4.68) mIU/mL 06/24/16 06/24/16 06/24/16 Range/Units 06:00 06:00 06:00 WBC (4.5-11.0) 10^3/ul RBC (3.5-6.1) 10^6/uL Hgb (12.0-16.0) gm/dL Hct (36.0-48.0) % MCV (80.0-105.0) fL MCH (25.0-35.0) pg MCHC (31.0-37.0) g/dl RDW (11.5-14.5) % Plt Count (120.0-450.0) 10^3/uL MPV (7.0-11.0) fl Gran % (50.0-68.0) % Lymph % (Auto) (22.0-35.0) % [place]arrard % (Auto) (1.0-6.0) % Eos % (Auto) (1.5-5.0) % Baso % (Auto) (0.0-3.0) % Gran # (1.4-6.5) Lymph # (1.2-3.4) Garrard # (0.1-0.6) Eos # (0.0-0.7) Baso # (0.0-2.0) K/mm3 APTT 30.1 (23.7-30.8) Seconds pCO2 (35-45) mm/Hg pO2 (80-100) mm/Hg HCO3 (21-28) mmol/L ABG pH (7.35-7.45) ABG Total CO2 (22-28) mmol.L ABG O2 Saturation (95-98) % ABG O2 Content (15-23) ML/dl ABG Base Excess (-2.0-3.0) mmol/L ABG Hemoglobin (11.7-17.4) g/dL ABG Carboxyhemoglobin (0.5-1.5) % POC ABG HHb (Measured) (0-5) % ABG Methemoglobin (0.0-3.0) % ABG O2 Capacity (16-24) mL/dl Hgb O2 Saturation (95.0-98.0) % FiO2 % Sodium Potassium Chloride Carbon Dioxide Anion Gap BUN Creatinine (0.5-1.4) mg/dL Est GFR ( Amer) Est GFR (Non-Af Amer) POC Glucose (mg/dL) (65-110) mg/dL Random Glucose Hemoglobin A1c (4.2-6.5) % Calcium Phosphorus (2.5-4.5) mg/dL Magnesium (1.7-2.2) mg/dL Total Bilirubin (0.2-1.3) mg/dL AST (15-39) U/L ALT (7-56) U/L Alkaline Phosphatase (38-133) U/L Lactate Dehydrogenase 3478 H (333-699) U/L Total Creatine Kinase 2379 H (35-230) U/L CK-MB (CK-2) 78.5 H (0.0-3.6) ng/mL CK-MB (CK-2) % 3.3 H (2.5-3.0) % Troponin I 172.00 H* ng/mL Total Protein (5.8-8.3) g/dL Albumin (3.0-4.8) g/dL Globulin gm/dL Albumin/Globulin Ratio (1.1-1.8) Triglycerides (35-160) mg/dL Cholesterol (130-200) mg/dL LDL Cholesterol Direct (0-129) mg/dL HDL Cholesterol (29-60) mg/dL Procalcitonin (0.19-0.49) NG/ML TSH 3rd Generation 3.11 (0.46-4.68) mIU/mL 06/24/16 06/24/16 06/24/16 Range/Units 06:00 06:00 05:14 WBC 9.7 (4.5-11.0) 10^3/ul RBC 4.19 (3.5-6.1) 10^6/uL Hgb 9.4 L (12.0-16.0) gm/dL Hct 29.6 L (36.0-48.0) % MCV 70.6 L (80.0-105.0) fL MCH 22.4 L (25.0-35.0) pg MCHC 31.8 (31.0-37.0) g/dl RDW 16.6 H (11.5-14.5) % Plt Count 250 (120.0-450.0) 10^3/uL MPV 11.3 H (7.0-11.0) fl Gran % 78.3 H (50.0-68.0) % Lymph % (Auto) 12.5 L (22.0-35.0) % Garrard % (Auto) 8.6 H (1.0-6.0) % Eos % (Auto) 0.4 L (1.5-5.0) % Baso % (Auto) 0.2 (0.0-3.0) % Gran # 7.61 H (1.4-6.5) Lymph # 1.2 (1.2-3.4) Garrard # 0.8 H (0.1-0.6) Eos # 0.0 (0.0-0.7) Baso # 0.02 (0.0-2.0) K/mm3 APTT (23.7-30.8) Seconds pCO2 (35-45) mm/Hg pO2 (80-100) mm/Hg HCO3 (21-28) mmol/L ABG pH (7.35-7.45) ABG Total CO2 (22-28) mmol.L ABG O2 Saturation (95-98) % ABG O2 Content (15-23) ML/dl ABG Base Excess (-2.0-3.0) mmol/L ABG Hemoglobin (11.7-17.4) g/dL ABG Carboxyhemoglobin (0.5-1.5) % POC ABG HHb (Measured) (0-5) % ABG Methemoglobin (0.0-3.0) % ABG O2 Capacity (16-24) mL/dl Hgb O2 Saturation (95.0-98.0) % FiO2 % Sodium 146 Potassium 3.5 L Chloride 117 H Carbon Dioxide 19 L Anion Gap 14 BUN 49 H Creatinine 2.7 H (0.5-1.4) mg/dL Est GFR ( Amer) 22 Est GFR (Non-Af Amer) 18 POC Glucose (mg/dL) 72 (65-110) mg/dL Random Glucose 83 Hemoglobin A1c (4.2-6.5) % Calcium 8.2 L Phosphorus 3.7 (2.5-4.5) mg/dL Magnesium 2.0 (1.7-2.2) mg/dL Total Bilirubin 0.4 (0.2-1.3) mg/dL AST 376 H (15-39) U/L ALT 70 H (7-56) U/L Alkaline Phosphatase 80 (38-133) U/L Lactate Dehydrogenase (333-699) U/L Total Creatine Kinase (35-230) U/L CK-MB (CK-2) (0.0-3.6) ng/mL CK-MB (CK-2) % (2.5-3.0) % Troponin I ng/mL Total Protein 6.1 (5.8-8.3) g/dL Albumin 3.1 (3.0-4.8) g/dL Globulin 3.0 gm/dL Albumin/Globulin Ratio 1.0 L (1.1-1.8) Triglycerides 191 H (35-160) mg/dL Cholesterol 139 (130-200) mg/dL LDL Cholesterol Direct 55 (0-129) mg/dL HDL Cholesterol 39 (29-60) mg/dL Procalcitonin (0.19-0.49) NG/ML TSH 3rd Generation (0.46-4.68) mIU/mL 06/24/16 06/24/16 06/24/16 Range/Units 04:30 03:04 02:08 WBC (4.5-11.0) 10^3/ul RBC (3.5-6.1) 10^6/uL Hgb (12.0-16.0) gm/dL Hct (36.0-48.0) % MCV (80.0-105.0) fL MCH (25.0-35.0) pg MCHC (31.0-37.0) g/dl RDW (11.5-14.5) % Plt Count (120.0-450.0) 10^3/uL MPV (7.0-11.0) fl Gran % (50.0-68.0) % Lymph % (Auto) (22.0-35.0) % Garrard % (Auto) (1.0-6.0) % Eos % (Auto) (1.5-5.0) % Baso % (Auto) (0.0-3.0) % Gran # (1.4-6.5) Lymph # (1.2-3.4) Garrard # (0.1-0.6) Eos # (0.0-0.7) Baso # (0.0-2.0) K/mm3 APTT (23.7-30.8) Seconds pCO2 (35-45) mm/Hg pO2 (80-100) mm/Hg HCO3 (21-28) mmol/L ABG pH (7.35-7.45) ABG Total CO2 (22-28) mmol.L ABG O2 Saturation (95-98) % ABG O2 Content (15-23) ML/dl ABG Base Excess (-2.0-3.0) mmol/L ABG Hemoglobin (11.7-17.4) g/dL ABG Carboxyhemoglobin (0.5-1.5) % POC ABG HHb (Measured) (0-5) % ABG Methemoglobin (0.0-3.0) % ABG O2 Capacity (16-24) mL/dl Hgb O2 Saturation (95.0-98.0) % FiO2 % Sodium Potassium Chloride Carbon Dioxide Anion Gap BUN Creatinine (0.5-1.4) mg/dL Est GFR ( Amer) Est GFR (Non-Af Amer) POC Glucose (mg/dL) 76 45 L 72 (65-110) mg/dL Random Glucose Hemoglobin A1c (4.2-6.5) % Calcium Phosphorus (2.5-4.5) mg/dL Magnesium (1.7-2.2) mg/dL Total Bilirubin (0.2-1.3) mg/dL AST (15-39) U/L ALT (7-56) U/L Alkaline Phosphatase (38-133) U/L Lactate Dehydrogenase (333-699) U/L Total Creatine Kinase (35-230) U/L CK-MB (CK-2) (0.0-3.6) ng/mL CK-MB (CK-2) % (2.5-3.0) % Troponin I ng/mL Total Protein (5.8-8.3) g/dL Albumin (3.0-4.8) g/dL Globulin gm/dL Albumin/Globulin Ratio (1.1-1.8) Triglycerides (35-160) mg/dL Cholesterol (130-200) mg/dL LDL Cholesterol Direct (0-129) mg/dL HDL Cholesterol (29-60) mg/dL Procalcitonin (0.19-0.49) NG/ML TSH 3rd Generation (0.46-4.68) mIU/mL 06/24/16 06/24/16 06/24/16 Range/Units 01:23 01:00 01:00 WBC (4.5-11.0) 10^3/ul RBC (3.5-6.1) 10^6/uL Hgb (12.0-16.0) gm/dL Hct (36.0-48.0) % MCV (80.0-105.0) fL MCH (25.0-35.0) pg MCHC (31.0-37.0) g/dl RDW (11.5-14.5) % Plt Count (120.0-450.0) 10^3/uL MPV (7.0-11.0) fl Gran % (50.0-68.0) % Lymph % (Auto) (22.0-35.0) % G[place]ard % (Auto) (1.0-6.0) % Eos % (Auto) (1.5-5.0) % Baso % (Auto) (0.0-3.0) % Gran # (1.4-6.5) Lymph # (1.2-3.4) Garrard # (0.1-0.6) Eos # (0.0-0.7) Baso # (0.0-2.0) K/mm3 APTT (23.7-30.8) Seconds pCO2 (35-45) mm/Hg pO2 (80-100) mm/Hg HCO3 (21-28) mmol/L ABG pH (7.35-7.45) ABG Total CO2 (22-28) mmol.L ABG O2 Saturation (95-98) % ABG O2 Content (15-23) ML/dl ABG Base Excess (-2.0-3.0) mmol/L ABG Hemoglobin (11.7-17.4) g/dL ABG Carboxyhemoglobin (0.5-1.5) % POC ABG HHb (Measured) (0-5) % ABG Methemoglobin (0.0-3.0) % ABG O2 Capacity (16-24) mL/dl Hgb O2 Saturation (95.0-98.0) % FiO2 % Sodium Potassium Chloride Carbon Dioxide Anion Gap BUN Creatinine (0.5-1.4) mg/dL Est GFR ( Amer) Est GFR (Non-Af Amer) POC Glucose (mg/dL) 104 (65-110) mg/dL Random Glucose Hemoglobin A1c 8.7 H (4.2-6.5) % Calcium Phosphorus (2.5-4.5) mg/dL Magnesium (1.7-2.2) mg/dL Total Bilirubin (0.2-1.3) mg/dL AST (15-39) U/L ALT (7-56) U/L Alkaline Phosphatase (38-133) U/L Lactate Dehydrogenase (333-699) U/L Total Creatine Kinase (35-230) U/L CK-MB (CK-2) (0.0-3.6) ng/mL CK-MB (CK-2) % (2.5-3.0) % Troponin I ng/mL Total Protein (5.8-8.3) g/dL Albumin (3.0-4.8) g/dL Globulin gm/dL Albumin/Globulin Ratio (1.1-1.8) Triglycerides (35-160) mg/dL Cholesterol (130-200) mg/dL LDL Cholesterol Direct (0-129) mg/dL HDL Cholesterol (29-60) mg/dL Procalcitonin 2.89 H (0.19-0.49) NG/ML TSH 3rd Generation (0.46-4.68) mIU/mL 06/24/16 06/24/16 06/23/16 Range/Units 00:50 00:03 23:07 WBC (4.5-11.0) 10^3/ul RBC (3.5-6.1) 10^6/uL Hgb (12.0-16.0) gm/dL Hct (36.0-48.0) % MCV (80.0-105.0) fL MCH (25.0-35.0) pg MCHC (31.0-37.0) g/dl RDW (11.5-14.5) % Plt Count (120.0-450.0) 10^3/uL MPV (7.0-11.0) fl Gran % (50.0-68.0) % Lymph % (Auto) (22.0-35.0) % Garrard % (Auto) (1.0-6.0) % Eos % (Auto) (1.5-5.0) % Baso % (Auto) (0.0-3.0) % Gran # (1.4-6.5) Lymph # (1.2-3.4) Garrard # (0.1-0.6) Eos # (0.0-0.7) Baso # (0.0-2.0) K/mm3 APTT (23.7-30.8) Seconds pCO2 (35-45) mm/Hg pO2 (80-100) mm/Hg HCO3 (21-28) mmol/L ABG pH (7.35-7.45) ABG Total CO2 (22-28) mmol.L ABG O2 Saturation (95-98) % ABG O2 Content (15-23) ML/dl ABG Base Excess (-2.0-3.0) mmol/L ABG Hemoglobin (11.7-17.4) g/dL ABG Carboxyhemoglobin (0.5-1.5) % POC ABG HHb (Measured) (0-5) % ABG Methemoglobin (0.0-3.0) % ABG O2 Capacity (16-24) mL/dl Hgb O2 Saturation (95.0-98.0) % FiO2 % Sodium 148 Potassium 3.1 L Chloride 112 H Carbon Dioxide 21 Anion Gap 18 BUN 51 H Creatinine 2.7 H (0.5-1.4) mg/dL Est GFR ( Amer) 22 Est GFR (Non-Af Amer) 18 POC Glucose (mg/dL) 168 H 169 H (65-110) mg/dL Random Glucose 108 Hemoglobin A1c (4.2-6.5) % Calcium 8.8 Phosphorus (2.5-4.5) mg/dL Magnesium (1.7-2.2) mg/dL Total Bilirubin (0.2-1.3) mg/dL AST (15-39) U/L ALT (7-56) U/L Alkaline Phosphatase (38-133) U/L Lactate Dehydrogenase 3634 H (333-699) U/L Total Creatine Kinase 2727 H (35-230) U/L CK-MB (CK-2) 87.5 H (0.0-3.6) ng/mL CK-MB (CK-2) % 3.2 H (2.5-3.0) % Troponin I 195.00 H* D ng/mL Total Protein (5.8-8.3) g/dL Albumin (3.0-4.8) g/dL Globulin gm/dL Albumin/Globulin Ratio (1.1-1.8) Triglycerides (35-160) mg/dL Cholesterol (130-200) mg/dL LDL Cholesterol Direct (0-129) mg/dL HDL Cholesterol (29-60) mg/dL Procalcitonin (0.19-0.49) NG/ML TSH 3rd Generation (0.46-4.68) mIU/mL 06/23/16 06/23/16 06/23/16 Range/Units 22:00 21:08 20:27 WBC (4.5-11.0) 10^3/ul RBC (3.5-6.1) 10^6/uL Hgb (12.0-16.0) gm/dL Hct (36.0-48.0) % MCV (80.0-105.0) fL MCH (25.0-35.0) pg MCHC (31.0-37.0) g/dl RDW (11.5-14.5) % Plt Count (120.0-450.0) 10^3/uL MPV (7.0-11.0) fl Gran % (50.0-68.0) % Lymph % (Auto) (22.0-35.0) % [place]ard % (Auto) (1.0-6.0) % Eos % (Auto) (1.5-5.0) % Baso % (Auto) (0.0-3.0) % Gran # (1.4-6.5) Lymph # (1.2-3.4) Garrard # (0.1-0.6) Eos # (0.0-0.7) Baso # (0.0-2.0) K/mm3 APTT (23.7-30.8) Seconds pCO2 (35-45) mm/Hg pO2 (80-100) mm/Hg HCO3 (21-28) mmol/L ABG pH (7.35-7.45) ABG Total CO2 (22-28) mmol.L ABG O2 Saturation (95-98) % ABG O2 Content (15-23) ML/dl ABG Base Excess (-2.0-3.0) mmol/L ABG Hemoglobin (11.7-17.4) g/dL ABG Carboxyhemoglobin (0.5-1.5) % POC ABG HHb (Measured) (0-5) % ABG Methemoglobin (0.0-3.0) % ABG O2 Capacity (16-24) mL/dl Hgb O2 Saturation (95.0-98.0) % FiO2 % Sodium Potassium Chloride Carbon Dioxide Anion Gap BUN Creatinine (0.5-1.4) mg/dL Est GFR ( Amer) Est GFR (Non-Af Amer) POC Glucose (mg/dL) 168 H 129 H 156 H (65-110) mg/dL Random Glucose Hemoglobin A1c (4.2-6.5) % Calcium Phosphorus (2.5-4.5) mg/dL Magnesium (1.7-2.2) mg/dL Total Bilirubin (0.2-1.3) mg/dL AST (15-39) U/L ALT (7-56) U/L Alkaline Phosphatase (38-133) U/L Lactate Dehydrogenase (333-699) U/L Total Creatine Kinase (35-230) U/L CK-MB (CK-2) (0.0-3.6) ng/mL CK-MB (CK-2) % (2.5-3.0) % Troponin I ng/mL Total Protein (5.8-8.3) g/dL Albumin (3.0-4.8) g/dL Globulin gm/dL Albumin/Globulin Ratio (1.1-1.8) Triglycerides (35-160) mg/dL Cholesterol (130-200) mg/dL LDL Cholesterol Direct (0-129) mg/dL HDL Cholesterol (29-60) mg/dL Procalcitonin (0.19-0.49) NG/ML TSH 3rd Generation (0.46-4.68) mIU/mL 06/23/16 06/23/16 06/23/16 Range/Units 18:58 18:34 18:34 WBC 11.1 H (4.5-11.0) 10^3/ul RBC 4.60 (3.5-6.1) 10^6/uL Hgb 10.2 L (12.0-16.0) gm/dL Hct 33.4 L (36.0-48.0) % MCV 72.6 L (80.0-105.0) fL MCH 22.2 L (25.0-35.0) pg MCHC 30.5 L (31.0-37.0) g/dl RDW 16.9 H (11.5-14.5) % Plt Count 269 (120.0-450.0) 10^3/uL MPV 11.2 H (7.0-11.0) fl Gran % 79.9 H (50.0-68.0) % Lymph % (Auto) 9.9 L (22.0-35.0) % Garrard % (Auto) 9.6 H (1.0-6.0) % Eos % (Auto) 0.3 L (1.5-5.0) % Baso % (Auto) 0.3 (0.0-3.0) % Gran # 8.85 H (1.4-6.5) Lymph # 1.1 L (1.2-3.4) Garrard # 1.1 H (0.1-0.6) Eos # 0.0 (0.0-0.7) Baso # 0.03 (0.0-2.0) K/mm3 APTT (23.7-30.8) Seconds pCO2 (35-45) mm/Hg pO2 (80-100) mm/Hg HCO3 (21-28) mmol/L ABG pH (7.35-7.45) ABG Total CO2 (22-28) mmol.L ABG O2 Saturation (95-98) % ABG O2 Content (15-23) ML/dl ABG Base Excess (-2.0-3.0) mmol/L ABG Hemoglobin (11.7-17.4) g/dL ABG Carboxyhemoglobin (0.5-1.5) % POC ABG HHb (Measured) (0-5) % ABG Methemoglobin (0.0-3.0) % ABG O2 Capacity (16-24) mL/dl Hgb O2 Saturation (95.0-98.0) % FiO2 % Sodium 145 Potassium 3.7 Chloride 113 H Carbon Dioxide 19 L Anion Gap 17 BUN 53 H Creatinine 2.7 H (0.5-1.4) mg/dL Est GFR ( Amer) 22 Est GFR (Non-Af Amer) 18 POC Glucose (mg/dL) 133 H (65-110) mg/dL Random Glucose 130 H Hemoglobin A1c (4.2-6.5) % Calcium 9.0 Phosphorus (2.5-4.5) mg/dL Magnesium (1.7-2.2) mg/dL Total Bilirubin (0.2-1.3) mg/dL AST (15-39) U/L ALT (7-56) U/L Alkaline Phosphatase (38-133) U/L Lactate Dehydrogenase Cancelled (333-699) U/L Total Creatine Kinase Cancelled (35-230) U/L CK-MB (CK-2) (0.0-3.6) ng/mL CK-MB (CK-2) % (2.5-3.0) % Troponin I Cancelled ng/mL Total Protein (5.8-8.3) g/dL Albumin (3.0-4.8) g/dL Globulin gm/dL Albumin/Globulin Ratio (1.1-1.8) Triglycerides (35-160) mg/dL Cholesterol (130-200) mg/dL LDL Cholesterol Direct (0-129) mg/dL HDL Cholesterol (29-60) mg/dL Procalcitonin (0.19-0.49) NG/ML TSH 3rd Generation (0.46-4.68) mIU/mL 06/23/16 06/23/16 06/23/16 Range/Units 17:44 14:24 13:38 WBC (4.5-11.0) 10^3/ul RBC (3.5-6.1) 10^6/uL Hgb (12.0-16.0) gm/dL Hct (36.0-48.0) % MCV (80.0-105.0) fL MCH (25.0-35.0) pg MCHC (31.0-37.0) g/dl RDW (11.5-14.5) % Plt Count (120.0-450.0) 10^3/uL MPV (7.0-11.0) fl Gran % (50.0-68.0) % Lymph % (Auto) (22.0-35.0) % [place]ard % (Auto) (1.0-6.0) % Eos % (Auto) (1.5-5.0) % Baso % (Auto) (0.0-3.0) % Gran # (1.4-6.5) Lymph # (1.2-3.4) Garrard # (0.1-0.6) Eos # (0.0-0.7) Baso # (0.0-2.0) K/mm3 APTT (23.7-30.8) Seconds pCO2 (35-45) mm/Hg pO2 (80-100) mm/Hg HCO3 (21-28) mmol/L ABG pH (7.35-7.45) ABG Total CO2 (22-28) mmol.L ABG O2 Saturation (95-98) % ABG O2 Content (15-23) ML/dl ABG Base Excess (-2.0-3.0) mmol/L ABG Hemoglobin (11.7-17.4) g/dL ABG Carboxyhemoglobin (0.5-1.5) % POC ABG HHb (Measured) (0-5) % ABG Methemoglobin (0.0-3.0) % ABG O2 Capacity (16-24) mL/dl Hgb O2 Saturation (95.0-98.0) % FiO2 % Sodium 145 Potassium 3.7 Chloride 114 H Carbon Dioxide 18 L Anion Gap 17 BUN 54 H Creatinine 2.6 H (0.5-1.4) mg/dL Est GFR ( Amer) 23 Est GFR (Non-Af Amer) 19 POC Glucose (mg/dL) 143 H 193 H (65-110) mg/dL Random Glucose 152 H Hemoglobin A1c (4.2-6.5) % Calcium 9.1 Phosphorus (2.5-4.5) mg/dL Magnesium (1.7-2.2) mg/dL Total Bilirubin 0.6 (0.2-1.3) mg/dL AST 219 H (15-39) U/L ALT 54 (7-56) U/L Alkaline Phosphatase 108 (38-133) U/L Lactate Dehydrogenase (333-699) U/L Total Creatine Kinase (35-230) U/L CK-MB (CK-2) (0.0-3.6) ng/mL CK-MB (CK-2) % (2.5-3.0) % Troponin I ng/mL Total Protein 6.9 (5.8-8.3) g/dL Albumin 3.6 (3.0-4.8) g/dL Globulin 3.3 gm/dL Albumin/Globulin Ratio 1.1 (1.1-1.8) Triglycerides (35-160) mg/dL Cholesterol (130-200) mg/dL LDL Cholesterol Direct (0-129) mg/dL HDL Cholesterol (29-60) mg/dL Procalcitonin (0.19-0.49) NG/ML TSH 3rd Generation (0.46-4.68) mIU/mL 06/23/16 06/23/16 06/23/16 Range/Units 12:59 12:00 11:50 WBC (4.5-11.0) 10^3/ul RBC (3.5-6.1) 10^6/uL Hgb (12.0-16.0) gm/dL Hct (36.0-48.0) % MCV (80.0-105.0) fL MCH (25.0-35.0) pg MCHC (31.0-37.0) g/dl RDW (11.5-14.5) % Plt Count (120.0-450.0) 10^3/uL MPV (7.0-11.0) fl Gran % (50.0-68.0) % Lymph % (Auto) (22.0-35.0) % [place] % (Auto) (1.0-6.0) % Eos % (Auto) (1.5-5.0) % Baso % (Auto) (0.0-3.0) % Gran # (1.4-6.5) Lymph # (1.2-3.4) [place]arrard # (0.1-0.6) Eos # (0.0-0.7) Baso # (0.0-2.0) K/mm3 APTT (23.7-30.8) Seconds pCO2 (35-45) mm/Hg pO2 (80-100) mm/Hg HCO3 (21-28) mmol/L ABG pH (7.35-7.45) ABG Total CO2 (22-28) mmol.L ABG O2 Saturation (95-98) % ABG O2 Content (15-23) ML/dl ABG Base Excess (-2.0-3.0) mmol/L ABG Hemoglobin (11.7-17.4) g/dL ABG Carboxyhemoglobin (0.5-1.5) % POC ABG HHb (Measured) (0-5) % ABG Methemoglobin (0.0-3.0) % ABG O2 Capacity (16-24) mL/dl Hgb O2 Saturation (95.0-98.0) % FiO2 % Sodium Cancelled Potassium Cancelled Chloride Cancelled Carbon Dioxide Cancelled Anion Gap Cancelled BUN Cancelled Creatinine (0.5-1.4) mg/dL Est GFR ( Amer) Cancelled Est GFR (Non-Af Amer) Cancelled POC Glucose (mg/dL) 279 H 354 H (65-110) mg/dL Random Glucose Cancelled Hemoglobin A1c (4.2-6.5) % Calcium Cancelled Phosphorus (2.5-4.5) mg/dL Magnesium (1.7-2.2) mg/dL Total Bilirubin (0.2-1.3) mg/dL AST (15-39) U/L ALT (7-56) U/L Alkaline Phosphatase (38-133) U/L Lactate Dehydrogenase 2061 H (333-699) U/L Total Creatine Kinase 2006 H (35-230) U/L CK-MB (CK-2) 59.6 H (0.0-3.6) ng/mL CK-MB (CK-2) % 3.0 (2.5-3.0) % Troponin I 79.70 H* D ng/mL Total Protein (5.8-8.3) g/dL Albumin (3.0-4.8) g/dL Globulin gm/dL Albumin/Globulin Ratio (1.1-1.8) Triglycerides (35-160) mg/dL Cholesterol (130-200) mg/dL LDL Cholesterol Direct (0-129) mg/dL HDL Cholesterol (29-60) mg/dL Procalcitonin (0.19-0.49) NG/ML TSH 3rd Generation (0.46-4.68) mIU/mL 06/23/16 Range/Units 11:14 WBC (4.5-11.0) 10^3/ul RBC (3.5-6.1) 10^6/uL Hgb (12.0-16.0) gm/dL Hct (36.0-48.0) % MCV (80.0-105.0) fL MCH (25.0-35.0) pg MCHC (31.0-37.0) g/dl RDW (11.5-14.5) % Plt Count (120.0-450.0) 10^3/uL MPV (7.0-11.0) fl Gran % (50.0-68.0) % Lymph % (Auto) (22.0-35.0) % [place] % (Auto) (1.0-6.0) % Eos % (Auto) (1.5-5.0) % Baso % (Auto) (0.0-3.0) % Gran # (1.4-6.5) Lymph # (1.2-3.4) [place]ard # (0.1-0.6) Eos # (0.0-0.7) Baso # (0.0-2.0) K/mm3 APTT (23.7-30.8) Seconds pCO2 (35-45) mm/Hg pO2 (80-100) mm/Hg HCO3 (21-28) mmol/L ABG pH (7.35-7.45) ABG Total CO2 (22-28) mmol.L ABG O2 Saturation (95-98) % ABG O2 Content (15-23) ML/dl ABG Base Excess (-2.0-3.0) mmol/L ABG Hemoglobin (11.7-17.4) g/dL ABG Carboxyhemoglobin (0.5-1.5) % POC ABG HHb (Measured) (0-5) % ABG Methemoglobin (0.0-3.0) % ABG O2 Capacity (16-24) mL/dl Hgb O2 Saturation (95.0-98.0) % FiO2 % Sodium Potassium Chloride Carbon Dioxide Anion Gap BUN Creatinine (0.5-1.4) mg/dL Est GFR ( Amer) Est GFR (Non-Af Amer) POC Glucose (mg/dL) 375 H (65-110) mg/dL Random Glucose Hemoglobin A1c (4.2-6.5) % Calcium Phosphorus (2.5-4.5) mg/dL Magnesium (1.7-2.2) mg/dL Total Bilirubin (0.2-1.3) mg/dL AST (15-39) U/L ALT (7-56) U/L Alkaline Phosphatase (38-133) U/L Lactate Dehydrogenase (333-699) U/L Total Creatine Kinase (35-230) U/L CK-MB (CK-2) (0.0-3.6) ng/mL CK-MB (CK-2) % (2.5-3.0) % Troponin I ng/mL Total Protein (5.8-8.3) g/dL Albumin (3.0-4.8) g/dL Globulin gm/dL Albumin/Globulin Ratio (1.1-1.8) Triglycerides (35-160) mg/dL Cholesterol (130-200) mg/dL LDL Cholesterol Direct (0-129) mg/dL HDL Cholesterol (29-60) mg/dL Procalcitonin (0.19-0.49) NG/ML TSH 3rd Generation (0.46-4.68) mIU/mL Laboratory Results - last 24 hr 06/23/16 06/23/16 06/23/16 11:14 11:50 12:00 WBC RBC Hgb Hct MCV MCH MCHC RDW Plt Count MPV Gran % Lymph % (Auto) [place] % (Auto) Eos % (Auto) Baso % (Auto) Gran # Lymph # [place] # Eos # Baso # APTT pCO2 pO2 HCO3 ABG pH ABG Total CO2 ABG O2 Saturation ABG O2 Content ABG Base Excess ABG Hemoglobin ABG Carboxyhemoglobin POC ABG HHb (Measured) ABG Methemoglobin ABG O2 Capacity Hgb O2 Saturation FiO2 Sodium Cancelled Potassium Cancelled Chloride Cancelled Carbon Dioxide Cancelled Anion Gap Cancelled BUN Cancelled Creatinine Est GFR ( Amer) Cancelled Est GFR (Non-Af Amer) Cancelled POC Glucose (mg/dL) 375 H 354 H Random Glucose Cancelled Hemoglobin A1c Calcium Cancelled Phosphorus Magnesium Total Bilirubin AST ALT Alkaline Phosphatase Lactate Dehydrogenase 2061 H Total Creatine Kinase 2006 H CK-MB (CK-2) 59.6 H CK-MB (CK-2) % 3.0 Troponin I 79.70 H* D Total Protein Albumin Globulin Albumin/Globulin Ratio Triglycerides Cholesterol LDL Cholesterol Direct HDL Cholesterol Procalcitonin TSH 3rd Generation 06/23/16 06/23/16 06/23/16 12:59 13:38 14:24 WBC RBC Hgb Hct MCV MCH MCHC RDW Plt Count MPV Gran % Lymph % (Auto) [place] % (Auto) Eos % (Auto) Baso % (Auto) Gran # Lymph # [place] # Eos # Baso # APTT pCO2 pO2 HCO3 ABG pH ABG Total CO2 ABG O2 Saturation ABG O2 Content ABG Base Excess ABG Hemoglobin ABG Carboxyhemoglobin POC ABG HHb (Measured) ABG Methemoglobin ABG O2 Capacity Hgb O2 Saturation FiO2 Sodium 145 Potassium 3.7 Chloride 114 H Carbon Dioxide 18 L Anion Gap 17 BUN 54 H Creatinine 2.6 H Est GFR ( Amer) 23 Est GFR (Non-Af Amer) 19 POC Glucose (mg/dL) 279 H 193 H Random Glucose 152 H Hemoglobin A1c Calcium 9.1 Phosphorus Magnesium Total Bilirubin 0.6 AST 219 H ALT 54 Alkaline Phosphatase 108 Lactate Dehydrogenase Total Creatine Kinase CK-MB (CK-2) CK-MB (CK-2) % Troponin I Total Protein 6.9 Albumin 3.6 Globulin 3.3 Albumin/Globulin Ratio 1.1 Triglycerides Cholesterol LDL Cholesterol Direct HDL Cholesterol Procalcitonin TSH 3rd Generation 0406/23/16 06/23/16 17:44 18:34 18:34 WBC 11.1 H RBC 4.60 Hgb 10.2 L Hct 33.4 L MCV 72.6 L MCH 22.2 L MCHC 30.5 L RDW 16.9 H Plt Count 269 MPV 11.2 H Gran % 79.9 H Lymph % (Auto) 9.9 L [place] % (Auto) 9.6 H Eos % (Auto) 0.3 L Baso % (Auto) 0.3 Gran # 8.85 H Lymph # 1.1 L [place] # 1.1 H Eos # 0.0 Baso # 0.03 APTT pCO2 pO2 HCO3 ABG pH ABG Total CO2 ABG O2 Saturation ABG O2 Content ABG Base Excess ABG Hemoglobin ABG Carboxyhemoglobin POC ABG HHb (Measured) ABG Methemoglobin ABG O2 Capacity Hgb O2 Saturation FiO2 Sodium 145 Potassium 3.7 Chloride 113 H Carbon Dioxide 19 L Anion Gap 17 BUN 53 H Creatinine 2.7 H Est GFR ( Amer) 22 Est GFR (Non-Af Amer) 18 POC Glucose (mg/dL) 143 H Random Glucose 130 H Hemoglobin A1c Calcium 9.0 Phosphorus Magnesium Total Bilirubin AST ALT Alkaline Phosphatase Lactate Dehydrogenase Cancelled Total Creatine Kinase Cancelled CK-MB (CK-2) CK-MB (CK-2) % Troponin I Cancelled Total Protein Albumin Globulin Albumin/Globulin Ratio Triglycerides Cholesterol LDL Cholesterol Direct HDL Cholesterol Procalcitonin TSH 3rd Generation 06/23/16 06/23/16 06/23/16 18:58 20:27 21:08 WBC RBC Hgb Hct MCV MCH MCHC RDW Plt Count MPV Gran % Lymph % (Auto) [place] % (Auto) Eos % (Auto) Baso % (Auto) Gran # Lymph # [place] # Eos # Baso # APTT pCO2 pO2 HCO3 ABG pH ABG Total CO2 ABG O2 Saturation ABG O2 Content ABG Base Excess ABG Hemoglobin ABG Carboxyhemoglobin POC ABG HHb (Measured) ABG Methemoglobin ABG O2 Capacity Hgb O2 Saturation FiO2 Sodium Potassium Chloride Carbon Dioxide Anion Gap BUN Creatinine Est GFR ( Amer) Est GFR (Non-Af Amer) POC Glucose (mg/dL) 133 H 156 H 129 H Random Glucose Hemoglobin A1c Calcium Phosphorus Magnesium Total Bilirubin AST ALT Alkaline Phosphatase Lactate Dehydrogenase Total Creatine Kinase CK-MB (CK-2) CK-MB (CK-2) % Troponin I Total Protein Albumin Globulin Albumin/Globulin Ratio Triglycerides Cholesterol LDL Cholesterol Direct HDL Cholesterol Procalcitonin TSH 3rd Generation 06/23/16 06/23/16 06/24/16 22:00 23:07 00:03 WBC RBC Hgb Hct MCV MCH MCHC RDW Plt Count MPV Gran % Lymph % (Auto) [place] % (Auto) Eos % (Auto) Baso % (Auto) Gran # Lymph # [place] # Eos # Baso # APTT pCO2 pO2 HCO3 ABG pH ABG Total CO2 ABG O2 Saturation ABG O2 Content ABG Base Excess ABG Hemoglobin ABG Carboxyhemoglobin POC ABG HHb (Measured) ABG Methemoglobin ABG O2 Capacity Hgb O2 Saturation FiO2 Sodium Potassium Chloride Carbon Dioxide Anion Gap BUN Creatinine Est GFR ( Amer) Est GFR (Non-Af Amer) POC Glucose (mg/dL) 168 H 169 H 168 H Random Glucose Hemoglobin A1c Calcium Phosphorus Magnesium Total Bilirubin AST ALT Alkaline Phosphatase Lactate Dehydrogenase Total Creatine Kinase CK-MB (CK-2) CK-MB (CK-2) % Troponin I Total Protein Albumin Globulin Albumin/Globulin Ratio Triglycerides Cholesterol LDL Cholesterol Direct HDL Cholesterol Procalcitonin TSH 3rd Generation 06/24/16 06/24/16 06/24/16 00:50 01:00 01:00 WBC RBC Hgb Hct MCV MCH MCHC RDW Plt Count MPV Gran % Lymph % (Auto) [place] % (Auto) Eos % (Auto) Baso % (Auto) Gran # Lymph # [place] # Eos # Baso # APTT pCO2 pO2 HCO3 ABG pH ABG Total CO2 ABG O2 Saturation ABG O2 Content ABG Base Excess ABG Hemoglobin ABG Carboxyhemoglobin POC ABG HHb (Measured) ABG Methemoglobin ABG O2 Capacity Hgb O2 Saturation FiO2 Sodium 148 Potassium 3.1 L Chloride 112 H Carbon Dioxide 21 Anion Gap 18 BUN 51 H Creatinine 2.7 H Est GFR ( Amer) 22 Est GFR (Non-Af Amer) 18 POC Glucose (mg/dL) Random Glucose 108 Hemoglobin A1c 8.7 H Calcium 8.8 Phosphorus Magnesium Total Bilirubin AST ALT Alkaline Phosphatase Lactate Dehydrogenase 3634 H Total Creatine Kinase 2727 H CK-MB (CK-2) 87.5 H CK-MB (CK-2) % 3.2 H Troponin I 195.00 H* D Total Protein Albumin Globulin Albumin/Globulin Ratio Triglycerides Cholesterol LDL Cholesterol Direct HDL Cholesterol Procalcitonin 2.89 H TSH 3rd Generation 06/24/16 06/24/16 06/24/16 01:23 02:08 03:04 WBC RBC Hgb Hct MCV MCH MCHC RDW Plt Count MPV Gran % Lymph % (Auto) [place] % (Auto) Eos % (Auto) Baso % (Auto) Gran # Lymph # [place] # Eos # Baso # APTT pCO2 pO2 HCO3 ABG pH ABG Total CO2 ABG O2 Saturation ABG O2 Content ABG Base Excess ABG Hemoglobin ABG Carboxyhemoglobin POC ABG HHb (Measured) ABG Methemoglobin ABG O2 Capacity Hgb O2 Saturation FiO2 Sodium Potassium Chloride Carbon Dioxide Anion Gap BUN Creatinine Est GFR ( Amer) Est GFR (Non-Af Amer) POC Glucose (mg/dL) 104 72 45 L Random Glucose Hemoglobin A1c Calcium Phosphorus Magnesium Total Bilirubin AST ALT Alkaline Phosphatase Lactate Dehydrogenase Total Creatine Kinase CK-MB (CK-2) CK-MB (CK-2) % Troponin I Total Protein Albumin Globulin Albumin/Globulin Ratio Triglycerides Cholesterol LDL Cholesterol Direct HDL Cholesterol Procalcitonin TSH 3rd Generation 06/24/16 06/24/16 06/24/16 04:30 05:14 06:00 WBC 9.7 RBC 4.19 Hgb 9.4 L Hct 29.6 L MCV 70.6 L MCH 22.4 L MCHC 31.8 RDW 16.6 H Plt Count 250 MPV 11.3 H Gran % 78.3 H Lymph % (Auto) 12.5 L [place] % (Auto) 8.6 H Eos % (Auto) 0.4 L Baso % (Auto) 0.2 Gran # 7.61 H Lymph # 1.2 [place]ard # 0.8 H Eos # 0.0 Baso # 0.02 APTT pCO2 pO2 HCO3 ABG pH ABG Total CO2 ABG O2 Saturation ABG O2 Content ABG Base Excess ABG Hemoglobin ABG Carboxyhemoglobin POC ABG HHb (Measured) ABG Methemoglobin ABG O2 Capacity Hgb O2 Saturation FiO2 Sodium Potassium Chloride Carbon Dioxide Anion Gap BUN Creatinine Est GFR ( Amer) Est GFR (Non-Af Amer) POC Glucose (mg/dL) 76 72 Random Glucose Hemoglobin A1c Calcium Phosphorus Magnesium Total Bilirubin AST ALT Alkaline Phosphatase Lactate Dehydrogenase Total Creatine Kinase CK-MB (CK-2) CK-MB (CK-2) % Troponin I Total Protein Albumin Globulin Albumin/Globulin Ratio Triglycerides Cholesterol LDL Cholesterol Direct HDL Cholesterol Procalcitonin TSH 3rd Generation 06/24/16 06/24/16 06/24/16 06:00 06:00 06:00 WBC RBC Hgb Hct MCV MCH MCHC RDW Plt Count MPV Gran % Lymph % (Auto) Garrard % (Auto) Eos % (Auto) Baso % (Auto) Gran # Lymph # Garrard # Eos # Baso # APTT 30.1 pCO2 pO2 HCO3 ABG pH ABG Total CO2 ABG O2 Saturation ABG O2 Content ABG Base Excess ABG Hemoglobin ABG Carboxyhemoglobin POC ABG HHb (Measured) ABG Methemoglobin ABG O2 Capacity Hgb O2 Saturation FiO2 Sodium 146 Potassium 3.5 L Chloride 117 H Carbon Dioxide 19 L Anion Gap 14 BUN 49 H Creatinine 2.7 H Est GFR ( Amer) 22 Est GFR (Non-Af Amer) 18 POC Glucose (mg/dL) Random Glucose 83 Hemoglobin A1c Calcium 8.2 L Phosphorus 3.7 Magnesium 2.0 Total Bilirubin 0.4 AST 376 H ALT 70 H Alkaline Phosphatase 80 Lactate Dehydrogenase Total Creatine Kinase CK-MB (CK-2) CK-MB (CK-2) % Troponin I Total Protein 6.1 Albumin 3.1 Globulin 3.0 Albumin/Globulin Ratio 1.0 L Triglycerides 191 H Cholesterol 139 LDL Cholesterol Direct 55 HDL Cholesterol 39 Procalcitonin TSH 3rd Generation 3.11 06/24/16 06/24/16 06/24/16 06:00 06:59 07:40 WBC RBC Hgb Hct MCV MCH MCHC RDW Plt Count MPV Gran % Lymph % (Auto) Garrard % (Auto) Eos % (Auto) Baso % (Auto) Gran # Lymph # Garrard # Eos # Baso # APTT pCO2 pO2 HCO3 ABG pH ABG Total CO2 ABG O2 Saturation ABG O2 Content ABG Base Excess ABG Hemoglobin ABG Carboxyhemoglobin POC ABG HHb (Measured) ABG Methemoglobin ABG O2 Capacity Hgb O2 Saturation FiO2 Sodium Potassium Chloride Carbon Dioxide Anion Gap BUN Creatinine Est GFR ( Amer) Est GFR (Non-Af Amer) POC Glucose (mg/dL) 81 81 Random Glucose Hemoglobin A1c Calcium Phosphorus Magnesium Total Bilirubin AST ALT Alkaline Phosphatase Lactate Dehydrogenase 3478 H Total Creatine Kinase 2379 H CK-MB (CK-2) 78.5 H CK-MB (CK-2) % 3.3 H Troponin I 172.00 H* Total Protein Albumin Globulin Albumin/Globulin Ratio Triglycerides Cholesterol LDL Cholesterol Direct HDL Cholesterol Procalcitonin TSH 3rd Generation 06/24/16 06/24/16 06/24/16 09:56 11:37 13:47 WBC 14.8 H D RBC 4.22 Hgb 9.6 L Hct 30.1 L MCV 71.3 L MCH 22.7 L MCHC 31.9 RDW 16.9 H Plt Count 254 MPV 11.1 H Gran % Lymph % (Auto) Garrard % (Auto) Eos % (Auto) Baso % (Auto) Gran # Lymph # Garrard # Eos # Baso # APTT pCO2 32 L pO2 267.0 H HCO3 16.9 L ABG pH 7.33 L ABG Total CO2 17.9 L ABG O2 Saturation 99.5 H ABG O2 Content 13.0 L ABG Base Excess -8.2 L ABG Hemoglobin 9.0 L ABG Carboxyhemoglobin 1.1 POC ABG HHb (Measured) 0.5 ABG Methemoglobin 0.8 ABG O2 Capacity 13.1 L Hgb O2 Saturation 97.6 FiO2 60.0 Sodium 146 Potassium 3.4 L Chloride 116 H Carbon Dioxide 18 L Anion Gap 15 BUN 50 H Creatinine 2.8 H Est GFR ( Amer) 21 Est GFR (Non-Af Amer) 17 POC Glucose (mg/dL) Random Glucose 80 Hemoglobin A1c Calcium 8.4 Phosphorus Magnesium Total Bilirubin AST ALT Alkaline Phosphatase Lactate Dehydrogenase Total Creatine Kinase CK-MB (CK-2) CK-MB (CK-2) % Troponin I Total Protein Albumin Globulin Albumin/Globulin Ratio Triglycerides Cholesterol LDL Cholesterol Direct HDL Cholesterol Procalcitonin TSH 3rd Generation 06/24/16 13:47 WBC RBC Hgb Hct MCV MCH MCHC RDW Plt Count MPV Gran % Lymph % (Auto) Garrard % (Auto) Eos % (Auto) Baso % (Auto) Gran # Lymph # Garrard # Eos # Baso # APTT pCO2 pO2 HCO3 ABG pH ABG Total CO2 ABG O2 Saturation ABG O2 Content ABG Base Excess ABG Hemoglobin ABG Carboxyhemoglobin POC ABG HHb (Measured) ABG Methemoglobin ABG O2 Capacity Hgb O2 Saturation FiO2 Sodium 144 Potassium 3.7 Chloride 113 H Carbon Dioxide 18 L Anion Gap 17 BUN 49 H Creatinine 3.0 H Est GFR ( Amer) 19 Est GFR (Non-Af Amer) 16 POC Glucose (mg/dL) Random Glucose 186 H Hemoglobin A1c Calcium 8.5 Phosphorus Magnesium Total Bilirubin 0.5 AST 339 H ALT 68 H Alkaline Phosphatase 92 Lactate Dehydrogenase Total Creatine Kinase CK-MB (CK-2) CK-MB (CK-2) % Troponin I Total Protein 6.5 Albumin 3.3 Globulin 3.2 Albumin/Globulin Ratio 1.0 L Triglycerides Cholesterol LDL Cholesterol Direct HDL Cholesterol Procalcitonin TSH 3rd Generation EKG/Cardiology Studies: Cardiology / EKG Studies 06/23/16 15:23 ELECTROCARDIOGRAM Stat Comment: Reason For Exam: chest pain 06/23/16 17:23 ELECTROCARDIOGRAM Urgent Comment: 12 lead EKG upon arrival in unit Reason For Exam: post ptca 06/24/16 17:30 ELECTROCARDIOGRAM DAILY Comment: Reason For Exam: chest pain Critical Care Progress Note - Nutrition Nutrition: Nutrition Category Date Time Status NPO Diet [DIET] Diets 06/23/16 Lunch Ordered Attending/Attestation - Attestation I have personally seen and examined this patient.: Yes I have fully participated in the care of the patient.: Yes I have reviewed all pertinent clinical information: Yes Notes (Text): 06/24/16 14:09 61 y/o F s/p LBBB STEMI CODE s/p 2 stents. On Epifibitide and heparin given Asprin, Plavix Beta blockers started. Milrinone started due to reduced EF and ATN Respiratory failure S/P SBT Extubated ON 3 L NC ATN Creatnine stable but not worsening yet. Urine output stable. May need HD in the near future. Nephrology following. UTI on ABX, cx pending DKA- Resolved on Levimir and sliding scale insulin. cc time 72 min
[2016-06-24] MEDS ORDERED: Metoprolol 1 mg/ml Inj IVP ONE (13:39)
[2016-06-24 13:52] LABS: HEMATOCRIT 30.1 % (36.0-48.0); MEAN CELL VOLUME 71.3 fL (80.0-105.0); MEAN CORPUSCULAR HEMOGLOBIN 22.7 pg (25.0-35.0); MEAN CORPUSCULAR HGB CONC 31.9 g/dl (31.0-37.0); MEAN PLATELET VOLUME 11.1 fl (7.0-11.0); RED CELL DISTRIBUTION WIDTH 16.9 % (11.5-14.5); WHITE BLOOD COUNT 14.8 10^3/ul (4.5-11.0)
[2016-06-24 14:02] LABS: BILIRUBIN,TOTAL 0.5 mg/dL (0.2-1.3); CALCIUM 8.5 mg/dL (8.4-10.5); POTASSIUM 3.7 mmol/L (3.6-5.0); TOTAL PROTEIN 6.5 g/dL (5.8-8.3)
[2016-06-24 16:00] VITALS: TEMP 98.7
[2016-06-24] MEDS ORDERED: Insulin Reg-LOW-Coverage SC SCH (16:30)
[2016-06-24] MEDS ORDERED: Etomidate 20 mg/10ml Inj IV ONE (21:40)
[2016-06-24] MEDS ORDERED: Amiodarone 150 mg/D5W 100 ml 150 MG/100 ML BAG IVPB ONE (21:50)
[2016-06-24] MEDS ORDERED: Amiodarone 150 mg/D5W 100 ml 150 MG/100 ML BAG ONE (21:50)
--- NOTE | 2016-06-24 21:58 | CP.PCM.PN ---
<Coral Arriaza - Last Filed: 06/25/16 00:06> Subjective - Date & Time of Evaluation Date of Evaluation: 06/24/16 Time of Evaluation: 09:35 - Subjective Subjective: Sofia Johnson note for Dr. Segundo- Coral Arriaza, PGY-1 Sofia Johnson called at 2131 Pt S & E at bedside. Per nursing- pt was vocalizing throughout day. This evening, pt has been diaphoretic since 7pm, c/o of abdominal pain, BP 90/48 at that time- nursing monitored BP, pt removing O2 during that time. Pt kept asking to be boosted up , no breath sounds on Right lung ham[place] as per nursing Saturation was 95%. Pt became bradycardic, eyes rolled back in her head, pt became unresponsive- sofia johnson was called. Pt with multiple episodes of pulselessness with CPR initiated x 4, achieved ROSC multiple times. Patient's family at bedside after 4th CPR with ROSC- pt started to become bradycardiac HR in 30's- no pulse detected via Dopplers- pt's family aware of situation- asked for resuscitative efforts to be discontinued. DNR order placed in EMR at 2332. Pt , pronounced at 2350 - Pt's family allowed to sit bedside. Objective - Vital Signs/Intake and Output Vital Signs (last 24 hours): Temp Pulse Resp BP Pulse Ox 98.7 F 110 H 16 92/48 L 97 06/24/16 15:59 06/24/16 20:50 06/24/16 20:50 06/24/16 20:30 06/24/16 20:50 Intake and Output: 06/24/16 06/25/16 18:59 06:59 Intake Total 2279 Output Total 325 Balance 1954 - Medications Medications: Current Medications Acetylcysteine (Acetylcysteine 20%) 6 ml PO Q12H [facility] Last Admin: 06/24/16 12:55 Dose: Not Given Albuterol/Ipratropium (Duoneb 3 Mg/0.5 Mg (3 Ml) Ud) 3 ml IH Q2H PRN PRN Reason: Shortness of Breath Aspirin (Ecotrin) 81 mg PO DAILY [facility] Last Admin: 06/24/16 09:03 Dose: 81 mg Clopidogrel Bisulfate (Plavix) 75 mg PO DAILY [facility] Last Admin: 06/24/16 09:03 Dose: 75 mg Heparin Sodium (Porcine) (Heparin) 5,000 units SC Q12 [facility] PRN Reason: Protocol Meropenem 1g/NS 100mL IVPB (Meropenem 1g/Ns 100ml Ivpb) 1 gm in 100 mls @ 100 mls/hr IVPB Q12 [facility] PRN Reason: Protocol Stop: 06/30/16 22:01 Last Admin: 06/24/16 09:03 Dose: 100 mls/hr Dextrose/Sodium Chloride (Dextrose 5%/0.45% Ns 1000 Ml) 1,000 mls @ 75 mls/hr IV .[id number] [facility] Last Admin: 06/24/16 17:08 Dose: 75 mls/hr Insulin Human Regular (Humulin R Low) 0 units SC ACHS [facility] PRN Reason: Protocol Last Admin: 06/24/16 16:39 Dose: 3 units Metoprolol Tartrate (Lopressor) 25 mg PO BID [facility] Last Admin: 06/24/16 17:21 Dose: Not Given Midazolam HCl (Versed Inj) 2 mg IVP Q2H PRN PRN Reason: Agitation Ondansetron HCl (Zofran Inj) 4 mg IVP Q4H PRN PRN Reason: Nausea/Vomiting Last Admin: 06/24/16 12:57 Dose: 4 mg Pantoprazole Sodium (Protonix Inj) 40 mg IVP DAILY [facility] Last Admin: 06/24/16 09:11 Dose: 40 mg - Labs Labs: 06/24/16 13:47 06/24/16 13:47 PT 12.2 Seconds (9.9-11.8) H 06/23/16 11:50 INR 1.13 (0.93-1.08) H 06/23/16 11:50 APTT 30.1 Seconds (23.7-30.8) 06/24/16 06:00 - Head Exam Head Exam: ATRAUMATIC, NORMAL INSPECTION, NORMOCEPHALIC - Eye Exam Eye Exam: absent: EOMI, Normal appearance, PERRL Pupil Exam: Fixed, Mydriatic. absent: NORMAL ACCOMODATION, PERRL - ENT Exam ENT Exam: Mucous Membranes Moist, Normal Exam - Neck Exam Neck Exam: absent: Full ROM, Normal Inspection - Respiratory Exam Respiratory Exam: absent: Decreased Breath Sounds, Clear to Ausculation Bilateral, Rales, Rhonchi, Wheezes, Respiratory Distress, NORMAL BREATHING PATTERN Additional comments: No breath sounds - Cardiovascular Exam Cardiovascular Exam: absent: Tachycardia, Irregular Rhythm, REGULAR RHYTHM, +S1 , +S2 - GI/Abdominal Exam GI & Abdominal Exam: Soft, Hypoactive Bowel Sounds - Neurological Exam Neurological Exam: absent: Alert, Awake, CN II-XII Intact, Oriented x3 - Psychiatric Exam Psychiatric exam: absent: Normal Affect, Normal Mood - Skin Skin Exam: Dry, Intact, Mottled (B/L LE). absent: Normal Color, Warm Additional comments: Left femoral central line placed Assessment and Plan - Assessment and Plan (Free Text) Assessment: Cardiac arrest w/ROSC x 4, resulting in expiration at Left femoral groin central line placed Stat labs ordered FU lactic acid FU cardiac ISO FU CMP FU Mg FU phos FU PTT FU CBC FU PT ABG shock panel pH 6.88, pCO2 25, pO2 97, HCO3 4.7, lactate 12.9 FU repeat ABG Pt given partial bolus of amio during code, ordered an amio drip- however did not initiate due to loss of pulse Given total of Epi x 8 Given total of Bicarb pushes x 5 Started on bicarb drip Started on epi drip Pt became pulseless x 3 w/initial of CPR Achieved ROSC multiple times Family decision to make pt DNR- order place Please see nursing notes for full details of code and treatment rendered. DW attending <Todd Segundo Q - Last Filed: 06/25/16 00:17> Objective - Vital Signs/Intake and Output Vital Signs (last 24 hours): Temp Pulse Resp BP Pulse Ox 98.7 F 110 H 16 92/48 L 97 06/24/16 15:59 06/24/16 20:50 06/24/16 20:50 06/24/16 20:30 06/24/16 20:50 Intake and Output: 06/24/16 06/25/16 18:59 06:59 Intake Total 2279 Output Total 325 Balance 1954 - Medications Medications: Current Medications Acetylcysteine (Acetylcysteine 20%) 6 ml PO Q12H [facility] Last Admin: 06/24/16 12:55 Dose: Not Given Albuterol/Ipratropium (Duoneb 3 Mg/0.5 Mg (3 Ml) Ud) 3 ml IH Q2H PRN PRN Reason: Shortness of Breath Aspirin (Ecotrin) 81 mg PO DAILY [facility] Last Admin: 06/24/16 09:03 Dose: 81 mg Clopidogrel Bisulfate (Plavix) 75 mg PO DAILY [facility] Last Admin: 06/24/16 09:03 Dose: 75 mg Heparin Sodium (Porcine) (Heparin) 5,000 units SC Q12 [facility] PRN Reason: Protocol Meropenem 1g/NS 100mL IVPB (Meropenem 1g/Ns 100ml Ivpb) 1 gm in 100 mls @ 100 mls/hr IVPB Q12 [facility] PRN Reason: Protocol Stop: 06/30/16 22:01 Last Admin: 06/24/16 09:03 Dose: 100 mls/hr Dextrose/Sodium Chloride (Dextrose 5%/0.45% Ns 1000 Ml) 1,000 mls @ 75 mls/hr IV .[id number] [facility] Last Admin: 06/24/16 17:08 Dose: 75 mls/hr Amiodarone HCl/Dextrose (Nexterone 360 Mg In D5w 200 Ml (Premix)) 360 mg in 200 mls @ 33.333 mls/hr IV .Q6H [facility]; 1 MG/MIN PRN Reason: Protocol Stop: 06/25/16 03:59 Amiodarone HCl/Dextrose (Nexterone 360 Mg In D5w 200 Ml (Premix)) 360 mg in 200 mls @ 16.667 mls/hr IV .Q12H [facility]; 0.5 MG/MIN PRN Reason: Protocol Sodium Bicarbonate 75 meq/ (Sodium Chloride) 1,075 mls @ 100 mls/hr IV .[id number] [facility] Epinephrine HCl 1 mg/ Sodium (Chloride) 51 mls @ 3.06 mls/hr IV .[id number] PRN; Protocol; 1 MCG/MIN PRN Reason: TITRATE PER MD ORDER Insulin Human Regular (Humulin R Low) 0 units SC ACHS [facility] PRN Reason: Protocol Last Admin: 06/24/16 16:39 Dose: 3 units Metoprolol Tartrate (Lopressor) 25 mg PO BID [facility] Last Admin: 06/24/16 17:21 Dose: Not Given Midazolam HCl (Versed Inj) 2 mg IVP Q2H PRN PRN Reason: Agitation Ondansetron HCl (Zofran Inj) 4 mg IVP Q4H PRN PRN Reason: Nausea/Vomiting Last Admin: 06/24/16 12:57 Dose: 4 mg Pantoprazole Sodium (Protonix Inj) 40 mg IVP DAILY [facility] Last Admin: 06/24/16 09:11 Dose: 40 mg - Labs Labs: 06/24/16 13:47 06/24/16 13:47 PT 12.2 Seconds (9.9-11.8) H 06/23/16 11:50 INR 1.13 (0.93-1.08) H 06/23/16 11:50 APTT 30.1 Seconds (23.7-30.8) 06/24/16 06:00 Attending/Attestation - Attestation I have personally seen and examined this patient.: Yes I have fully participated in the care of the patient.: Yes I have reviewed all pertinent clinical information, including history, physical exam and plan: Yes Notes (Text): 06/25/16 00:13 I agree with the above note by Dr. Arriaza with the following additions/exceptions: 61 y.o female with an extensive PMHx CAD with multiple stents (recent STEMI requiring 2 stents), COPD, Htn, DM with recent DKA underwent a pulseless cardiac arrest earlier this evening. Unclear etiology but likely has to do with her history of heart failure (EF < 20%) and recent STEMI. Patient required defibrillation 2x during the arrest; was placed on Amiodarone drip; extremely acidotic; all measures exhausted and family requested to abort aggressive measures and pursue a DNR/DNI status. Patient shortly thereafter at 11:50pm. labs throughout her stay reviewed; CXR after intubation reviewed total time of care: greater than 60 minutes EDRS CASE # [id number]
[2016-06-24] MEDS ORDERED: Amiodarone 360 mg/D5W 200 ml 360 MG/200 ML BAG IV SCH (22:00)
[2016-06-24] MEDS ORDERED: Sodium Bicarbonate (8.4%) 50 Meq Syringe ONE ×2 (22:41→23:05)
[2016-06-24] MEDS ORDERED: EPINEPHrine- 1 MG in Sodium Chloride 0.9% 50 ML IV PRN (23:13)
[2016-06-24 23:14] LABS: ARTERIAL BLOOD GAS PH 6.88 (7.35-7.45)
[2016-06-24 23:15] LABS: ARTERIAL BLOOD GAS HCO3 4.7 mmol/L (21-28)
--- NOTE | 2016-06-24 23:56 | CP.PCM.PRO ---
<Coral Arriaza - Last Filed: 06/25/16 00:05> Pronouncement of Note - Clinical Findings Physical Exam: No Response Verbal/Painful Stimuli, Absent Peripheral Pulses{ Carotid & Femoral}, Absent Heart & Breath Sounds, No Pupillary Light Reflex, No Corneal Reflex, Pupils Fixed & Dilated, Absence of Vital Signs - Pronouncement Time Time of Pronouncement of : 23:50 - Notifications Pronouncement Notifications: Family Notified, Atending Notified [employer] Notified: No - Autopsy Autopsy Requested: No - [place] [id number] <Todd Segundo - Last Filed: 06/25/16 00:18> Attending/Attestation - Attestation I have personally seen and examined this patient.: Yes I have fully participated in the care of the patient.: Yes I have reviewed all pertinent clinical information: Yes
[2016-06-25 01:25] VITALS: BP 90/66; PULSE 29; RESP 28; O2SAT 100
[2016-06-25] MEDS ORDERED: Amiodarone 360 mg/D5W 200 ml 360 MG/200 ML BAG IV SCH (04:00)
--- NOTE | 2016-06-25 07:05 | CP.PCM.PN ---
Subjective - Date & Time of Evaluation Date of Evaluation: 06/24/16 Time of Evaluation: 21:00 - Subjective Subjective: see intubation note Objective - Vital Signs/Intake and Output Vital Signs (last 24 hours): Temp Pulse Resp BP Pulse Ox 98.7 F 29 L 28 H 90/66 L 100 06/24/16 15:59 06/24/16 23:45 06/24/16 23:31 06/24/16 23:16 06/24/16 23:20 Intake and Output: 06/24/16 06/25/16 18:59 06:59 Intake Total 2279 Output Total 325 Balance 1953 - Labs Labs: 06/24/16 13:47 06/24/16 13:47 PT 12.2 Seconds (9.9-11.8) H 06/23/16 11:50 INR 1.13 (0.93-1.08) H 06/23/16 11:50 APTT 30.1 Seconds (23.7-30.8) 06/24/16 06:00 Anesthesia Emergent Intubation - Diagnosis Working Diagnosis:: cardiac arrest - Pre-Intubation Vital Signs Oxygen Delivery Method: Ambu-Bag Level Of Consciousness: Comatose/Unresponsive - Airway Management Oropharyngeal Area Suctioned: Yes Possible Aspiration: Yes - Method of Intubation Intubation Method: Oral ETT ETT Size: 8 Lipline@: 24 Easy: No (Initial attempts by resp therapist unsuccessful) Atramatic: Yes - Intubation Devices Natty Blade Size Used: 4 - Placement Confirmation Breath Sounds Present & Equal Bilaterally: Yes Gurgling Sounds Not Audible at Epigastrum: Yes Positive EtCO2: Yes Portable CXR: Yes (ET tip above darcy)
--- NOTE | 2016-06-25 09:23 | RAD ---
HISTORY: s/p cardiac arrest; evaluate ett position COMPARISON: Earlier same day FINDINGS: LUNGS: Endotracheal tube in satisfactory position. There is vascular and interstitial congestion slightly improved PLEURA: No significant pleural effusion identified, no pneumothorax apparent. CARDIOVASCULAR: Mild cardiomegaly OSSEOUS STRUCTURES: No significant abnormalities. VISUALIZED UPPER ABDOMEN: Normal. OTHER FINDINGS: None. IMPRESSION: Endotracheal tube in satisfactory position. Slight decrease in CHF
--- NOTE | 2016-06-25 11:27 | CARD ---
APPROVED REPORT EKG Measurement Heart [id number] <Conclusion> Idioventricular Rythm with Asystole Pauses.
--- NOTE | 2016-06-25 15:07 | CP.PCM.DIS ---
<Fariha Womack - Last Filed: 06/25/16 16:42> Provider - Provider Date of Admission: 06/23/16 07:37 Attending physician: Juliette Vasquez MD Primary care physician: Vinh Profile Required Time Spent in preparation of Discharge (in minutes): 30 Diagnosis - Discharge Diagnosis (1) Myocardial infarct Status: Acute (2) Respiratory failure with hypercapnia Status: Acute (3) NSTEMI (non-ST elevated myocardial infarction) Status: Acute (4) SIRS (systemic inflammatory response syndrome) Status: Acute (5) Metabolic acidosis Status: Acute (6) Pulmonary edema Status: Acute (7) Hyperglycemia Status: Acute (8) Coronary insufficiency Status: Chronic (9) CKD (chronic kidney disease) Status: Chronic (10) Diabetes mellitus with peripheral vascular disease Status: Chronic (11) HTN (hypertension) Status: Chronic (12) Hypothyroidism Status: Chronic (13) PVD (peripheral vascular disease) Status: Chronic (14) CHF (congestive heart failure) Status: Chronic Hospital Course - Lab Results Lab Results: Micro Results 06/23/16 10:30 Nose MRSA Culture (Admit) - Final MRSA NOT DETECTED 06/23/16 09:43 Urine,Clean Catch Urine Culture - Final No Growth (<1,000 CFU/ML) Most Recent Lab Values WBC 14.8 10^3/ul (4.5-11.0) H D 06/24/16 13:47 RBC 4.22 10^6/uL (3.5-6.1) 06/24/16 13:47 Hgb 9.6 gm/dL (12.0-16.0) L 06/24/16 13:47 Hct 30.1 % (36.0-48.0) L 06/24/16 13:47 MCV 71.3 fL (80.0-105.0) L 06/24/16 13:47 MCH 22.7 pg (25.0-35.0) L 06/24/16 13:47 MCHC 31.9 g/dl (31.0-37.0) 06/24/16 13:47 RDW 16.9 % (11.5-14.5) H 06/24/16 13:47 Plt Count 254 10^3/uL (120.0-450.0) 06/24/16 13:47 MPV 11.1 fl (7.0-11.0) H 06/24/16 13:47 Gran % 78.3 % (50.0-68.0) H 06/24/16 06:00 Lymph % (Auto) 12.5 % (22.0-35.0) L 06/24/16 06:00 Hill % (Auto) 8.6 % (1.0-6.0) H 06/24/16 06:00 Eos % (Auto) 0.4 % (1.5-5.0) L 06/24/16 06:00 Baso % (Auto) 0.2 % (0.0-3.0) 06/24/16 06:00 Gran # 7.61 (1.4-6.5) H 06/24/16 06:00 Lymph # 1.2 (1.2-3.4) 06/24/16 06:00 Hill # 0.8 (0.1-0.6) H 06/24/16 06:00 Eos # 0.0 (0.0-0.7) 06/24/16 06:00 Baso # 0.02 K/mm3 (0.0-2.0) 06/24/16 06:00 Neutrophils % (Manual) 71 % (50.0-70.0) H 06/23/16 06:18 Band Neutrophils % 0 % (0-2) 06/23/16 06:18 Lymphocytes % (Manual) 27 % (22.0-35.0) 06/23/16 06:18 Atypical Lymphs % 1 % (0.0-0.0) H 06/23/16 06:18 Monocytes % (Manual) 1 % (1.0-6.0) 06/23/16 06:18 Platelet Evaluation Normal (NORMAL) 06/23/16 06:18 Hypochromasia 1+ 06/23/16 06:18 Anisocytosis (manual) Slight 06/23/16 06:18 PT 12.2 Seconds (9.9-11.8) H 06/23/16 11:50 INR 1.13 (0.93-1.08) H 06/23/16 11:50 APTT 30.1 Seconds (23.7-30.8) 06/24/16 06:00 pCO2 25 mm/Hg (35-45) L 06/24/16 22:25 pO2 97.0 mm/Hg (80-100) 06/24/16 22:25 HCO3 4.7 mmol/L (21-28) L* 06/24/16 22:25 ABG pH 6.88 (7.35-7.45) L* 06/24/16 22:25 ABG Total CO2 5.5 mmol.L (22-28) L 06/24/16 22:25 ABG O2 Saturation 98.0 % (95-98) 06/24/16 22:25 ABG O2 Content 13.0 ML/dl (15-23) L 06/24/16 09:56 ABG Base Excess -27.7 mmol/L (-2.0-3.0) L 06/24/16 22:25 ABG Hemoglobin 9.0 g/dL (11.7-17.4) L 06/24/16 09:56 ABG Carboxyhemoglobin 1.1 % (0.5-1.5) 06/24/16 09:56 POC ABG HHb (Measured) 0.5 % (0-5) 06/24/16 09:56 ABG Methemoglobin 0.8 % (0.0-3.0) 06/24/16 09:56 ABG O2 Capacity 13.1 mL/dl (16-24) L 06/24/16 09:56 ABG Potassium 4.9 mmol/L (3.6-5.2) 06/24/16 22:25 VBG pH 7.20 (7.32-7.43) L 06/23/16 10:46 VBG pCO2 50.0 (40-60) 06/23/16 10:46 VBG HCO3 19.5 mmol/l (21-28) L 06/23/16 10:46 VBG Total CO2 21.0 mmol.L (22-28) L 06/23/16 10:46 VBG O2 Sat (Calc) 98.2 % (40-65) H 06/23/16 10:46 VBG Base Excess -8.7 mmol/L (0.0-2.0) L 06/23/16 10:46 VBG Potassium 4.3 mmol/L (3.6-5.2) 06/23/16 10:46 Hgb O2 Saturation 97.6 % (95.0-98.0) 06/24/16 09:56 Sodium 143.0 mmol/L (132-148) 06/24/16 22:25 Chloride 119.0 mmol/L (98-107) H 06/24/16 22:25 Glucose 202 mg/dl (65-105) H 06/24/16 22:25 Lactate 12.9 mmol/L (0.7-2.1) H* 06/24/16 22:25 Mechanical Rate 30 06/23/16 12:30 FiO2 21.0 % 06/24/16 22:25 Tidal Volume 350 06/23/16 12:30 PEEP 5 06/23/16 12:30 Sodium 144 mmol/L (132-148) 06/24/16 13:47 Potassium 3.7 mmol/L (3.6-5.0) 06/24/16 13:47 Chloride 113 mmol/L (98-107) H 06/24/16 13:47 Carbon Dioxide 18 mmol/L (21-33) L 06/24/16 13:47 Anion Gap 17 (10-20) 06/24/16 13:47 BUN 49 mg/dL (7-21) H 06/24/16 13:47 Creatinine 3.0 mg/dL (0.5-1.4) H 06/24/16 13:47 Est GFR ( Amer) 19 06/24/16 13:47 Est GFR (Non-Af Amer) 16 06/24/16 13:47 POC Glucose (mg/dL) 285 mg/dL (65-110) H 06/24/16 20:24 Random Glucose 186 mg/dL (70-110) H 06/24/16 13:47 Hemoglobin A1c 8.7 % (4.2-6.5) H 06/24/16 01:00 Calcium 8.5 mg/dL (8.4-10.5) 06/24/16 13:47 Phosphorus 3.7 mg/dL (2.5-4.5) 06/24/16 06:00 Magnesium 2.0 mg/dL (1.7-2.2) 06/24/16 06:00 Total Bilirubin 0.5 mg/dL (0.2-1.3) 06/24/16 13:47 AST 339 U/L (15-39) H 06/24/16 13:47 ALT 68 U/L (7-56) H 06/24/16 13:47 Alkaline Phosphatase 92 U/L (38-133) 06/24/16 13:47 Lactate Dehydrogenase 3478 U/L (333-699) H 06/24/16 06:00 Total Creatine Kinase 2379 U/L (35-230) H 06/24/16 06:00 CK-MB (CK-2) 78.5 ng/mL (0.0-3.6) H 06/24/16 06:00 CK-MB (CK-2) % 3.3 % (2.5-3.0) H 06/24/16 06:00 Troponin I 172.00 ng/mL H* 06/24/16 06:00 NT-Pro-B Natriuret Pep 7300 pg/mL (0-450) H 06/23/16 06:18 Total Protein 6.5 g/dL (5.8-8.3) 06/24/16 13:47 Albumin 3.3 g/dL (3.0-4.8) 06/24/16 13:47 Globulin 3.2 gm/dL 06/24/16 13:47 Albumin/Globulin Ratio 1.0 (1.1-1.8) L 06/24/16 13:47 Triglycerides 191 mg/dL (35-160) H 06/24/16 06:00 Cholesterol 139 mg/dL (130-200) 06/24/16 06:00 LDL Cholesterol Direct 55 mg/dL (0-129) 06/24/16 06:00 HDL Cholesterol 39 mg/dL (29-60) 06/24/16 06:00 Procalcitonin 2.89 NG/ML (0.19-0.49) H 06/24/16 01:00 Free T4 1.25 ng/dL (0.78-2.19) 06/23/16 11:50 Total T3 0.78 ng/mL (0.97-1.69) L 06/23/16 11:50 TSH 3rd Generation 3.11 mIU/mL (0.46-4.68) 06/24/16 06:00 Arterial Blood Potassium 4.9 mmol/L (3.6-5.2) 06/24/16 22:25 Venous Blood Potassium 4.3 mmol/L (3.6-5.2) 06/23/16 10:46 Urine Color Yellow (YELLOW) 06/23/16 07:00 Urine Appearance Turbid (CLEAR) 06/23/16 07:00 Urine pH 6.0 (4.7-8.0) 06/23/16 07:00 Ur Specific [place] >= 1.030 (1.005-1.035) 06/23/16 07:00 Urine Protein >=300 mg/dL (<30 mg/dL) H 06/23/16 07:00 Urine Glucose (UA) 250 mg/dL (NEGATIVE) H 06/23/16 07:00 Urine Ketones Negative mg/dL (NEGATIVE) 06/23/16 07:00 Urine Blood Moderate (NEGATIVE) H 06/23/16 07:00 Urine Nitrate Negative (NEGATIVE) 06/23/16 07:00 Urine Bilirubin Negative (NEGATIVE) 06/23/16 07:00 Urine Urobilinogen 0.2 E.U./dL (<1 E.U./dL) 06/23/16 07:00 Ur Leukocyte Esterase Small Renetta/uL (NEGATIVE) H 06/23/16 07:00 Urine RBC 2 - 5 /hpf (0-2) 06/23/16 07:00 Urine WBC 1 - 3 /hpf (0-6) 06/23/16 07:00 Ur Epithelial Cells 4 - 5 /hpf (0-5) 06/23/16 07:00 Urine Bacteria Many (NEG) 06/23/16 07:00 Hyaline Casts 0 - 2 /hpf 06/23/16 07:00 Coarse Granular Casts Trace /hpf (0-2) H 06/23/16 07:00 Urine Other Mucus 06/23/16 07:00 - Hospital Course Hospital Course: Pt is a 61 morbidly obese female with PMH including CAD s/p 2 separate cardiac catheterizations with placement of 6 stents, COPD, HTN, CKD and DM2 with PSH of appendectomy who was BIBA with acute respiratory distress. Patient was unresponsive at time of presentation, HR was 116 and pulse ox was 84% on non- rebreather mask. Patient was intubated in the ER. CXR showed diffuse non- specific pneumonitis. VBG showed acute respiratory acidosis on top of metabolic acidosis. Glucose was 488, lactic acid 6.4, anion gap 23. EKG showed sinus tachycardia, possible left atrial enlargement, occasional PAC's, and new onset LBBB. Patient was given lasix, 3L fluid boluses, antibiotics, and sodium bicarb in the ER. CXR showed Patient was admitted to the ICU for further workup and monitoring, and was started on a heparin drip and insulin drip, and cardiology and ID were consulted. Initial trop was 0.1 but elevated to 79 within 6 hours. Patient was sent for emergent cardiac cath and 2 coronary artery stents were placed. Patient was stable overnight, and clinically improved the next day. She was awake, alert, oriented, and successfully weaned off the ventilator the day after admit. Pulmonary and nephrology were consulted. Patient continued to improve throughout the day but became SOB and hypotensive that night and was found unresponsive and pulseless at 2130 and code alex was called. CPR was initiatedx4 and she received ROSC multiple times. After 4th ROSC, patient became bradycardic with HR in the 30's and patient's family requested resuscitative efforts be discontinued. DNR was ordered at 2332 and patient was pronounced at 2350. For full hospital course, please refer to full chart. Discharge Exam - Additional Findings Additional findings: As per Code Blue note: - Head Exam Head Exam: ATRAUMATIC, NORMAL INSPECTION, NORMOCEPHALIC - Eye Exam Eye Exam: absent: EOMI, Normal appearance, PERRL Pupil Exam: Fixed, Mydriatic. absent: NORMAL ACCOMODATION, PERRL - ENT Exam ENT Exam: Mucous Membranes Moist, Normal Exam - Neck Exam Neck Exam: absent: Full ROM, Normal Inspection - Respiratory Exam Respiratory Exam: absent: Decreased Breath Sounds, Clear to Ausculation Bilateral, Rales, Rhonchi, Wheezes, Respiratory Distress, NORMAL BREATHING PATTERN Additional comments: No breath sounds - Cardiovascular Exam Cardiovascular Exam: absent: Tachycardia, Irregular Rhythm, REGULAR RHYTHM, +S1 , +S2 - GI/Abdominal Exam GI & Abdominal Exam: Soft, Hypoactive Bowel Sounds - Neurological Exam Neurological Exam: absent: Alert, Awake, CN II-XII Intact, Oriented x3 - Psychiatric Exam Psychiatric exam: absent: Normal Affect, Normal Mood - Skin Skin Exam: Dry, Intact, Mottled (B/L LE). absent: Normal Color, Warm Additional comments: Discharge Plan - Follow Up Plan Condition: SERIOUS Disposition: WITH WITHOUT AUTOPSY Referrals: [facility] Profile Req, [Primary Care Provider] - <Marycarmen FLORES,[facility] - Last Filed: 06/25/16 17:30> Provider - Provider Date of Admission: 06/23/16 07:37 Attending physician: Juliette Vasquez MD Primary care physician: Vinh Davis Required Hospital Course - Lab Results Lab Results: Micro Results 06/23/16 10:30 Nose MRSA Culture (Admit) - Final MRSA NOT DETECTED 06/23/16 09:43 Urine,Clean Catch Urine Culture - Final No Growth (<1,000 CFU/ML) Most Recent Lab Values WBC 14.8 10^3/ul (4.5-11.0) H D 06/24/16 13:47 RBC 4.22 10^6/uL (3.5-6.1) 06/24/16 13:47 Hgb 9.6 gm/dL (12.0-16.0) L 06/24/16 13:47 Hct 30.1 % (36.0-48.0) L 06/24/16 13:47 MCV 71.3 fL (80.0-105.0) L 06/24/16 13:47 MCH 22.7 pg (25.0-35.0) L 06/24/16 13:47 MCHC 31.9 g/dl (31.0-37.0) 06/24/16 13:47 RDW 16.9 % (11.5-14.5) H 06/24/16 13:47 Plt Count 254 10^3/uL (120.0-450.0) 06/24/16 13:47 MPV 11.1 fl (7.0-11.0) H 06/24/16 13:47 Gran % 78.3 % (50.0-68.0) H 06/24/16 06:00 Lymph % (Auto) 12.5 % (22.0-35.0) L 06/24/16 06:00 Hill % (Auto) 8.6 % (1.0-6.0) H 06/24/16 06:00 Eos % (Auto) 0.4 % (1.5-5.0) L 06/24/16 06:00 Baso % (Auto) 0.2 % (0.0-3.0) 06/24/16 06:00 Gran # 7.61 (1.4-6.5) H 06/24/16 06:00 Lymph # 1.2 (1.2-3.4) 06/24/16 06:00 Hill # 0.8 (0.1-0.6) H 06/24/16 06:00 Eos # 0.0 (0.0-0.7) 06/24/16 06:00 Baso # 0.02 K/mm3 (0.0-2.0) 06/24/16 06:00 Neutrophils % (Manual) 71 % (50.0-70.0) H 06/23/16 06:18 Band Neutrophils % 0 % (0-2) 06/23/16 06:18 Lymphocytes % (Manual) 27 % (22.0-35.0) 06/23/16 06:18 Atypical Lymphs % 1 % (0.0-0.0) H 06/23/16 06:18 Monocytes % (Manual) 1 % (1.0-6.0) 06/23/16 06:18 Platelet Evaluation Normal (NORMAL) 06/23/16 06:18 Hypochromasia 1+ 06/23/16 06:18 Anisocytosis (manual) Slight 06/23/16 06:18 PT 12.2 Seconds (9.9-11.8) H 06/23/16 11:50 INR 1.13 (0.93-1.08) H 06/23/16 11:50 APTT 30.1 Seconds (23.7-30.8) 06/24/16 06:00 pCO2 25 mm/Hg (35-45) L 06/24/16 22:25 pO2 97.0 mm/Hg (80-100) 06/24/16 22:25 HCO3 4.7 mmol/L (21-28) L* 06/24/16 22:25 ABG pH 6.88 (7.35-7.45) L* 06/24/16 22:25 ABG Total CO2 5.5 mmol.L (22-28) L 06/24/16 22:25 ABG O2 Saturation 98.0 % (95-98) 06/24/16 22:25 ABG O2 Content 13.0 ML/dl (15-23) L 06/24/16 09:56 ABG Base Excess -27.7 mmol/L (-2.0-3.0) L 06/24/16 22:25 ABG Hemoglobin 9.0 g/dL (11.7-17.4) L 06/24/16 09:56 ABG Carboxyhemoglobin 1.1 % (0.5-1.5) 06/24/16 09:56 POC ABG HHb (Measured) 0.5 % (0-5) 06/24/16 09:56 ABG Methemoglobin 0.8 % (0.0-3.0) 06/24/16 09:56 ABG O2 Capacity 13.1 mL/dl (16-24) L 06/24/16 09:56 ABG Potassium 4.9 mmol/L (3.6-5.2) 06/24/16 22:25 VBG pH 7.20 (7.32-7.43) L 06/23/16 10:46 VBG pCO2 50.0 (40-60) 06/23/16 10:46 VBG HCO3 19.5 mmol/l (21-28) L 06/23/16 10:46 VBG Total CO2 21.0 mmol.L (22-28) L 06/23/16 10:46 VBG O2 Sat (Calc) 98.2 % (40-65) H 06/23/16 10:46 VBG Base Excess -8.7 mmol/L (0.0-2.0) L 06/23/16 10:46 VBG Potassium 4.3 mmol/L (3.6-5.2) 06/23/16 10:46 Hgb O2 Saturation 97.6 % (95.0-98.0) 06/24/16 09:56 Sodium 143.0 mmol/L (132-148) 06/24/16 22:25 Chloride 119.0 mmol/L (98-107) H 06/24/16 22:25 Glucose 202 mg/dl (65-105) H 06/24/16 22:25 Lactate 12.9 mmol/L (0.7-2.1) H* 06/24/16 22:25 Mechanical Rate 30 06/23/16 12:30 FiO2 21.0 % 06/24/16 22:25 Tidal Volume 350 06/23/16 12:30 PEEP 5 06/23/16 12:30 Sodium 144 mmol/L (132-148) 06/24/16 13:47 Potassium 3.7 mmol/L (3.6-5.0) 06/24/16 13:47 Chloride 113 mmol/L (98-107) H 06/24/16 13:47 Carbon Dioxide 18 mmol/L (21-33) L 06/24/16 13:47 Anion Gap 17 (10-20) 06/24/16 13:47 BUN 49 mg/dL (7-21) H 06/24/16 13:47 Creatinine 3.0 mg/dL (0.5-1.4) H 06/24/16 13:47 Est GFR ( Amer) 19 06/24/16 13:47 Est GFR (Non-Af Amer) 16 06/24/16 13:47 POC Glucose (mg/dL) 285 mg/dL (65-110) H 06/24/16 20:24 Random Glucose 186 mg/dL (70-110) H 06/24/16 13:47 Hemoglobin A1c 8.7 % (4.2-6.5) H 06/24/16 01:00 Calcium 8.5 mg/dL (8.4-10.5) 06/24/16 13:47 Phosphorus 3.7 mg/dL (2.5-4.5) 06/24/16 06:00 Magnesium 2.0 mg/dL (1.7-2.2) 06/24/16 06:00 Total Bilirubin 0.5 mg/dL (0.2-1.3) 06/24/16 13:47 AST 339 U/L (15-39) H 06/24/16 13:47 ALT 68 U/L (7-56) H 06/24/16 13:47 Alkaline Phosphatase 92 U/L (38-133) 06/24/16 13:47 Lactate Dehydrogenase 3478 U/L (333-699) H 06/24/16 06:00 Total Creatine Kinase 2379 U/L (35-230) H 06/24/16 06:00 CK-MB (CK-2) 78.5 ng/mL (0.0-3.6) H 06/24/16 06:00 CK-MB (CK-2) % 3.3 % (2.5-3.0) H 06/24/16 06:00 Troponin I 172.00 ng/mL H* 06/24/16 06:00 NT-Pro-B Natriuret Pep 7300 pg/mL (0-450) H 06/23/16 06:18 Total Protein 6.5 g/dL (5.8-8.3) 06/24/16 13:47 Albumin 3.3 g/dL (3.0-4.8) 06/24/16 13:47 Globulin 3.2 gm/dL 06/24/16 13:47 Albumin/Globulin Ratio 1.0 (1.1-1.8) L 06/24/16 13:47 Triglycerides 191 mg/dL (35-160) H 06/24/16 06:00 Cholesterol 139 mg/dL (130-200) 06/24/16 06:00 LDL Cholesterol Direct 55 mg/dL (0-129) 06/24/16 06:00 HDL Cholesterol 39 mg/dL (29-60) 06/24/16 06:00 Procalcitonin 2.89 NG/ML (0.19-0.49) H 06/24/16 01:00 Free T4 1.25 ng/dL (0.78-2.19) 06/23/16 11:50 Total T3 0.78 ng/mL (0.97-1.69) L 06/23/16 11:50 TSH 3rd Generation 3.11 mIU/mL (0.46-4.68) 06/24/16 06:00 Arterial Blood Potassium 4.9 mmol/L (3.6-5.2) 06/24/16 22:25 Venous Blood Potassium 4.3 mmol/L (3.6-5.2) 06/23/16 10:46 Urine Color Yellow (YELLOW) 06/23/16 07:00 Urine Appearance Turbid (CLEAR) 06/23/16 07:00 Urine pH 6.0 (4.7-8.0) 06/23/16 07:00 Ur Specific [place] >= 1.030 (1.005-1.035) 06/23/16 07:00 Urine Protein >=300 mg/dL (<30 mg/dL) H 06/23/16 07:00 Urine Glucose (UA) 250 mg/dL (NEGATIVE) H 06/23/16 07:00 Urine Ketones Negative mg/dL (NEGATIVE) 06/23/16 07:00 Urine Blood Moderate (NEGATIVE) H 06/23/16 07:00 Urine Nitrate Negative (NEGATIVE) 06/23/16 07:00 Urine Bilirubin Negative (NEGATIVE) 06/23/16 07:00 Urine Urobilinogen 0.2 E.U./dL (<1 E.U./dL) 06/23/16 07:00 Ur Leukocyte Esterase Small Renetta/uL (NEGATIVE) H 06/23/16 07:00 Urine RBC 2 - 5 /hpf (0-2) 06/23/16 07:00 Urine WBC 1 - 3 /hpf (0-6) 06/23/16 07:00 Ur Epithelial Cells 4 - 5 /hpf (0-5) 06/23/16 07:00 Urine Bacteria Many (NEG) 06/23/16 07:00 Hyaline Casts 0 - 2 /hpf 06/23/16 07:00 Coarse Granular Casts Trace /hpf (0-2) H 06/23/16 07:00 Urine Other Mucus 06/23/16 07:00 Attending/Attestation - Attestation I have personally seen and examined this patient.: No I have reviewed all pertinent clinical information, including history, physical exam and plan: Yes Notes (Text): 06/25/16 17:29 Please disregard the physical examination , was entered by mistake by medical photographer.
--- NOTE | 2016-06-25 16:58 | US ---
HISTORY: Leg pain and swelling. Evaluate for DVT PHYSICIAN(S): Dany Magana MD. TECHNIQUE: Duplex sonography and color-flow Doppler with graded compression were used to evaluate the deep venous systems of both lower extremities. The exam is limited by body habitus, edema, and the patient's inability to cooperate. FINDINGS: The visualized deep venous systems of both lower extremities are sonographically normal and compressible. Normal wave forms and augmentation are seen. There is no sonographic evidence for deep venous thrombosis in the visualized segments of both lower extremities. IMPRESSION: No sonographic evidence for deep venous thrombosis in the visualized segments of both lower extremities. Limited study.
== END 2016-06-24 23:50 | DRG 853 ==
LOC: ED 06:15 → ERH 07:37 → CCU 10:25
PROVIDERS: ADMIT Internal Medicine; ATTEND Internal Medicine
PROC: 027034Z Dilation of Coronary Artery, One Artery with Drug-eluting Intraluminal Device, Percutaneous Approach (ICD-10-PCS; principal; 2016-06-23)
PROC: 5A1945Z Respiratory Ventilation, 24-96 Consecutive Hours (ICD-10-PCS; 2016-06-23)
PROC: 0BH17EZ Insertion of Endotracheal Airway into Trachea, Via Natural or Artificial Opening (ICD-10-PCS; 2016-06-23)
PROC: 4A023N7 Measurement of Cardiac Sampling and Pressure, Left Heart, Percutaneous Approach (ICD-10-PCS; 2016-06-23)
PROC: B2011ZZ Plain Radiography of Multiple Coronary Arteries using Low Osmolar Contrast (ICD-10-PCS; 2016-06-23)
PROC: 3E033PZ Introduction of Platelet Inhibitor into Peripheral Vein, Percutaneous Approach (ICD-10-PCS; 2016-06-23)
PROC: 3E073GC Introduction of Other Therapeutic Substance into Coronary Artery, Percutaneous Approach (ICD-10-PCS; 2016-06-23)
DX: A41.9 Sepsis, unspecified organism (principal); I21.09 ST elevation (STEMI) myocardial infarction involving other coronary artery of anterior wall; J96.02 Acute respiratory failure with hypercapnia; N17.0 Acute kidney failure with tubular necrosis; I13.0 Hypertensive heart and chronic kidney disease with heart failure and stage 1 through stage 4 chronic kidney disease, or unspecified chronic kidney disease; I50.23 Acute on chronic systolic (congestive) heart failure; R57.0 Cardiogenic shock; J18.9 Pneumonia, unspecified organism; E13.10 Other specified diabetes mellitus with ketoacidosis without coma; N18.4 Chronic kidney disease, stage 4 (severe); Z68.42 Body mass index [BMI] 45.0-49.9, adult; E87.4 Mixed disorder of acid-base balance; N39.0 Urinary tract infection, site not specified; J44.0 Chronic obstructive pulmonary disease with (acute) lower respiratory infection; I08.3 Combined rheumatic disorders of mitral, aortic and tricuspid valves; I25.10 Atherosclerotic heart disease of native coronary artery without angina pectoris; E66.01 Morbid (severe) obesity due to excess calories; F41.9 Anxiety disorder, unspecified; I44.7 Left bundle-branch block, unspecified; E11.51 Type 2 diabetes mellitus with diabetic peripheral angiopathy without gangrene; E78.5 Hyperlipidemia, unspecified; K29.70 Gastritis, unspecified, without bleeding; F17.210 Nicotine dependence, cigarettes, uncomplicated; E11.21 Type 2 diabetes mellitus with diabetic nephropathy; Z66 Do not resuscitate; K76.0 Fatty (change of) liver, not elsewhere classified; Z79.4 Long term (current) use of insulin; Z95.5 Presence of coronary angioplasty implant and graft